=== PATIENT | female | born 1965 ===

== ENCOUNTER 2023-03-16 13:51 | Outpatient (AMB) | payer OTHER, SELFPAY ==
--- NOTE | 2023-03-16 14:15 | HO.NEPHOV_ITS ---
HPI HPI Comments History of Present Illness Details Bridget was seen in the office for follow-up of her renal transplant. She has longstanding diabetes. She had end-stage renal disease and was on renal replacement therapy. She does not have any UTIs, pain over her renal transplant, hematuria, dysuria, fever, suprapubic pain, nausea, vomiting, chills, rigors. Her blood sugars are fair and is better. Her blood pressure has been at goal. She has been compliant with her medications. She denies any active lower extremity vascular disease. She has been having shortness of breath on exertion. She has been investigated and followed up by her senior electrical project manager with home she has an appointment this Wednesday. She has no skin rashes. She maintains good hydration and avoids nonsteroidal anti-inflammatory medications. She has no side effects from her immunosuppressive medication. She was accompanied by her during this office visit. [facility] Medical History (Updated 03/16/23 @ 15:07 by Capo Dawson MD) Retinal hemorrhage Peripheral neuropathic pain Neuropathy Hypertension Hypercholesteremia ESRD (end stage renal disease) Diabetes mellitus Dermatitis Chronic kidney disease Cellulitis Surgical History (Updated 03/16/23 @ 14:12 by Eliza Draper MA) H/O tubal ligation History of carpal tunnel release -donor kidney transplant Family History (Updated 03/16/23 @ 14:13 by Eliza Draper MA) Sister Cancer Social History (Updated 03/16/23 @ 14:13 by Eliza Draper MA) Patient Tobacco Use Status: Former Tobacco user Vital Signs 03/16/23 14:16 Height 5 ft 3 in Weight 215 lb 2 oz BMI 38.1 BP 138/64 Blood Pressure Location Rt brachial Position Sitting Pulse 73 Pulse Source Pulse Oximeter Pulse Oximetry (%) 98 Oxygen Delivery Method Room Air Physical Exam Vital Signs: Last Vital Signs Pulse 73 03/16/23 14:16 BP 138/64 03/16/23 14:16 Pulse Ox 98 03/16/23 14:16 Oxygen Delivery Method Room Air 03/16/23 14:16 BMI result Body Mass Index 38.1 Const General: comfortable and no acute distress Orientation/consciousness: patient oriented x3 HEENT Head: Yes normocephalic Mouth: Normal oral and palatal mucosa present Eyes EOM: EOMs intact bilaterally Neck Neck: Yes supple Resp Auscultation: clear to auscultation bilaterally Cardio Jugular venous distension: no JVD Rate: regular rate GI Palpation (GI): Soft to palpation Auscultation: normal bowel sounds General: Yes no CVA tenderness Back/Spine/Pelvis Back: no CVA tenderness Skin General skin exam: no rashes or lesions noted Neuro General: patient oriented x3 and moves all extremities Extrem General: Yes no pedal edema Assessment & Plan Assessment & Plan (1) Renal transplant disorder: Code(s): T86.10 - Unspecified complication of kidney transplant Plan Bridget had ESRD from diabetic nephropathy. She underwent a donor re nal transplant. Her transplant function have been stable. Her blood pressure has been at goal. Her blood sugar is better controlled. she needs to lose weight. She is not on any Joshua inhibitor. She is not known to have any significant proteinuria. She has no side effects from her immunosuppression medications. She maintains good hydration. She avoids nonsteroidal anti- inflammatories. She needs to see a grocery clerk checking once a year. She has a follow-up with her senior electrical project manager this Wednesday. She has no other active vascular symptoms. She is on statins. I did not make any medication changes today. I ordered follow-up blood work including tacrolimus levels. All her and her 's questions were answered. Follow-up given. Orders: Orders Tacrolimus Prograf 03/16/23 T86.10 - Unspecified complication of kidney transplant Complete Blood Count Auto Diff 03/16/23 T86.10 - Unspecified complication of kidney transplant Creatinine 03/16/23 T86.10 - Unspecified complication of kidney transplant Electrolytes 03/16/23 T86.10 - Unspecified complication of kidney transplant Blood Urea Nitrogen 03/16/23 T86.10 - Unspecified complication of kidney transplant Calcium 03/16/23 T86.10 - Unspecified complication of kidney transplant Aspartate Amino Transferase 03/16/23 T86.10 - Unspecified complication of kidney transplant Alanine Aminotransferase 03/16/23 T86.10 - Unspecified complication of kidney transplant Hemoglobin A1c 03/16/23 T86.10 - Unspecified complication of kidney transplant Protein Creatinine Ratio, Ur 03/16/23 T86.10 - Unspecified complication of kidney transplant Coding Level of Care Code Est Pt Level 4 (69490) Diagnoses Renal transplant disorder T86.10 Results Reviewed Nephrology Results: No Data to Display
[2023-03-16 14:16] VITALS: BP 138/64; PULSE 73; O2SAT 98; BMI 38.1
== END 2023-03-16 15:10 | disposition home or self-care (01) ==
PROVIDERS: PCP Internal Medicine; Visit Provider Internal Medicine Nephrology
DX: T86.10 Unspecified complication of kidney transplant (principal)
CPT/HCPCS: 99214

== ENCOUNTER → 2023-03-16 13:51 | Outpatient (BNVA) | payer OTHER, SELFPAY | PROVIDERS: PCP Internal Medicine; Visit Provider Internal Medicine Nephrology | DX: T86.10 Unspecified complication of kidney transplant (principal) | CPT/HCPCS: 99212 ==

== ENCOUNTER 2023-06-08 10:04 | Outpatient (AMB) | payer OTHER, SELFPAY ==
--- NOTE | 2023-06-08 10:31 | HO.NEPHOV ---
HPI HPI Comments History of Present Illness Details Bridget was seen in the office for follow-up of her renal transplant. She has longstanding diabetes. Her BS is not well controlled. Her A1C was going up. She had end-stage renal disease and was on renal replacement therapy. She does not have any UTIs, pain over her renal transplant, hematuria, dysuria, fever, suprapubic pain, nausea, vomiting, chills, rigors. Her blood pressure has been at goal. She has been compliant with her medications. She denies any active lower extremity vascular disease. She has been investigated and followed up by her complaint investigations officer. She has no skin rashes. She maintains good hydration and avoids nonsteroidal anti-inflammatory medications. She has no side effects from her immunosuppressive medication. She was accompanied by her during this office visit. [facility] Medical History (Updated 06/08/23 @ 11:02 by Capo Dawson MD) Retinal hemorrhage Peripheral neuropathic pain Neuropathy Hypertension Hypercholesteremia ESRD (end stage renal disease) Diabetes mellitus Dermatitis Chronic kidney disease Cellulitis Surgical History H/O tubal ligation History of carpal tunnel release -donor kidney transplant Family History Sister Cancer Social History Patient Tobacco Use Status: Former Tobacco user Vital Signs 06/08/23 10:32 Height 5 ft 3 in Weight 214 lb BMI 37.9 BP 150/80 H Blood Pressure Location Lt brachial Position Sitting Pulse 71 Pulse Source Pulse Oximeter Pulse Oximetry (%) 99 Oxygen Delivery Method Room Air Physical Exam Vital Signs: Last Vital Signs Pulse 71 06/08/23 10:32 BP 150/80 H 06/08/23 10:32 Pulse Ox 99 06/08/23 10:32 Oxygen Delivery Method Room Air 06/08/23 10:32 BMI result Body Mass Index 37.9 Const General: comfortable and no acute distress Orientation/consciousness: patient oriented x3 HEENT Head: Yes normocephalic Mouth: Normal oral and palatal mucosa present Eyes EOM: EOMs intact bilaterally Neck Neck: Yes supple Resp Auscultation: clear to auscultation bilaterally Cardio Jugular venous distension: no JVD Rate: regular rate GI Palpation (GI): Soft to palpation Auscultation: normal bowel sounds General: Yes no CVA tenderness Back/Spine/Pelvis Back: no CVA tenderness Skin General skin exam: no rashes or lesions noted Neuro General: patient oriented x3 and moves all extremities Extrem General: Yes no pedal edema Assessment & Plan Assessment & Plan (1) Renal transplant disorder: Code(s): T86.10 - Unspecified complication of kidney transplant (2) Hypertension: Code(s): I10 - Essential (primary) hypertension Qualifiers: Hypertension type: primary hypertension Qualified Code(s): I10 - Essential (primary) hypertension Plan Bridget had ESRD from diabetic nephropathy. She underwent a donor renal transplant. Her transplant function have been stable. Her blood pressure has been at goal. Her blood sugar is better controlled. she needs to lose weight. She is not on any Joshua inhibitor. She is not known to have any significant proteinuria. She has no side effects from her immunosuppression medications. She maintains good hydration. She avoids nonsteroidal anti-inflammatories. She needs to see a solar sales advisor once a year. She has a follow-up with her complaint investigations officer & director trial. She has no other active vascular symptoms. She is on statins. I did not make any medication changes today. I ordered follow-up blood work including tacrolimus levels. All her and her 's questions were answered. Follow-up given. Orders: Orders Tacrolimus Prograf Today I10 - Essential (primary) hypertension, T86.10 - Unspecified complication of kidney transplant Blood Urea Nitrogen Today I10 - Essential (primary) hypertension, T86.10 - Unspecified complication of kidney transplant Calcium Today I10 - Essential (primary) hypertension, T86.10 - Unspecified complication of kidney transplant Electrolytes Today I10 - Essential (primary) hypertension, T86.10 - Unspecified complication of kidney transplant Coding Level of Care Code Est Pt Level 4 (16102) Diagnoses Renal transplant disorder T86.10 Primary hypertension I10 Hypertension type: primary hypertension Results Reviewed Nephrology Results: No Data to Display
[2023-06-08 10:32] VITALS: BP 150/80; PULSE 71; O2SAT 99; BMI 37.9
== END 2023-06-08 11:09 | disposition home or self-care (01) ==
PROVIDERS: PCP Internal Medicine; Visit Provider Internal Medicine Nephrology
DX: T86.10 Unspecified complication of kidney transplant (principal); I10 Essential (primary) hypertension
CPT/HCPCS: 99214

== ENCOUNTER → 2023-06-08 10:04 | Outpatient (BNVA) | payer OTHER, SELFPAY | PROVIDERS: PCP Internal Medicine; Visit Provider Internal Medicine Nephrology | DX: T86.10 Unspecified complication of kidney transplant (principal); I10 Essential (primary) hypertension | CPT/HCPCS: 99212 ==

== ENCOUNTER 2023-08-09 07:35 | Outpatient (REF) | payer OTHER, SELFPAY ==
[2023-08-09 07:58] LABS: Basophils Percent Auto 0.8 % (0-2); Eosinophils Absolute Auto 0.1 X10*3/uL (0.0-0.4); Eosinophils Percent Auto 2.3 % (0-4); Hematocrit 35.8 % (37.0-47.0); Hemoglobin 11.2 g/dl (12.0-16.0); Imm Gran Abs Auto 0.02 X10*3/uL (0.00-0.03); Imm Gran Pct Auto 0.4 % (0.0-0.4); Lymphocytes Percent Auto 18.5 % (20-40); MANUAL DIFF FLAG NO; Mean Corpuscular HGB Conc 31.3 g/dl (31.0-35.0); Mean Corpuscular Hemoglobin 26.6 pg (27.0-33.0); Mean Platelet Volume 11.2 fL (9.4-12.3); Monocytes Absolute Auto 0.5 X10*3/uL (0.1-1.2); Monocytes Percent Auto 9.1 % (2-11); Neutrophils Absolute Auto 3.7 x10*3/uL (2.0-8.3); Neutrophils Percent Auto 68.9 % (45-73); Platelet Count 180 X10*3/uL (160-400); Red Blood Count 4.21 X10*6/uL (4.20-5.50); Red Cell Distribution Width 13.1 % (11.0-16.0); White Blood Count 5.3 X10*3/uL (4.8-10.8)
[2023-08-09 08:19] LABS: Estimated Average Glucose 192 mg/dL; Hemoglobin A1c % 8.3 % (<6.0)
[2023-08-09 08:20] LABS: Alanine Aminotransferase 18 U/L (0-31); Anion Gap 15 (12-20); Aspartate Amino Transferase 12 U/L (5-31); Blood Urea Nitrogen 30 mg/dL (9-16); Calcium 10.1 mg/dL (8.4-10.2); Carbon Dioxide 21 mmol/L (22-29); Chloride 108 mmol/L (96-108); Estimated Glomerular Filt Rate 30; Potassium 4.6 mmol/L (3.3-5.1); Sodium 139 mmol/L (135-145)
[2023-08-09 09:53] LABS: Creatinine Urine 170.86 mg/dL; Protein/Creatinine Ratio, Ur 0.12 (<0.2); Total Protein Urine Random 21 mg/dL (<12)
[2023-08-10 12:23] LABS: Tacrolimus Prograf 7.3 mcg/L
== END 2023-08-09 07:36 | disposition home or self-care (01) ==
LOC: HO.LAB 07:35
PROVIDERS: PCP Internal Medicine; Visit Provider Internal Medicine Nephrology
DX: T86.10 Unspecified complication of kidney transplant (principal); I10 Essential (primary) hypertension; Z79.899 Other long term (current) drug therapy
CPT/HCPCS: 36415; 80051; 80197; 82310; 82565; 82570; 83036; 84156; 84450; 84460; 84520; 85025

== ENCOUNTER 2023-08-10 09:37 | Outpatient (AMB) | payer OTHER, SELFPAY ==
--- NOTE | 2023-08-10 09:40 | HO.NEPHOV_ITS ---
Vital Signs 08/10/23 09:47 Height 5 ft 3 in Weight 205 lb 6 oz BMI 36.4 BP 130/60 Blood Pressure Location Rt brachial Position Sitting Pulse 68 Pulse Source Pulse Oximeter Pulse Oximetry (%) 99 Oxygen Delivery Method Room Air Intake Visit Reasons: 2 Month F/U/ Confirmed Habitat Conservation Planner Required: No Accompanied by: Self / Same As Patient Allergies No Known Allergies Allergy (Verified 08/10/23 09:49) HPI Comments Details: Bridget was seen in the office for follow-up of her renal transplant. She has longstanding diabetes. She had end-stage renal disease and was on renal replacement therapy. She does not have any UTIs, pain over her renal transplant, hematuria, dysuria, fever, suprapubic pain, nausea, vomiting, chills, rigors. Her blood sugars are fair and is better. Her blood pressure has been at goal. She has been compliant with her medications. She denies any active lower extremity vascular disease. She has no skin rashes. She maintains good hydration and avoids nonsteroidal anti-inflammatory medications. She has no side effects from her immunosuppressive medication. [facility] Medical History (Updated 06/08/23 @ 11:02 by Capo Dawson MD) Retinal hemorrhage Peripheral neuropathic pain Neuropathy Hypertension Hypercholesteremia ESRD (end stage renal disease) Diabetes mellitus Dermatitis Chronic kidney disease Cellulitis Surgical History H/O tubal ligation History of carpal tunnel release -donor kidney transplant Family History Sister Cancer Social History Patient Tobacco Use Status: Former Tobacco user Physical Exam Const General: comfortable and no acute distress Orientation/consciousness: patient oriented x3 HEENT Head: Yes normocephalic Mouth: Normal oral and palatal mucosa present Eyes EOM: EOMs intact bilaterally Neck Neck: Yes supple Resp Auscultation: clear to auscultation bilaterally Cardio Jugular venous distension: no JVD Rate: regular rate GI Palpation (GI): Soft to palpation Auscultation: normal bowel sounds General: Yes no CVA tenderness Back/Spine/Pelvis Back: no CVA tenderness Skin General skin exam: no rashes or lesions noted Neuro General: patient oriented x3 and moves all extremities Extrem General: Yes no pedal edema Results Reviewed Nephrology Results: Hgb 11.2 g/dl (12.0-16.0) L 08/09/23 WBC 5.3 X10*3/uL (4.8-10.8) 08/09/23 Plt Count 180 X10*3/uL (160-400) 08/09/23 Sodium 139 mmol/L (135-145) 08/09/23 Potassium 4.6 mmol/L (3.3-5.1) 08/09/23 Chloride 108 mmol/L (96-108) 08/09/23 Carbon Dioxide 21 mmol/L (22-29) L 08/09/23 BUN 30 mg/dL (9-16) H 08/09/23 Creatinine 1.75 mg/dL (0.5-1.4) H 08/09/23 Calcium 10.1 mg/dL (8.4-10.2) 08/09/23 Urine Creatinine 170.86 mg/dL 08/09/23 Protein/Creatinin Ratio 0.12 (<0.2) 08/09/23 Assessment & Plan Assessment & Plan (1) Renal transplant disorder: Code(s): T86.10 - Unspecified complication of kidney transplant Category: Medical (2) Hypertension: Code(s): I10 - Essential (primary) hypertension Category: Medical Qualifiers: Hypertension type: primary hypertension Qualified Code(s): I10 - E ssential (primary) hypertension Plan Bridget had ESRD from diabetic nephropathy. She underwent a donor renal transplant. Her transplant function have been stable. Her blood pressure has been at goal. Her blood sugar is better controlled. she needs to lose weight. She is not on any Joshua inhibitor. She is not known to have any significant proteinuria. She has no side effects from her immunosuppression medications. She maintains good hydration. She avoids nonsteroidal anti- inflammatories. She needs to see a principal statistical scientist once a year. She has a follow-up with her manager science & consulting analyst. She has no other active vascular symptoms. She is on statins. I did not make any medication changes today. I ordered follow-up blood work including tacrolimus levels. All her questions were answered. Follow-up given. Orders: Orders Creatinine Today I10 - Essential (primary) hypertension, T86.10 - Unspecified complication of kidney transplant Blood Urea Nitrogen Today I10 - Essential (primary) hypertension, T86.10 - Unspecified complication of kidney transplant Tacrolimus Prograf Today I10 - Essential (primary) hypertension, T86.10 - Unspecified complication of kidney transplant Electrolytes Today I10 - Essential (primary) hypertension, T86.10 - Unspecified complication of kidney transplant Calcium Today I10 - Essential (primary) hypertension, T86.10 - Unspecified complication of kidney transplant Alanine Aminotransferase Today I10 - Essential (primary) hypertension, T86.10 - Unspecified complication of kidney transplant Aspartate Amino Transferase Today I10 - Essential (primary) hypertension, T86.10 - Unspecified complication of kidney transplant Complete Blood Count Auto Diff 3 Months I10 - Essential (primary) hypertension, T86.10 - Unspecified complication of kidney transplant Phosphorus Today I10 - Essential (primary) hypertension, T86.10 - Unspecified complication of kidney transplant Magnesium Today I10 - Essential (primary) hypertension, T86.10 - Unspecified complication of kidney transplant Hemoglobin A1c Today I10 - Essential (primary) hypertension, T86.10 - Unspecified complication of kidney transplant Coding Level of Care Code Est Pt Level 4 (14345) Diagnoses Renal transplant disorder T86.10 Primary hypertension I10 Hypertension type: primary hypertension
[2023-08-10 09:47] VITALS: BP 130/60; PULSE 68; O2SAT 99; BMI 36.4
== END 2023-08-10 10:30 | disposition home or self-care (01) ==
PROVIDERS: PCP Internal Medicine; Visit Provider Internal Medicine Nephrology
DX: T86.10 Unspecified complication of kidney transplant (principal); I10 Essential (primary) hypertension
CPT/HCPCS: 99214

== ENCOUNTER → 2023-08-10 09:37 | Outpatient (BNVA) | payer OTHER, SELFPAY | PROVIDERS: PCP Internal Medicine; Visit Provider Internal Medicine Nephrology | DX: E11.22 Type 2 diabetes mellitus with diabetic chronic kidney disease (principal); I12.0 Hypertensive chronic kidney disease with stage 5 chronic kidney disease or end stage renal disease; N18.6 End stage renal disease; E11.21 Type 2 diabetes mellitus with diabetic nephropathy; Z94.0 Kidney transplant status | CPT/HCPCS: 99212 ==

== ENCOUNTER 2023-12-07 08:43 | Outpatient (REF) | payer OTHER, SELFPAY ==
[2023-12-07 17:45] LABS: MANUAL DIFF FLAG NO
[2023-12-07 18:14] LABS: Basophils Absolute Auto 0.1 X10*3/uL (0.0-0.2); Basophils Percent Auto 1.6 % (0-2); Eosinophils Absolute Auto 0.1 X10*3/uL (0.0-0.4); Eosinophils Percent Auto 2.1 % (0-4); Hematocrit 35.7 % (37.0-47.0); Hemoglobin 10.8 g/dl (12.0-16.0); Imm Gran Abs Auto 0.01 X10*3/uL (0.00-0.03); Imm Gran Pct Auto 0.2 % (0.0-0.4); Lymphocytes Percent Auto 22.6 % (20-40); Mean Corpuscular HGB Conc 30.3 g/dl (31.0-35.0); Mean Corpuscular Hemoglobin 25.9 pg (27.0-33.0); Mean Corpuscular Volume 85.6 fL (80.0-98.0); Mean Platelet Volume 11.4 fL (9.4-12.3); Monocytes Absolute Auto 0.4 X10*3/uL (0.1-1.2); Monocytes Percent Auto 8.5 % (2-11); Neutrophils Absolute Auto 2.8 x10*3/uL (2.0-8.3); Platelet Count 216 X10*3/uL (160-400); Red Blood Count 4.17 X10*6/uL (4.20-5.50); Red Cell Distribution Width 13.8 % (11.0-16.0); White Blood Count 4.3 X10*3/uL (4.8-10.8)
[2023-12-07 18:25] LABS: Alanine Aminotransferase 27 U/L (0-31); Anion Gap 11 (12-20); Aspartate Amino Transferase 14 U/L (5-31); Blood Urea Nitrogen 32 mg/dL (9-16); Calcium 9.7 mg/dL (8.4-10.2); Carbon Dioxide 25 mmol/L (22-29); Chloride 109 mmol/L (96-108); Estimated Glomerular Filt Rate 39; Magnesium 1.6 mg/dL (1.6-2.6); Phosphorus 3.4 mg/dL (2.7-4.5); Potassium 5.1 mmol/L (3.3-5.1); Sodium 140 mmol/L (135-145)
[2023-12-08 05:19] LABS: Estimated Average Glucose 197 mg/dL; Hemoglobin A1c % 8.5 % (<6.0)
[2023-12-08 11:18] LABS: Tacrolimus Prograf 3.9 mcg/L
== END 2023-12-07 08:44 | disposition home or self-care (01) ==
LOC: HO.HKASLDS 08:43
PROVIDERS: Visit Provider Internal Medicine Nephrology
DX: T86.10 Unspecified complication of kidney transplant (principal); I10 Essential (primary) hypertension; Z13.1 Encounter for screening for diabetes mellitus
CPT/HCPCS: 36415; 80051; 80197; 82310; 82565; 83036; 83735; 84100; 84450; 84460; 84520; 85025

== ENCOUNTER 2023-12-09 12:42 | Outpatient (AMB) | payer OTHER, SELFPAY ==
--- NOTE | 2023-12-09 13:40 | HO.NEPHOV_ITS ---
Vital Signs 12/09/23 13:41 Height 5 ft 3 in Weight 200 lb 4 oz BMI 35.5 BP 148/70 H Blood Pressure Location Rt brachial Position Sitting Pulse 67 Pulse Source Pulse Oximeter Pulse Oximetry (%) 99 Oxygen Delivery Method Room Air Intake Visit Reasons: 3 mo flu- Conf Powder Line Repairer Required: No Accompanied by: Self / Same As Patient Allergies No Known Allergies Allergy (Verified 12/09/23 13:43) HPI Comments Details: Bridget was seen in the office for follow-up of her renal transplant. She has longstanding diabetes. She had end-stage renal disease and was on renal replacement therapy. She does not have any UTIs, pain over her renal transplant, hematuria, dysuria, fever, suprapubic pain, nausea, vomiting, chills, rigors. Her blood sugars are fair and is better. Her blood pressure has been at goal. She has been compliant with her medications. She denies any active lower extremity vascular disease. She has no skin rashes. She maintains good hydration and avoids nonsteroidal anti-inflammatory medications. She has no side effects from her immunosuppressive medication. She recently had E coli UTI needing hospitalization. [facility] Medical History (Updated 06/08/23 @ 11:02 by Capo Dawson MD) Retinal hemorrhage Peripheral neuropathic pain Neuropathy Hypertension Hypercholesteremia ESRD (end stage renal disease) Diabetes mellitus Dermatitis Chronic kidney disease Cellulitis Surgical History H/O tubal ligation History of carpal tunnel release -donor kidney transplant Family History Sister Cancer Social History Patient Tobacco Use Status: Former Tobacco user Review of Systems Const All systems reviewed & are unremarkable except as noted in HPI and below Physical Exam Vital Signs: Last Vital Signs Pulse 67 12/09/23 13:41 BP 148/70 H 12/09/23 13:41 Pulse Ox 99 12/09/23 13:41 Oxygen Delivery Method Room Air 12/09/23 13:41 BMI result Body Mass Index 35.5 Const General: comfortable and no acute distress Orientation/consciousness: patient oriented x3 HEENT Head: Yes normocephalic Mouth: Normal oral and palatal mucosa present Eyes EOM: EOMs intact bilaterally Neck Neck: Yes supple Resp Auscultation: clear to auscultation bilaterally Cardio Jugular venous distension: no JVD Rate: regular rate GI Palpation (GI): Soft to palpation Auscultation: normal bowel sounds General: Yes no CVA tenderness Back/Spine/Pelvis Back: no CVA tenderness Skin General skin exam: no rashes or lesions noted Neuro General: patient oriented x3 and moves all extremities Extrem General: Yes no pedal edema Results Reviewed Nephrology Results: Hgb 10.8 g/dl (12.0-16.0) L 12/07/23 WBC 4.3 X10*3/uL (4.8-10.8) L 12/07/23 Plt Count 216 X10*3/uL (160-400) 12/07/23 Sodium 140 mmol/L (135-145) 12/07/23 Potassium 5.1 mmol/L (3.3-5.1) 12/07/23 Chloride 109 mmol/L (96-108) H 12/07/23 Carbon Dioxide 25 mmol/L (22-29) 12/07/23 BUN 32 mg/dL (9-16) H 12/07/23 Creatinine 1.39 mg/dL (0.5-1.4) 12/07/23 Calcium 9.7 mg/dL (8.4-10.2) 12/07/23 Phosphorus 3.4 mg/dL (2.7-4.5) 12/07/23 Urine Creatinine 170.86 mg/dL 08/09/23 Protein/Creatinin Ratio 0.12 (<0.2) 08/09/23 Assessment & Plan Assessment & Plan (1) Renal transplant disorder: Code(s): T86.10 - Unspecified complication of kidney transplant Category: Medical (2) Hypertension: Code(s): I10 - Essential (primary) hypertension Category: Medical Qualifiers: Hypertension type: primary hypertension Qualified Code(s): I10 - Essential (primary) hypertension Plan Bridget had ESRD from diabetic nephropathy. She underwent a donor renal transplant. Her transplant function have been stable. Her blood pressure has been at goal. Her blood sugar is better controlled. she needs to lose weight. She is not on any Joshua inhibitor. She is not known to have any significant proteinuria. She has no side effects from her immunosuppression medications. She maintains good hydration. She avoids nonsteroidal anti- inflammatories. She needs to see a informatics specialist once a year. She has a follow-up with her director of claims & windows server specialist. She has no other active vascular symptoms. She is on statins. I did not make any medication changes today. I ordered follow-up blood work including tacrolimus levels. All her questions were answered. Follow-up given Orders: Orders Tacrolimus Prograf 3 Months I10 - Essential (primary) hypertension, T86.10 - Unspecified complication of kidney transplant Creatinine 3 Months I10 - Essential (primary) hypertension, T86.10 - Unspecified complication of kidney transplant Complete Blood Count Auto Diff 3 Months I10 - Essential (primary) hypertension, T86.10 - Unspecified complication of kidney transplant Blood Urea Nitrogen 3 Months I10 - Essential (primary) hypertension, T86.10 - Unspecified complication of kidney transplant Electrolytes 3 Months I10 - Essential (primary) hypertension, T86.10 - Unspecified complication of kidney transplant Coding Level of Care Code Est Pt Level 4 (88773) Diagnoses Renal transplant disorder T86.10 Primary hypertension I10 Hypertension type: primary hypertension
[2023-12-09 13:41] VITALS: BP 148/70; PULSE 67; O2SAT 99; BMI 35.5
== END 2023-12-09 14:04 | disposition home or self-care (01) ==
PROVIDERS: PCP Internal Medicine; Visit Provider Internal Medicine Nephrology
DX: T86.10 Unspecified complication of kidney transplant (principal); I10 Essential (primary) hypertension; E11.8 Type 2 diabetes mellitus with unspecified complications
CPT/HCPCS: 99214

== ENCOUNTER → 2023-12-09 12:42 | Outpatient (BNVA) | payer OTHER, SELFPAY | PROVIDERS: PCP Internal Medicine; Visit Provider Internal Medicine Nephrology | DX: E11.22 Type 2 diabetes mellitus with diabetic chronic kidney disease (principal); E11.65 Type 2 diabetes mellitus with hyperglycemia; I12.0 Hypertensive chronic kidney disease with stage 5 chronic kidney disease or end stage renal disease; N18.6 End stage renal disease; Z94.0 Kidney transplant status; T86.10 Unspecified complication of kidney transplant | CPT/HCPCS: 99212 ==

== ENCOUNTER 2024-03-09 13:30 | Outpatient (AMB) | payer OTHER, SELFPAY ==
--- NOTE | 2024-03-09 13:53 | HO.NEPHOV_ITS ---
Vital Signs 03/09/24 13:55 Height 5 ft 3 in Weight 212 lb 6 oz BMI 37.6 BP 164/70 H Blood Pressure Location Rt brachial Position Sitting Pulse 82 Pulse Source Pulse Oximeter Pulse Oximetry (%) 100 Oxygen Delivery Method Room Air Intake Visit Reasons: 3 mon follow up-Conf Orthopaedic Doctor Required: No Accompanied by: Spouse Allergies No Known Allergies Allergy (Verified 03/09/24 13:55) HPI Comments Details: Bridget was seen in the office for follow-up of her renal transplant. Her serum creatinine has gone up. She has longstanding diabetes. She had end-stage renal disease and was on renal replacement therapy. She does not have any UTIs, pain over her renal transplant, hematuria, dysuria, fever, suprapubic pain, nausea, vomiting, chills, rigors. Her blood sugars are fair and is better. Her blood pressure has been at goal. She has been compliant with her medications. She denies any active lower extremity vascular disease. She has no skin rashes. She maintains good hydration and avoids nonsteroidal anti-inflammatory medications. She has no side effects from her immunosuppressive medication. She feels well but concerned about rise in serum creatinine. [facility] Medical History (Updated 06/08/23 @ 11:02 by Capo Dawson MD) Retinal hemorrhage Peripheral neuropathic pain Neuropathy Hypertension Hypercholesteremia ESRD (end stage renal disease) Diabetes mellitus Dermatitis Chronic kidney disease Cellulitis Surgical History H/O tubal ligation History of carpal tunnel release -donor kidney transplant Family History Sister Cancer Social History Patient Tobacco Use Status: Former Tobacco user Review of Systems Const All systems reviewed & are unremarkable except as noted in HPI and below Physical Exam Vital Signs: Last Vital Signs Pulse 82 03/09/24 13:55 BP 164/70 H 03/09/24 13:55 Pulse Ox 100 03/09/24 13:55 Oxygen Delivery Method Room Air 03/09/24 13:55 BMI result Body Mass Index 37.6 Const General: comfortable and no acute distress Orientation/consciousness: patient oriented x3 HEENT Head: Yes normocephalic Mouth: Normal oral and palatal mucosa present Eyes EOM: EOMs intact bilaterally Neck Neck: Yes supple Resp Auscultation: clear to auscultation bilaterally Cardio Jugular venous distension: no JVD Rate: regular rate GI Palpation (GI): Soft to palpation Auscultation: normal bowel sounds General: Yes no CVA tenderness Back/Spine/Pelvis Back: no CVA tenderness Skin General skin exam: no rashes or lesions noted Neuro General: patient oriented x3 and moves all extremities Extrem General: Yes no pedal edema Assessment & Plan Assessment & Plan (1) Renal transplant disorder: Code(s): T86.10 - Unspecified complication of kidney transplant Category: Medical (2) Hypertension: Code(s): I10 - Essential (primary) hypertension Category: Medical Qualifiers: Hypertension type: primary hypertension Qualified Code(s): I10 - Essential (primary) hypertension Plan Bridget had ESRD from diabetic nephropathy. She underwent a donor renal transplant. Her transplant function had been stable but recently it had gone up. Her blood pressure has been at goal. Her blood sugar is better controlled. she needs to lose weight. She is not on any Joshua inhibitor. She is not known to have any significant proteinuria. She has no side effects from her immunosuppression medications. She maintains good hydration. She avoids nonsteroidal anti-inflammatories. She needs to see a executive vice president and chief financial officer once a year. She has a follow-up with her business systems administrator & electronic imager. She has no other active vascular symptoms. She is on statins. I did not make any medication changes today. I ordered follow-up blood work including tacrolimus levels. All her questions were answered. Follow-up given Orders: Orders Blood Urea Nitrogen 2 Weeks I10 - Essential (primary) hypertension, T86.10 - Unspecified complication of kidney transplant Calcium 2 Weeks I10 - Essential (primary) hypertension, T86.10 - Unspecified complication of kidney transplant Phosphorus 2 Weeks I10 - Essential (primary) hypertension, T86.10 - Unspecified complication of kidney transplant Prothrombin Time INR 2 Weeks I10 - Essential (primary) hypertension, T86.10 - Unspecified complication of kidney transplant Creatinine 2 Weeks I10 - Essential (primary) hypertension, T86.10 - Unspecified complication of kidney transplant Electrolytes 2 Weeks I10 - Essential (primary) hypertension, T86.10 - Unspecified complication of kidney transplant Tacrolimus Prograf 2 Weeks I10 - Essential (primary) hypertension, T86.10 - Unspecified complication of kidney transplant Other Ref Test - Misc 2 Weeks I10 - Essential (primary) hypertension, T86.10 - Unspecified complication of kidney transplant Coding Level of Care Code Est Pt Level 4 (73928) Diagnoses Renal transplant disorder T86.10 Primary hypertension I10 Hypertension type: primary hypertension
[2024-03-09 13:55] VITALS: BP 164/70; PULSE 82; O2SAT 100; BMI 37.6
--- OUTSIDE RECORDS SUMMARY | 2024-03-15 02:35 | XMS_ITS ---
Author Name [facility] Organization Unknown Problems Problem Status Onset Date Problem Type Date of Resoluti on Source Complication of transplanted kidney, unspecified complication active [facility]counter[facility]osisAct [facility]
== END 2024-03-09 14:38 | disposition home or self-care (01) ==
PROVIDERS: PCP Internal Medicine; Visit Provider Internal Medicine Nephrology
DX: T86.10 Unspecified complication of kidney transplant (principal); I10 Essential (primary) hypertension
CPT/HCPCS: 99214

== ENCOUNTER → 2024-03-09 13:30 | Outpatient (BNVA) | payer OTHER, SELFPAY | PROVIDERS: PCP Internal Medicine; Visit Provider Internal Medicine Nephrology | DX: E11.21 Type 2 diabetes mellitus with diabetic nephropathy (principal); T86.10 Unspecified complication of kidney transplant; I10 Essential (primary) hypertension | CPT/HCPCS: 99212 ==

== ENCOUNTER 2024-03-27 10:29 | Outpatient (REF) | payer OTHER, SELFPAY ==
[2024-03-27 10:45] LABS: MANUAL DIFF FLAG NO
[2024-03-27 10:48] LABS: Basophils Absolute Auto 0.1 X10*3/uL (0.0-0.2); Basophils Percent Auto 1.5 % (0-2); Eosinophils Absolute Auto 0.1 X10*3/uL (0.0-0.4); Eosinophils Percent Auto 2.9 % (0-4); Hematocrit 36.5 % (37.0-47.0); Hemoglobin 11.2 g/dl (12.0-16.0); Imm Gran Abs Auto 0.03 X10*3/uL (0.00-0.03); Imm Gran Pct Auto 0.6 % (0.0-0.4); Lymphocytes Absolute Auto 1.1 X10*3/uL (1.2-4.9); Mean Corpuscular HGB Conc 30.7 g/dl (31.0-35.0); Mean Corpuscular Hemoglobin 26.2 pg (27.0-33.0); Mean Corpuscular Volume 85.5 fL (80.0-98.0); Mean Platelet Volume 10.3 fL (9.4-12.3); Monocytes Absolute Auto 0.5 X10*3/uL (0.1-1.2); Monocytes Percent Auto 9.8 % (2-11); Neutrophils Percent Auto 62.2 % (45-73); Platelet Count 214 X10*3/uL (160-400); Red Blood Count 4.27 X10*6/uL (4.20-5.50); Red Cell Distribution Width 13.7 % (11.0-16.0); White Blood Count 4.8 X10*3/uL (4.8-10.8)
[2024-03-27 10:53] LABS: Prothrombin Time 11.4 SEC (10.9-12.4)
[2024-03-27 11:05] LABS: Anion Gap 13 (12-20); Blood Urea Nitrogen 38 mg/dL (9-16); Calcium 9.3 mg/dL (8.4-10.2); Carbon Dioxide 23 mmol/L (22-29); Chloride 110 mmol/L (96-108); Estimated Glomerular Filt Rate 34; Phosphorus 3.1 mg/dL (2.7-4.5); Potassium 4.8 mmol/L (3.3-5.1); Sodium 141 mmol/L (135-145)
[2024-03-30 23:09] LABS: BK Virus DNA QN PCR Whole Bld Not Detected Log cps/mL; BK Virus DNA QN PCR Whole Bld Not Detected copies/mL
== END 2024-03-27 10:30 | disposition home or self-care (01) ==
LOC: HO.LAB 10:29
PROVIDERS: PCP Internal Medicine; Visit Provider Internal Medicine Nephrology
DX: I10 Essential (primary) hypertension (principal); T86.10 Unspecified complication of kidney transplant; Z79.01 Long term (current) use of anticoagulants
CPT/HCPCS: 36415; 80051; 80197; 82310; 82565; 84100; 84520; 85025; 85610; 87799

== ENCOUNTER 2024-04-11 11:07 | Outpatient (AMB) | payer OTHER, SELFPAY ==
--- NOTE | 2024-04-11 11:09 | HO.NEPHOV_ITS ---
Vital Signs 04/11/24 11:11 Height 5 ft 3 in Weight 211 lb 2 oz BMI 37.4 BP 140/60 H Blood Pressure Location Rt brachial Position Sitting Pulse 66 Pulse Source Pulse Oximeter Pulse Oximetry (%) 100 Oxygen Delivery Method Room Air Intake Visit Reasons: 1 mo follow up/ Conf Airplane Cover Maker Required: No Accompanied by: Spouse Allergies No Known Allergies Allergy (Verified 04/11/24 11:10) HPI Comments Details: Bridget was seen in the office for follow-up of her renal transplant. She has longstanding diabetes. She had end-stage renal disease and was on renal replacement therapy. She does not have any UTIs, pain over her renal transplant, hematuria, dysuria, fever, suprapubic pain, nausea, vomiting, chills, rigors. Her blood sugars are fair and is better. Her blood pressure has been at goal. She has been compliant with her medications. She denies any active lower extremity vascular disease. She has no skin rashes. She maintains good hydration and avoids nonsteroidal anti-inflammatory medications. She has no side effects from her immunosuppressive medication. She feels well [facility] Medical History (Updated 06/08/23 @ 11:02 by Capo Dawson MD) Retinal hemorrhage Peripheral neuropathic pain Neuropathy Hypertension Hypercholesteremia ESRD (end stage renal disease) Diabetes mellitus Dermatitis Chronic kidney disease Cellulitis Surgical History H/O tubal ligation History of carpal tunnel release -donor kidney transplant Family History Sister Cancer Social History Patient Tobacco Use Status: Former Tobacco user Review of Systems Const All systems reviewed & are unremarkable except as noted in HPI and below Physical Exam Vital Signs: Last Vital Signs Pulse 66 04/11/24 11:11 BP 140/60 H 04/11/24 11:11 Pulse Ox 100 04/11/24 11:11 Oxygen Delivery Method Room Air 04/11/24 11:11 BMI result Body Mass Index 37.4 Const General: comfortable and no acute distress Orientation/consciousness: patient oriented x3 HEENT Head: Yes normocephalic Mouth: Normal oral and palatal mucosa present Eyes EOM: EOMs intact bilaterally Neck Neck: Yes supple Resp Auscultation: clear to auscultation bilaterally Cardio Jugular venous distension: no JVD Rate: regular rate GI Palpation (GI): Soft to palpation Auscultation: normal bowel sounds General: Yes no CVA tenderness Back/Spine/Pelvis Back: no CVA tenderness Skin General skin exam: no rashes or lesions noted Neuro General: patient oriented x3 and moves all extremities Extrem General: Yes no pedal edema Results Reviewed Nephrology Results: Hgb 11.2 g/dl (12.0-16.0) L 03/27/24 WBC 4.8 X10*3/uL (4.8-10.8) 03/27/24 Plt Count 214 X10*3/uL (160-400) 03/27/24 Sodium 141 mmol/L (135-145) 03/27/24 Potassium 4.8 mmol/L (3.3-5.1) 03/27/24 Chloride 110 mmol/L (96-108) H 03/27/24 Carbon Dioxide 23 mmol/L (22-29) 03/27/24 BUN 38 mg/dL (9-16) H 03/27/24 Creatinine 1.58 mg/dL (0.5-1.4) H 03/27/24 Calcium 9.3 mg/dL (8.4-10.2) 03/27/24 Phosphorus 3.1 mg/dL (2.7-4.5) 03/27/24 Urine Creatinine 170.86 mg/dL 08/09/23 Protein/Creatinin Ratio 0.12 (<0.2) 08/09/23 Assessment & Plan Assessment & Plan (1) Hypertension: Code(s): I10 - Essential (primary) hypertension Category: Medical Qualifiers: Hypertension type: primary hypertension Qualified Code(s): I10 - Essential (primary) hypertension (2) Renal transplant disorder: Code(s): T86.10 - Unspecified complication of kidney transplant Category: Medical Plan Bridget had ESRD from diabetic nephropathy. She underwent a donor renal transplant. Her transplant function had been stable . Her blood pressure has been at goal. Her blood sugar is better controlled. she needs to lose weight. She is not on any Joshua inhibitor. She is not known to have any significant proteinuria. She has no side effects from her immunosuppression medications. She maintains good hydration. She avoids nonsteroidal anti- inflammatories. She needs to see a vascular specialists once a year. She has a foll ow-up with her boomswing operator & land management supervisor. She has no other active vascular symptoms. She is on statins. I did not make any medication changes today. I ordered follow-up blood work including tacrolimus levels. ( recently increased to 9 mg ) All her questions were answered. Follow-up given Orders: Orders Complete Blood Count Auto Diff 2 Months I10 - Essential (primary) hypertension, T86.10 - Unspecified complication of kidney transplant Creatinine 2 Months I10 - Essential (primary) hypertension, T86.10 - Unspecified complication of kidney transplant Blood Urea Nitrogen 2 Months I10 - Essential (primary) hypertension, T86.10 - Unspecified complication of kidney transplant Phosphorus 2 Months I10 - Essential (primary) hypertension, T86.10 - Unspecified complication of kidney transplant Blood Urea Nitrogen 3 Weeks I10 - Essential (primary) hypertension, T86.10 - Unspecified complication of kidney transplant Electrolytes 3 Weeks I10 - Essential (primary) hypertension, T86.10 - Unspecified complication of kidney transplant Tacrolimus Prograf 2 Months I10 - Essential (primary) hypertension, T86.10 - Unspecified complication of kidney transplant Electrolytes 2 Months I10 - Essential (primary) hypertension, T86.10 - Unspecified complication of kidney transplant Calcium 2 Months I10 - Essential (primary) hypertension, T86.10 - Unspecified complication of kidney transplant Magnesium 2 Months I10 - Essential (primary) hypertension, T86.10 - Unspecified complication of kidney transplant Tacrolimus Prograf 3 Weeks I10 - Essential (primary) hypertension, T86.10 - Unspecified complication of kidney transplant Creatinine 3 Weeks I10 - Essential (primary) hypertension, T86.10 - Unspecified complication of kidney transplant Medications: New tacrolimus XL must administer in the morning on an empty stomach, 1 hour before or 2 hours after a meal 1 mg PO QAM 30 caps 10RF Coding Level of Care Code Est Pt Level 4 (37765) Diagnoses Primary hypertension I10 Hypertension type: primary hypertension Renal transplant disorder T86.10
[2024-04-11 11:11] VITALS: BP 140/60; PULSE 66; O2SAT 100; BMI 37.4
== END 2024-04-11 11:40 | disposition home or self-care (01) ==
PROVIDERS: PCP Internal Medicine; Visit Provider Internal Medicine Nephrology
DX: I10 Essential (primary) hypertension (principal); T86.10 Unspecified complication of kidney transplant
CPT/HCPCS: 99214

== ENCOUNTER → 2024-04-11 11:07 | Outpatient (BNVA) | payer OTHER, SELFPAY | PROVIDERS: PCP Internal Medicine; Visit Provider Internal Medicine Nephrology | DX: E11.9 Type 2 diabetes mellitus without complications (principal); T86.10 Unspecified complication of kidney transplant | CPT/HCPCS: 99212 ==

== ENCOUNTER 2024-06-15 09:48 | Outpatient (REF) | payer OTHER, SELFPAY ==
--- OUTSIDE RECORDS SUMMARY | 2024-06-15 11:55 | XMS_ITS | Encounter Summary ---
Author Organization [facility] Address [address] [facility] [address] [facility] [address] [place] [address] Phone Care Team Providers Care Nuclear Plant Construction Worker Name Role Phone Gaurav Bennett Primary Care Provider [phone] Reason for Visit * Reason Comments Med Refill Encounter Details Date Type Department Care Team (Late st Contact Info) Description 05/20/2023 Refill [facility] [address] [facility] [address] [place] [id number] Jez Balbuena MD [address] [place] [address], [address] [id number] Long-term drug therapy Social History Tobacco Use Types Packs/Day Years Used Date Smoking Tobacco: Former Cigarettes Q uit: 04/05/2007 Smokeless Tobacco: Never Comments:Smoking History Inf o:Some days Comments Unknown Sex and Gender Information Value Date Recorded Sex Assigned at Not on file Legal Sex Female 5:08 PM EST Gender Identity Not on file Sexual Orientation Not on file documented as of this encounter Plan of Treatment Not on file documented as of this encounter Visit Diagnoses Diagnosis Long-term drug therapy documented in this encounter Care Teams Nuclear Plant Construction Worker Relationship Specialty Start Date End Date Gaurav Bennett [address] [place] [address] PCP - General Internal Medicine 03/07/21 documented as of this encounter
--- OUTSIDE RECORDS SUMMARY | 2024-06-15 11:56 | XMS_ITS | Continuity of Care Document ---
Author Organization [facility] Address [address] [place] [address]- Care Team Providers Care Bordereau Clerk Name Role Phone Didi DILL, Gaurav Primary Care [id number] Date(s): 04/17/24 - 06/03/24 [facility] [address] [place] [id number] Attending Physician: Luli Smyth PharmD Admitting Physician: Luli Smyth PharmD Encounter Type: Pre-OutPatient One Time Allergies, Adverse Reactions, Alerts Substance Criticality Severity Reaction Reaction Severity Status LaMICtal rash Active Immunizations Given and Recorded Vaccine Date Status Refusal Reason influenza virus vaccine, inactivated 02/04/23 Obi rded influenza virus vaccine, inactivated 01/28/22 Obi rded influenza virus vaccine, inactivated 03/18/05 Obi rded SARS-CoV-2 (COVID-19) mRNA-1273 vaccine 06/27/20 R ecorded SARS-CoV-2 (COVID-19) mRNA-1273 vaccine 05/16/20 R ecorded tetanus/diphtheria/pertussis, acel(Tdap) 06/12/19 Recorded Medications amLODIPine 5 mg oral tablet 1 tablet = 5 mg, By Mouth, Daily, # 30 tablet, 0 Refills, Maintenance, 11/20/23 5:37:00 AM EDT, Tablet, Partial fill upon patient request if the prescription is for a schedule II opioid drug. Start Date: 11/20/23 Status: Ordered Quantity: 30.0 Unit: tablet Repeat number: 1 amLODIPine 5 mg oral tablet 1 tablet = 5 mg, By Mouth, Daily, # 30 tablet, 0 Refills, Maintenance, 11/20/23 5:37:00 AM EDT, Tablet, Partial fill upon patient request if the prescription is for a schedule II opioid drug. Start Date: 11/20/23 Stop Date: 11/19/23 Status: Ordered Quantity: 30.0 Unit: tablet Repeat number: 1 atorvastatin 40 mg oral tablet 1 tablet = 40 mg, By Mouth, Daily, # 30 tablet, 11 Refills, Maintenance, 11/23/22 12:57:00 PM EDT, Tablet, [facility], Partial fill upon patient request if the prescription is for a schedule II opioid drug., 160, cm, 11/23/22 7:36:00 EDT, Height, 92.7, kg, 05/04/22 10:28:00 EST, DryWeight Start Date: 11/23/22 Status: Ordered Quantity: 30.0 Unit: tablet Repeat number: 12 Indication: Type 2 diabetes mellitus without complications carvedilol 6.25 mg oral tablet 6.25 mg, 1, tablet, By Mouth, 2 times a day, # 180 tablet, Refills 0, Maintenance, 10/12/22 8:57:00 AM EDT, Partial fill upon patient request if the prescription is for a schedule II opioid drug. Start Date: 10/12/22 Status: Ordered Quantity: 180.0 Unit: tablet Repeat number: 1 cholecalciferol 2000 intl units oral capsule 1 Refill(s), TAKE 1 CAPSULE BY MOUTH EVERY DAY, 0 Refills, 08/04/23 8:00:00 PM EDT, Partial fill uponpatient request if the prescription is for a schedule II opioid drug. Start Date: 08/04/23 Status: Ordered Repeat number: 1 Dexcom G7 Altitude Chamber Technician Dexcom G7 Altitude Chamber Technician, See Instructions, # 1 each, Refills 0, Tot. Refills 0, Maintenance, Use as directed for Diabetes Control, 12/03/23 10:39:00 AM EDT, Supply, 160, cm, 12/03/23 9:07:00 EDT, Height, 92.5, kg, 11/20/23 5:25:00 EDT, Dry Weight Start Date: 12/03/23 Status: Ordered Quantity: 1.0 Unit: each Repeat number: 1 Indication: Type 2 diabetes mellitus without complications Dexcom G7 Sensor Dexcom G7 Sensor, See Instructions, # 9 each, Refills 3, Tot. Refills 3, Maintenance, Use as directed for Diabetes Control, 12/03/23 10:39:00 AM EDT, Supply, 160, cm, 12/03/23 9:07:00 EDT, Height, 92.5, kg, 11/20/23 5:25:00 EDT, Dry Weight Start Date: 12/03/23 Status: Ordered Quantity: 9.0 Unit: each Repeat number: 4 Indication: Type 2 diabetes mellitus without complications docusate sodium 100 mg oral capsule TAKE 1 CAPSULE BY MOUTH 1 (ONE) TIME EACH DAY IF NEEDED (CONSTIPATION) Start Date: 10/12/22 Status: Ordered Repeat number: 1 doxycycline monohydrate 100 mg oral tablet 14 each, 0 Refill(s), TAKE 1 TABLET BY MOUTH TWICE A DAY FOR 7 DAYS, 0 Refills, 12/03/23 9:07:00 AM EDT, Partial fill upon patient request if the prescription is for a schedule II opioid drug. Start Date: 12/03/23 Status: Ordered Repeat number: 1 duloxetine 20 mg oral enteric coated capsule 30 each, 0 Refill(s), TAKE 1 CAPSULE BY MOUTH EVERY DAY FOR 30 DAYS, 0 Refills, 12/03/23 9:07:00 AM EDT, Partial fill upon patient request if the prescription is for a schedule II opioid drug. Start Date: 12/03/23 Status: Ordered Repeat number: 1 Envarsus XR 4 mg oral tablet, extended release 2 tablet = 8 mg, By Mouth, Daily in AM, 0 Refills, Maintenance, 10/12/22 8:58:00 AM EDT, Partial fill upon patient request if the prescription is for a schedule II opioid drug. Start Date: 10/12/22 Status: Ordered Repeat number: 1 Freestyle Lite Lancets See Instructions, # 200 each, Refills 5, Tot. Refills 5, Maintenance, use as directed for BG monitoring 4 times daily, 07/01/23 3:32:00 PM EDT, Dx: E11.65, Supply, 160, cm, 07/01/23 13:02:00 EDT, Height, 92.7, kg, 05/04/22 10:28:00 EST, Dry Weight Start Date: 07/01/23 Stop Date: 12/28/23 Status: Ordered Quantity: 200.0 Unit: each Repeat number: 6 Indication: Type 2 diabetes mellitus without complications Freestyle Lite Test Strips See Instructions, # 200 each, Maintenance, use as directed for BG monitoring 4 times daily, :29:00 AM EDT, Dx: E11.65, Supply, 160, cm, 07/01/23 13:02:00 EDT, Height, 92.7, kg, 05/04/22 10:28:00 EST, Dry Weight Start Date: 10/27/23 Stop Date: 11/26/23 Status: Ordered Quantity: 200.0 Unit: each Repeat number: 1 Indication: Type 2 diabetes mellitus without complications gabapentin 100 mg oral capsule 300 mg, 3, capsule, TAKE 3 capsule at bedtime Start Date: 10/12/22 Status: Ordered Repeat number: 1 ketorolac 0.5% ophthalmic solution 10 mL, 0 Refill(s), 0 Refills, 12/03/23 9:07:00 AM EDT, Partial fill upon patient request if the prescription is for a schedule II opioid drug. Start Date: 12/03/23 Status: Ordered Repeat number: 1 levoFLOXacin 750 mg oral tablet 4 each, 0 Refill(s), TAKE 1 TABLET BY MOUTH EVERY 48 HOURS FOR 7 DAYS, 0 Refills, 12/03/23 9:07:00 AM EDT, Partial fill upon patient request if the prescription is for a schedule II opioid drug. Start Date: 12/03/23 Status: Ordered Repeat number: 1 LORazepam 0.5 mg oral tablet 10 each, 0 Refill(s), TAKE 1 TABLET BY MOUTH EVERY DAY NEEDED FOR ANXIETY, 0 Refills, 12/03/23 9:07:00 AM EDT, Partial fill upon patient request if the prescription is for a schedule II opioid drug. Start Date: 12/03/23 Status: Ordered Repeat number: 1 Lyumjev KwikPen 100 units/mL injectable solution See Instructions, inject 6-16 units at the start of a meal or within 20 minutes after starting a meal 3 times a day per sliding scale MDD 48 units, # 15 mL, 11 Refills, Maintenance, 03/06/24 5:52:00 PM EST, Solution, [facility], replacing Novolog, 160, cm, 03/06/24 9:20:00 EST, Height, 92.5, kg, 11/20/23 5:25:00 EDT, Dry Weight Start Date: 03/06/24 Status: Ordered Quantity: 15.0 Unit: mL Repeat number: 12 Myfortic 180 mg oral delayed release tablet 2 tablet = 360 mg, By Mouth, 2 times a day, # 180 tablet, 11 Refills, Maintenance, 03/13/21 4:38:00 PM EST, EC Tablet, [facility], Partial fill upon patient request if the prescription is for a schedule II opioid drug., 161, cm, 03/13/21 7:40:00 EST, Height, 96.4, kg, 02/13/21 16:07:00 EST, Dry Weight Start Date: 03/13/21 Status: Ordered Quantity: 180.0 Unit: tablet Repeat number: 12 One Touch Delica Lancets See Instructions, # 200 each, Refills 11, Tot. Refills 11, Maintenance, 1 box = 100 lancets; pleaseuse to check blood sugar 3-4x/day for your type 2 diabetes. E11.9, 11/16/22 3:31:00 PM EDT, Supply, 160, cm, 11/02/22 11:46:00 EDT, Height, 92.7, kg, 05/04/22 10:28:00 EST, Dry Weight Start Date: 11/16/22 Status: Ordered Quantity: 200.0 Unit: each Repeat number: 12 One Touch Ultra 2 Glucose Meter See Instructions, # 1 each, Refills 0, Tot. Refills 0, Maintenance, Please use to check blood sugar3-4 x/day for your type 2 diabetes. E11.9, 10/13/22 10:11:00 AM EDT, Supply, 160, cm, 10/12/22 8:35:00 EDT, Height, 92.7, kg, 05/04/22 10:28:00 EST, Dry Weight Start Date: 10/13/22 Status: Ordered Quantity: 1.0 Unit: each Repeat number: 1 One touch Ultra 2 test strips One touch Ultra 2 test strips, See Instructions, # 200 each, Refills 11, Tot. Refills 11, Maintenance, Please use to check blood sugar 3-4 x/day for your type 2 diabetes. E11.9, 10/13/22 10:13:00 AM EDT, Supply, 160, cm, 10/12/22 8:35:00 EDT, Height, 92.7, kg, 05/04/22 10:28:00 EST, Dry Weight Start Date: 10/13/22 Status: Ordered Quantity: 200.0 Unit: each Repeat number: 12 oxyCODONE 5 mg oral tablet 5 mg, 1, tablet, By Mouth, Every 6 hours, PRN, # 12 tablet, Refills 0, Tot. Refills 0, Soft Stop, Pain , Severe, 05/04/22 1:19:00 PM EST, Route to Pharmacy Electronically, [facility], Partial fill upon patient request if the prescription is for a schedule II opioid drug., 160, cm, 05/04/22 10:28:00 EST, Height, 92.7, kg, 05/04/22 10:28:00 EST, Dry Weight Start Date: 05/04/22 Status: Ordered Quantity: 12.0 Unit: tablet Repeat number: 1 Pen [place], 32 G x 4 mm BD Ultra Fine III See Instructions, # 150 each, Refills 11, Tot. Refills 11, Maintenance, UP TO 4 X A DAY INJECTIONS,07/01/23 3:32:00 PM EDT, E11.65, Compound, 160, cm, 07/01/23 13:02:00 EDT, Height, 92.7, kg, 05/04/22 10:28:00 EST, Dry Weight Start Date: 07/01/23 Status: Ordered Quantity: 150.0 Unit: each Repeat number: 12 Senna-Time 8.6 mg oral tablet 1 tablet = 8.6 mg, By Mouth, Daily at bedtime, 0 Refills, Maintenance, 10/12/22 8:57:00 AM EDT, Partial fill upon patient request if the prescription is for a schedule II opioid drug. Start Date: 10/12/22 Status: Ordered Repeat number: 1 trazodone 100 mg oral tablet 1 tablet = 100 mg, By Mouth, Daily at bedtime, 0 Refills, Maintenance, 06/04/14 11:14:39 AM EST Start Date: 06/04/14 Status: Ordered Repeat number: 1 Tresiba FlexTouch 100 units/mL subcutaneous solution See Instructions, INJECT 30 UNITS SUBCUTANEOUSLY DAILY AT BEDTIME, # 15 mL, 11 Refills, Maintenance, 09/09/23 6:19:00 AM EDT, [facility]/pharmacy #[id number], 160, cm, 07/01/23 13:02:00 EDT, Height, 92.7, kg, 05/04/22 10:28:00 EST, Dry Weight Start Date: 09/09/23 Status: Ordered Quantity: 15.0 Unit: mL Repeat number: 12 Trulicity Pen 4.5 mg/0.5 mL subcutaneous solution See Instructions, INJECT 4.5 MG SUBCUTANEOUSLY EVERY WEEK; ROTATE INJECTION SITES, # 2 mL, 10 Refills, Maintenance, 05/02/24 7:39:00 AM EST, [facility], 160, cm, 03/06/24 9:20:00 EST,Height, 92.5, kg, 11/20/23 5:25:00 EDT, Dry Weight Start Date: 05/02/24 Status: Ordered Quantity: 2.0 Unit: mL Repeat number: 1 Vitamin D3 2000 intl units oral capsule 90 each, 0 Refill(s), TAKE 1 CAPSULE BY MOUTH EVERY DAY, 0 Refills, 12/03/23 9:07:00 AM EDT, Partialfill upon patient request if the prescription is for a schedule II opioid drug. Start Date: 12/03/23 Status: Ordered Repeat number: 1 Vitamin D3 50 mcg (2000 intl units) oral tablet, disintegrating 1 tablet = 50 mcg, By Mouth, Daily, # 90 tablet, 0 Refills, Maintenance, 11/20/23 5:46:00 AM EDT, DIS Tablet, Partial fill upon patient request if the prescription is for a schedule II opioid drug. 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 Confirmed Active Use of opiates for therapeutic purposes Confirmed Active History of medical problems 1 Confirmed Active -donor kidney transplant 2 Confirmed 02/13/21 Active Hypercholesterolemia Confirmed Active Hypertension Confirmed Active Neuropathy Confirmed Active Peripheral neuropathic pain Confirmed Active Retinal hemorrhage Confirmed Active Severe obesity (BMI 35.0-39.9) with comorbidity Confirmed Active 1Pain relevant problem list includes: See below 2campath induction Social History Social History Type Response Smoking Status Former smoker; Tobac co user in household: No; Stopped at age: 44; entered on: 06/11/17 Sex Sex Representation Female (finding) Patient Care team information Care Team Personnel Name: Pallavi DILL, Tawanda Chapin Position: [facility] Renal MD Member Role: Lifetime Consulting Physician Address: [address] [place] [address] [address] [facility] [place] [address]- [place] Telecom: Name: Luli Pacheco RN Position: [facility] RN Member Role: Primary Care Nurse Name: Gaurav Tolbert MD Position: [facility] Outreach Member Role: PCP Address: [address] [place] [address]- Telecom: Name: Gasper James MD Position: [facility] Renal MD Member Role: Lifetime Consulting Physician Address: [address] [facility] [address] [facility] [place] [address]- [place] Telecom: Name: Waylon Cardenas MD Position: [facility] Outreach Member Role: Lifetime Consulting Physician Address: [address] [facility] [address] [facility] [place] [address]- [place] Telecom: Name: Verona Alatorre RN Position: S RN Member Role: Primary Care Nurse Name: Hesham Arroyo RN Position: [facility] RN Member Role: Primary Care Nurse Care Team Related Persons Name: BUSTER MARTINS Insurance Providers Guarantor name: ARIEL MARTINS Health Plan Information #: 1 P[facility] CARE Member Number: [id number] Policy Number: NA Group Number: NA Health Plan Information #: 2 Payer: [facility] [employer] [employer] CARE Member Number: [id number] Policy Number: NA Group Number: NA
--- OUTSIDE RECORDS SUMMARY | 2024-06-15 11:56 | XMS_ITS | Encounter Summary ---
Author Organization [facility] Address [address] [facility] [address] [place] [address] Phone Care Team Providers Care High School Social Studies Teacher Name Role Phone Gaurav Bennett Primary Care Provider [phone] Reason for Visit * Reason Comments Med Refill Encounter Details Date Type Department Care Team (Late st Contact Info) Description 10/09/2020 Refill [facility] [address] [facility] [address] [place] [phone] Capo Dawson MD Social History Tobacco Use Types Packs/Day Years Used Date Smoking Tobacco: Former Cigarettes Q uit: 04/05/2007 Comments:Smoking History Inf o:Some days Comments Unknown Sex and Gender Information Value Date Recorded Sex Assigned at Not on file Legal Sex Female 5:08 PM EST Gender Identity Not on file Sexual Orientation Not on file documented as of this encounter Plan of Treatment Not on file documented as of this encounter Visit Diagnoses Not on filedocumented in this encounter Care Teams High [employer] Social Studies Teacher Relationship Specialty Start Date End Date Gaurav Bennett [address] [place] [address] PCP - General Internal Medicine 03/07/21 documented as of this encounter
--- OUTSIDE RECORDS SUMMARY | 2024-06-15 11:56 | XMS_ITS | Encounter Summary ---
Author Organization [facility] Address [address] [place] [address] Care Team Providers Care Delivery Recruiter Name Role Phone Gaurav Tolbert MD Primary Care Provider [phone] Encounter Details Date Type Department Care Team ([facility] st Contact Info) Description 06/14/2024 Telephone Gastroenterology - [address] [facility] [address] [place] [address] Everton Husain MD [address] [address] Social History Tobacco Use Types Packs/Day Years Used Date Smoking Tobacco: Former Cigarettes Smokeless Tobacco: Never Alcohol Use Standard Drinks/Week Comments No 0 (1 standard drink = 0.6 oz pur e alcohol) Comments No Sex and Gender Information Value Date Recorded Sex Assigned at Not on file Legal Sex Female 8:19 AM EST Gender Identity Not on file Sexual Orientation Not on file documented as of this encounter Progress Notes * Karlene Squires - 06/14/2024 3:01 PM EDT PT SCHEDULED FOR 08/11/24 Shawn HUSAIN 30 MIN. * Karlene Squires - 06/14/2024 3:00 PM EDT Blood thinners: N Diabetic meds? INSULIN DEPENDENT - SEND TO 175 Weight loss meds? N First Colonoscopy: 2022 Personal hx of polyps? Y Family hx of polyps/crc? Y/N BMI: 37 documented in this encounter Plan of Treatment Upcoming Encounters Date Type Department Care Team (Late st Contact Info) Description 06/29/2024 11:00 AM EDT Office Visit Internal Medicine - [address] [address] Gaurav Tolbert MD [address] [place] [address] 06/28/2025 9:15 AM EDT Ancillary Procedure [facility] [address] [place] [address] documented as of this encounter Visit Diagnoses Not on filedocumented in this encounter Care Teams Delivery Recruiter Relationship Specialty Start Date End Date Gaurav Tolbert MD [address] [place] [address] PCP - General Internal Medicine 07/27/17 documented as of this encounter
--- OUTSIDE RECORDS SUMMARY | 2024-06-15 11:56 | XMS_ITS | Encounter Summary ---
Author Organization [facility] Address [address] [facility] [address] [place] [address] Phone Care Team Providers Care Railway Patrol Officer Name Role Phone Gaurav Benentt Primary Care Provider [phone] Reason for Visit * Reason Comments Med Refill Encounter Details Date Type Department Care Team (Late st Contact Info) Description 11/28/2021 Refill [facility] [address] [facility] [address] [place] [phone] Capo Dawson MD Social History Tobacco Use [...] on filedocumented in this encounter Care Teams Railway Patrol Officer Relationship Specialty Start Date End Date Gaurav Bennett [address] [place] [address] PCP - General Internal Medicine 03/07/21 documented as of this encounter
--- OUTSIDE RECORDS SUMMARY | 2024-06-15 11:56 | XMS_ITS | Continuity of Care Document ---
Author Organization [facility] Address [address] [place] [address]- Care Team Providers Care Cosmetic Counselor Name Role Phone Didi DILL, Gaurav [id number]s): [facility]/12[facility]24 - 06/14/24 [facility] [address] [place] [address] Attending Physician: Not on Staff, Attending MD Encounter Type: Pre-OutPatient One Time Allergies, Adverse [...] Refills, Maintenance, 11/23/22 12:57:00 PM EDT, Tablet, [facility], Partial fill upon patient [...] Status: Ordered Repeat number: 1 Dexcom G7 Strong Nitric Operator Dexcom G7 Strong Nitric Operator, See Instructions, # 1 each, Refills 0, [...] Date: 12/03/23 Status: Ordered Repeat number: 1 Lyummarkie KwikPen 100 units/mL injectable solution See Instructions, inject 4-16 units at the start of a meal or within 20 minutes after starting a meal 3 times a day per sliding scale MDD 48 units, # 15 mL, 11 Refills, Maintenance, 03/06/24 5:52:00 PM EST, Solution, [facility], replacing Novolog, 160, cm, 03/06/24 9:20:00 EST, Height, 92.5, kg, 11/20/23 5:25:00 EDT, Dry Weight Start Date: 03/06/24 Status: Ordered Quantity: 15.0 Unit: mL Repeat number: 12 Myfortic 180 mg oral delayed release tablet 2 tablet = 360 mg, By Mouth, 2 times a day, # 180 tablet, 11 Refills, Maintenance, 03/13/21 4:38:00 PM EST, EC Tablet, [facility], Partial fill upon patient request if [...] 1:19:00 PM EST, Route to Pharmacy Electronically, [facility], Partial fill upon patient request if the prescription is for a schedule II opioid drug., 160, cm, 05/04/22 10:28:00 EST, Height, 92.7, kg, 05/04/22 10:28:00 EST, Dry Weight Start Date: 05/04/22 Status: Ordered Quantity: 12.0 Unit: tablet Repeat number: 1 Pen [place], 32 G x 4 mm BD Ultra [...] 11 Refills, Maintenance, 09/09/23 6:19:00 AM EDT, [facility]/pharmacy #[id number], 160, cm, 07/01/23 13:02:00 EDT, Height, 92.7, kg, 05/04/22 10:28:00 EST, Dry Weight Start Date: 09/09/23 Status: Ordered Quantity: 15.0 Unit: mL Repeat number: 12 Trulicity Pen 4.5 mg/0.5 mL subcutaneous solution See Instructions, INJECT 4.5 MG SUBCUTANEOUSLY EVERY WEEK; ROTATE INJECTION SITES, # 2 mL, 10 Refills, Maintenance, 05/02/24 7:39:00 AM EST, [facility], 160, cm, 03/06/24 9:20:00 EST,Height, [...] Personnel Name: Pallavi DILL, Tawanda Chapin Position: [facility] Renal MD Member Role: Lifetime Consulting Physician Address: [address] [place] [address] [address] [place] [address]- [place] Telecom: Name: Luli Pacheco RN Position: S RN Member Role: Primary Care Nurse Name: Gaurav Tolbert MD Position: [facility] Outreach Member Role: PCP Address: [address] [place] [address] [place] Telecom: Name: Gasper James MD Position: [facility] Renal MD Member Role: Lifetime Consulting Physician Address: [address] [facility] [address] [facility] [place] [address]- Telecom: Name: Waylon Cardenas MD Position: [facility] Outreach Member Role: Lifetime Consulting Physician Address: [address] [facility] [address] [facility] [place] [address]- [place] Telecom: Name: Verona Alatorre RN Position: S RN Member Role: Primary Care Nurse Name: Hesham Arroyo RN Position: S RN Member Role: Primary Care Nurse Care Team Related Persons Name: BUSTER MARTINS Insurance Providers Guarantor name: ARIEL MARTINS Health Plan Information #: 1 [facility] CARE Member Number: [id number] Policy Number: NA Group Number: [facility] Health Plan Information #: 2 Payer: [facility] [employer]/ONE CARE Member Number: [id number] Policy Number: NA Group Number: NA
--- OUTSIDE RECORDS SUMMARY | 2024-06-15 11:56 | XMS_ITS | Encounter Summary ---
Author Organization [facility] Address [address] [facility] [address] [place] [address] Phone Care Team Providers Care Teleservices Representative Name Role Phone Gaurav Bennett Primary Care Provider [phone] Reason for Visit * Reason Comments Med Refill Encounter Details Date Type Department Care Team (Late st Contact Info) Description 06/27/2021 Refill [facility] [address] [facility] [address] [place] [phone] Capo Dawson MD Social History Tobacco Use [...] on filedocumented in this encounter Care Teams Teleservices Representative Relationship Specialty Start Date End Date Gaurav Bennett [address] [place] [id number] PCP - General Internal Medicine 03/07/21 documented as of this encounter
--- OUTSIDE RECORDS SUMMARY | 2024-06-15 11:56 | XMS_ITS | Clinical Summary ---
Author Organization [facility] Address [address] [facility] [address] [place] [address] Phone Care Team Providers Care Electromechanical Engineer Name Role Phone YordanlucyOxanak Primary Care Provider [phone] Allergies Active Allergy Reactions Criticality Noted Date Comments Lamotrigine Rash Low 05/08/2021 Medications traZODone (DESYREL) 100 MG tablet Take 1 tablet by mouth 1 (one) time each day in the evening 06/05/19 15 Active insulin aspart (NovoLOG FLEXPEN) 100 UNIT/ML injection See Instructions, subcutaneous injection 3x daily before meals max daily dose 42 units, # 15 mL, 11 Refills, Maintenance, 12/11/20 10:08:00 EDT, [id number], E11.65, 160, cm, 12/11/20 9:41:00 EDT, Height, 95, kg, 06/21/20 11:10:00 EDT, Dry Weight 09/23/19 13 Active atorvastatin (LIPITOR) 40 MG tablet Take 40 mg by mouth 1 (one) time each day 01/20/20 21 Active Acetaminophen 160 MG tablet dispersible Take 160 mg by mouth if needed 02/18/20 21 Active Tresiba FlexTouch 100 UNIT/ML injection INJECT 22 UNITS SUBCUTANEOUSLY DAILY AT BEDTIME. 07/28/19 22 Active ergocalciferol 1.25 MG (45270 UT) capsule TAKE ONE CAPSULE BY MOUTH ONCE EACH WEEK 12 capsule 3 12/03/19 22 Active Dulaglutide (Trulicity) 0.75 MG/0.5ML solution pen-injector Inject under the skin Active mycophenolate (MYFORTIC) 180 MG EC tablet TAKE 2 TABLETS BY MOUTH IN THE MORNING AND 2 TABLETS BY MOUTH IN THE EVENING 120 tablet 11 06/16/19 23 Active carvedilol (COREG) 6.25 MG tabletIndicatio ns:Kidney transplant status Take 1 tablet (6.25 mg total) by mouth in the morning and 1 tablet (6.25 mg total) in the evening. Take with meals. 60 tablet 11 10/09/19 23 Active Tacrolimus ER (Envarsus XR) 4 MG tablet sustained-relea se 24 hour Take 8 mg by mouth 1 (one) time each day 10/13/19 23 Active cyclobenzaprine (FLEXERIL) 5 MG tablet Take 1 tablet (5 mg total) by mouth 3 (three) times a day if needed for muscle spasms for up to 10 days 30 tablet 02/10/20 23 Active gabapentin (NEURONTIN) 100 MG capsuleIndicati ons:Long-term drug therapy Take 2 capsules (200 mg total) by mouth in the morning and 2 capsules (200 mg total) in the evening and 2 capsules (200 mg total) before bedtime. 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 Kidney transplant status 05/19/2021 Chronic kidney disease 05/08/2021 Type 2 diabetes mellitus wit h diabetic chronic kidney disease 05/08/2021 Anemia in chronic kidney disease 03/11/2018 Hyperparathyroidism due to renal insufficiency 1 05/12/2017 Hypertension 09/27/2017 Resolved Problems Problem Noted Date Diagnosed Date Resolved Date Dermatitis 05/08/2021 05/16/2021 Abnormal findings on diagnos tic imaging of breast 05/08/2021 05/16/2021 Cellulitis 05/08/2021 05/16/2021 High risk drug monitoring status 05/08/2021 05/16/2021 Retinal hemorrhage 05/08/2021 Peripheral neuropathic pain 05/08/2021 05/16/2021 Neuropathy 05/08/2021 05/16/2021 Stage 5 chronic kidney disease 05/08/2021 05/26/2021 Stenosis of bilateral carotid arteries 01/29/2020 05/16/2021 Disorder of nervous system d ue to type 2 diabetes mellitus 03/31/2018 05/16/2021 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 05/16/2021 Blindness in one eye 03/11/2018 022 Cataract 03/11/2018 05/16/2021 H/O: peptic ulcer 03/11/2018 05/16/2021 H/O: depression 03/11/2018 05/16/2021 End stage renal disease 03/11/2018 04/0 08/2021 Diabetes mellitus 03/11/2018 05/16/2021 Dependence on renal dialysis 03/11/2018 06/23/2022 H/O: tubal ligation 03/11/2018 05/16/19 Irritable bowel syndrome 03/11/201802/2022 Hypothyroidism 03/11/2018 05/16/2021 Localized edema 03/11/2018 05/16/2021 Obesity 03/11/2018 05/16/2021 Retinopathy due to diabetes mellitus 03/11/2018 05/16/2021 Neuropathy due to diabetes mellitus 03/11/2018 05/16/2021 Renal disorder due to type 1 diabetes mellitus 03/11/2018 07/08/2021 Asthma 12/28/2017 05/16/2021 Carpal tunnel syndrome 10/28/201705/16 Chronic obstructive pulmonary disease 08/23/2017 05/16/2021 Restrictive lung disease 08/23/201702/2022 Hypercholesterolemia 08/17/2017 022 Depressive disorder 08/05/2017 05/16/19 22 Arteriovenous fistula 06/01/20172021 End stage renal failure on dialysis 06/01/2017 05/26/2021 Overview (05/08/2021): Dialysis on T/T/S- Dr Merida (renal) Insomnia 04/23/2017 05/16/2021 Alveolar hypoventilation 02/04/201602/2022 Anxiety 06/24/2015 05/16/2021 Vitamin D deficiency 05/19/2012 022 Gastroparesis 05/11/2012 05/16/2021 Family history of transient ischemic attack 03/17/2005 05/16/2021 Migraine 03/17/2005 05/16/2021 Immunizations Name Administration Dates Next Due Influenza TIV (IM) 03/24/2015 Influenza, MDCK, PF, Quadrivalent 01/28/2022 Influenza, Unspecified 03/18/2005 MMR 05/30/2014 Moderna SARS-COV-2 06/27/2020,05/16/2020 Pneumococcal Conjugate 13-Valent 04/16/2016 Tdap 06/12/2019 Family History Medical History Relation Comments Diabetes Father Heart disease Father Hypertension Father Stroke Father Diabetes Mother Heart disease Mother Hypertension Mother Stroke Mother Cancer Sibling sister Diabetes Sibling Hypertension Sibling Relation Status Comments Father Mother Sibling Social History Tobacco Use Types Packs/Day Years Used Date Smoking Tobacco: Former Cigarettes Q uit: 04/05/2007 Smokeless Tobacco: Never Tobacco Cessation:Counseling Given: Not Answered Comments:Smoking History Info:Some days Comments Unknown Sex and Gender Information Value Date Recorded Sex Assigned at Not on file Legal Sex Female 5:08 PM EST Gender Identity Not on file Sexual Orientation Not on file Last Filed Vital Signs Vital Sign Reading Time Taken Comments Blood Pressure 110/80 02/09/2023 8:41 AM EST Pulse 62 02/09/2023 8:41 AM EST Temperature 36.2 ??C (97.2 ??F) 05/18/2022 10:[address] Respiratory Rate - - Oxygen Saturation 100% 02/09/2023 8:41 AM EST Inhaled Oxygen Concentration - - Weight 98.5 kg (217 lb 3.2 oz) 02/09/2023 8:41 A M EST Height 160 cm (5' 3 ) 02/09/2023 8:41 AM EST Body Mass Index 38.48 02/09/2023 8:41 AM EST Plan of Treatment Health Maintenance Due Date Last Done Comments Breast Cancer Screening 1965 Hepatitis B Vaccine (1 of 3 - 19+ 3-dose series) 1986 Pneumococcal Vaccine: Pediat rics (0 to 5 Years) and At-Risk Patients (6 to 64 Years) (2 of 2 - PPSV23 or PCV20) 06/11/2016 04/16/2016 Diabetes: Ophthalmology Exam 05/05/2020 Diabetes: Pedal Pulse Checked 05/05/2020 Diabetes: Sensory Foot Exam 05/05/2020 Diabetes: Visual Foot Exam 05/05/2020 Colonoscopy (Post-Transplant Patient) 02/19/2021 Mammogram (Post-Transplant Patient) 02/19/2021 Pelvic Exam (Post-Transplant Patient) 02/19/2021 Diabetes: Hemoglobin A1C 10/27/2022 023, 05/07/2022, 03/16/2022, Additional history exists Influenza Vaccine (#1) 2023 3, 02/04/2023, 01/28/2022, Additional history exists Procedures Procedure Name Priority Date/Time Associated Diagnosis Comments HEMOGLOBIN A1C Routine 05/07/2022 10:26 AM EST Kidney transplant status from Last 3 Months or Most Recently Relevant to Health Maintenance Results * (ABNORMAL) Hemoglobin A1c (05/07/2022 10:26 AM EST) Hemoglobin A1C 9.3(H) (4.0-5.6) % [facility] Comment: MONITORING: In known diabetic patients, hemoglobin A1c targets should be discussed with health care provider. DIAGNOSTIC USE: ??The [place] Diabetes Association (ADA) and the World Health Organization (WHO) recommend the use of HbA1c to diagnose diabetes using a threshold of 6.5%. Patients who have an HbA1c between 5.7% and 6.4% are considered at increased risk for developing diabetes in the future. CAUTION: Falsely low HbA1c results may be observed in patients with hemolytic anemia, homozygous forms of abnormal hemoglobin (e.g. SS, CC, SC), , recent blood loss or hemoglobin F greater than 7%. Fructosamine may be used as an alternate test in these cases. REFERENCE: ADA: Standards of Medical Care in Diabetes 2020, The Journal of Clinical and Applied Research and Education Volume 43, Supplement 1 Testing performed or reported by [facility], a Service of [facility], [address] [place] [id number] Hector Swain MD, Tractor Operator Battery [facility]# [id number] Blood (Blood, Venous) 05/07/2022 10:26 AM EST 05/07/2022 10:38 AM EST us Harper Stanley MD LAB BLOOD ORDERABLES Final Resu lt [facility] from Last 3 Months or Most Recently Relevant to Health Maintenance Insurance [facility] ([id number]) [facility] ([id number]) Care Teams Electromechanical Engineer Relationship Specialty Start Date End Date Gaurav Bennett [address] [place] [id number] PCP - General Internal Medicine 03/07/21
--- OUTSIDE RECORDS SUMMARY | 2024-06-15 11:56 | XMS_ITS | Continuity of Care Document ---
Author Organization [facility] Address [address] [place] [address]- Care Team Providers Care Elevator Operator Freight Name Role Phone Didi DILL, Gaurav Primary Care Physician Encounter [facility] Date(s): 05/02/24 - 06/01/24 [facility] [address] [place] [address] Encounter Type: Triage Allergies, Adverse Reactions, Alerts Substance Criticality Severity [...] Refills, Maintenance, 11/23/22 12:57:00 PM EDT, Tablet, [facility], Partial fill upon patient [...] Status: Ordered Repeat number: 1 Dexcom G7 Functional Consultant Dexcom G7 Functional Consultant, See Instructions, # 1 each, Refills 0, [...] directed for BG monitoring 4 times daily, 249:29:00 AM EDT, Dx: E11.65, Supply, 160, cm, [...] Refills, Maintenance, 03/06/24 5:52:00 PM EST, Solution, [facility], replacing Novolog, 160, cm, 03/06/24 9:20:00 EST, Height, 92.5, kg, 11/20/23 5:25:00 EDT, Dry Weight Start Date: 03/06/24 Status: Ordered Quantity: 15.0 Unit: mL Repeat number: 12 Myfortic 180 mg oral delayed release tablet 2 tablet = 360 mg, By Mouth, 2 times a day, # 180 tablet, 11 Refills, Maintenance, 03/13/21 4:38:00 PM EST, EC Tablet, [facility], Partial fill upon patient [...] 1:19:00 PM EST, Route to Pharmacy Electronically, [facility], Partial fill upon patient request if the prescription is for a schedule II opioid drug., 160, cm, 05/04/22 10:28:00 EST, Height, 92.7, kg, 05/04/22 10:28:00 EST, Dry Weight Start Date: 05/04/22 Status: Ordered Quantity: 12.0 Unit: tablet Repeat number: 1 Pen [place], 32 G x 4 mm BD Ultra [...] 11 Refills, Maintenance, 09/09/23 6:19:00 AM EDT, [id number], 160, cm, 07/01/23 13:02:00 EDT, Height, 92.7, kg, 05/04/22 10:28:00 EST, Dry Weight Start Date: 09/09/23 Status: Ordered Quantity: 15.0 Unit: mL Repeat number: 12 Trulicity Pen 4.5 mg/0.5 mL subcutaneous solution See Instructions, INJECT 4.5 MG SUBCUTANEOUSLY EVERY WEEK; ROTATE INJECTION SITES, # 2 mL, 10 Refills, Maintenance, 05/02/24 7:39:00 AM EST, [facility], 160, cm, 03/06/24 9:20:00 [...] Care team information Care Team Personnel Name: Tawanda Olivo MD Position: [facility] Renal MD Member Role: Lifetime Consulting Physician Address: [address] [place] [address] [address] [place] [address]- [place] Telecom: Name: Luli Pacheco RN Position: S RN Member Role: Primary Care Nurse Name: Gaurav Tolbert MD Position: S Outreach Member Role: PCP Address: [address] [place] [address]- [place] Telecom: Name: Gasper James MD Position: [facility] Renal MD Member Role: Lifetime Consulting Physician Address: [address] [facility] [address] [facility] [place] [address]- [place] Telecom: Name: Waylon Cardenas MD Position: S Outreach Member Role: Lifetime Consulting Physician Address: [address] [facility] [address] [facility], [place] [address]- [place] Telecom: Name: Verona Alatorre RN Position: S RN Member Role: Primary Care Nurse Name: Hesham Arroyo RN Position: S RN Member Role: Primary Care Nurse Care Team Related Persons Name: BUSTER MARTINS Insurance Providers Guarantor name: ARIEL ELIEZERLifeBrite [facility] Information #: 1 Payer: [facility] CARE ALLIANCE/ONE CARE Member Number: NA Policy Number: NA Group Number: NA
--- OUTSIDE RECORDS SUMMARY | 2024-06-15 11:56 | XMS_ITS | Continuity of Care Document ---
Author Organization [facility] Address [address] [place] [address], [address] [place] [address]- Care Team Providers Care Housing And Residence Life Director Name Role Phone Gaurav Tolbert MD Primary Care Physician Encounter [facility] [id number] Date(s): 05/24/24 - 05/31/[facility] [address] [facility], [address] [place], [place] [address] Attending Physician: Xuan Ventura MD Encounter Type: Office Visit Allergies, Adverse Reactions, Alerts Substance Criticality Severity [...] Refills, Maintenance, 11/23/22 12:57:00 PM EDT, Tablet, [facility], Partial fill upon patient [...] Status: Ordered Repeat number: 1 Dexcom G7 Store Grocery Merchandiser Dexcom G7 Store Grocery Merchandiser, See Instructions, # 1 each, Refills 0, [...] Refills, Maintenance, 03/06/24 5:52:00 PM EST, Solution, [facility], replacing Novolog, 160, cm, 03/06/24 9:20:00 EST, Height, 92.5, kg, 11/20/23 5:25:00 EDT, Dry Weight Start Date: 03/06/24 Status: Ordered Quantity: 15.0 Unit: mL Repeat number: 12 Myfortic 180 mg oral delayed release tablet 2 tablet = 360 mg, By Mouth, 2 times a day, # 180 tablet, 11 Refills, Maintenance, 03/13/21 4:38:00 PM EST, EC Tablet, [facility], Partial fill upon patient request [...] 1:19:00 PM EST, Route to Pharmacy Electronically, [facility], Partial fill upon patient request if the prescription is for a schedule II opioid drug., 160, cm, 05/04/22 10:28:00 EST, Height, 92.7, kg, 05/04/22 10:28:00 EST, Dry Weight Start Date: 05/04/22 Status: Ordered Quantity: 12.0 Unit: tablet Repeat number: 1 Pen [place], 32 G x 4 mm BD Ultra [...] Refills, Maintenance, 09/09/23 6:19:00 AM EDT, [id number], 160, cm, 07/01/23 13:02:00 EDT, Height, 92.7, kg, 05/04/22 10:28:00 EST, Dry Weight Start Date: 09/09/23 Status: Ordered Quantity: 15.0 Unit: mL Repeat number: 12 Trulicity Pen 4.5 mg/0.5 mL subcutaneous solution See Instructions, INJECT 4.5 MG SUBCUTANEOUSLY EVERY WEEK; ROTATE INJECTION SITES, # 2 mL, 10 Refills, Maintenance, 05/02/24 7:39:00 AM EST, [facility], 160, cm, 03/06/24 9:20:00 EST,Height, [...] problem list includes: See below 2campath induction Procedures Procedure Date Related Diagnosis Body Site Status Transplant of kidney 1 02/14/22 Co mpleted 111 Vital Signs Most recent to oldest [Reference Range]: 1 Height 160 cm (05/24/24 9:12 AM) Weight 96 kg (05/24/24 9:12 AM) Pulse Rate [55-90 bpm] 74 bpm (05/24/24 9:12 AM) Body Mass Index [18.5-24.99 kg/m2] 37.5 kg/m2 *>HHI* (05/24/24 9:12 AM) Blood Pressure [90-138/55-84 mm Hg] 141/ 79mm Hg *H* (05/24/24 9:12 AM) Blood pressure sites Arm, left (05/24/24 9:12 AM) Dry Weight 96 kg (05/24/24 9:12 AM) Weight Obtained Via Standing scale (05/24/24 9:12 AM) Dry Weight Obtained Via Standing scale (05/24/24 9:12 AM) Social History Social History Type Response Smoking Status Former smoker; Tobac co user in household: No; Stopped at age: 44; entered on: 06/11/17 Sex Sex Representation Female (finding) Patient Care team information Care Team Personnel Name: Tawanda Olivo MD Position: [facility] Renal MD Member Role: Lifetime Consulting Physician Address: [address] [place] [address] [address] [place] [address]- [place] Telecom: Name: Luli Pacheco RN Position: [facility] RN Member Role: Primary Care Nurse Name: Gaurav Tolbert MD Position: S Outreach Member Role: PCP Address: [address] [place] [address]- [place] Telecom: Name: Gasper James MD Position: [facility] Renal MD Member Role: Lifetime Consulting Physician Address: [address] [place] [address] [address] [facility] [place], [place] [address] Telecom: Name: Waylon Cardenas MD Position: [facility] Outreach Member Role: Lifetime Consulting Physician Address: [address] [facility] [address] [facility], [place] [address]- Telecom: Name: Verona Alatorre RN Position: [facility] RN Member Role: Primary Care Nurse Name: Hesham Arroyo RN Position: [facility] RN Member Role: Primary Care Nurse Care Team Related Persons Name: ELIEZER BUSTER Insurance Providers Guarantor name: ARIEL ELIEZER Health Plan Information #: 1 Payer: [facility] CARE ALLIANCE/ONE CARE Member Number: [id number] Policy Number: NA Group Number: [facility] [id number] Plan Information #: 2 Payer: [facility]ONE CARE Member Number: [id number] Policy Number: NA Group Number: NA
--- OUTSIDE RECORDS SUMMARY | 2024-06-15 11:56 | XMS_ITS | Clinical Summary ---
Author Organization [facility] Address [address] [place] [address] Care Team Providers Care Power Washer Name Role Phone Gaurav Tolbert MD Primary Care Provider [phone] Allergies Active Allergy Reactions Criticality Noted Date Comments Lamotrigine Rash 07/08/2022 Medications dulaglutide (Trulicity) 4.5 mg/0.5 mL pen injector injection Inject under the skin. 4 Active insulin degludec (Tresiba FlexTouch U-100) 100 unit/mL (3 mL) injection pen Inject 23 Units as directed. 4 Active carvediloL (COREG) 6.25 mg tablet Take 1 tablet (6.25 mg total) by mouth. 4 Active amLODIPine (NORVASC) 5 mg tablet Take 1 tablet (5 mg total) by mouth 1 (one) time each day. 4 Active isosorbide mononitrate (IMDUR) 30 mg 24 hr tablet Take 1 tablet (30 mg total) by mouth 1 (one) time each day. 3 Active gabapentin (NEURONTIN) 100 mg capsule Gabapentin 300 mg nightly 3 Active albuterol HFA (PROAIR HFA ; PROVENTIL HFA ; VENTOLIN HFA) 90 mcg/actuation inhaler Inhale 2 puffs by mouth. 3 Active traZODone (DESYREL) 100 mg tablet Take 1 tablet (100 mg total) by mouth at bedtime as needed. 3 Active mycophenolate (MYFORTIC) 180 mg EC tablet Take 1 tablet (180 mg total) by mouth. Active tacrolimus (Envarsus XR) 1 mg extended release tablet 1 Active docusate sodium (COLACE) 100 mg capsule 1 Active senna 8.6 mg tablet 1 Active aspirin 81 mg EC tablet Take 1 tablet (81 mg total) by mouth. 0 Active glucose blood test strip sig tid prn 7 Active ACCU-CHEK SOFTCLIX LANCETS MISC by Not Applicable route. 7 Active syringe and needle,insulin,1 mL (INSULIN SYRINGES, DISPOSABLE, MISC) 1 Syringe by Not Applicable route 1 (one) time each day. 6 Active famotidine (PEPCID) 20 mg tablet Take by mouth. Activ e atorvastatin (LIPITOR) 40 mg tablet Take 1 tablet (40 mg total) by mouth 1 (one) time each day. 90 tablet 5 Active polyethylene glycol (Golytely) 236-22.74-6.74 -5.86 gram solutionIndicati ons:Colon cancer screening,Person al history of colon polyps, unspecified,Fami ly history of malignant neoplasm of digestive organs Take 4,000 mL by mouth 1 (one) time for 1 dose. 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 Orders: Ambulatory referral to Orthopedic; Future De Quervain's tenosynovitis 03/13/2024 CAD (coronary artery disease) 06/04/2023 Assessment & Plan (05/23/2024 3:09 PM EST): Currently denies any anginal symptoms. Continue aspirin, atorvastatin, carvedilol, amlodipine, isosorbide mononitrate. History of cardiac catheterization 05/28/2023 Chest pain 07/19/2022 Overview (05/31/2023): + nuclear stress test 03/03/23 Proliferative diabetic retinopathy 12/25/2021 Overview (05/31/2023): Ou, dr palma Type 2 diabetes mellitus with eye manifestations 12/25/2021 S/P kidney transplant 03/05/2021 Bilateral carotid artery stenosis 01/29/2020 Assessment & Plan (05/23/2024 3:09 PM EST): Continue aspirin and statin therapy. Followed up with vascular surgery. Repeat imaging in 2 years. Type 2 diabetes mellitus with neurological manif estations 03/31/2018 Asthma 12/28/2017 Carpal tunnel syndrome 10/28/2017 Hypertension 09/27/2017 Assessment & Plan (05/23/2024 3:09 PM EST): Follow low-sodium diet. Continue current treatment of amlodipine, carvedilol, isosorbide mononitrate Severe obesity with body mas s index (BMI) of 35.0 to 39.9 with comorbidity 08/23/2017 Restrictive lung disease 08/23/2017 Chronic obstructive pulmonary disease 08/23/2017 Hyperlipidemia 08/17/2017 Assessment & Plan (05/23/2024 3:09 PM EST): Follow low-cholesterol diet and continue atorvastatin. Depression 08/05/2017 CKD (chronic kidney disease) 06/01/2017 Overview (05/31/2023): Previously on dialysis with L AV fistula; d/c and fistula reversed 2022 2 years after kidney transplant Insomnia 04/23/2017 Obesity hypoventilation syndrome 02/04/2016 Anxiety 06/24/2015 Vitamin D deficiency 05/19/2012 Gastroparesis 05/11/2012 Type 2 diabetes mellitus with renal manifestatio ns 03/17/2005 Assessment & Plan (05/23/2024 3:09 PM EST): Diabetic diet discussed. She is being monitored by endocrinology. She will continue her regimen of dulaglutide, insulin Tresiba. Migraine 03/17/2005 History of TIA (transient ischemic attack) 03/17 Encounters Date Type Department Care Team Description 06/14/2024 Telephone Gastroenterology - [address] [place] [phone] Everton Husain MD 05/23/2024 2:30 PM EST Office Visit Internal Medicine - [facility] [address] [place] [phone] Gaurav Tolbert MD Grief (Primary Dx); Type 2 diabetes mellitus with diabetic nephropathy, with long-term current use of insulin ([facility]); Hypertension, unspecified type; Hyperlipidemia, unspecified hyperlipidemia type; Bilateral carotid artery stenosis; Coronary artery disease involving chipewwa coronary artery of chipewwa heart without angina pectoris; Screen for colon cancer; 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/2024 10:00 AM EST Office Visit Vascular Surgery - [place] [address] [place] [address] Vilma Ruiz PA Bilateral carotid artery stenosis (Primary Dx) 03/27/2024 Telephone Gastroenterology - [address] [place] [address] Everton Husain MD from Last 3 Months Immunizations Name Administration Dates Next Due Influenza Quadravalent, MDCK , 0.5ml, preservative free (Flucelvax) 6mo and older 02/04/2023,01/28/2022 Influenza trivalent, with pr eservative (Fluzone; Afluria) 6mo and older 03/18/2005 Influenza, Unspecified 12/24/2023 MMR, measles mumps and rubel la Live (Priorix; M-M-R II) 12mo and older 05/30/2014 Moderna SARS-CoV-2 COVID-19, mRNA, LNP-S, preservative free 06/27/2020,05/16/2020 Pneumococcal conjugate 13 va lent (Prevnar 13, PCV13) 2mo and older 04/16/2016 Tdap Tetanus diptheria acell ular pertussis (Boostrix; Adacel) 7yo and older 06/12/2019 Surgical History Surgery Date Site/Laterality Comments TUBAL LIGATION PROCEDURE: HISTORICAL TUBAL LIGATION OTHER SURGICAL HISTORY PROCEDURE: AV FISTULA OR GRAFT VENOUS OTHER SURGICAL HISTORY 01/20/2022 PROCEDURE: [place] SLCTV CATHJ 3RD+ ORD SLCTV THRC/BRCH/CPHLC BRNCH OTHER SURGICAL HISTORY 01/20/2022 PROCEDURE: [place] SLCTV CATHJ EA 2ND+ ORD ABDL PEL/LXTR ART BRNCH OTHER SURGICAL HISTORY 01/20/2022 PROCEDURE: XRAY, THORACIC AORTA W/SERIALOGRAPH OTHER SURGICAL HISTORY 01/20/2022 PROCEDURE: X-RAY EXAM OF ARM/LEG ARTERY OTHER SURGICAL HISTORY 01/20/2022 PROCEDURE: ULTRASOUND GUIDANCE FOR VASCULAR AC Medical History Medical History Date Comments Migraine 03/17/2005 DX:Migraine; COM MENT: IMO update History of TIA (transient is chemic attack) 03/17/2005 DX:History of TIA (transient ischemic attack) Hyperlipidemia 08/17/2017 DX:Hyperlipidemi a Tobacco use 08/17/2017 DX:Tobacco use Obesity 08/23/2017 DX:Obesity Anxiety 06/24/2015 DX:Anxiety Asthma 12/28/2017 DX:Asthma AV fistula ([facility]) 06/01/2017 DX:AV fistu la ([facility]) Carpal tunnel syndrome 10/28/2017 DX:Carpal tunnel syndrome Chronic obstructive pulmonar y disease ([facility]) 08/23/2017 DX:Chronic obstructive pulmo nary disease (HCC) CKD (chronic kidney disease) stage V requiring chronic dialysis ([facility]) 06/01/2017 DX:CKD (chronic k idney disease) stage V requiring chronic dialysis ([facility]) Depression 08/05/2017 DX:Depression Gastroparesis 05/11/2012 DX:Gastroparesis Hypertension 09/27/2017 DX:Hypertension Insomnia 04/23/2017 DX:Insomnia Obesity hypoventilation synd alexa ([facility]) 02/04/2016 DX:Obesity hypoventilation s yndrome ([facility]) Restrictive lung disease 08/23/2017 DX:Rest rictive lung disease Type 2 diabetes mellitus wit h neurological manifestations ([facility]) 03/31/2018 DX:Type 2 diabet es mellitus with neurological manifestations ([facility]) Type 2 diabetes mellitus wit h renal manifestations ([facility]) 03/17/2005 DX:Type 2 diabetes mellitus with renal manifestations ([facility]) Vitamin D deficiency 05/19/2012 DX:Vitamin D deficiency Severe obesity with body mas s index (BMI) of 35.0 to 39.9 with comorbidity ([facility]) 08/23/2017 DX:Severe obesity with body mass index (BMI) of 35.0 to 39.9 with comorbidity ([facility]) Proliferative diabetic retin opathy ([facility]) 12/25/2021 DX:Proliferative diabetic re tinopathy ([facility]); COMMENT: Ou, dr palma Type 2 diabetes mellitus wit h eye manifestations ([facility]) 12/25/2021 DX:Type 2 diabetes mellitus with eye manifestations ([facility]) Family History Medical History Relation Name Comments Heart failure Father Other: Diabetes, [place] Father Heart failure Mother Stroke Mother Relation Name Status Comments Father Mother Social History Tobacco Use Types Packs/Day Years Used Date Smoking Tobacco: Former Cigarettes Smokeless Tobacco: Never Tobacco Cessation:Counseling Given: Not Answered Alcohol Use Standard Drinks/Week Comments No 0 (1 standard drink = 0.6 oz pur e alcohol) Comments No Sex and Gender Information Value Date Recorded Sex Assigned at Not on file Legal Sex Female 8:19 AM EST Gender Identity Not on file Sexual Orientation Not on file Obstetrics History Last Filed Vital Signs Vital Sign Reading Time Taken Comments Blood Pressure 134/70 05/23/2024 1:43 PM EST Pulse 78 05/23/2024 1:43 PM EST Temperature - - Respiratory Rate - - Oxygen Saturation - - Inhaled Oxygen Concentration - - Weight 97 kg (213 lb 12.8 oz) 05/23/2024 1:43 PM EST Height 160 cm (5' 3 ) 05/23/2024 1:43 PM EST Body Mass Index 37.87 05/23/2024 1:43 PM EST Plan of Treatment Upcoming Encounters Date Type Department Care Team (Late st Contact Info) Description 06/29/2024 11:00 AM EDT Office Visit Internal Medicine - [address] [place] [address] Gaurav Tolbert MD [address] [place] [phone] 06/28/2025 9:15 AM EDT Ancillary Procedure [facility] - [address] [place] [address] Health Maintenance Due Date Last Done Comments Breast Cancer Screening 1965 Hepatitis B Vaccines (1 of 3 - 19+ 3-dose series) 1986 Zoster Vaccines (1 of 2) 1986 Cervical Cancer Screening: Pap Smear 04/22/2007 04/22/2004 Pneumococcal Vaccine: 50+ Years (2 of 2 - PPSV23) 06/11/2016 04/16/2016 Pneumococcal Vaccine: Pediatrics (0 to 5 Years) and At-Risk Patients (6 to 64 Years) (2 of 2 - PPSV23) 06/11/2016 04/16/2016 Depression Screening 03/15/2020 HIV Screening 03/15/2020 Medicare Annual Wellness Visit 03/15/2020 Social Influencers of Health Screening 03/15/2020 Diabetes: Annual Urine Albumin-Creatinine Ratio (uACR) 03/18/2022 12/19/2005 Diabetes: Blood Sugar Control Test (HGBA1C) 01/27/2023 07/28/2022, 05/07/2022 Diabetes: Annual Foot Exam 02/05/2024 02/04/2023 Diabetes: Annual GFR (Glomerular Filtration Rate) 06/09/2024 06/10/2023 Hypertension/CHF/CAD Annual BMP Blood Test 06/09/2024 06/10/2023 Colorectal Cancer Screening: Colonoscopy 07/09/2024 07/09/2022 Diabetes: Annual Retina Eye Exam 04/13/2025 04/13/2024, 04/09/2023 Cholesterol Screening (Lipid Panel) 01/02/2029 01/03/2024, 01/03/2024 DTaP,Tdap,and Td Vaccines (2 - Td or Tdap) 06/11/2029 06/12/2019 MMR Vaccines Aged Out 05/30/2014 No longer eligi ble based on patient's age to complete this topic Hepatitis C Screening Completed 07/28/2022 COVID-19 Vaccine Completed 12/24/2023, , 05/16/2020 Influenza Vaccine Completed 12/24/2023, , 01/28/2022, Additional history exists HIB Vaccines Aged Out No longer eligi ble based on patient's age to complete this topic HPV Vaccines Aged Out No longer eligi ble based on patient's age to complete this topic Hepatitis A Vaccines Aged Out No long er eligible based on patient's age to complete this topic IPV Vaccines Aged Out No longer eligi ble based on patient's age to complete this topic Meningococcal ACWY Vaccine Aged Out N o longer eligible based on patient's age to complete this topic Meningococcal B Vacine Aged Out No lo nger eligible based on patient's age to complete this topic RSV Immunization Patients Under 20 months Aged Out No longer eligible based on patient's age to complete this topic Varicella Vaccines Aged Out No longer eligible based on patient's age to complete this topic Procedures Procedure Name Priority Date/Time Associated Diagnosis Comments EXTERNAL DIABETIC RETINA EYE EXAM 04/13/2024 EXTERNAL CLINICAL LAB 03/28/2024 LIPID PANEL Routine 01/03/2024 ANNUAL BMP BLOOD TEST Routine 06/10/2023 DIABETES FOOT EXAM Routine 02/04/2023 HEPATITIS C SCREENING Routine 07/28/2022 HEMOGLOBIN A1C Routine 07/28/2022 COLONOSCOPY Routine 07/09/2022 URINE ALBUMIN CREATININE RATIO Routine 12/19/2005 PAP SMEAR Routine 04/22/2004 from Last 3 Months or Most Recently Relevant to Health Maintenance Results * External Diabetic Retina Eye Exam Report (04/13/2024) Anatomical Region Laterality Modality Ultrasound us Provider [facility] IM[facility] US PROCEDURES Final Result * External clinical lab (03/28/2024) us Provider [facility] LAB BLOOD ORDERABLES Fin al Result * (ABNORMAL) Lipid panel (01/03/2024) LDL/HDL Ratio 4 0 - 4 Triglycerides 166(A) 0 - 150 mg/dL Cholesterol 136 0 - 200 mg/dL HDL 35(A) >=40 mg/dL LDL Cholesterol 68 0 - 100 mg/dL Blood Venous blood specimen / Unknown Result [facility] Provider LAB BLOOD ORDERABLES Lurdes l Result * Annual BMP Blood Test (06/10/2023) [facility] Annual BMP Blood Test abstracted Result [facility] Provider HEALTH MAINTENANCE Final Result * Diabetes Foot Exam (02/04/2023) [facility] Diabetes: Annual Foot Exam abstracted Result [facility] Provider HEALTH MAINTENANCE Final Result * Hepatitis C Screening (07/28/2022) [facility] Hepatitis C Screening abstracted Result [facility] HEALTH MAINTENANCE Final Result * (ABNORMAL) Hemoglobin A1c (07/28/2022) [facility] Hemoglobin A1C 9.7(A) <=6.5 % Blood Venous blood specimen / Unknown Result [facility] Provider LAB BLOOD ORDERABLES [place]urdes l Result * Colonoscopy (07/09/2022) [facility] Colonoscopy abstracted, no interpretation Anatomical Region Laterality Modality Other Result [facility] Provider HEALTH MAINTENANCE Final Result * Urine Albumin Creatinine Ratio (12/19/2005) [facility] Urine Albumin Creatinine Ratio abstracted Result [facility] Provider HEALTH MAINTENANCE Final Result * Pap Smear (04/22/2004) [facility] Pap smear abstracted, no interpretation Result [facility] Provider HEALTH MAINTENANCE Final Result from Last 3 Months or Most Recently Relevant to Health Maintenance Insurance [facility] MEDICARE Member Subscriber Plan / Payer (Ef fective 2019-Present) Name:Bridget Patel I Relation to Subscriber:Self Name:Bridget Patel I Payer ID:[id number] Group ID:[id number] Type:Not on file Address: [place] [address] [address] [id number] Care Teams Power Washer Relationship Specialty Start Date End Date Gaurav Tolbert MD [address] [place] [phone] PCP - General Internal Medicine 07/27/17
--- OUTSIDE RECORDS SUMMARY | 2024-06-15 11:56 | XMS_ITS | Encounter Summary ---
Author Organization [facility] Address [address] [facility] [address] [address] [place] [address] Phone Care Team Providers Care Kitchenhand Name Role Phone Gaurav Bennett Primary Care Provider [phone] Reason for Visit * Reason Comments Med Refill Encounter Details Date Type Department Care Team (Late st Contact Info) Description 02/25/2021 Refill [facility] [address] [facility] [address] [place] [phone] Capo Dawson MD Social History Tobacco Use [...] on filedocumented in this encounter Care Teams Kitchenhand Relationship Specialty Start Date End Date Gaurav Bennett [address] [place] [id number] PCP - General Internal Medicine 03/07/21 documented as of this encounter
--- OUTSIDE RECORDS SUMMARY | 2024-06-15 11:56 | XMS_ITS | Encounter Summary ---
Author Organization [facility] Address [address] [place] [address] Care Team Providers Care Window Installer Name Role Phone Gaurav Tolbert MD Primary Care Provider [phone] Reason for Referral * Consultation (Routine) - Closed Specialty Diagnoses / Procedures Referred By Contact Referred To Contact Orthopaedics / Orthopaedic Surgery Diagnoses Wartenberg syndrome Gaurav Tolbert MD [address] [place] [address] Phone: tel: fax: Chandni Angulo MD 175 [facility] [address] [place] [address] Phone: tel:[phone] fax:[phone] Referral ID Status Reason Start Date Expiration Date V isits Requested Visits Authorized [id number] Closed Specialty Services Required 05/23/2024 05/23/2025 1 1 * Consultation (Routine) - Authorized Specialty Diagnoses / Procedures Referred By Contac t Referred To Contact Gastroenterology Diagnoses Screen for colon cancer Gaurav Tolbert MD [address] [place] [address] Phone: tel: fax: Everton Husain MD 229 [facility] [address] [place] [address] Phone: tel: fax: Referral ID Status Reason Start Date Expiration Date Visits Requested Visits Authorized [id number] Authorized Specialty Services Required 05/23/2024 05/23/2025 1 1 Reason for Visit * Reason Comments Follow-up Medication Review Encounter Details Date Type Department Care Team (Late st Contact Info) Description 05/23/2024 2:30 PM EST Office Visit Internal Medicine - [address] [phone] Gaurav Tolbert MD [address] [place] [phone] Grief (Primary Dx); Type 2 diabetes mellitus with diabetic nephropathy, with long-term current use of insulin ([facility]); Hypertension, unspecified type; Hyperlipidemia, unspecified hyperlipidemia type; Bilateral carotid artery stenosis; Coronary artery disease involving [place] coronary artery of [place] heart without angina pectoris; Screen for colon cancer; Wartenberg syndrome Social History Tobacco Use Types Packs/Day Years [...] on file documented as of this encounter Last Filed Vital Signs Vital Sign Reading [...] Mass Index 37.87 05/23/2024 1:43 PM EST documented in this encounter Progress Notes * Gaurav Tolbert MD - 05/23/2024 2:30 PM ESTAssociated Problem(s): Type 2 diabetes mellitus with renal manifestations (CMS/HCC) Diabetic diet discussed. She is being monitored by endocrinology. She will continue her regimen of dulaglutide, insulin Tresiba. * Gaurav Tolbert MD - 05/23/2024 2:30 PM ESTAssociated Problem(s): Hypertension Follow low-sodium diet. Continue current treatment of amlodipine, carvedilol, isosorbide mononitrate * Gaurav Tolbert MD - 05/23/2024 2:30 PM ESTAssociated Problem(s): Hyperlipidemia Follow low-cholesterol diet and continue atorvastatin. * Gaurav Tolbert MD - 05/23/2024 2:30 PM ESTAssociated Problem(s): Bilateral carotid artery stenosis Continue aspirin and statin therapy. Followed up with vascular surgery. Repeat imaging in 2 years. * Gaurav Tolbert MD - 05/23/2024 2:30 PM ESTAssociated Problem(s): CAD (coronary artery disease) Currently denies any anginal symptoms. Continue aspirin, atorvastatin, carvedilol, amlodipine, isosorbide mononitrate. 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 Orders: Ambulatory referral to Orthopedic; Future * Gaurav Tolbert MD - 05/23/2024 2:30 PM EST CHIEF COMPLAINT: Chief Complaint Patient presents with Follow-up Medication Review IDENTIFIER: Bridget Patel is a 59 y.o. old female. HPI Patient is a 59 year old woman who presents to the office today for medication review. Sadly, and unfortunately patient's brother in [place] on 04/29/2024. She is grievinghis loss. Her 2 other brothers are also ill. Her other brother in [place] also has schizophrenia and she is worried about him. She is grieving her brothers passing away. Patient followed up with her public services librarian at [facility] on 04/17/2024. Patient's hemoglobin A1c was6.9 on 03/06/2024. She was recommended to increase her Tresiba to 30 units daily to help with overnight hyperglycemia. Patient will remain on NovoLog. Patient is already on maximum dose of Trulicity. 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 Transplant function has remained stable. She is not on a JARAD inhibitor. She does not have any significant proteinuria. Pulmonary She followed up with vascular surgery on 03/10/2024 for bilateral stenosis. She has been recommendedrepeat carotid ultrasound in 2 years. Advised to continue aspirin and statin therapy. 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 She does have a history of asthma and restrictive lung disease and has been seen by pulmonology previously on 06/17/2023. At that time she was advised to continue Symbicort and to use albuterol inhaler as needed. She previously was seen by cardiology on 06/04/2023 for her nonobstructive coronary artery disease. Her last colonoscopy was on 07/09/2022 which was normal. Repeat colonoscopy in 2 years which would bedue around 07/09/2024. She is scheduled to see formula weigher tomorrow. She had her mammogram around February 2024 and as per it was negative. ROS: GENERAL: No malaise, significant weight loss or fever HEENT: No changes in hearing or vision, nose bleeds or other nasal problems RESPIRATORY: No cough, wheezing or shortness of breath CARDIOVASCULAR: No chest pain, leg swelling or palpitations GI: No abdominal discomfort, blood in stools or black stools NECK: No lumps, goiter, pain or significant neck swelling : No dysuria, frequency or incontinence MUSCULOSKELETAL: see HPI SKIN: No lesions, rash or itching NEURO: See HPI PAST MEDICAL HISTORY: Patient Active Problem List Diagnosis Date Noted Wartenberg syndrome 03/13/2024 De Quervain's tenosynovitis 03/13/2024 CAD (coronary artery disease) 06/04/2023 History of cardiac catheterization 05/28/2023 Chest pain 07/19/2022 Proliferative diabetic retinopathy ([facility]) 12/25/2021 Type 2 diabetes mellitus with eye manifestations ([facility]) 12/25/2021 S/P kidney transplant 03/05/2021 Bilateral carotid artery stenosis 01/29/2020 Type 2 diabetes mellitus with neurological manifestations ([facility]) 03/31/2018 Asthma 12/28/2017 Carpal tunnel syndrome 10/28/2017 Hypertension 09/27/2017 Severe obesity with body mass index (BMI) of 35.0 to 39.9 with comorbidity ([facility]) 08/23/2017 Restrictive lung disease 08/23/2017 Chronic obstructive pulmonary disease ([facility]) 08/23/2017 Hyperlipidemia 08/17/2017 Depression 08/05/2017 CKD (chronic kidney disease) 06/01/2017 Insomnia 04/23/2017 Obesity hypoventilation syndrome ([facility]) 02/04/2016 Anxiety 06/24/2015 Vitamin D deficiency 05/19/2012 Gastroparesis 05/11/2012 Type 2 diabetes mellitus with renal manifestations ([facility]) 03/17/2005 Migraine 03/17/2005 History of TIA (transient ischemic attack) 03/17/2005 Past Surgical History: Procedure Laterality Date OTHER SURGICAL HISTORY PROCEDURE: AV FISTULA OR GRAFT VENOUS OTHER SURGICAL HISTORY 01/20/2022 PROCEDURE: WI SLCTV CATHJ 3RD+ ORD SLCTV THRC/BRCH/CPHLC BRNCH OTHER SURGICAL HISTORY 01/20/2022 PROCEDURE: WI SLCTV CATHJ EA 2ND+ ORD ABDL PEL/LXTR ART BRNCH OTHER SURGICAL HISTORY 01/20/2022 PROCEDURE: XRAY, THORACIC AORTA W/SERIALOGRAPH OTHER SURGICAL HISTORY 01/20/2022 PROCEDURE: X-RAY EXAM OF ARM/LEG ARTERY OTHER SURGICAL HISTORY 01/20/2022 PROCEDURE: ULTRASOUND GUIDANCE FOR VASCULAR AC TUBAL LIGATION PROCEDURE: HISTORICAL TUBAL LIGATION SOCIAL HISTORY: Social History Tobacco Use Smoking status: Former Current packs/day: 1.30 Types: Cigarettes Smokeless tobacco: Never Substance Use Topics Alcohol use: No FAMILY HISTORY: Family History Problem Relation Name Age of Onset Heart failure Mother Stroke Mother Heart failure Father Other (Other: Diabetes, [place]) Father Family Status Relation Name Status Mother Father No partnership data on file MEDICATIONS DISCONTINUED/REORDERED: There are no discontinued medications. ACTIVE MEDICATIONS: Outpatient Medications Marked as Taking for the 05/23/24 encounter (Office Visit) with Gaurav Tolbert MD Medication Sig Dispense Refill ACCU-CHEK SOFTCLIX LANCETS MISC by Not Applicable route. albuterol HFA (PROAIR HFA ; PROVENTIL HFA ; VENTOLIN HFA) 90 mcg/actuation inhaler Inhale 2 puffs by mouth. amLODIPine (NORVASC) 5 mg tablet Take 1 tablet (5 mg total) by mouth 1 (one) time each day. atorvastatin (LIPITOR) 40 mg tablet Take 1 tablet (40 mg total) by mouth 1 (one) time each day. 90 tablet 0 carvediloL (COREG) 6.25 mg tablet Take 1 tablet (6.25 mg total) by mouth. (Patient taking differently: Take 1 tablet (6.25 mg total) by mouth 2 (two) times a day with meals.) docusate sodium (COLACE) 100 mg capsule dulaglutide (Trulicity) 4.5 mg/0.5 mL pen injector injection Inject under the skin. famotidine (PEPCID) 20 mg tablet Take by mouth. gabapentin (NEURONTIN) 100 mg capsule Gabapentin 300 mg nightly glucose blood test strip sig tid prn mycophenolate (MYFORTIC) 180 mg EC tablet Take 1 tablet (180 mg total) by mouth. senna 8.6 mg tablet syringe and needle,insulin,1mL (INSULIN SYRINGES, DISPOSABLE, MISC) 1 Syringe by Not Applicable route 1 (one) time each day. tacrolimus (Envarsus XR) 1 mg extended release tablet traZODone (DESYREL) 100 mg tablet Take 1 tablet (100 mg total) by mouth at bedtime as needed. ALLERGIES: Allergies Allergen Reactions Lamotrigine Rash PHYSICAL EXAM: Visit Vitals BP 134/70 Pulse 78 Ht 1.6 m (63 ) Wt 97 kg (213 lb 12.8 oz) BMI 37.87 kg/m?? OB Status Postmenopausal Smoking Status Former BSA 1.99 m?? EYES: PERRL, conjunctiva and sclera normal NOSE/SINUS: negative MOUTH/THROAT: no erythema or exudates NECK: negative HEART: regular rate, regular rhythm and no murmur LUNG: clear to auscultation LYMPH NODES: grossly normal ABDOMEN: Bowel sounds normoactive, no bruits, soft, non-tender, without organomegaly or palpable masses EXTREMITIES: No edema bilaterally. NEURO: Awake, alert and oriented x 3, Normal gait SKIN: negative Assessment & Plan Grief Emotional counseling done today. I have provided her a list of behavioral health providers for her to reach out. I have encouraged therapy for her. I did offer her a short prescription lorazepam which she can use as needed but she declined at this moment but will require when she flies to [place]. I will follow-up with her again in 4 weeks. Type 2 diabetes mellitus with diabetic nephropathy, with long-term current use of insulin ([facility]) Diabetic diet discussed. She is being monitored by endocrinology. She will continue her regimen of dulaglutide, insulin Tresiba. Hypertension, unspecified type Follow low-sodium diet. Continue current treatment of amlodipine, carvedilol, isosorbide mononitrate Hyperlipidemia, unspecified hyperlipidemia type Follow low-cholesterol diet and continue atorvastatin. Bilateral carotid artery stenosis Continue aspirin and statin therapy. Followed up with vascular surgery. Repeat imaging in 2 years. Coronary artery disease involving [place] coronary artery of [place] heart without angina pectoris Currently denies any anginal symptoms. Continue aspirin, atorvastatin, carvedilol, amlodipine, isosorbide mononitrate. Screen for colon cancer Referral to GI has been placed to schedule colonoscopy. 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 Orders: Ambulatory referral to Orthopedic; Future Today's documentation was made using voice recognition software.This note may contain grammatical errors secondary to this software. documented in this encounter Plan of Treatment Upcoming Encounters Date Type Department Care Team (Late st Contact Info) Description 06/29/2024 11:00 AM EDT Office [facility] [address] [place] [phone] Gaurav Tolbert MD [address] [place] [phone] 06/28/2025 9:15 AM EDT Ancillary Procedure [facility] - [facility] [address] [place] [address] Scheduled Referrals Name Type Priority Associated Diagnoses Order Schedule Ambulatory referral to Gastroenterology Outpatient Referral Routine Screen for colon cancer 1 Occurrences starting 05/23/2024 until 05/23/2025 Ambulatory referral to Orthopedic Outpatient Referral Routine Wartenberg syndrome 1 Occurrences starting 05/23/2024 until 05/23/2025 documented as of this encounter Visit Diagnoses Diagnosis Grief- Primary Adjustment disorder with depressed mood Type 2 diabetes mellitus with diabetic nephropathy, with long-term current use of insulin ([facility]) Hypertension, unspecified type Hyperlipidemia, unspecified hyperlipidemia type Bilateral carotid artery stenosis Occlusion and stenosis of carotid artery without mention of cerebral infarction Coronary artery disease involving [place] coronary artery of [place] heart without angina pectoris Screen for colon cancer Special screening for malignant neoplasms, colon Wartenberg syndrome Disturbance of skin sensation documented in this encounter Care Teams Window Installer Relationship Specialty Start Date End Date Gaurav Tolbert MD [address] [place] [id number] PCP - General Internal Medicine 07/27/17 documented as of this encounter
--- OUTSIDE RECORDS SUMMARY | 2024-06-15 11:56 | XMS_ITS | Clinical Summary ---
Author Organization [facility] Address [address] [place] [address] Care Team Providers Care Rn Clinical Coordinator Name Role Phone Pcp, No Primary Care Provider Unavailabl e Social History Tobacco Use Types Packs/Day Years Used Date Smoking Tobacco: Never Assessed Sex and Gender Information Value Date Recorded Sex Assigned at Not on file Gender Identity Not on file Sexual Orientation Not on file Plan of Treatment Health Maintenance Due Date Last Done Comments Hepatitis C Virus Screening 1967 Pneumococcal Vaccine: Pediat irlanda (0-5 Years) and At-Risk Patients (6 to 49 Years) (1 of 2 - PCV) 1973 HIV Screening 1980 DTaP/Tdap/Td Vaccines (1 - Tdap) 1986 Pneumococcal Vaccines 50+ (1 of 2 - PCV) 1986 Hepatitis B Vaccines (1 of 3 - Risk Dialysis 4-dose series) 1987 Pap Smear (Ages 21-65) 1988 Mammogram 2007 Colonoscopy 2012 Zoster (Shingles) Vaccine (1 of 2) 2017 Influenza Vaccine 11/04/2023 01/28/2022, , 03/18/2005, Additional history exists COVID-19 Vaccine (2023-2 5 season) 2023 06/27/2020, 05/16/2020 Care Teams Rn Clinical Coordinator Relationship Specialty Start Date End Date Pcp, No [address] [place] [address] PCP - General 07/08/21
--- OUTSIDE RECORDS SUMMARY | 2024-06-15 11:56 | XMS_ITS | Encounter Summary ---
Author Organization [facility] Address [address] [facility] [address] [place] [address] Phone Care Team Providers Care Service Attendant Cafeteria Name Role Phone Gaurav Bennett Primary Care Provider [phone] Reason for Visit * Reason Comments Med Refill Encounter Details Date Type Department Care Team ([facility] st Contact Info) Description 06/15/2022 Refill [facility] [address] [facility] [address] [place] [phone] Blu Montero MD [address] [facility] [address] [place] [phone] Social History Tobacco Use Types Packs/Day Years Used Date Smoking Tobacco: Former Cigarettes Q uit: 04/05/2007 Smokeless Tobacco: Never Comments:Smoking History Inf o:Some days Comments Unknown Sex and Gender Information Value Date Recorded Sex Assigned at Not on file Legal Sex Female 5:08 PM EST Gender Identity Not on file Sexual Orientation Not on file COVID-19 Exposure Response Date Recorded In the last 10 days, have yo u been in contact with someone who was confirmed or suspected to have Coronavirus/COVID-19? No / Unsure 05/18/2022 9:57 AM EST documented as of this encounter Plan of Treatment Not on file documented as of this encounter Visit Diagnoses Not on filedocumented in this encounter Care Teams Service Attendant Cafeteria Relationship Specialty Start Date End Date Gaurav Bennett [address] [place] [address] [phone] PCP - General Internal Medicine 03/07/21 documented as of this encounter
[2024-06-15 17:33] LABS: MANUAL DIFF FLAG NO
[2024-06-15 17:35] LABS: Appearance Urine Clear; Color Urine Yellow; Glucose Urine UA Negative (Negative); Leukocyte Esterase Urine Negative (Negative); Nitrite Urine Negative (Negative); PH 5.5 (5.0-9.0); Specific Gravity - Urine 1.015 (1.005-1.025); UMIC TRIGGER UA YES; Urine Blood Negative (Negative); Urine Ketones Negative (Negative); Urine Protein 30 (1+) mg/dL (Neg-Trace)
[2024-06-15 17:43] LABS: Bacteria Urine 1+ (None Seen); Hyaline Casts Urine 0-2 /LPF (0-2); RBC Urine 0-2 /HPF (0-2); WBC Urine 0-5 /HPF (0-5)
[2024-06-15 17:59] LABS: Basophils Absolute Auto 0.1 X10*3/uL (0.0-0.2); Basophils Percent Auto 1.2 % (0-2); Eosinophils Absolute Auto 0.1 X10*3/uL (0.0-0.4); Eosinophils Percent Auto 2.4 % (0-4); Hemoglobin 11.9 g/dl (12.0-16.0); Imm Gran Abs Auto 0.03 X10*3/uL (0.00-0.03); Imm Gran Pct Auto 0.6 % (0.0-0.4); Lymphocytes Absolute Auto 1.1 X10*3/uL (1.2-4.9); Lymphocytes Percent Auto 22.2 % (20-40); Mean Corpuscular HGB Conc 31.3 g/dl (31.0-35.0); Mean Corpuscular Hemoglobin 26.6 pg (27.0-33.0); Mean Platelet Volume 11.3 fL (9.4-12.3); Monocytes Absolute Auto 0.5 X10*3/uL (0.1-1.2); Monocytes Percent Auto 10.4 % (2-11); Neutrophils Absolute Auto 3.2 x10*3/uL (2.0-8.3); Neutrophils Percent Auto 63.2 % (45-73); Platelet Count 220 X10*3/uL (160-400); Red Blood Count 4.47 X10*6/uL (4.20-5.50); Red Cell Distribution Width 13.3 % (11.0-16.0); White Blood Count 5.1 X10*3/uL (4.8-10.8)
[2024-06-15 18:04] LABS: Anion Gap 15 (12-20); Blood Urea Nitrogen 38 mg/dL (9-16); Carbon Dioxide 24 mmol/L (22-29); Chloride 110 mmol/L (96-108); Estimated Glomerular Filt Rate 37; Magnesium 1.7 mg/dL (1.6-2.6); Phosphorus 3.3 mg/dL (2.7-4.5); Potassium 4.7 mmol/L (3.3-5.1); Sodium 144 mmol/L (135-145)
[2024-06-16 15:23] LABS: Tacrolimus Prograf 3.9 mcg/L
== END 2024-06-15 09:49 | disposition home or self-care (01) ==
LOC: HO.HKASLDS 09:48
PROVIDERS: Visit Provider Internal Medicine Nephrology
DX: T86.10 Unspecified complication of kidney transplant (principal); I10 Essential (primary) hypertension; R30.0 Dysuria
CPT/HCPCS: 36415; 80051; 80197; 81001; 82310; 82565; 83735; 84100; 84520; 85025; 87086

== ENCOUNTER 2024-06-20 10:44 | Outpatient (AMB) | payer OTHER, SELFPAY ==
[2024-06-20 10:50] VITALS: BP 136/62; PULSE 76; O2SAT 100; BMI 37.7
--- NOTE | 2024-06-20 10:50 | HO.NEPHOV_ITS ---
Vital Signs 06/20/24 10:50 Height 5 ft 3 in Weight 213 lb BMI 37.7 BP 136/62 Blood Pressure Location Rt brachial Position Sitting Pulse 76 Pulse Source Pulse Oximeter Pulse Oximetry (%) 100 Oxygen Delivery Method Room Air Intake Visit Reasons: Follow Up 2mo-[employer] General Sales Manager Required: No Allergies No Known Allergies Allergy (Verified 06/20/24 10:52) Do you need a note to return to daycare/school/sports/work: No HPI Comments Details: Bridget was seen in the office for follow-up of her renal transplant. She is mourning the loss of her brother. She has longstanding diabetes. She had end- stage renal disease and was on renal replacement therapy. She does not have any UTIs, pain over her renal transplant, hematuria, dysuria, fever, suprapubic pain, nausea, vomiting, chills, rigors. Her blood sugars are fair and is better. Her blood pressure has been at goal. She has been compliant with her medications. She denies any active lower extremity vascular disease. She has no skin rashes. She maintains good hydration and avoids nonsteroidal anti- inflammatory medications. She has no side effects from her immunosuppressive medication. [facility] Medical History Retinal hemorrhage Peripheral neuropathic pain Neuropathy Hypertension Hypercholesteremia ESRD (end stage renal disease) Diabetes mellitus Dermatitis Chronic kidney disease Cellulitis Surgical History H/O tubal ligation History of carpal tunnel release -donor kidney transplant Family History Sister Cancer Social History Patient Tobacco Use Status: Former Tobacco user Review of Systems Const All systems reviewed & are unremarkable except as noted in HPI and below Physical Exam Vital Signs: Last Vital Signs Pulse 76 06/20/24 10:50 BP 136/62 06/20/24 10:50 Pulse Ox 100 06/20/24 10:50 Oxygen Delivery Method Room Air 06/20/24 10:50 BMI result Body Mass Index 37.7 Const General: comfortable and no acute distress Orientation/consciousness: patient oriented x3 HEENT Head: Yes normocephalic Mouth: Normal oral and palatal mucosa present Eyes EOM: EOMs intact bilaterally Neck Neck: Yes supple Resp Auscultation: clear to auscultation bilaterally Cardio Jugular venous distension: no JVD Rate: regular rate GI Palpation (GI): Soft to palpation Auscultation: normal bowel sounds General: Yes no CVA tenderness Back/Spine/Pelvis Back: no CVA tenderness Skin General skin exam: no rashes or lesions noted Neuro General: patient oriented x3 and moves all extremities Extrem General: Yes no pedal edema Results Reviewed Nephrology Results: Hgb 11.9 g/dl (12.0-16.0) L 06/15/24 WBC 5.1 X10*3/uL (4.8-10.8) 06/15/24 Plt Count 220 X10*3/uL (160-400) 06/15/24 Sodium 144 mmol/L (135-145) 06/15/24 Potassium 4.7 mmol/L (3.3-5.1) 06/15/24 Chloride 110 mmol/L (96-108) H 06/15/24 Carbon Dioxide 24 mmol/L (22-29) 06/15/24 BUN 38 mg/dL (9-16) H 06/15/24 Creatinine 1.46 mg/dL (0.5-1.4) H 06/15/24 Calcium 10.0 mg/dL (8.4-10.2) 06/15/24 Phosphorus 3.3 mg/dL (2.7-4.5) 06/15/24 Urine Protein 30 (1+) mg/dL (Neg-Trace) H 06/15/24 Urine Creatinine 170.86 mg/dL 08/09/23 Protein/Creatinin Ratio 0.12 (<0.2) 08/09/23 Assessment & Plan Assessment & Plan (1) Renal transplant disorder: Code(s): T86.10 - Unspecified complication of kidney transplant Category: Medical (2) Hypertension: Code(s): I10 - Essential (primary) hypertension Category: Medical Qualifiers: Hypertension type: primary hypertension Qualified Code(s): I10 - Essential (primary) hypertension Plan Bridget had ESRD from diabetic nephropathy. She underwent a donor renal transplant. Her transplant function had been stable . Her blood pressure has been at goal. Her blood sugar is better controlled. she needs to lose weight. She is not on any Joshua inhibitor. She is not known to have any significant proteinuria. She has no side effects from her immunosuppression medications. She maintains good hydration. She avoids nonsteroidal anti- inflammatories. She needs to see a screen printer helper once a year. She has a follow-up with her director pharmacology & recycling collections driver. She has no other active vascular symptoms. She is on statins. I did not make any medication changes today. I ordered follow-up blood work including tacrolimus levels. ( recently increased to 10 mg ) All her questions were answered. Follow-up given Orders: Orders Tacrolimus Prograf 4 Weeks I10 - Essential (primary) hypertension, T86.10 - Unspecified complication of kidney transplant Creatinine 2 Months I10 - Essential (primary) hypertension, T86.10 - Unspecified complication of kidney transplant Electrolytes 2 Months I10 - Essential (primary) hypertension, T86.10 - Unspecified complication of kidney transplant Aspartate Amino Transferase 2 Months I10 - Essential (primary) hypertension, T86.10 - Unspecified complication of kidney transplant Magnesium 2 Months I10 - Essential (primary) hypertension, T86.10 - Unspecified complication of kidney transplant Complete Blood Count Auto Diff 2 Months I10 - Essential (primary) hypertension, T86.10 - Unspecified complication of kidney transplant Blood Urea Nitrogen 2 Months I10 - Essential (primary) hypertension, T86.10 - Unspecified complication of kidney transplant Calcium 2 Months I10 - Essential (primary) hypertension, T86.10 - Unspecified complication of kidney transplant Tacrolimus Prograf 2 Months I10 - Essential (primary) hypertension, T86.10 - Unspecified complication of kidney transplant Alanine Aminotransferase 2 Months I10 - Essential (primary) hypertension, T86.10 - Unspecified complication of kidney transplant Phosphorus 2 Months I10 - Essential (primary) hypertension, T86.10 - Unspecified complication of kidney transplant Coding Level of Care Code Est Pt Level 4 (03891) Diagnoses Renal transplant disorder T86.10 Primary hypertension I10 Hypertension type: primary hypertension
--- OUTSIDE RECORDS SUMMARY | 2024-06-20 12:45 | XMS_ITS | Clinical Summary ---
Author Organization [facility] Address [address] 20 0 [place] [address] Phone Care Team Providers Care Transfer Iron Operator Name Role Phone YordanlucyOxanak Primary Care Provider [phone] Allergies Active Allergy Reactions Criticality Noted Date [...] BEDTIME. 07/28/19 22 Active ergocalciferol 1.25 MG (05163 UT) capsule TAKE ONE CAPSULE BY MOUTH [...] AM EST) Hemoglobin A1C 9.3(H) (4.0-5.6) % [facility] Comment: MONITORING: In known diabetic patients, hemoglobin A1c targets should be discussed with health care provider. DIAGNOSTIC USE: ??The [place] Diabetes Association (ADA) and the World Health [...] Supplement 1 Testing performed or reported by [facility], a Service of [facility], [address] [place] [address] Hector Swain MD, Mental Health Clinician [facility]# [id number] Blood (Blood, Venous) 05/07/2022 10:26 AM EST 05/07/2022 10:38 AM EST us Harper Stanley MD LAB BLOOD ORDERABLES Final Resu lt [facility] from Last 3 Months or Most Recently Relevant to Health Maintenance Insurance [facility] ([id number]) [facility] ([id number]) Care Teams Transfer Iron Operator Relationship Specialty Start Date End Date Gaurav Bennett [address] [place] [address] PCP - General Internal Medicine 03/07/21
--- OUTSIDE RECORDS SUMMARY | 2024-06-20 12:45 | XMS_ITS | Encounter Summary ---
Author Organization [facility] Address 100 [facility] 200 [place] [address] Phone Care Team Providers Care Examination Supervisor Name Role Phone Gaurav Bennett Primary Care Provider [phone] Reason for Visit * Reason Comments Med Refill Encounter Details Date Type Department Care Team ([facility] st Contact Info) Description 06/15/2022 Refill [facility] 100 [facility] 200 [place] [phone] Blu Montero MD [address] [facility] 204 [place] [phone] Social History Tobacco Use Types Packs/Day Years [...] on filedocumented in this encounter Care Teams Examination Supervisor Relationship Specialty Start Date End Date Gaurav Bennett [address] [place] [phone] PCP - General Internal Medicine 03/07/21 documented as of this encounter
--- OUTSIDE RECORDS SUMMARY | 2024-06-20 12:45 | XMS_ITS | Encounter Summary ---
Author Organization [facility] Address 100 [facility] 200 [place] [address] Phone Care Team Providers Care Core Manager Name Role Phone Gaurav Bennett Primary Care Provider [phone] Reason for Visit * Reason Comments Med Refill Encounter Details Date Type Department Care Team (Late st Contact Info) Description 02/25/2021 Refill [facility] 100 [facility] 200 [place] [phone] Capo Dawson MD Social History Tobacco Use [...] on filedocumented in this encounter Care Teams Core Manager Relationship Specialty Start Date End Date Gaurav Bennett [address] [place] [address] PCP - General Internal Medicine 03/07/21 documented as of this encounter
--- OUTSIDE RECORDS SUMMARY | 2024-06-20 12:45 | XMS_ITS | Encounter Summary ---
Author Organization [facility] Address 100 [facility] 200 [place] [address] Phone Care Team Providers Care Clinical Support Nurse Name Role Phone Gaurav Bennett Primary Care Provider [phone] Reason for Visit * Reason Comments Med Refill Encounter Details Date Type Department Care Team (Late st Contact Info) Description 11/28/2021 Refill [facility] [address] [facility] 200 [place] [phone] Capo Dawson MD Social History Tobacco Use [...] on filedocumented in this encounter Care Teams Clinical Support Nurse Relationship Specialty Start Date End Date Gaurav Bennett [address] [place] [address] PCP - General Internal Medicine 03/07/21 documented as of this encounter
--- OUTSIDE RECORDS SUMMARY | 2024-06-20 12:45 | XMS_ITS | Clinical Summary ---
Author Organization [facility] Address [address] [place] [address] Care Team Providers Care Events Manager Name Role Phone Pcp, No Primary Care [...] 5 season) 2023 06/27/2020, 05/16/2020 Care Teams Events Manager Relationship Specialty Start Date End Date Pcp, No [address] [place] [address] PCP - General 07/08/21
--- OUTSIDE RECORDS SUMMARY | 2024-06-20 12:45 | XMS_ITS | Clinical Summary ---
Author Organization [facility] [place] Address [address] [place] [address] Care Team Providers Care Boilermaking Supervisor Name Role Phone Gaurav Tolbert MD Primary Care Provider [phone] Allergies Active Allergy Reactions Criticality Noted Date [...] Team Description 06/14/2024 Telephone Gastroenterology - [address] [place] [phone] Everton Husain MD 05/23/2024 2:30 PM EST Office Visit Internal Medicine - [facility] 305 [place] [phone] Gaurav Tolbert MD Grief (Primary Dx); Type 2 diabetes mellitus with diabetic nephropathy, with long-term current use of insulin ([facility]); Hypertension, unspecified type; Hyperlipidemia, unspecified hyperlipidemia type; Bilateral carotid artery stenosis; Coronary artery disease involving council coronary artery of council heart without angina pectoris; Screen for colon cancer; 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/2024 10:00 AM EST Office Visit Vascular Surgery - [place] [address] [place] [address] Vilma Ruiz PA Bilateral carotid artery stenosis (Primary Dx) 03/27/2024 Telephone Gastroenterology - [address] [place] [address] Everton Husain MD from Last [...] GRAFT VENOUS OTHER SURGICAL HISTORY 01/20/2022 PROCEDURE: [place] SLCTV CATHJ 3RD+ ORD SLCTV THRC/BRCH/CPHLC BRNCH OTHER SURGICAL HISTORY 01/20/2022 PROCEDURE: [place] SLCTV CATHJ EA 2ND+ ORD ABDL PEL/LXTR [...] 06/24/2015 DX:Anxiety Asthma 12/28/2017 DX:Asthma AV fistula ([facility]) 06/01/2017 DX:AV fistu la ([facility]) Carpal tunnel syndrome 10/28/2017 DX:Carpal tunnel syndrome Chronic obstructive pulmonar y disease ([facility]) 08/23/2017 DX:Chronic obstructive pulmo nary disease (HCC) CKD (chronic kidney disease) stage V requiring chronic dialysis ([facility]) 06/01/2017 DX:CKD (chronic k idney disease) stage V requiring chronic dialysis ([facility]) Depression 08/05/2017 DX:Depression Gastroparesis 05/11/2012 DX:Gastroparesis Hypertension 09/27/2017 DX:Hypertension Insomnia 04/23/2017 DX:Insomnia Obesity hypoventilation synd alexa ([facility]) 02/04/2016 DX:Obesity hypoventilation s yndrome ([facility]) Restrictive lung disease 08/23/2017 DX:Rest rictive lung disease Type 2 diabetes mellitus wit h neurological manifestations ([facility]) 03/31/2018 DX:Type 2 diabet es mellitus with neurological manifestations ([facility]) Type 2 diabetes mellitus wit h renal manifestations ([facility]) 03/17/2005 DX:Type 2 diabetes mellitus with renal manifestations ([facility]) Vitamin D deficiency 05/19/2012 DX:Vitamin D deficiency Severe obesity with body mas s index (BMI) of 35.0 to 39.9 with comorbidity ([facility]) 08/23/2017 DX:Severe obesity with body mass index (BMI) of 35.0 to 39.9 with comorbidity ([facility]) Proliferative diabetic retin opathy ([facility]) 12/25/2021 DX:Proliferative diabetic re tinopathy ([facility]); COMMENT: Ou, dr palma Type 2 diabetes mellitus wit h eye manifestations ([facility]) 12/25/2021 DX:Type 2 diabetes mellitus with eye manifestations ([facility]) Family History Medical History Relation Name Comments Heart failure Father Other: Diabetes, [place] Father Heart failure Mother Stroke Mother Relation [...] AM EDT Office Visit Internal Medicine - [address] [place] [address] Gaurav Tolbert MD [address] [place] [address] 06/28/2025 9:15 AM EDT Ancillary Procedure [facility] - [address] [place] [address] Health Maintenance Due Date Last [...] Blood Venous blood specimen / Unknown Result [facility] Provider LAB BLOOD ORDERABLES Lurdes l Result * Annual BMP Blood Test (06/10/2023) [facility] Annual BMP Blood Test abstracted Result [facility] Provider HEALTH MAINTENANCE Final Result * Diabetes Foot Exam (02/04/2023) [facility] Diabetes: Annual Foot Exam abstracted Result [facility] Provider HEALTH MAINTENANCE Final Result * Hepatitis C Screening (07/28/2022) [facility] Hepatitis C Screening abstracted Result [facility] HEALTH MAINTENANCE Final Result * (ABNORMAL) Hemoglobin A1c (07/28/2022) [facility] Hemoglobin A1C 9.7(A) <=6.5 % Blood Venous blood specimen / Unknown Result [facility] Provider LAB BLOOD ORDERABLES Lurdes l Result * Colonoscopy (07/09/2022) [facility] Colonoscopy abstracted, no interpretation Anatomical Region Laterality Modality Other Result [facility] Provider HEALTH MAINTENANCE Final Result * Urine Albumin Creatinine Ratio (12/19/2005) [facility] Urine Albumin Creatinine Ratio abstracted Result [facility] Provider HEALTH MAINTENANCE Final Result * Pap Smear (04/22/2004) [facility] Pap smear abstracted, no interpretation Result [facility] Provider HEALTH MAINTENANCE Final Result from Last 3 Months or Most Recently Relevant to Health Maintenance Insurance [facility] MEDICARE Member Subscriber Plan / Payer (Ef fective 2019-Present) Name:Bridget Patel I Relation to Subscriber:Self Name:Bridget Patel I Payer ID:[id number] Group ID:[id number] Type:Not on file Address: [place] [address] [address] [address] Care Teams Boilermaking Supervisor Relationship Specialty Start Date End Date Gaurav Tolbert MD [address] [place] [address] PCP - General Internal Medicine 07/27/17
--- OUTSIDE RECORDS SUMMARY | 2024-06-20 12:45 | XMS_ITS | Encounter Summary ---
Author Organization [facility] Address 100 [facility] 200 [place] [address] Phone Care Team Providers Care Basic Sciences Dean Name Role Phone Gaurav Bennett Primary Care Provider [phone] Reason for Visit * Reason Comments Med Refill Encounter Details Date Type Department Care Team (Late st Contact Info) Description 10/09/2020 Refill [facility] 200 [place] [phone] Capo Dawson MD Social History Tobacco Use [...] on filedocumented in this encounter Care Teams Basic Sciences Dean Relationship Specialty Start Date End Date Gaurav Bennett [address] [place] [address] PCP - General Internal Medicine 03/07/21 documented as of this encounter
--- OUTSIDE RECORDS SUMMARY | 2024-06-20 12:45 | XMS_ITS | Encounter Summary ---
Author Organization [facility] Address [address] [place] [address] Care Team Providers Care Hand Spray Operator Name Role Phone Gaurav Tolbert MD Primary Care Provider [phone] Reason for Referral * Consultation (Routine) - Closed Specialty Diagnoses / Procedures Referred By Contact Referred To Contact Orthopaedics / Orthopaedic Surgery Diagnoses Wartenberg syndrome Gaurav Tolbert MD [address] [place] [address] Phone: tel: fax: Chandni Angulo MD 175 [facility] 140 [place] [address] Phone: tel:[phone] Referral ID Status Reason Start Date Expiration Date V isits Requested Visits Authorized [id number] Closed Specialty Services Required 05/23/2024 05/23/2025 1 1 * Consultation (Routine) - Authorized Specialty Diagnoses / Procedures Referred By Contac t Referred To Contact Gastroenterology Diagnoses Screen for colon cancer Gaurav Tolbert MD [address] [place] [address] Phone: tel: fax: Everton Husain MD 229 [facility] 419 [place] [address] Phone: tel: fax: Referral ID Status Reason Start Date Expiration Date Visits Requested Visits Authorized [id number] Authorized Specialty Services Required 05/23/2024 05/23/2025 1 1 Reason for Visit * Reason Comments Follow-up Medication Review Encounter Details Date Type Department Care Team (Late st Contact Info) Description 05/23/2024 2:30 PM EST Office Visit Internal Medicine - [address] [address] Gaurav Tolbert MD [address] [place] [address] Grief (Primary Dx); Type 2 diabetes mellitus with diabetic nephropathy, with long-term current use of insulin ([facility]); Hypertension, unspecified type; Hyperlipidemia, unspecified hyperlipidemia type; Bilateral carotid artery stenosis; Coronary artery disease involving tangirnaq coronary artery of tangirnaq heart without angina pectoris; Screen for colon [...] review. Sadly, and unfortunately patient's brother in [place] on 04/29/2024. She is grievinghis loss. Her 2 other brothers are also ill. Her other brother in [place] also has schizophrenia and she is worried about him. She is grieving her brothers passing away. Patient followed up with her extrusion operator at [facility] on 04/17/2024. Patient's hemoglobin A1c was6.9 [...] around 07/09/2024. She is scheduled to see toe puller tomorrow. She had her mammogram around February [...] 05/28/2023 Chest pain 07/19/2022 Proliferative diabetic retinopathy ([facility]) 12/25/2021 Type 2 diabetes mellitus with eye manifestations ([facility]) 12/25/2021 S/P kidney transplant 03/05/2021 Bilateral carotid artery stenosis 01/29/2020 Type 2 diabetes mellitus with neurological manifestations ([facility]) 03/31/2018 Asthma 12/28/2017 Carpal tunnel syndrome 10/28/2017 Hypertension 09/27/2017 Severe obesity with body mass index (BMI) of 35.0 to 39.9 with comorbidity ([facility]) 08/23/2017 Restrictive lung disease 08/23/2017 Chronic obstructive pulmonary disease ([facility]) 08/23/2017 Hyperlipidemia 08/17/2017 Depression 08/05/2017 CKD (chronic kidney disease) 06/01/2017 Insomnia 04/23/2017 Obesity hypoventilation syndrome ([facility]) 02/04/2016 Anxiety 06/24/2015 Vitamin D deficiency 05/19/2012 Gastroparesis 05/11/2012 Type 2 diabetes mellitus with renal manifestations ([facility]) 03/17/2005 Migraine 03/17/2005 History of TIA (transient ischemic attack) 03/17/2005 Past Surgical History: Procedure Laterality Date OTHER SURGICAL HISTORY PROCEDURE: AV FISTULA OR GRAFT VENOUS OTHER SURGICAL HISTORY 01/20/2022 PROCEDURE: CT SLCTV CATHJ 3RD+ ORD SLCTV THRC/BRCH/CPHLC BRNCH OTHER SURGICAL HISTORY 01/20/2022 PROCEDURE: CT SLCTV CATHJ EA 2ND+ ORD ABDL PEL/LXTR [...] Mother Heart failure Father Other (Other: Diabetes, [place]) Father Family Status Relation Name Status Mother [...] but will require when she flies to [place]. I will follow-up with her again in 4 weeks. Type 2 diabetes mellitus with diabetic nephropathy, with long-term current use of insulin ([facility]) Diabetic diet discussed. She is being monitored [...] in 2 years. Coronary artery disease involving tangirnaq coronary artery of tangirnaq heart without angina pectoris Currently denies any [...] AM EDT [facility] [address] [place] [address] Gaurav Tolbert MD [address] [place] [address] 06/28/2025 9:15 AM EDT Ancillary Procedure [facility] - [facility] [address] [place] [address] Scheduled Referrals Name Type Priority Associated Diagnoses [...] nephropathy, with long-term current use of insulin ([facility]) Hypertension, unspecified type Hyperlipidemia, unspecified hyperlipidemia type Bilateral carotid artery stenosis Occlusion and stenosis of carotid artery without mention of cerebral infarction Coronary artery disease involving tangirnaq coronary artery of tangirnaq heart without angina pectoris Screen for colon cancer Special screening for malignant neoplasms, colon Wartenberg syndrome Disturbance of skin sensation documented in this encounter Care Teams Hand Spray Operator Relationship Specialty Start Date End Date Gaurav Tolbert MD [address] [place] [address] PCP - General Internal Medicine 07/27/17 documented as of this encounter
--- OUTSIDE RECORDS SUMMARY | 2024-06-20 12:45 | XMS_ITS | Encounter Summary ---
Author Organization [facility] Address [address] [facility] 200 [place] [address] Phone Care Team Providers Care Oil Burner Mechanic Name Role Phone Gaurav Bennett Primary Care Provider [phone] Reason for Visit * Reason Comments Med Refill Encounter Details Date Type Department Care Team (Late st Contact Info) Description 06/27/2021 Refill [facility] 200 [place] [phone] Capo Dawson MD Social History Tobacco Use [...] on filedocumented in this encounter Care Teams Oil Burner Mechanic Relationship Specialty Start Date End Date Gaurav Bennett [address] [place] [address] PCP - General Internal Medicine 03/07/21 documented as of this encounter
--- OUTSIDE RECORDS SUMMARY | 2024-06-20 12:45 | XMS_ITS | Encounter Summary ---
Author Organization [facility] Address [address] [place] [address] Care Team Providers Care Manager Integrated Name Role Phone Gaurav Tolbert MD Primary Care Provider [phone] Encounter Details Date Type Department Care Team ([facility] st Contact Info) Description 06/14/2024 Telephone Gastroenterology - [address] [facility] 419 [place] [address] Everton Husain MD [address] [address] Social History Tobacco Use Types Packs/Day Years [...] AM EDT Office Visit Internal Medicine - [address] [address] Gaurav Tolbert MD [address] [place] [address] 06/28/2025 9:15 AM EDT Ancillary Procedure [facility] - [address] [place] [address] documented as of this encounter Visit Diagnoses Not on filedocumented in this encounter Care Teams Manager Integrated Relationship Specialty Start Date End Date Gaurav Tolbert MD [address] [place] [address] PCP - General Internal Medicine 07/27/17 documented as of this encounter
--- OUTSIDE RECORDS SUMMARY | 2024-06-20 12:45 | XMS_ITS | Encounter Summary ---
Author Organization [facility] Address [address] [facility] [address] [facility] 200 [place] [address] Phone Care Team Providers Care Furnace Packer Name Role Phone Gaurav Bennett Primary Care Provider [phone] Reason for Visit * Reason Comments Med Refill Encounter Details Date Type Department Care Team (Late st Contact Info) Description 05/20/2023 Refill [facility] 100 [facility] 200 [place] [phone] Jez Balbuena MD [address] [place] [address], [address] [address] Long-term drug therapy Social History Tobacco Use [...] therapy documented in this encounter Care Teams Furnace Packer Relationship Specialty Start Date End Date Gaurav Bennett [address] [place] [address] PCP - General Internal Medicine 03/07/21 documented as of this encounter
== END 2024-06-20 11:13 | disposition home or self-care (01) ==
LOC: HO.HKAS 10:45
PROVIDERS: PCP Internal Medicine; Visit Provider Internal Medicine Nephrology
DX: T86.10 Unspecified complication of kidney transplant (principal); I10 Essential (primary) hypertension
CPT/HCPCS: 99214

== ENCOUNTER → 2024-06-20 10:44 | Outpatient (BNVA) | payer OTHER, SELFPAY | PROVIDERS: PCP Internal Medicine; Visit Provider Internal Medicine Nephrology | DX: T86.10 Unspecified complication of kidney transplant (principal); I10 Essential (primary) hypertension | CPT/HCPCS: 99212 ==

== ENCOUNTER 2024-09-04 09:26 | Outpatient (REF) | payer OTHER, SELFPAY ==
--- OUTSIDE RECORDS SUMMARY | 2024-09-04 10:07 | XMS_ITS | Encounter Summary ---
Author Organization [facility] Address 100 [facility] 200 [place] [address] Phone Care Team Providers Care Director Regulatory Compliance Name Role Phone Gaurav Bennett Primary Care Provider [phone] Reason for Visit * Reason Comments Med Refill Encounter Details Date Type Department Care Team (Late st Contact Info) Description 05/20/2023 Refill [facility] 100 [facility] 200 [place] [phone] Jez Balbuena MD [address] [place] [address], [address] [address] Long-term drug therapy Social History Tobacco Use [...] therapy documented in this encounter Care Teams Director Regulatory Compliance Relationship Specialty Start Date End Date Gaurav Bennett [address] [place] [address] PCP - General Internal Medicine 03/07/21 documented as of this encounter
== END 2024-09-04 09:27 | disposition home or self-care (01) ==
LOC: HO.HKASLDS 09:26
PROVIDERS: Visit Provider Internal Medicine Nephrology
DX: Z13.89 Encounter for screening for other disorder (principal)
CPT/HCPCS: 36415

== ENCOUNTER 2024-09-05 10:49 | Outpatient (AMB) | payer OTHER, SELFPAY ==
--- NOTE | 2024-09-05 11:18 | HO.NEPHOV_ITS ---
Vital Signs 09/05/24 11:21 Height 5 ft 3 in Weight 211 lb 8 oz BMI 37.5 BP 142/70 H Blood Pressure Location Rt brachial Position Sitting Pulse 67 Pulse Source Pulse Oximeter Pulse Oximetry (%) 100 Oxygen Delivery Method Room Air Intake Visit Reasons: 2 mo Transplant follow up w/labs-LVM Shellfish Shucker Required: No Accompanied by: Spouse Allergies No Known Allergies Allergy (Verified 09/05/24 11:21) HPI Comments Details: Bridget was seen in the office for follow-up of her renal transplant. She is mourning the loss of her brother. She has longstanding diabetes. She had end- stage renal disease and was on renal replacement therapy. She does not have any UTIs, pain over her renal transplant, hematuria, dysuria, fever, suprapubic pain, nausea, vomiting, chills, rigors. Her blood sugars are fair and is better. Her blood pressure has been at goal. She has been compliant with her medications. She denies any active lower extremity vascular disease. She has no skin rashes. She maintains good hydration and avoids nonsteroidal anti- inflammatory medications. She has no side effects from her immunosuppressive medication. [facility] Medical History Retinal hemorrhage Peripheral neuropathic pain Neuropathy Hypertension Hypercholesteremia ESRD (end stage renal disease) Diabetes mellitus Dermatitis Chronic kidney disease Cellulitis Surgical History H/O tubal ligation History of carpal tunnel release -donor kidney transplant Family History Sister Cancer Social History Patient Tobacco Use Status: Former Tobacco user Review of Systems Const All systems reviewed & are unremarkable except as noted in HPI and below Physical Exam Vital Signs: Last Vital Signs Pulse 67 09/05/24 11:21 BP 142/70 H 09/05/24 11:21 Pulse Ox 100 09/05/24 11:21 Oxygen Delivery Method Room Air 09/05/24 11:21 BMI result Body Mass Index 37.5 Const General: comfortable and no acute distress Orientation/consciousness: patient oriented x3 HEENT Head: Yes normocephalic Mouth: Normal oral and palatal mucosa present Eyes EOM: EOMs intact bilaterally Neck Neck: Yes supple Resp Auscultation: clear to auscultation bilaterally Cardio Jugular venous distension: no JVD Rate: regular rate GI Palpation (GI): Soft to palpation Auscultation: normal bowel sounds General: Yes no CVA tenderness Back/Spine/Pelvis Back: no CVA tenderness Skin General skin exam: no rashes or lesions noted Neuro General: patient oriented x3 and moves all extremities Extrem General: Yes no pedal edema Results Reviewed Nephrology Results: Hgb 11.9 g/dl (12.0-16.0) L 06/15/24 WBC 5.1 X10*3/uL (4.8-10.8) 06/15/24 Plt Count 220 X10*3/uL (160-400) 06/15/24 Sodium 144 mmol/L (135-145) 06/15/24 Potassium 4.7 mmol/L (3.3-5.1) 06/15/24 Chloride 110 mmol/L (96-108) H 06/15/24 Carbon Dioxide 24 mmol/L (22-29) 06/15/24 BUN 38 mg/dL (9-16) H 06/15/24 Creatinine 1.46 mg/dL (0.5-1.4) H 06/15/24 Calcium 10.0 mg/dL (8.4-10.2) 06/15/24 Phosphorus 3.3 mg/dL (2.7-4.5) 06/15/24 Urine Protein 30 (1+) mg/dL (Neg-Trace) H 06/15/24 Assessment & Plan Assessment & Plan (1) Renal transplant disorder: Code(s): T86.10 - Unspecified complication of kidney transplant Category: Medical (2) Hypertension: Code(s): I10 - Essential (primary) hypertension Category: Medical Qualifiers: Hypertension type: primary hypertension Qualified Code(s): I10 - Essential (primary) hypertension Plan Bridget had ESRD from diabetic nephropathy. She underwent a donor renal transplant. Her transplant function had been stable . Her blood pressure has been at goal. Her blood sugar is better controlled. she needs to lose weight. She is not on any Joshua inhibitor. She is not known to have any significant proteinuria. She has no side effects from her immunosuppression medications. She maintains good hydration. She avoids nonsteroidal anti- inflammatories. She needs to see a reinforced steel placing supervisor once a year. She has a follow -up with her on call pharmacy technician & medical laboratory scientist. She has no other active vascular symptoms. She is on statins. I did not make any medication changes today. I ordered follow-up blood work including tacrolimus levels. All her questions were answered. Follow-up given Orders: Orders Creatinine 2 Months I10 - Essential (primary) hypertension, T86.10 - Unspecified complication of kidney transplant Blood Urea Nitrogen 2 Months I10 - Essential (primary) hypertension, T86.10 - Unspecified complication of kidney transplant Electrolytes 2 Months I10 - Essential (primary) hypertension, T86.10 - Unspecified complication of kidney transplant Calcium 2 Months I10 - Essential (primary) hypertension, T86.10 - Unspecified complication of kidney transplant Complete Blood Count Auto Diff 2 Months I10 - Essential (primary) hypertension, T86.10 - Unspecified complication of kidney transplant Complete Blood Count Auto Diff Today I10 - Essential (primary) hypertension, T86.10 - Unspecified complication of kidney transplant Calcium Today I10 - Essential (primary) hypertension, T86.10 - Unspecified complication of kidney transplant Blood Urea Nitrogen Today I10 - Essential (primary) hypertension, T86.10 - Unspecified complication of kidney transplant Phosphorus Today I10 - Essential (primary) hypertension, T86.10 - Unspecified complication of kidney transplant Magnesium Today I10 - Essential (primary) hypertension, T86.10 - Unspecified complication of kidney transplant Tacrolimus Prograf Today I10 - Essential (primary) hypertension, T86.10 - Unspecified complication of kidney transplant Tacrolimus Prograf 2 Months I10 - Essential (primary) hypertension, T86.10 - Unspecified complication of kidney transplant Phosphorus 2 Months I10 - Essential (primary) hypertension, T86.10 - Unspecified complication of kidney transplant Magnesium 2 Months I10 - Essential (primary) hypertension, T86.10 - Unspecified complication of kidney transplant Electrolytes Today I10 - Essential (primary) hypertension, T86.10 - Unspecified complication of kidney transplant Creatinine Today I10 - Essential (primary) hypertension, T86.10 - Unspecified complication of kidney transplant Alanine Aminotransferase Today I10 - Essential (primary) hypertension, T86.10 - Unspecified complication of kidney transplant Aspartate Amino Transferase Today I10 - Essential (primary) hypertension, T86.10 - Unspecified complication of kidney transplant Protein Creatinine Ratio, Ur Today I10 - Essential (primary) hypertension, T86.10 - Unspecified complication of kidney transplant Coding Level of Care Code Est Pt Level 4 (44018) Diagnoses Renal transplant disorder T86.10 Primary hypertension I10 Hypertension type: primary hypertension
[2024-09-05 11:21] VITALS: BP 142/70; PULSE 67; O2SAT 100; BMI 37.5
--- OUTSIDE RECORDS SUMMARY | 2024-09-05 12:26 | XMS_ITS | Encounter Summary ---
Author Organization [facility] Address [address] [facility] [address] [facility] [address] [place] [address] Phone Care Team Providers Care Environmental Health And Safety Intern Name Role Phone Gaurav Bennett Primary Care Provider [phone] Reason for Visit * Reason Comments Med Refill Encounter Details Date Type Department Care Team (Late st Contact Info) Description 05/20/2023 Refill [facility] [address] [facility] [address] [place] [phone] Jez Balbuena MD [address] [place] [address], [address] [phone] Long-term drug therapy Social History Tobacco Use [...] therapy documented in this encounter Care Teams Environmental Health And Safety Intern Relationship Specialty Start Date End Date Gaurav Bennett [address] [place] [address] PCP - General Internal Medicine 03/07/21 documented as of this encounter
== END 2024-09-05 11:53 | disposition home or self-care (01) ==
LOC: HO.HKAS 10:50
PROVIDERS: PCP Internal Medicine; Visit Provider Internal Medicine Nephrology
DX: T86.10 Unspecified complication of kidney transplant (principal); I10 Essential (primary) hypertension
CPT/HCPCS: 99214

== ENCOUNTER → 2024-09-05 10:49 | Outpatient (BNVA) | payer OTHER, SELFPAY | PROVIDERS: PCP Internal Medicine; Visit Provider Internal Medicine Nephrology | DX: T86.10 Unspecified complication of kidney transplant (principal); I10 Essential (primary) hypertension | CPT/HCPCS: 99212 ==

== ENCOUNTER 2024-09-06 08:52 | Outpatient (REF) | payer OTHER, SELFPAY ==
--- OUTSIDE RECORDS SUMMARY | 2024-09-06 09:16 | XMS_ITS | Encounter Summary ---
Author Organization [facility] Address [address] [facility] [address] [facility] [address] [place] [address] Phone Care Team Providers Care Sandwich Hand Name Role Phone Gaurav Bennett Primary Care Provider [phone] Reason for Visit * Reason Comments Med Refill Encounter Details Date Type Department Care Team (Late st Contact Info) Description 05/20/2023 Refill [facility] [address] [facility] [address] [place] [phone] eJz Balbuena MD [address] [place] [phone] Long-term drug therapy Social History Tobacco Use [...] therapy documented in this encounter Care Teams Sandwich Hand Relationship Specialty Start Date End Date Gaurav Bennett [address] [place] [address] PCP - General Internal Medicine 03/07/21 documented as of this encounter
[2024-09-06 17:57] LABS: MANUAL DIFF FLAG NO
[2024-09-06 18:10] LABS: Basophils Absolute Auto 0.1 X10*3/uL (0.0-0.2); Basophils Percent Auto 1.4 % (0-2); Eosinophils Absolute Auto 0.2 X10*3/uL (0.0-0.4); Eosinophils Percent Auto 3.4 % (0-4); Hematocrit 36.1 % (37.0-47.0); Imm Gran Abs Auto 0.02 X10*3/uL (0.00-0.03); Imm Gran Pct Auto 0.4 % (0.0-0.4); Lymphocytes Absolute Auto 1.2 X10*3/uL (1.2-4.9); Lymphocytes Percent Auto 24.1 % (20-40); Mean Corpuscular HGB Conc 30.5 g/dl (31.0-35.0); Mean Corpuscular Volume 85.3 fL (80.0-98.0); Mean Platelet Volume 11.2 fL (9.4-12.3); Monocytes Absolute Auto 0.6 X10*3/uL (0.1-1.2); Monocytes Percent Auto 11.2 % (2-11); Neutrophils Absolute Auto 2.9 x10*3/uL (2.0-8.3); Neutrophils Percent Auto 59.5 % (45-73); Platelet Count 228 X10*3/uL (160-400); Red Blood Count 4.23 X10*6/uL (4.20-5.50); Red Cell Distribution Width 13.6 % (11.0-16.0); White Blood Count 4.9 X10*3/uL (4.8-10.8)
[2024-09-06 18:22] LABS: Alanine Aminotransferase 23 U/L (0-31); Anion Gap 15 (12-20); Aspartate Amino Transferase 26 U/L (5-31); Blood Urea Nitrogen 38 mg/dL (9-16); Calcium 9.6 mg/dL (8.4-10.2); Carbon Dioxide 25 mmol/L (22-29); Chloride 107 mmol/L (96-108); Estimated Glomerular Filt Rate 34; Magnesium 1.8 mg/dL (1.6-2.6); Phosphorus 3.1 mg/dL (2.7-4.5); Potassium 4.7 mmol/L (3.3-5.1); Sodium 142 mmol/L (135-145)
[2024-09-06 18:26] LABS: Appearance Urine Clear; Color Urine Yellow; Glucose Urine UA Negative (Negative); Leukocyte Esterase Urine Negative (Negative); Nitrite Urine Negative (Negative); PH 5.5 (5.0-9.0); Specific Gravity - Urine 1.015 (1.005-1.025); Urine Blood Negative (Negative); Urine Ketones Negative (Negative); Urine Protein Trace mg/dL (Neg-Trace)
[2024-09-06 18:38] LABS: Creatinine Urine 90.95 mg/dL; Protein/Creatinine Ratio, Ur 0.16 (<0.2); Total Protein Urine Random 15 mg/dL (<12)
[2024-09-07 09:39] LABS: Tacrolimus Prograf 5.2 mcg/L
== END 2024-09-06 08:53 | disposition home or self-care (01) ==
LOC: HO.HKASLDS 08:52
PROVIDERS: Visit Provider Internal Medicine Nephrology
DX: I10 Essential (primary) hypertension (principal); T86.10 Unspecified complication of kidney transplant; R30.0 Dysuria
CPT/HCPCS: 36415; 80051; 80197; 81003; 82310; 82565; 82570; 83735; 84100; 84156; 84450; 84460; 84520; 85025

== ENCOUNTER 2024-10-30 08:56 | Outpatient (REF) | payer OTHER, SELFPAY ==
[2024-10-30 09:06] LABS: MANUAL DIFF FLAG NO
[2024-10-30 09:24] LABS: Hematocrit 37.0 % (37.0-47.0); Hemoglobin 11.1 g/dl (12.0-16.0); Imm Gran Abs Auto 0.02 X10*3/uL (0.00-0.03); Imm Gran Pct Auto 0.5 % (0.0-0.4); Lymphocytes Absolute Auto 1.1 X10*3/uL (1.2-4.9); Mean Corpuscular HGB Conc 30.0 g/dl (31.0-35.0); Mean Corpuscular Hemoglobin 25.7 pg (27.0-33.0); Mean Corpuscular Volume 85.6 fL (80.0-98.0); NRBC Abs Auto 0.000 X10*3/uL (0.0-0.012); NRBC Pct Auto 0.0 /100WBC (0.0-0.2); Platelet Count 216 X10*3/uL (160-400); Red Blood Count 4.32 X10*6/uL (4.20-5.50); White Blood Count 4.4 X10*3/uL (4.8-10.8)
--- OUTSIDE RECORDS SUMMARY | 2024-10-30 09:32 | XMS_ITS | Clinical Summary ---
Author Organization [facility] Address [address] [place] [address] Care Team Providers Care Drafter Assistant Name Role Phone Pcp, No Primary Care Provider Unavailabl e Social History Tobacco Use Types Packs/Day Years Used Date Smoking Tobacco: Never Assessed Comments Unknown Sex and Gender Information Value Date Recorded Sex Assigned at Not on file Legal Sex Female 12:44 PM EDT Gender Identity Not on file Sexual Orientation Not on file Plan of Treatment Health Maintenance Due Date Last Done Comments Hepatitis C Virus Screening 1967 HIV Screening 1980 DTaP/Tdap/Td Vaccines (1 - Tdap) 1986 Pneumococcal Vaccines 50+ (1 of 2 - PCV) 1986 Hepatitis B Vaccines (1 of 3 - Risk Dialysis 4-dose series) 1987 Pap Smear (Ages 21-65) 1988 Mammogram 2007 Colonoscopy 2012 Zoster (Shingles) Vaccine (1 of 2) 2017 COVID-19 Vaccine (3 - 2023-2 5 season) 2023 06/27/2020, 05/16/2020 Influenza Vaccine 11/03/2024 01/28/2022, , 03/18/2005, Additional history exists Insurance [facility] MEDICARE OUT OF NETWORK Care Teams Drafter Assistant Relationship Specialty Start Date End Date Pcp, No [address] [place] [address] PCP - General 07/08/21
--- OUTSIDE RECORDS SUMMARY | 2024-10-30 09:32 | XMS_ITS ---
Author Name [facility] Organization Unknown Problems Problem Status Onset Date Problem Type Date of Resoluti on Source Complication of transplanted kidney, unspecified complication [facility] En[facility] Encounter Type Encounter Reason Primary Diagnosis Location Date Ambulatory Unspecified complication of kidney transplant [facility] 06/11/2022 Ambulatory Unspecified complication of kidney transplant [facility] 03/31/2022 Ambulatory Unspecified complication of kidney transplant [facility] 10/15/2021 Ambulatory End stage renal disease [facility] 09/05/2021 Ambulatory Unspecified complication of kidney transplant [facility] 07/22/2021 Care Team Organization Name Specialty Phone Email Start Date End Da te [facility] PCP,No Primary Care 10/15/2021 [facility] NO PCP Primary Care 07/08/2021 03/16/2022
--- OUTSIDE RECORDS SUMMARY | 2024-10-30 09:32 | XMS_ITS | Encounter Summary ---
Author Organization [facility] Address [address] [facility] [address] [address] [place] [address] Phone Care Team Providers Care Varnish Mixer Name Role Phone Gaurav Bennett Primary Care Provider [phone] Reason for Visit * Reason Comments Med Refill Encounter Details Date Type Department Care Team (Late st Contact Info) Description 05/20/2023 Refill [facility] [address] [facility] [address] [place] [phone] Jez Balbuena MD [address] [place] [address], [address] [phone] Long-term drug therapy Social History Tobacco Use [...] therapy documented in this encounter Care Teams Varnish Mixer Relationship Specialty Start Date End Date Gaurav Bennett [address] [place] [address] PCP - General Internal Medicine 03/07/21 documented as of this encounter
--- OUTSIDE RECORDS SUMMARY | 2024-10-30 09:32 | XMS_ITS | Clinical Summary ---
Author Organization Patient Business Ser [facility] Address [address] [place] [address] Care Team Providers Care President & Ceo Name Role Phone Gaurav Tolbert MD Primary Care Provider [phone] Allergies Active Allergy Reactions Criticality Noted Date Comments Lamotrigine Rash 07/08/2022 Medications dulaglutide (Trulicity) 4.5 mg/0.5 mL pen injector injection Inject 0.5 mL (4.5 mg total) under the skin 1 (one) time per week. 04/27/19 24 Active insulin degludec (Tresiba FlexTouch U-100) 100 unit/mL (3 mL) injection pen Inject 23 Units as directed. 04/27/19 24 Active carvediloL (COREG) 6.25 mg tablet Take 1 tablet (6.25 mg total) by mouth 2 (two) times a day with meals. 04/27/19 24 Active isosorbide mononitrate (IMDUR) 30 mg 24 hr tablet Take 1 tablet (30 mg total) by mouth 1 (one) time each day. 03/04/20 23 Active albuterol HFA (PROAIR HFA ; PROVENTIL HFA ; VENTOLIN HFA) 90 mcg/actuation inhaler Inhale 2 puffs by mouth. 02/05/20 23 Active mycophenolate (MYFORTIC) 180 mg EC tablet Take 2 tablets (360 mg total) by mouth 2 (two) times a day. Active tacrolimus (Envarsus XR) 1 mg extended release tablet 02/18/20 Active docusate sodium (COLACE) 100 mg capsule 02/18/20 Active senna 8.6 mg tablet 02/18/20 Active aspirin 81 mg EC tablet Take 1 tablet (81 mg total) by mouth. 01/29/20 Active glucose blood test strip sig tid prn 06/18/19 Active ACCU-CHEK SOFTCLIX LANCETS MISC by Not Applicable route. 06/18/19 Active syringe and needle,insulin ,1mL (INSULIN SYRINGES, DISPOSABLE, MISC) 1 Syringe by Not Applicable route 1 (one) time each day. 12/05/19 06 Active famotidine (PEPCID) 20 mg tablet Take by mouth 1 (one) time each day if needed for heartburn. Active LORazepam (ATIVAN) 0.5 mg tablet Take 1 tablet (0.5 mg total) by mouth 1 (one) time each day if needed for anxiety. Max Daily Amount: 0.5 mg 5 tablet 06/30/19 25 Active traZODone (DESYREL) 100 mg tablet TAKE 1 TABLET BY MOUTH AT BEDTIME NEEDED FOR SLEEP 90 tablet 1 07/11/19 25 Active amLODIPine (NORVASC) 5 mg tablet TAKE 1 TABLET BY MOUTH EVERY DAY 90 tablet 1 07/11/19 25 Active atorvastatin (LIPITOR) 40 mg tablet TAKE 1 TABLET BY MOUTH 1 TIME EACH DAY. 90 tablet 1 07/11/19 25 Active levocetirizine (Xyzal) 5 mg tablet Take 1 tablet (5 mg total) by mouth 1 (one) time each day in the evening. 30 each 2 08/18/19 25 025 Active fluticasone propionate (FLONASE) 50 mcg/actuation nasal spray Administer 2 sprays into each nostril 1 (one) time each day. Reduce to 1 spray when symptoms are controlled. 16 g 2 08/18/19 25 Active polyethylene glycol (Golytely) 236-22.74-6.74 -5.86 gram solution Take 4L by mouth once for one dose. May substitue any PEG. Starting at 6PM the night before your procedure drink 1 8oz glasses at your own pace until you complete half of the gallon. Finish half of the gallon 5 hours before your procedure. 4000 mL 08/22/19 25 Active bisacodyL (DULCOLAX) 5 mg EC tablet Take 2 tablets by mouth right before beginning bowel prep. See instructions provided by the office 2 tablet 08/22/19 25 Active insulin aspart (NovoLOG FlexPen) 100 unit/mL (3 mL) injection pen 09/02/19 25 Active NIFEdipine (ADALAT CC) 30 mg 24 hr tablet TAKE 1 TABLET BY MOUTH EVERY DAY ON EMPTY STOMACH FOR 30 DAYS 08/13/19 25 Active gabapentin (NEURONTIN) 100 mg capsule TAKE 2 CAPSULES BY MOUTH 3 TIMES A DAY. 180 capsule 1 10/12/19 25 Active gabapentin (NEURONTIN) 100 mg capsule Take 2 capsules (200 mg total) by mouth 3 (three) times a day. 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 Orders: Ambulatory referral to Orthopedic; Future De Quervain's tenosynovitis 03/13/2024 CAD (coronary artery disease) 06/04/2023 Assessment & Plan (08/07/2024 11:03 AM EDT): Recent cardiac catheterization as outlined above. She denies any true anginal symptoms and does attribute her fleeting chest discomfort to stress. However, for completeness we will update echocardiogram. Continue on cardioprotective medical therapy of aspirin, statin and beta-alyssa. Instructed to call 911 or go to the emergency room should the patient begin to experience chest pain or pressure lasting greater than 10 minutes does not resolve with rest. Orders: Transthoracic echocardiogram (TTE) complete with PRN contrast, bubble, strain, and 3D order panel; Future perflutren lipid microsphere (DEFINITY) 1.3 mL in sodium chloride 0.9% 8.7 mL injection Lipid panel with reflex to direct LDL; Future Assessment & Plan (05/23/2024 3:09 PM EST): Currently denies any anginal symptoms. Continue aspirin, atorvastatin, carvedilol, amlodipine, isosorbide mononitrate. History of cardiac catheterization 05/28/2023 Chest pain 07/19/2022 Overview (05/31/2023): + nuclear stress test 03/03/23 Proliferative diabetic retin opathy ([facility] V24, [facility] V28) 12/25/2021 Overview (05/31/2023): Ou, dr palma Type 2 diabetes mellitus wit h eye manifestations ([facility] V24, [facility] V28) 12/25/2021 S/P kidney transplant 03/05/2021 Bilateral carotid artery stenosis 01/29/2020 Assessment & Plan (08/07/2024 11:03 AM EDT): We will update surveillance carotid study. Continue aspirin and statin. Orders: Vascular US duplex carotid bilateral; Future Lipid panel with reflex to direct LDL; Future Assessment & Plan (05/23/2024 3:09 PM EST): Continue aspirin and statin therapy. Followed up with vascular surgery. Repeat imaging in 2 years. Type 2 diabetes mellitus wit h neurological manifestations ([facility] V24, [facility] V28) 03/31/2018 Asthma 12/28/2017 Carpal tunnel syndrome 10/28/2017 Hypertension 09/27/2017 Assessment & Plan (08/07/2024 11:03 AM EDT): Acceptable during today's exam with a reading of 124/84. I have made no changes to her medications. She will continue on her current dose of amlodipine 5 mg, carvedilol 6.25 mg. Educated on the importance of diet lifestyle to help further assist in reducing blood pressure. The patient was encouraged to follow low-salt low-fat diet, make purposeful strides towards weight loss, and engage in routine aerobic exercise as tolerated. Orders: Transthoracic echocardiogram (TTE) complete with PRN contrast, bubble, strain, and 3D order panel; Future perflutren lipid microsphere (DEFINITY) 1.3 mL in sodium chloride 0.9% 8.7 mL injection Assessment & Plan (05/23/2024 3:09 PM EST): Follow low-sodium diet. Continue current treatment of amlodipine, carvedilol, isosorbide mononitrate Severe obesity with body mas s index (BMI) of 35.0 to 39.9 with comorbidity ([facility] V24, [facility] V28) 08/23/2017 Restrictive lung disease 08/23/2017 Chronic obstructive pulmonar y disease ([facility] V24, [facility] V28) 08/23/2017 Hyperlipidemia 08/17/2017 Assessment & Plan (08/07/2024 11:03 AM EDT): I have given her a lab slip to update her current lipid panel. Goal LDL less than 70. Continue her current dose of statin therapy and be mindful of her dietary fat intake. Orders: Lipid panel with reflex to direct LDL; Future Assessment & Plan (05/23/2024 3:09 PM EST): Follow low-cholesterol diet and continue atorvastatin. Depression 08/05/2017 CKD (chronic kidney disease) 06/01/2017 Overview (05/31/2023): Previously on dialysis with L AV fistula; d/c and fistula reversed 2022 2 years after kidney transplant Insomnia 04/23/2017 Obesity hypoventilation syndrome ([facility] V24, [facility] V28) 02/04/2016 Anxiety 06/24/2015 Vitamin D deficiency 05/19/2012 Gastroparesis 05/11/2012 Type 2 diabetes mellitus wit h renal manifestations ([facility] V24, [facility] V28) 03/17/2005 Assessment & Plan (05/23/2024 3:09 PM EST): Diabetic diet discussed. She is being monitored by endocrinology. She will continue her regimen of dulaglutide, insulin Tresiba. Migraine 03/17/2005 History of TIA (transient ischemic attack) 03/17 Encounters Date Type Department Care Team Description 09/21/2024 Telephone Internal Medicine - [facility] [address] [place], [place] [phone] Gaurav Tolbert MD Forms/questionnaires (PCP Communication Form) 09/13/2024 Telephone Gastroenterology - [facility] [address] [facility] [address] [place] [phone] Adamaris Bruce MA Results 09/11/2024 10:12 AM EDT Anesthesia Event [facility] [address] [place] [phone] Jez Castro DO 09/11/2024 8:51 AM EDT - 09/11/2024 11:59 PM EDT Hospital Encounter [facility] [address] [place] [phone] Everton Husain MD Vermes, Rachie, CRNA Freeman, Katarina Abraham MD Personal history of other colon polyps; Family history of colonic polyps Discharge Disposition: Home or Self Care 08/21/2024 10:45 AM EDT Ancillary Procedure [facility] - [address] [place] [phone] Bilateral carotid artery stenosis 08/17/2024 10:00 AM EDT Office Visit Walk-In Clinic - [address] [phone] Jefry Clarke PA Seasonal allergic rhinitis, unspecified trigger (Primary Dx) 08/07/2024 7:40 AM EDT Office Visit [facility] - [address] [facility] [address] [place] [address] Rolanda Armtsrong NP Coronary artery disease involving upper sioux coronary artery of upper sioux heart without angina pectoris (Primary Dx); Hypertension, unspecified type; Bilateral carotid artery stenosis; Hyperlipidemia, unspecified hyperlipidemia type from Last 3 Months Immunizations Name Administration Dates Next Due Influenza Quadravalent, MDCK , 0.5ml, preservative free (Flucelvax) 6mo and older 02/04/2023,01/28/2022 Influenza trivalent, 0.5mL, preservative free (Fluarix; FluLaval; Fluzone) ages 6mo and older (Afluria) 3 years and older 12/24/2023 Influenza trivalent, with preservative (Fluzone; Afluria) 6mo and older 02/04/2023,01/28/2022,03/24/2015,2004 Influenza, Unspecified 12/24/2023,03/18/2005 MMR, measles mumps and rubel la Live [...] GRAFT VENOUS OTHER SURGICAL HISTORY 01/20/2022 PROCEDURE: PA SLCTV CATHJ 3RD+ ORD SLCTV THRC/BRCH/CPHLC BRNCH OTHER SURGICAL HISTORY 01/20/2022 PROCEDURE: PA SLCTV CATHJ EA 2ND+ ORD ABDL PEL/LXTR ART BRNCH OTHER SURGICAL HISTORY 01/20/2022 PROCEDURE: XRAY, THORACIC AORTA W/SERIALOGRAPH OTHER SURGICAL HISTORY 01/20/2022 PROCEDURE: X-RAY EXAM OF ARM/LEG ARTERY OTHER SURGICAL HISTORY 01/20/2022 PROCEDURE: ULTRASOUND GUIDANCE FOR VASCULAR AC TRANSPLANT, KIDNEY, OPEN CATARACT EXTRACTION Medical History Medical History Date Comments Migraine 03/17/2005 DX:Migraine; COM MENT: IMO update History of TIA (transient is chemic attack) 03/17/2005 DX:History of TIA (transient ischemic attack) Hyperlipidemia 08/17/2017 DX:Hyperlipidemi a Tobacco use 08/17/2017 DX:Tobacco use Obesity 08/23/2017 DX:Obesity Anxiety 06/24/2015 DX:Anxiety Asthma 12/28/2017 DX:Asthma AV fistula (CMS/HCC V24) 06/01/2017 removed 2022 Carpal tunnel syndrome 10/28/2017 DX:Carpal tunnel syndrome Chronic obstructive pulmonar y disease ([facility] V24, [facility] V28) 08/23/2017 DX:Chronic obstructive pulm onary disease (HCC) CKD (chronic kidney disease) stage V requiring chronic dialysis ([facility] V24, [facility] V28) 06/01/2017 DX:CKD (chronic kidney disea se) stage V requiring chronic dialysis (HCC) Depression 08/05/2017 DX:Depression Gastroparesis 05/11/2012 DX:Gastroparesis Hypertension 09/27/2017 DX:Hypertension Insomnia 04/23/2017 DX:Insomnia Obesity hypoventilation synd alexa ([facility] V24, [facility] V28) 02/04/2016 DX:Obesity hypoventilation syndrome (HCC) Restrictive lung disease 08/23/2017 DX:Rest rictive lung disease Type 2 diabetes mellitus wit h neurological manifestations ([facility] V24, [facility] V28) 03/31/2018 DX:Type 2 diabetes mellitus with neurological manifestations (HCC) Type 2 diabetes mellitus wit h renal manifestations ([facility] V24, [facility] V28) 03/17/2005 DX:Type 2 diabetes mellitus with renal manifestations ([facility]) Vitamin D deficiency 05/19/2012 DX:Vitamin D deficiency Severe obesity with body mas s index (BMI) of 35.0 to 39.9 with comorbidity (CMS/[facility] V24, [facility] V28) 08/23/2017 DX:Severe obesity with body mass index (BMI) of 35.0 to 39.9 with comorbidity ([facility]) Proliferative diabetic retin opathy ([facility] V24, [facility] V28) 12/25/2021 DX:Proliferative diabetic r etinopathy ([facility]); COMMENT: dr minerva Romero Type 2 diabetes mellitus wit h eye manifestations ([facility] V24, [facility] V28) 12/25/2021 DX:Type 2 diabetes mellitus with eye manifestations ([facility]) Retinal hemorrhage Hepatitis C Family History Medical History Relation Name Comments Heart failure Father Other: Diabetes, [place] Father Heart failure Mother Stroke Mother Relation Name Status Comments Father Mother Social History Tobacco Use Types Packs/Day Years Used Date Smoking Tobacco: Former Cigarettes Smokeless Tobacco: Never Tobacco Cessation:Counseling Given: Not Answered Alcohol Use Standard Drinks/Week Comments No 0 (1 standard drink = 0.6 oz pur e alcohol) Interpersonal Safety Answer Date Record ed Physical Abuse 09/11/2024 Verbal Abuse 09/11/2024 Comments No Sex and Gender Information Value Date Recorded Sex Assigned at Not on file Legal Sex Female 8:19 AM EST Gender Identity Female 09/01/2024 3:35 PM EDT Sexual Orientation Not on file Obstetrics History Last Filed Vital Signs Vital Sign Reading Time Taken Comments Blood Pressure 135/56 09/11/2024 10:54 AM EDT Pulse 66 09/11/2024 10:54 AM EDT Temperature 36.2 C (97.2 F) 09/11/2024 10:34 AM EDT Respiratory Rate 18 09/11/2024 10:54 AM EDT Oxygen Saturation 98% 09/11/2024 10:54 AM EDT Inhaled Oxygen Concentration - - Weight 98.9 kg (218 lb) 09/11/2024 9:35 AM EDT Height 160 cm (5' 3 ) 09/11/2024 9:35 AM EDT Body Mass Index 38.62 09/11/2024 9:35 AM EDT Plan of Treatment Upcoming Encounters Date Type Department Care Team (Late st Contact Info) Description 11/14/2024 3:30 PM EDT Office Visit Orthopedic Surgery - [place] [address] [facility] [address] [place] [phone] Chandni Angulo MD [address] [facility] [address] [place] [phone] 11/15/2024 9:45 AM EDT Office Visit Internal Medicine - [facility] [address] [place] [address] Gaurav Tolbert MD [address] [place] [address] 02/06/2025 9:00 AM EST Ancillary Procedure [facility] [address] [place] [address] 02/22/2025 10:40 AM EST Office Visit [facility] - [address] [facility] [address] [place] [address] Rolanda Armstrong, SATURNINO [address] [place] [address] 06/28/2025 9:15 AM EDT Ancillary Procedure [facility] - [address] [place] [address] Health Maintenance Due Date Last Done Comments Breast Cancer Screening 1965 Hepatitis B Vaccines (1 of 3 - 19+ 3-dose series) 1986 Zoster Vaccines (1 of 2) 1986 Cervical Cancer Screening: Pap Smear 04/22/2007 04/22/2004 Pneumococcal Vaccine: 50+ Years (2 of 2 - PPSV23) 06/11/2016 04/16/2016 HIV Screening 03/15/2020 Medicare Annual Wellness Visit 03/15/2020 Social Influencers of Health Screening 03/15/2020 Diabetes: Annual Urine Albumin-Creatinine Ratio (uACR) 03/18/2022 12/19/2005 Diabetes: Blood Sugar Control Test (HGBA1C) 01/27/2023 07/28/2022, 05/07/2022 Diabetes: Annual Foot Exam 02/05/2024 02/04/2023 Depression Screening 04/05/2024 Diabetes: Annual GFR (Glomerular Filtration Rate) 06/09/2024 06/10/2023 Hypertension/CHF/CAD Annual BMP Blood Test 06/09/2024 06/10/2023 COVID-19 Vaccine (4 - Moderna risk season) 2024 12/24/2023, 06/27/2020, 05/16/2020 Influenza Vaccine (#1) 2024 , 12/24/2023, 02/04/2023, Additional history exists Diabetes: Annual Retina Eye Exam 04/13/2025 04/13/2024, 04/09/2023 Colorectal Cancer Screening: Colonoscopy 09/11/2026 09/11/2024, 09/08/2024, 07/09/2022 DTaP,Tdap,and Td Vaccines (2 - Td or Tdap) 06/11/2029 06/12/2019 Cholesterol Screening (Lipid Panel) 08/09/2029 08/09/2024, 01/03/2024, 01/03/2024 MMR Vaccines Aged Out 05/30/2014 No longer eligi ble based on patient's age to complete this topic Hepatitis C Screening Completed 07/28/2022 HIB Vaccines Aged Out No longer eligi [...] age to complete this topic Meningococcal B Vaccine Aged Out No l onger eligible based on patient's age to complete this topic RSV Immunization Patients Under 20 months Aged Out No longer eligible based on patient's age to complete this topic Varicella Vaccines Aged Out No longer eligible based on patient's age to complete this topic Procedures Procedure Name Priority Date/Time Associated Diagnosis Comments COLONOSCOPY Routine 09/11/2024 10:33 AM EDT Personal history of other colon polyps Family history of colonic polyps TISSUE EXAM Routine 09/11/2024 10:27 AM EDT Personal history of other colon polyps Family history of colonic polyps EXTERNAL COLONOSCOPY REPORT Routine 09/08/2024 9:17 AM EDT VAS US DUPLEX CAROTID BILATERAL Routine 08/21/2024 10:55 AM EDT Bilateral carotid artery stenosis LIPID PANEL WITH REFLEX TO DIRECT LDL Routine 08/09/2024 8:02 AM EDT Coronary artery disease involving upper sioux coronary artery of upper sioux heart without angina pectoris Bilateral carotid artery stenosis Hyperlipidemia, unspecified hyperlipidemia type EXTERNAL DIABETIC RETINA EYE EXAM 04/13/2024 ANNUAL BMP BLOOD TEST Routine 06/10/2023 DIABETES FOOT EXAM Routine 02/04/2023 HEPATITIS C SCREENING Routine 07/28/2022 HEMOGLOBIN A1C Routine 07/28/2022 HM URINE ALBUMIN CREATININE RATIO Routine 12/19/2005 HM PAP SMEAR Routine 04/22/2004 from Last 3 Months or Most Recently Relevant to Health Maintenance Results * COLONOSCOPY Anesthesia - [facility]; [facility] (09/11/2024 10:33 AM EDT) Anatomical Region Laterality Modality Endoscopy 09/11/2024 10:0 3 AM EDT Impressions 09/11/2024 10:34 AM EDT - Two 7 to 11 mm polyps at the splenic flexure, removed with a cold snare. Resected and retrieved. - The examination was otherwise normal on direct and retroflexion views. Recommendation: - Await pathology results. - Repeat colonoscopy in 3 years for surveillance. Narrative 09/11/2024 10:34 AM EDT [facility] Patient Name: Bridget Patel Procedure Date: 09/11/2024 10:03 AM Date of : 1965 Age: 59 Room: ROOM 15 Gender: Female Note Status: Finalized Attending MD: Everton Husain MD, Procedure Date No Time: 09/11/2024 Procedure: Colonoscopy Indications: High risk colon cancer surveillance: Personal history of colonic polyps Providers: Everton Husain MD Referring MD: Everton Husain MD Medicines: Propofol per Anesthesia Complications: No immediate complications. Estimated Blood Loss: Estimated blood loss was minimal. Procedure: Pre-Anesthesia Assessment: - ASA Grade Assessment: II - A patient with mild systemic disease. After I obtained informed consent, the scope was passed under direct vision. Throughout the procedure, the patient's blood pressure, pulse, and oxygen saturations were monitored continuously.The Colonoscope was introduced through the anus and advanced to the cecum, identified by appendiceal orifice and ileocecal valve. The colonoscopy was performed without difficulty. The patient tolerated the procedure well. The quality of the bowel preparation was adequate. Findings: The perianal and digital rectal examinations were normal. Two sessile polyps were found in the splenic flexure. The polyps were 7 to 11 mm in size. These polyps were removed with a cold snare. Resection and retrieval were complete. The exam was otherwise without abnormality on direct and retroflexion views. Procedure Code(s): --- Professional --- 32421, Colonoscopy, flexible; with removal of tumor(s), polyp(s), or other lesion(s) by snare technique Diagnosis Code(s): --- Professional --- Z86.010, Personal history of colonic polyps D12.3, Benign neoplasm of transverse colon (hepatic flexure or splenic flexure) CPT copyright 2020 [employer]. All rights reserved. The codes documented in this report are preliminary and upon softball coach review may be revised to meet current compliance requirements. Everton Husain MD 09/11/2024 10:34:57 AM This report has been signed electronically.Everton Husain MD Number of Addenda: 0 Note Initiated On: 09/11/2024 10:03 AM Scope In: Scope Out: Endoscopy Department at [facility] - [address] [place] [phone] Procedure Note Everton Husain MD - 09/11/2024 [facility] Patient Name: Bridget Patel Procedure Date: 09/11/2024 10:03 AM Date of : 1965 Age: 59 Room: ROOM 15 Gender: Female Note Status: Finalized Attending MD: Everton Husain MD, Procedure Date No Time: 09/11/2024 Procedure: Colonoscopy Indications: High risk colon cancer surveillance: Personalhistory of colonic polyps Providers: Everton Husain MD Referring MD: Everton Husain MD Medicines: Propofol per Anesthesia Complications: No immediate complications. Estimated Blood Loss: Estimated blood loss was minimal. Procedure: Pre-Anesthesia Assessment: - ASA Grade Assessment: II - A patient with mild systemic disease. After I obtained informed consent, the scope was passed under direct vision. Throughout theprocedure, the patient's blood pressure, pulse, and oxygen saturations were monitored continuously.The Colonoscope was introduced through the anus and advanced to the cecum, identified by appendiceal orifice and ileocecal valve. The colonoscopy was performed without difficulty. The patient tolerated the procedure well. The quality of the bowel preparation was adequate. Findings: The perianal and digital rectal examinations were normal. Two sessile polyps were found in the splenicflexure. The polyps were 7 to 11 mm in size. These polypswere removed with a cold snare. Resection and retrieval were complete. The exam was otherwise without abnormality ondirect and retroflexion views. Procedure Code(s): --- Professional --- 54531, Colonoscopy, flexible; with removal of tumor(s), polyp(s), or other lesion(s) by snare technique Diagnosis Code(s): --- Professional --- Z86.010, Personal history of colonic polyps D12.3, Benign neoplasm of transverse colon (hepatic flexure or splenic flexure) CPT copyright 2020 [employer]. All rights reserved. The codes documented in this report are preliminary and upon softball coach reviewmay be revised to meet current compliance requirements. Everton Husain MD 09/11/2024 10:34:57 AM This report has been signed electronically.Everton Husain MD Number of Addenda: 0 Note Initiated On: 09/11/2024 10:03 AM Scope In: Scope Out: Endoscopy Department at [facility] - [address] [place] [phone] IMPRESSION: - Two 7 to 11 mm polyps at the splenic flexure, removed with a cold snare. Resected andretrieved. - The examination was otherwise normal on directand retroflexion views. Recommendation: - Await pathology results. - Repeat colonoscopy in 3 years for surveillance. us Everton Husain MD GI~PROCEDURE ORDERABLES Fin al Result * Tissue exam (09/11/2024 10:27 AM EDT) Final Diagnosis Polyps (x2 per specimen label), splenic flexure, polypectomy: - Tubular adenoma(s) (two fragments). 09/12/2024 12:44 PM EDT [facility] Gross Description A. Large intestine, Splenic flexure, polyp x 2: Labeled splenic flex polyp x 2 . Received in formalin are two soft to rubbery, valdez-pink polypoid tissue fragments, approximately measuring 0.5 cm and 1.3 cm in greatest diameters, inked green at the margin, admixed with fecal/food debris, and bisected. The specimen is wrapped in paper and entirely submitted in toto in two cassettes, three pieces, multiple levels. 1-smaller polypoid tissue fragment (one piece) 2-bisected polypoid tissue fragment (two pieces) hs/DG 09/12/2024 12:44 PM EDT [facility] Disclaimer Unless otherwise specified, all tissue is 10% NB formalin fixed and paraffin embedded. 09/12/2024 12:44 PM EDT [facility] Tissue Structure of left colic flexure / Unknown 09/11/2024 10:27 AM EDT 09/11/2024 12:37 PM EDT Everton Husain MD LAB PATHOLOGY ORDERABLES Fi nal Result [facility] [address] [place] [address], * External Colonoscopy Report (09/08/2024 9:17 AM EDT) Anatomical Region Laterality Modality Endoscopy Historical Provider GI~PROCEDURE ORDERABLES F inal Result * Vascular US duplex carotid bilateral (08/21/2024 10:55 AM EDT) Left CCA dist anderson 20 cm/s [facility] Left CCA dist sys 69 cm/s [facility] LEFT COMMON CAROTID ARTERY MID D 16 cm/s [facility] LEFT COMMON CAROTID ARTERY MID S 75 cm/s [facility] Left CCA prox anderson 15 cm/s [facility] Left CCA prox sys 82 cm/s [facility] LEFT EXTERNAL CAROTID ARTERY D 13 cm/s [facility] Left ECA sys 117 cm/s [facility] Left ICA/CCA sys 0.80 no units [facility] Left ICA dist anderson 19 cm/s [facility] Left ICA dist sys 51 cm/s [facility] LAB Left ICA mid anderson 17 cm/s [facility] Left ICA mid sys 51 cm/s [facility] Left ICA prox anderson 15 cm/s [facility] Left ICA prox sys 53 cm/s [facility] Left vertebral sys 34 cm/s [facility] Right CCA dist anderson 15 cm/s [facility] Right cca dist sys 54 cm/s [facility] RIGHT COMMON CAROTID ARTERY MID D 13 cm/s [facility] RIGHT COMMON CAROTID ARTERY MID S 74 cm/s [facility] Right CCA prox anderson 8 cm/s [facility] Right CCA prox sys 70 cm/s [facility] RIGHT EXTERNAL CAROTID ARTERY D 9 cm/s [facility] Right eca sys 108 cm/s [facility] Right ICA/CCA sys 1.90 no units [facility] Right ICA dist anderson 36 cm/s [facility] Right ICA dist sys 105 cm/s [facility] Right ICA mid anderson 18 cm/s [facility] Right ICA mid sys 68 cm/s [facility] Right ICA prox anderson 18 cm/s [facility] Right ICA prox sys 52 cm/s [facility] Right vertebral sys 64 cm/s [facility] Left Prox Subclavian PSV 136 cm/s [facility] Right Prox Subclavian PSV 109 cm/s [facility] Right arm BP 146 mmHg [facility] Left arm BP 140 mmHg [facility] Anatomical Region Laterality Modality Vascular, Abdomen Ultrasound Narrative 08/22/2024 4:00 PM EDT Right ICA: There is minimal heterogeneous plaque. Left ICA: There is minimal heterogeneous plaque. RIGHT. 1. There is atherosclerotic plaque in the carotid system as noted above. 2. There is less than 50% stenosis in the internal carotid artery based on Doppler velocity. 3. The subclavian artery has normal Doppler flow pattern. 4. Vertebral artery has normal antegrade flow. LEFT. 1. There is atherosclerotic plaque in the carotid system as noted above. 2. There is less than 50% stenosis in the internal carotid artery based on Doppler velocity. 3. The subclavian artery has normal Doppler flow pattern. 4. Vertebral artery has normal antegrade flow. Right Carotid There is evidence of intimal thickening in the CCA. The ICA is tortuous. The ICA has minimal heterogeneous plaque. The ECA has minimal heterogeneous plaque. Vertebral flow is antegrade. Left Carotid The CCA has minimal heterogeneous plaque. The ICA has minimal heterogeneous plaque. The ECA has minimal heterogeneous plaque. Vertebral flow is antegrade. 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 During the study longitudinal and transverse views were obtained. Continuous wave doppler and pulsed wave doppler was performed. Overall the study quality was technically difficult. Study was technically difficult due to: body habitus. Rolanda Armstrong NP CV VASCULAR PROCEDURES Final Result * Lipid panel with reflex to direct LDL (08/09/2024 8:02 AM EDT) Cholesterol 125 0 - 200 mg/dL LAB CHEMISTRY METHOD 08/09/2024 8:55 AM EDT [facility] Triglycerides 150 0 - 150 mg/dL LAB CHEMISTRY METHOD 08/09/2024 8:55 AM [facility] HDL 43 >=40 mg/dL LAB CHEMISTRY METHOD 08/09/2024 8:55 AM EDT [facility] LDL Calculated 52 0 - 100 mg/dL LAB CHEMISTRY METHOD 08/09/2024 8:55 AM EDT [facility] VLDL Cholesterol Jacek 30 mg/dL LAB CHEMISTRY METHOD 08/09/2024 8:55 AM T [facility] Non HDL Chol. (LDL+VLDL) 82 <145 mg/dL LAB CHEMISTRY METHOD 08/09/2024 8:55 AM [facility] Chol/HDL Ratio 2.9 0.0 - 4.4 LAB CHEMISTRY METHOD 08/09/2024 8:55 AM T [facility] Blood Venous blood specimen / Unknown Venipuncture / Unknown 08/09/2024 8:02 AM EDT 08/09/2024 8:15 AM EDT us Rolanda Armstrong NP LAB BLOOD ORDERABLES F inal Result [facility] [address] [place] [address], [place] [phone] * External Diabetic Retina Eye Exam Report (04/13/2024) Anatomical Region Laterality Modality Ultrasound Provider [facility] IM[facility] US PROCEDURES Final Result * Annual BMP Blood Test (06/10/2023) Pathologist [facility] Annual BMP Blood Test abstracted Result [facility] Provider HEALTH MAINTENANCE Final Result * Diabetes Foot Exam (02/04/2023) [facility] Diabetes: Annual Foot Exam abstracted Result [facility] Provider HEALTH MAINTENANCE Final Result * Hepatitis C Screening (07/28/2022) [facility] Hepatitis C Screening abstracted Result [facility] Provider HEALTH MAINTENANCE Final Result * (ABNORMAL) Hemoglobin A1c (07/28/2022) [facility] Hemoglobin A1C 9.7(A) <=6.5 % Blood Venous blood specimen / Unknown Result [facility] Provider LAB BLOOD ORDERABLES Lurdes l Result * Urine Albumin Creatinine Ratio (12/19/2005) [facility] Urine Albumin Creatinine Ratio abstracted Result [facility] Provider HEALTH MAINTENANCE Final Result * Pap Smear (04/22/2004) [facility] Pap smear abstracted, no interpretation Result [facility] Provider HEALTH MAINTENANCE Final Result from Last 3 Months or Most Recently Relevant to Health Maintenance Insurance [facility] MEDICARE Member Subscriber Plan / Payer (Ef fective 2019-Present) Name:BRIDGET PATEL Relation to Subscriber:Self Name:Bridget Patel I Payer ID:[id number] Group ID:[id number] Type:Not on file Address: [address] [place] [phone] Care Teams President & Ceo Relationship Specialty Start Date End Date Gaurav Tolbert MD [address] [place] [id number] PCP - General Internal Medicine 07/27/17
[2024-10-30 09:54] LABS: Anion Gap 12 (12-20); Blood Urea Nitrogen 41 mg/dL (9-16); Calcium 9.4 mg/dL (8.4-10.2); Carbon Dioxide 23 mmol/L (22-29); Chloride 109 mmol/L (96-108); Estimated Glomerular Filt Rate 31; Magnesium 1.7 mg/dL (1.6-2.6); Potassium 4.7 mmol/L (3.3-5.1); Sodium 139 mmol/L (135-145)
[2024-10-31 14:29] LABS: Tacrolimus Prograf 5.5 mcg/L
== END 2024-10-30 08:57 | disposition home or self-care (01) ==
LOC: HO.LAB 08:56
PROVIDERS: PCP Internal Medicine; Visit Provider Internal Medicine Nephrology
DX: I10 Essential (primary) hypertension (principal); T86.10 Unspecified complication of kidney transplant; Z51.81 Encounter for therapeutic drug level monitoring; Z79.621 Long term (current) use of calcineurin inhibitor
CPT/HCPCS: 36415; 80051; 80197; 82310; 82565; 83735; 84100; 84520; 85025

== ENCOUNTER 2024-11-02 09:26 | Outpatient (AMB) | payer OTHER, SELFPAY ==
--- OUTSIDE RECORDS SUMMARY | 2024-11-02 09:45 | XMS_ITS | Clinical Summary ---
Author Organization Patient Business Ser [facility] Address [address] [place] [address] Care Team Providers Care Painting Manager Name Role Phone Gaurav Tolbert MD Primary Care Provider [phone] Allergies Active Allergy Reactions Criticality Noted Date [...] stress test 03/03/23 Proliferative diabetic retin opathy ([facility] V24, [facility] V28) 12/25/2021 Overview (05/31/2023): Ou, dr palma Type 2 diabetes mellitus wit h eye manifestations ([facility] V24, [facility] V28) 12/25/2021 S/P kidney transplant 03/05/2021 Bilateral [...] 2 diabetes mellitus wit h neurological manifestations ([facility] V24, [facility] V28) 03/31/2018 Asthma 12/28/2017 Carpal tunnel syndrome [...] (BMI) of 35.0 to 39.9 with comorbidity ([facility] V24, [facility] V28) 08/23/2017 Restrictive lung disease 08/23/2017 Chronic obstructive pulmonar y disease ([facility] V24, [facility] V28) 08/23/2017 Hyperlipidemia 08/17/2017 Assessment & Plan [...] kidney transplant Insomnia 04/23/2017 Obesity hypoventilation syndrome ([facility] V24, [facility] V28) 02/04/2016 Anxiety 06/24/2015 Vitamin D deficiency 05/19/2012 Gastroparesis 05/11/2012 Type 2 diabetes mellitus wit h renal manifestations ([facility] V24, [facility] V28) 03/17/2005 Assessment & Plan (05/23/2024 3:09 PM EST): Diabetic diet discussed. She is being monitored by endocrinology. She will continue her regimen of dulaglutide, insulin Tresiba. Migraine 03/17/2005 History of TIA (transient ischemic attack) 03/17 Encounters Date Type Department Care Team Description 09/21/2024 Telephone Internal Medicine - [facility] [address] [place], [place] [phone] Gaurav Tolbert MD Forms/questionnaires (PCP Communication Form) 09/13/2024 Telephone Gastroenterology - [address] [facility] [address] [facility] [address] [place] [phone] Adamrais Bruce [place] Results 09/11/2024 10:12 AM EDT Anesthesia Event [facility] Endoscopy [address] [place] [phone] Jez Castro DO 09/11/2024 8:51 AM EDT - 09/11/2024 11:59 PM EDT Hospital Encounter [facility] Endoscopy [address] [place] [phone] Everton Husain MD Vermes, Rachie, CRNA Freeman, Katarina Abraham MD Personal history of other colon polyps; Family history of colonic polyps Discharge Disposition: Home or Self Care 08/21/2024 10:45 AM EDT Ancillary Procedure [facility] - [address] [place] [phone] Bilateral carotid artery stenosis 08/17/2024 10:00 AM EDT Office Visit Walk-In Clinic - [address] [phone] Jefry Clarke PA Seasonal allergic rhinitis, unspecified trigger (Primary Dx) 08/07/2024 7:40 AM EDT Office Visit [facility] - [address] [facility] [address] [place] [address] Rolanda Armstrong NP Coronary artery disease involving eyak coronary artery of eyak heart without angina pectoris (Primary Dx); Hypertension, [...] GRAFT VENOUS OTHER SURGICAL HISTORY 01/20/2022 PROCEDURE: AR SLCTV CATHJ 3RD+ ORD SLCTV THRC/BRCH/CPHLC BRNCH OTHER SURGICAL HISTORY 01/20/2022 PROCEDURE: AR SLCTV CATHJ EA 2ND+ ORD ABDL PEL/LXTR [...] tunnel syndrome Chronic obstructive pulmonar y disease ([facility] V24, [facility] V28) 08/23/2017 DX:Chronic obstructive pulm onary disease (HCC) CKD (chronic kidney disease) stage V requiring chronic dialysis ([facility] V24, [facility] V28) 06/01/2017 DX:CKD (chronic kidney disea se) stage V requiring chronic dialysis (HCC) Depression 08/05/2017 DX:Depression Gastroparesis 05/11/2012 DX:Gastroparesis Hypertension 09/27/2017 DX:Hypertension Insomnia 04/23/2017 DX:Insomnia Obesity hypoventilation synd alexa ([facility] V24, [facility] V28) 02/04/2016 DX:Obesity hypoventilation syndrome (HCC) Restrictive lung disease 08/23/2017 DX:Rest rictive lung disease Type 2 diabetes mellitus wit h neurological manifestations ([facility] V24, [facility] V28) 03/31/2018 DX:Type 2 diabetes mellitus with neurological manifestations (HCC) Type 2 diabetes mellitus wit h renal manifestations ([facility] V24, [facility] V28) 03/17/2005 DX:Type 2 diabetes mellitus with renal manifestations ([facility]) Vitamin D deficiency 05/19/2012 DX:Vitamin D deficiency Severe obesity with body mas s index (BMI) of 35.0 to 39.9 with comorbidity ([facility] V24, [facility] V28) 08/23/2017 DX:Severe obesity with body mass index (BMI) of 35.0 to 39.9 with comorbidity ([facility]) Proliferative diabetic retin opathy ([facility] V24, [facility] V28) 12/25/2021 DX:Proliferative diabetic r etinopathy ([facility]); COMMENT: dr minerva Romero Type 2 diabetes mellitus wit h eye manifestations ([facility] V24, [facility] V28) 12/25/2021 DX:Type 2 diabetes mellitus with eye manifestations ([facility]) Retinal hemorrhage Hepatitis C Family History Medical History Relation Name Comments Heart failure Father Other: Diabetes, [place] Father Heart failure Mother Stroke Mother Relation [...] PM EDT Office Visit Orthopedic Surgery - [place] [address] [facility] [address] [place] [phone] Chandni Angulo MD [address] [facility] [address] [place] [phone] 11/15/2024 9:45 AM EDT Office Visit Internal Medicine - [facility] [address] [place] [address] Gaurav Tolbert MD [address] [place] [address] 02/06/2025 9:00 AM EST Ancillary Procedure [facility] [address] [place] [address] 02/22/2025 10:40 AM EST Office Visit [facility] Cardiology [facility] - [address] [facility] [address] [place] [address] Rolanda Armstrong, SATURNINO [address] [place] [address] 06/28/2025 9:15 AM EDT Ancillary Procedure [facility] - [address] [place] [address] Health Maintenance Due Date Last [...] 8:02 AM EDT Coronary artery disease involving eyak coronary artery of eyak heart without angina pectoris Bilateral carotid artery [...] Maintenance Results * COLONOSCOPY Anesthesia - MAC; [facility] ENDOSCOPY (09/11/2024 10:33 AM EDT) Anatomical [...] for surveillance. Narrative 09/11/2024 10:34 AM EDT [facility] GI Patient Name: Bridget Patel Procedure Date: [...] retroflexion views. Procedure Code(s): --- Professional --- 40496, Colonoscopy, flexible; with removal of tumor(s), polyp(s), or other lesion(s) by snare technique Diagnosis Code(s): --- Professional --- Z86.010, Personal history of colonic polyps D12.3, Benign neoplasm of transverse colon (hepatic flexure or splenic flexure) CPT copyright 2020 [employer]. All rights reserved. The codes documented in this report are preliminary and upon head boys golf coach review may be revised to meet current compliance requirements. Everton Husain MD 09/11/2024 10:34:57 AM This report has been signed electronically.Everton Husain MD Number of Addenda: 0 Note Initiated On: 09/11/2024 10:03 AM Scope In: Scope Out: Endoscopy Department at [facility] - [address] [place] [phone] Procedure Note Everton Husain MD - 09/11/2024 [facility] GI Patient Name: Bridget Patel Procedure Date: [...] retroflexion views. Procedure Code(s): --- Professional --- 37442, Colonoscopy, flexible; with removal of tumor(s), polyp(s), or other lesion(s) by snare technique Diagnosis Code(s): --- Professional --- Z86.010, Personal history of colonic polyps D12.3, Benign neoplasm of transverse colon (hepatic flexure or splenic flexure) CPT copyright 2020 [employer]. All rights reserved. The codes documented in this report are preliminary and upon head boys golf coach reviewmay be revised to meet current compliance requirements. Everton Husain MD 09/11/2024 10:34:57 AM This report has been signed electronically.Everton Husain MD Number of Addenda: 0 Note Initiated On: 09/11/2024 10:03 AM Scope In: Scope Out: Endoscopy Department at [facility] - [address] [place] [phone] IMPRESSION: - Two 7 to 11 mm [...] adenoma(s) (two fragments). 09/12/2024 12:44 PM EDT [facility] Gross Description A. Large [...] (two pieces) hs/DG 09/12/2024 12:44 PM EDT [facility] Disclaimer Unless otherwise specified, all tissue is 10% NB formalin fixed and paraffin embedded. 09/12/2024 12:44 PM EDT [facility] Tissue Structure of left colic flexure / Unknown 09/11/2024 10:27 AM EDT 09/11/2024 12:37 PM EDT Everton Husain MD LAB PATHOLOGY ORDERABLES Fi nal Result [facility] [address] [place] [address], * External Colonoscopy Report (09/08/2024 9:17 AM [...] minimal heterogeneous plaque. Vertebral flow is antegrade. Director Of Email Marketing Details A zurita scale, color and doppler [...] LAB CHEMISTRY METHOD 08/09/2024 8:55 AM EDT [facility] Triglycerides 150 0 - 150 mg/dL LAB CHEMISTRY METHOD 08/09/2024 8:55 AM [facility] HDL 43 >=40 mg/dL LAB CHEMISTRY METHOD 08/09/2024 8:55 AM EDT [facility] LDL Calculated 52 0 - 100 mg/dL LAB CHEMISTRY METHOD 08/09/2024 8:55 AM EDT [facility] VLDL Cholesterol Jacek 30 mg/dL LAB CHEMISTRY METHOD 08/09/2024 8:55 AM T [facility] Non HDL Chol. (LDL+VLDL) 82 <145 mg/dL LAB CHEMISTRY METHOD 08/09/2024 8:55 AM [facility] Chol/HDL Ratio 2.9 0.0 - 4.4 LAB CHEMISTRY METHOD 08/09/2024 8:55 AM T [facility] Blood Venous blood specimen / Unknown Venipuncture / Unknown 08/09/2024 8:02 AM EDT 08/09/2024 8:15 AM EDT us Rolanda Armstrong NP LAB BLOOD ORDERABLES F inal Result [facility] [address] [place] [address], [place] [phone] * External Diabetic Retina Eye Exam Report (04/13/2024) Anatomical Region Laterality Modality Ultrasound Provider [facility] US PROCEDURES Final Result * Annual BMP Blood Test (06/10/2023) Pathologist [facility] Annual BMP Blood Test abstracted Result [facility] Provider HEALTH MAINTENANCE Final Result * Diabetes Foot Exam (02/04/2023) [facility] Diabetes: Annual Foot Exam abstracted Result [facility] Provider HEALTH MAINTENANCE Final Result * Hepatitis C Screening (07/28/2022) [facility] Hepatitis C Screening abstracted Result [facility] Provider HEALTH MAINTENANCE Final Result * (ABNORMAL) Hemoglobin A1c (07/28/2022) [facility] Hemoglobin A1C 9.7(A) <=6.5 % Blood Venous blood specimen / Unknown Result [facility] Provider LAB BLOOD ORDERABLES Lurdes l Result * Urine Albumin Creatinine Ratio (12/19/2005) [facility] Urine Albumin Creatinine Ratio abstracted Result [facility] Provider HEALTH MAINTENANCE Final Result * Pap Smear (04/22/2004) [facility] Pap smear abstracted, no interpretation Result [facility] Provider HEALTH MAINTENANCE Final Result from Last 3 Months or Most Recently Relevant to Health Maintenance Insurance [facility] MEDICARE Member Subscriber Plan / Payer (Ef fective 2019-Present) Name:BRIDGET PATEL Relation to Subscriber:Self Name:Bridget Patel I Payer ID:[id number] Group ID:[id number] Type:Not on file Address: [address] [place] [address] Care Teams Painting Manager Relationship Specialty Start Date End Date Gaurav Tolbert MD [address] [place] [phone] PCP - General Internal Medicine 07/27/17
--- OUTSIDE RECORDS SUMMARY | 2024-11-02 09:45 | XMS_ITS | Clinical Summary ---
Author Organization [facility] [place] Address [address] [place] [address] Care Team Providers Care Dental Hygienist Name Role Phone Pcp, No Primary Care [...] 01/28/2022, , 03/18/2005, Additional history exists Insurance [facility] MEDICARE OUT OF NETWORK Care Teams Dental Hygienist Relationship Specialty Start Date End Date Pcp, [address] [place] [address] PCP - General 07/08/21
--- OUTSIDE RECORDS SUMMARY | 2024-11-02 09:45 | XMS_ITS | Encounter Summary ---
Author Organization [facility] Address [address] [facility] [address] [place] [address] Phone Care Team Providers Care Environmental Epidemiologist Name Role Phone Gaurav Bennett Primary Care Provider [phone] Reason for Visit * Reason Comments Med Refill Encounter Details Date Type Department Care Team (Late st Contact Info) Description 06/27/2021 Refill [facility] [address] [facility] [address] [place] [phone] Capo Dawson MD Social History Tobacco Use [...] on filedocumented in this encounter Care Teams Environmental Epidemiologist Relationship Specialty Start Date End Date Gaurav Bennett [address] [place] [phone] PCP - General Internal Medicine 03/07/21 documented as of this encounter
--- NOTE | 2024-11-02 10:12 | HO.NEPHOV_ITS ---
Vital Signs 11/02/24 10:18 Height 5 ft 3 in Weight 212 lb 2 oz BMI 37.6 BP 138/72 Blood Pressure Location Rt brachial Position Sitting Pulse 67 Pulse Source Pulse Oximeter Pulse Oximetry (%) 98 Oxygen Delivery Method Room Air Intake Visit Reasons: 2mon Transplant follow-up W/labs-LVM Apartment Leasing Consultant Required: No Accompanied by: Spouse Allergies No Known Allergies Allergy (Verified 11/02/24 10:17) HPI Comments Details: Bridget was seen in the office for follow-up of her renal transplant. She has longstanding diabetes. She had end-stage renal disease and was on renal replacement therapy. She does not have any UTIs, pain over her renal transplant, hematuria, dysuria, fever, suprapubic pain, nausea, vomiting, chills, rigors. Her blood sugars are fair and is better. Her blood pressure has been at goal. She has been compliant with her medications. She denies any active lower extremity vascular disease. She has no skin rashes. She maintains good hydration and avoids nonsteroidal anti-inflammatory medications. She has no side effects from her immunosuppressive medication. [facility]LY [facility] Medical History Retinal hemorrhage Peripheral neuropathic pain Neuropathy Hypertension Hypercholesteremia ESRD (end stage renal disease) Diabetes mellitus Dermatitis Chronic kidney disease Cellulitis Surgical History H/O tubal ligation History of carpal tunnel release -donor kidney transplant Family History Sister Cancer Social History Patient Tobacco Use Status: Former Tobacco user Review of Systems Const All systems reviewed & are unremarkable except as noted in HPI and below Physical Exam Const General: comfortable and no acute distress Orientation/consciousness: patient oriented x3 HEENT Head: Yes normocephalic Mouth: Normal oral and palatal mucosa present Eyes EOM: EOMs intact bilaterally Neck Neck: Yes supple Resp Auscultation: clear to auscultation bilaterally Cardio Jugular venous distension: no JVD Rate: regular rate GI Palpation (GI): Soft to palpation Auscultation: normal bowel sounds General: Yes no CVA tenderness Back/Spine/Pelvis Back: no CVA tenderness Skin General skin exam: no rashes or lesions noted Neuro General: patient oriented x3 and moves all extremities Extrem General: Yes no pedal edema Results Reviewed Nephrology Results: Hgb, (12.0-16.0) 11.1 g/dl L 10/30/24 WBC, (4.8-10.8) 4.4 X10*3/uL L 10/30/24 Plt Count, (160-400) 216 X10*3/uL 10/30/24 Sodium, (135-145) 139 mmol/L 10/30/24 Potassium, (3.3-5.1) 4.7 mmol/L 10/30/24 Chloride, (96-108) 109 mmol/L H 10/30/24 Carbon Dioxide, (22-29) 23 mmol/L 10/30/24 BUN, (9-16) 41 mg/dL H 10/30/24 Creatinine, (0.5-1.4) 1.69 mg/dL H 10/30/24 Calcium, (8.4-10.2) 9.4 mg/dL 10/30/24 Phosphorus, (2.7-4.5) 2.9 mg/dL 10/30/24 Urine Protein, (Neg-Trace) Trace mg/dL 09/06/24 Urine Creatinine 90.95 mg/dL 09/06/24 Protein/Creatinin Ratio, (<0.2) 0.16 09/06/24 Assessment & Plan Assessment & Plan (1) Renal transplant disorder: Code(s): T86.10 - Unspecified complication of kidney transplant Category: Medical (2) Hypertension: Code(s): I10 - Essential (primary) hypertension Category: Medical Qualifiers: Hypertension type: primary hypertension Qualified Code(s): I10 - Essential (primary) hypertension Plan Bridget had ESRD from diabetic nephropathy. She underwent a donor renal transplant. Her transplant function had been stable . Her blood pressure has been at goal. Her blood sugar is better controlled. she needs to lose weight. She is not on any Joshua inhibitor. She is not known to have any significant proteinuria. She has no side effects from her immunosuppression medications. She maintains good hydration. She avoids nonsteroidal anti-inflammatories. She needs to see a spiritual minister once a year. She has no other active vascular symptoms. She is on statins. I did not make any medication changes today. I ordered follow-up blood work including tacrolimus levels. All her questions were answered. Follow-up given Orders: Orders Tacrolimus Prograf 2 Months I10 - Essential (primary) hypertension, T86.10 - Unspecified complication of kidney transplant Complete Blood Count Auto Diff 2 Months I10 - Essential (primary) hypertension, T86.10 - Unspecified complication of kidney transplant Electrolytes 2 Months I10 - Essential (primary) hypertension, T86.10 - Unspecified complication of kidney transplant Calcium 2 Months I10 - Essential (primary) hypertension, T86.10 - Unspecified complication of kidney transplant Phosphorus 2 Months I10 - Essential (primary) hypertension, T86.10 - Unspecified complication of kidney transplant Magnesium 2 Months I10 - Essential (primary) hypertension, T86.10 - Unspecified complication of kidney transplant Alanine Aminotransferase 2 Months I10 - Essential (primary) hypertension, T86.10 - Unspecified complication of kidney transplant Aspartate Amino Transferase 2 Months I10 - Essential (primary) hypertension, T86.10 - Unspecified complication of kidney transplant Protein Creatinine Ratio, Ur 2 Months I10 - Essential (primary) hypertension, T86.10 - Unspecified complication of kidney transplant Other Ref Test - Misc 2 Months I10 - Essential (primary) hypertension, T86.10 - Unspecified complication of kidney transplant Blood Urea Nitrogen 2 Months I10 - Essential (primary) hypertension, T86.10 - Unspecified complication of kidney transplant Creatinine 2 Months I10 - Essential (primary) hypertension, T86.10 - Unspecified complication of kidney transplant Coding Level of Care Code Est Pt Level 4 (92413) Diagnoses Renal transplant disorder T86.10 Primary hypertension I10 Hypertension type: primary hypertension
[2024-11-02 10:18] VITALS: BP 138/72; PULSE 67; O2SAT 98; BMI 37.6
== END 2024-11-02 10:38 | disposition home or self-care (01) ==
LOC: HO.HKAS 09:27
PROVIDERS: PCP Internal Medicine; Visit Provider Internal Medicine Nephrology
DX: T86.10 Unspecified complication of kidney transplant (principal); I10 Essential (primary) hypertension
CPT/HCPCS: 99214

== ENCOUNTER → 2024-11-02 09:26 | Outpatient (BNVA) | payer OTHER, SELFPAY | PROVIDERS: PCP Internal Medicine; Visit Provider Internal Medicine Nephrology | DX: Z48.22 Encounter for aftercare following kidney transplant (principal); T86.10 Unspecified complication of kidney transplant; I10 Essential (primary) hypertension | CPT/HCPCS: 99212 ==

== ENCOUNTER 2025-01-02 10:02 | Outpatient (REF) | payer OTHER, SELFPAY ==
--- OUTSIDE RECORDS SUMMARY | 2025-01-02 11:11 | XMS_ITS | Clinical Summary ---
Author Organization [facility] Address [address] [place] [address] Care Team Providers Care Power Nut Runner Operator Name Role Phone Pcp, No Primary Care [...] Vaccine (1 of 2) 2017 Influenza Vaccine 11/03/2024 01/28/2022, , 03/18/2005, Additional history exists COVID-19 Vaccine (3 - 2024-2 6 season) 2024 06/27/2020, 05/16/2020 [place] [facility] [place] Care Teams Power Nut Runner Operator Relationship Specialty Start Date End Date Pcp, No [address] [place] [address] PCP - General 07/08/21
--- OUTSIDE RECORDS SUMMARY | 2025-01-02 11:11 | XMS_ITS | Clinical Summary ---
Author Organization Patient Business Ser [facility] Address [address] [place] [address] Care Team Providers Care Marketing Project Specialist Name Role Phone Debra Hills MD Primary Care Provider [phone] Allergies Active Allergy Reactions Criticality Noted Date Comments Lamotrigine Rash 07/08/2022 Medications insulin degludec (Tresiba FlexTouch U-100) 100 unit/mL (3 mL) injection pen Inject 23 Units as directed. 04/27/19 24 Active carvediloL (COREG) 6.25 mg tablet Take 1 tablet (6.25 mg total) by mouth 2 (two) times a day with meals. 04/27/19 24 Active albuterol HFA (PROAIR HFA ; PROVENTIL HFA ; VENTOLIN HFA) 90 mcg/actuation inhaler Inhale 2 puffs by mouth. 02/05/20 23 Active mycophenolate (MYFORTIC) 180 mg EC tablet Take 2 tablets (360 mg total) by mouth 2 (two) times a day. Active tacrolimus (Envarsus XR) 1 mg extended release tablet 02/18/20 21 Active docusate sodium (COLACE) 100 mg capsule 02/18/20 21 Active senna 8.6 mg tablet 02/18/20 21 Active glucose blood test strip sig tid prn 06/18/19 07 Active ACCU-CHEK SOFTCLIX LANCETS MISC by Not Applicable route. 06/18/19 07 Active syringe and needle,insulin, 1mL (INSULIN SYRINGES, DISPOSABLE, MISC) 1 Syringe by [...] 0.5 mg 5 tablet 06/30/19 25 Active atorvastatin (LIPITOR) 40 mg tablet TAKE 1 TABLET BY MOUTH 1 TIME EACH DAY. 90 tablet 1 07/11/19 25 Active levocetirizine (Xyzal) 5 mg tablet Take 1 tablet (5 mg total) by mouth 1 (one) time each day in the evening. 30 each 2 08/18/19 25 Active fluticasone propionate (FLONASE) 50 mcg/actuation nasal spray Administer 2 sprays into each nostril 1 (one) time each day. Reduce to 1 spray when symptoms are controlled. 16 g 2 08/18/19 25 Active insulin aspart (NovoLOG FlexPen) 100 unit/mL (3 mL) injection pen 09/02/19 25 Active Dexcom G7 Sensor device 1 EA. 09/14/19 25 Active Adamaris 2nd Gen Pen Needle 32 gauge x 5/32 needle 10/26/19 25 Active Ozempic 1 mg/dose (4 mg/3 mL) injection pen Inject 1 mg under the skin. 09/09/19 25 Active aspirin 81 mg EC tablet Take 1 tablet (81 mg total) by mouth 1 (one) time each day. 11/16/19 25 Active gabapentin (NEURONTIN) 100 mg capsule TAKE 2 CAPSULES BY MOUTH 3 TIMES A DAY 540 capsule 1 12/06/19 25 Active amLODIPine (NORVASC) 5 mg tabletIndicatio ns:Hypertension , unspecified type Take 1.5 tablets (7.5 mg total) by mouth 1 (one) time each day. 90 tablet 1 12/09/19 25 Active traZODone (DESYREL) 100 mg tablet TAKE 1 TABLET BY MOUTH EVERY DAY AT BEDTIME NEEDED FOR SLEEP 90 tablet 1 01/02/20 25 Active traZODone (DESYREL) 100 mg tablet TAKE 1 TABLET BY MOUTH AT BEDTIME NEEDED FOR SLEEP 90 tablet 1 07/11/19 25 025 Discontinued amLODIPine (NORVASC) 5 mg tablet TAKE 1 TABLET BY MOUTH EVERY DAY 90 tablet 1 07/11/19 25 025 Discontinued gabapentin (NEURONTIN) 100 mg capsule TAKE 2 CAPSULES BY MOUTH 3 TIMES A DAY. 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 Bilateral carotid artery stenosis 01/29/2020 Assessment & Plan (11/15/2024 1:00 PM EDT): She will continue aspirin and atorvastatin. Up-to-date with carotid duplex. Assessment & Plan (08/07/2024 11:03 AM EDT): We will update surveillance carotid study. Continue aspirin and statin. Orders: Vascular US duplex carotid bilateral; Future Lipid panel with reflex to direct LDL; Future Assessment & Plan (05/23/2024 3:09 PM EST): Continue aspirin and statin therapy. Followed up with vascular surgery. Repeat imaging in 2 years. Type 2 diabetes mellitus wit h neurological manifestations ([facility] V24, [facility] V28) 03/31/2018 Asthma 12/28/2017 Carpal tunnel syndrome 10/28/2017 Hypertension 09/27/2017 Assessment & Plan (11/15/2024 1:00 PM EDT): Her blood pressure at home a lot better. She will keep a blood pressure log and provide to me. For now she will follow low-sodium diet. Continue carvedilol, amlodipine. Patient will call me in 1 week's time with a blood pressure log. Assessment & Plan (08/07/2024 11:03 AM EDT): [...] (BMI) of 35.0 to 39.9 with comorbidity ([facility] V24, [facility] V28) 08/23/2017 Restrictive lung disease 08/23/2017 Chronic obstructive pulmonar y disease ([facility] V24, [facility] V28) 08/23/2017 Hyperlipidemia 08/17/2017 Assessment & Plan (11/15/2024 1:00 PM EDT): Follow low-cholesterol diet. Continue atorvastatin. Assessment & Plan (08/07/2024 11:03 AM EDT): [...] kidney transplant Insomnia 04/23/2017 Obesity hypoventilation syndrome (CMS/[facility] V24, [facility] [place] V28) 02/04/2016 Anxiety 06/24/2015 Vitamin D deficiency 05/19/2012 Gastroparesis 05/11/2012 Type 2 diabetes mellitus wit h renal manifestations ([facility] V24, [facility] V28) 03/17/2005 Assessment & Plan (11/15/2024 1:00 PM EDT): She is being monitored by endocrinology. She has already had her lab work done Externally to check her A1c, urine microalbumin. For now, she will continue her regimen of insulin Tresiba, NovoLog, semaglutide. She is up-to-date with her diabetic eye exam. She is being monitored by nephrology as well. Assessment & Plan (05/23/2024 3:09 PM EST): Diabetic diet discussed. She is being monitored by endocrinology. She will continue her regimen of dulaglutide, insulin Tresiba. Migraine 03/17/2005 History of TIA (transient ischemic attack) 03/17 Encounters Date Type Department Care Team Description 12/26/2024 Telephone Internal [facility] - [facility] [address] [facility] [place] [address] Debra Hills MD 12/21/2024 Telephone Internal Medicine - [facility] [address] [place] [address] Debra Hills MD 12/18/2024 12:30 PM EDT Treatment [facility] Occupational Therapy [address] [place] [phone] Rina Simon COTA Dupuytren's contracture (Primary Dx) 12/14/2024 1:45 PM EDT Treatment [facility] Occupational Therapy [address] [phone] Rina Simon COTA Dupuytren's contracture (Primary Dx) 12/11/2024 1:30 PM EDT Evaluation [facility] Occupational Therapy [address] [place] [phone] Favian Sepulveda, OT Dupuytren's contracture 12/11/2024 Plan of Care Documentation [facility] Occupational Therapy [address] [place] [phone] 12/08/2024 9:15 AM EDT Office Visit Internal Medicine - [facility] [address] [place] [address] Jeronimo Mckinley NP Hypertension, unspecified type (Primary Dx) 11/15/2024 9:45 AM EDT Office Visit Internal Medicine - [facility] [address] [place] [address] Gaurav Tolbert MD Type 2 diabetes mellitus with diabetic nephropathy, with long-term current use of insulin ([facility] V24, [facility] V28) (Primary Dx); Hypertension, unspecified type; Hyperlipidemia, unspecified hyperlipidemia type; Bilateral carotid artery stenosis; S/P kidney transplant 11/14/2024 3:30 PM EDT Office Visit Orthopedic Surgery [facility] [address] [facility] [address] [place] [address] Chandni Angulo MD Dupuytren's contracture (Primary Dx) from Last 3 Months Immunizations Immunization Administration Dates Next Due Influenza Quadravalent, MDCK [...] VASCULAR AC TRANSPLANT, KIDNEY, OPEN CATARACT EXTRACTION CARPAL TUNNEL RELEASE Bilateral Medical History Medical History Date Comments Migraine 03/17/2005 DX:Migraine; COM MENT: IMO update History of TIA (transient is chemic attack) 03/17/2005 DX:History of TIA (transient ischemic attack) Hyperlipidemia 08/17/2017 DX:Hyperlipidemi a Tobacco use 08/17/2017 DX:Tobacco use Obesity 08/23/2017 DX:Obesity Anxiety 06/24/2015 DX:Anxiety Asthma 12/28/2017 DX:Asthma AV fistula ([facility] V24) 06/01/2017 removed 2022 Carpal tunnel syndrome 10/28/2017 DX:Carpal tunnel syndrome Chronic obstructive pulmonar y disease ([facility] V24, [facility] V28) 08/23/2017 DX:Chronic obstructive pulm onary disease (HCC) CKD (chronic kidney disease) stage V requiring chronic dialysis ([facility] V24, [facility] V28) 06/01/2017 DX:CKD (chronic kidney disea se) stage V requiring chronic dialysis ([facility]) Depression 08/05/2017 DX:Depression Gastroparesis 05/11/2012 DX:Gastroparesis Hypertension 09/27/2017 DX:Hypertension Insomnia 04/23/2017 DX:Insomnia Obesity hypoventilation synd alexa ([facility] V24, [facility] V28) 02/04/2016 DX:Obesity hypoventilation syndrome (HCC) Restrictive lung disease 08/23/2017 DX:Rest rictive lung disease Type 2 diabetes mellitus wit h neurological manifestations ([facility] V24, [facility] V28) 03/31/2018 DX:Type 2 diabetes mellitus with neurological manifestations (HCC) Type 2 diabetes mellitus wit h renal manifestations ([facility] V24, [facility] V28) 03/17/2005 DX:Type 2 diabetes mellitus with renal manifestations (HCC) Vitamin D deficiency 05/19/2012 DX:Vitamin D deficiency Severe obesity with body mas s index (BMI) of 35.0 to 39.9 with comorbidity ([facility] V24, [facility] V28) 08/23/2017 DX:Severe obesity with body mass index (BMI) of 35.0 to 39.9 with comorbidity (HCC) Proliferative diabetic retin opathy ([facility] V24, [facility] V28) 12/25/2021 DX:Proliferative diabetic r etinopathy ([facility]); COMMENT: dr minerva Romero Type 2 diabetes mellitus wit h eye manifestations ([facility] V24, [facility] V28) 12/25/2021 DX:Type 2 diabetes mellitus with eye manifestations (HCC) Retinal hemorrhage Hepatitis C Family History Medical History Relation Name Comments Heart failure Father Other: Diabetes, [place] Father Heart failure Mother Stroke Mother Relation Name Status Comments Father Mother Social History Tobacco Use Types Packs/Day Years Used Date Smoking Tobacco: Former Cigarettes Smokeless Tobacco: Never Tobacco Cessation:Counseling Given: Not Answered Alcohol Use Standard Drinks/Week Comments No 0 (1 standard drink = 0.6 oz pur e alcohol) Interpersonal Safety Answer Date Record ed Physical Abuse Unrecognized value 09/11/2024 Verbal Abuse Unrecognized value 09/11/2024 Comments No Sex and Gender Information Value Date Recorded Sex Assigned at Female 11/28/2024 11:46 AM EDT Legal Sex Female 8:19 AM EST Gender Identity Female 09/01/2024 3:35 PM EDT Sexual Orientation Choose not to disclose 2024 11:46 AM EDT Obstetrics History Last Filed Vital Signs Vital Sign Reading Time Taken Comments Blood Pressure 154/72 12/08/2024 9:43 AM EDT aut o cuff Pulse 62 12/08/2024 9:43 AM EDT auto cuff Temperature 36.2 C (97.2 F) 09/11/2024 10:34 AM EDT Respiratory Rate 18 09/11/2024 10:5 4 AM EDT Oxygen Saturation 98% 09/11/2024 10: 54 AM EDT Inhaled Oxygen Concentration - - Weight 96.8 kg (213 lb 4.8 oz) 12/08/2024 9:43 A M EDT Height 160 cm (5' 3 ) 11/15/2024 10:00 AM EDT Body Mass Index 37.78 11/15/2024 10:00 AM EDT Plan of Treatment Upcoming Encounters Date Type Department Care Team (Late st Contact Info) Description 01/02/2025 12:00 PM EDT Treatment [facility] Occupational Therapy [address] [phone] Rina Simon COTA 01/05/2025 9:00 AM EDT Office Visit Internal Medicine - [address] [phone] Jeronimo Mciknley, SATURNINO [address] [place] [address] 01/09/2025 12:30 PM EDT Evaluation [facility] Occupational Therapy [address] [phone] Favian Sepulveda, OT 02/06/2025 9:00 AM EST Ancillary Procedure [facility] Cardiology [facility] [address] [phone] 02/22/2025 10:40 AM EST Office Visit [facility] - [facility] [address] [phone] Rolanda Armstrong NP [address] [place] [address] Dr [address] [place] [address] 06/28/2025 9:15 AM EDT Ancillary Procedure [facility] Cardiology [facility] [address] [phone] Health Maintenance Due Date Last Done Comments Breast Cancer Screening 1965 Hepatitis B Vaccines (1 of 3 - 19+ 3-dose series) 1986 Zoster Vaccines (1 of 2) 1986 Cervical Cancer Screening: Pap Smear 04/22/2007 04/22/2004 Pneumococcal Vaccine: 50+ Years (2 of 2 - PPSV23, PCV20, or PCV21) 06/11/2016 04/16/2016 HIV Screening 03/15/2020 Medicare Annual [...] 04/13/2025 04/13/2024, 04/09/2023 Colorectal Cancer Screening: Colonoscopy 09/12/2027 09/11/2024, 09/08/2024, 07/09/2022 DTaP,Tdap,and Td Vaccines (2 - Td or Tdap) 06/11/2029 06/12/2019 Cholesterol Screening (Lipid Panel) 08/09/2029 08/09/2024, 01/03/2024, 01/03/2024 RSV Immunization Adult Patients (1 - 1-dose 75+ series) 2042 MMR Vaccines Aged Out 05/30/2014 No longer [...] on patient's age to complete this topic Goals Goal Patient Goal Type Associated Problems Recent Progress Patient-Stated? Author STG 4-6 visits General Favian Buckley, OT Note: Patient will report <=8/10 pain in L hand, Patient will demo L digit AROM able to touch palm Patient will demo L network support strength >= 5# to be able to hold a light plastic cup, Patient will demo improved functional use of L upper extremity as evidenced by Quick Dash score <= 50 to be able to wipe the counters, and Patient will perform initial HEP MOD I LTG 12 visits General Favian Buckley, OT Note: Patient will report <=6/10 pain in L hand, Patient will demo L digit AROM able to touch DPC Patient will demo L network support strength >= 10# to be able to hold kitchen items, Patient will demo improved functional use of L upper extremity as evidenced by Quick Dash score <= 40 to be able to retrieve a light snack, and Patient will perform HEP MOD I Procedures Procedure Name Priority Date/Time Associated Diagnosis Comments COLONOSCOPY Routine 09/11/2024 10:33 AM EDT Personal history of other colon polyps Family history of colonic polyps LIPID PANEL WITH REFLEX TO DIRECT LDL Routine 08/09/2024 8:02 AM EDT Coronary artery disease involving [place] coronary artery of [place] heart without angina pectoris Bilateral carotid artery [...] surveillance. Narrative 09/11/2024 10:[address] [facility] GI Patient Name: Bridget Patel [...] retroflexion views. Procedure Code(s): --- Professional --- 50290, Colonoscopy, flexible; with removal of tumor(s), polyp(s), or other lesion(s) by snare technique Diagnosis Code(s): --- Professional --- Z86.010, Personal history of colonic polyps D12.3, Benign neoplasm of transverse colon (hepatic flexure or splenic flexure) CPT copyright 2020 [employer]. All rights reserved. The codes documented in this report are preliminary and upon dock associate review may be revised to meet current compliance requirements. Everton Husain MD 09/11/2024 10:34:57 AM This report has been signed electronically.Everton Husain MD Number of Addenda: 0 Note Initiated On: 09/11/2024 10:03 AM Scope In: Scope Out: Endoscopy Department at [facility] - [address] [place] [phone] Procedure Note Everton Husain MD - 09/11/[address] [facility] GI Patient Name: Bridget Patel [...] retroflexion views. Procedure Code(s): --- Professional --- 59892, Colonoscopy, flexible; with removal of tumor(s), polyp(s), or other lesion(s) by snare technique Diagnosis Code(s): --- Professional --- Z86.010, Personal history of colonic polyps D12.3, Benign neoplasm of transverse colon (hepatic flexure or splenic flexure) CPT copyright 2020 [employer]. All rights reserved. The codes documented in this report are preliminary and upon dock associate reviewmay be revised to meet current compliance requirements. Everton Husain MD 09/11/2024 10:34:57 AM This report has been signed electronically.Everton Husain MD Number of Addenda: 0 Note Initiated On: 09/11/2024 10:03 AM Scope In: Scope Out: Endoscopy Department at [facility] - [address] [place] [phone] IMPRESSION: - Two 7 to 11 mm polyps at the splenic flexure, removed with a cold snare. Resected andretrieved. - The examination was otherwise normal on directand retroflexion views. Recommendation: - Await pathology results. - Repeat colonoscopy in 3 years for surveillance. us Everton Husain MD GI~PROCEDURE ORDERABLES Fin al Result * Lipid panel with reflex to direct LDL (08/09/2024 8:02 AM EDT) Cholesterol 125 0 - 200 mg/dL LAB CHEMISTRY METHOD 08/09/2024 8:55 AM EDT [facility] Triglycerides 150 0 - 150 mg/dL LAB CHEMISTRY METHOD 08/09/2024 8:55 AM EDT [facility] HDL 43 >=40 mg/dL LAB CHEMISTRY METHOD 08/09/2024 8:55 AM EDT [facility] LDL Calculated 52 0 - 100 mg/dL LAB CHEMISTRY METHOD 08/09/2024 8:55 AM EDT [facility] VLDL Cholesterol Jacek 30 mg/dL LAB CHEMISTRY METHOD 08/09/2024 8:55 AM EDT [facility] Non HDL Chol. (LDL+VLDL) 82 <145 mg/dL LAB CHEMISTRY METHOD 08/09/2024 8:55 AM EDT [facility] Chol/HDL Ratio 2.9 0.0 - 4.4 LAB CHEMISTRY METHOD 08/09/2024 8:55 AM EDT [facility] Blood Venous blood specimen / Unknown Venipuncture / Unknown 08/09/2024 8:02 AM EDT 08/09/2024 8:15 AM EDT Rolanda Armstrong NP LAB BLOOD ORDERABLES F inal Result [facility] [address] [place] [address], [place] [phone] * External Diabetic Retina Eye Exam Report (04/13/2024) Anatomical Region Laterality Modality Ultrasound Provider [facility] US PROCEDURES Final Result * Annual BMP Blood Test (06/10/2023) Pathologist [facility] Annual BMP Blood Test abstracted Historical Provider HEALTH MAINTENANCE Final Result * Diabetes Foot Exam (02/04/2023) [facility] Diabetes: Annual Foot Exam abstracted Historical Provider HEALTH MAINTENANCE Final Result * Hepatitis C Screening (07/28/2022) [facility] Hepatitis C Screening abstracted Historical Provider HEALTH MAINTENANCE Final Result * (ABNORMAL) Hemoglobin A1c (07/28/2022) Hemoglobin A1C 9.7(A) <=6.5 % Blood Venous blood specimen / Unknown Historical Provider LAB BLOOD ORDERABLES Lurdes l Result * Urine Albumin Creatinine Ratio (12/19/2005) Urine Albumin Creatinine Ratio abstracted Historical Provider HEALTH MAINTENANCE Final Result * Pap Smear (04/22/2004) Pap smear abstracted, no interpretation Historical Provider HEALTH MAINTENANCE Final Result from Last 3 Months or Most Recently Relevant to Health Maintenance Insurance [employer] MED[employer] Member Subscriber Plan / Payer (Ef fective 2019-Present) Name:BRIDGET PATEL Relation to Subscriber:Self Name:Bridget Patel I Payer ID:[id number] Group ID:[id number] Type:Not on file Address: [place] [address] [address] [phone] Care Teams Marketing Project Specialist Relationship Specialty Start Date End Date Debra Hills MD [address] [place] [phone] PCP - General Internal Medicine 12/08/24
--- OUTSIDE RECORDS SUMMARY | 2025-01-02 11:11 | XMS_ITS | Encounter Summary ---
Author Organization [facility] Address [address] [facility] [[email or web address] [address] [place] [address] Phone Care Team Providers Care Gas Engine Performance Engineer Name Role Phone Gaurav Bennett Primary Care Provider [phone] Reason for Visit * Reason Comments Med Refill Encounter Details Date Type Department Care Team (Late st Contact Info) Description 02/25/2021 Refill [facility] [address] [facility] [[email or web address] [address] [place] [phone] Capo Dawson MD Social History Tobacco Use [...] on filedocumented in this encounter Care Teams Gas Engine Performance Engineer Relationship Specialty Start Date End Date Gaurav Bennett [address] [place] [phone] PCP - General Internal Medicine 03/07/21 documented as of this encounter
--- OUTSIDE RECORDS SUMMARY | 2025-01-02 11:11 | XMS_ITS | Encounter Summary ---
Author Organization [facility] Address [address] [facility] [address] [place] [address] Phone Care Team Providers Care Pooling Operator Name Role Phone Gaurav Bennett Primary Care Provider [phone] Reason for Visit * Reason Comments Med Refill Encounter Details Date Type Department Care Team (Late st Contact Info) Description 10/09/2020 Refill [facility] [address] [facility] [address] [place] [phone] Capo Dawson MD Social History Tobacco Use [...] on filedocumented in this encounter Care Teams Pooling Operator Relationship Specialty Start Date End Date Gaurav Bennett [address] [place] [phone] PCP - General Internal Medicine 03/07/21 documented as of this encounter
--- OUTSIDE RECORDS SUMMARY | 2025-01-02 11:11 | XMS_ITS | Encounter Summary ---
Author Organization [facility] Address [address] [facility] 200 [place] [address] Phone Care Team Providers Care Computer Repair Instructor Name Role Phone Gaurav Bennett Primary Care Provider [phone] Reason for Visit * Reason Comments Med Refill Encounter Details Date Type Department Care Team (Late st Contact Info) Description 06/27/2021 Refill [facility] [address] [facility] [address] [place] [phone] Capo Dawson MD Social History Tobacco Use [...] on filedocumented in this encounter Care Teams Computer Repair Instructor Relationship Specialty Start Date End Date Gaurav Bennett [address] [place] [id number] PCP - General Internal Medicine 03/07/21 documented as of this encounter
--- OUTSIDE RECORDS SUMMARY | 2025-01-02 11:11 | XMS_ITS | Clinical Summary ---
Author Organization [facility] Address [address] [facility] [address] [place] [address] Phone Care Team Providers Care Tracer Bullet Section Supervisor Name Role Phone YordanlucyOxanak Primary Care Provider [phone] Allergies Active Allergy Reactions Criticality Noted Date [...] BEDTIME. 07/28/19 22 Active ergocalciferol 1.25 MG (59849 UT) capsule TAKE ONE CAPSULE BY MOUTH [...] attack 03/17/2005 05/16/2021 Migraine 03/17/2005 05/16/2021 Immunizations Immunization Administration Dates Next Due Influenza TIV (IM) [...] 62 02/09/2023 8:41 AM EST Temperature 36.2 C (97.2 F) 05/18/2022 10:10 AM EST Respiratory Rate - - Oxygen Saturation 100% [...] - 19+ 3-dose series) 1986 Pneumococcal Vaccine: 50+ Ye ars (2 of 2 - PPSV23, PCV20, or PCV21) 06/11/2016 04/16/2016 Diabetes: Ophthalmology Exam 05/05/2020 Diabetes: Pedal Pulse Checked 05/05/2020 Diabetes: Sensory Foot Exam 05/05/2020 Diabetes: Visual Foot Exam 05/05/2020 Colonoscopy (Post-Transplant Patient) 02/19/2021 Mammogram (Post-Transplant Patient) 02/19/2021 Pelvic Exam (Post-Transplant Patient) 02/19/2021 Diabetes: Hemoglobin A1C 10/27/20222 023, 05/07/2022, 03/16/2022, Additional history exists Influenza Vaccine (#1) 2024 4, 02/04/2023, 02/04/2023, Additional history exists Pneumococcal Vaccine: Peds ( 0 to 5 Years) and At-Risk Patients (6 to 49 Years) Discontinued 04/16/2016 Procedures Procedure Name Priority Date/Time Associated Diagnosis Comments HEMOGLOBIN A1C Routine 05/07/2022 10:26 AM EST Kidney transplant status from Last 3 Months or Most Recently Relevant to Health Maintenance Results * (ABNORMAL) Hemoglobin A1c (05/07/2022 10:26 AM EST) Hemoglobin A1C 9.3(H) (4.0-5.6) % [facility] Comment: MONITORING: In known diabetic patients, hemoglobin A1c targets should be discussed with health care provider. DIAGNOSTIC USE: The [place] Diabetes [employer] (ADA) and the World Health [...] Supplement 1 Testing performed or reported by [facility], a Service of [facility], [address] [place] [address] Hector Swain MD, Support Worker [facility]# [id number] Blood specimen (specimen) Venous blood / Unknown 05/07/2022 10:26 AM EST 05/07/2022 10:38 AM EST Harper Stanley MD LAB BLOOD ORDERABLES Final Resu lt [facility] from Last 3 Months or Most Recently Relevant to Health Maintenance Insurance [facility] MCR ([id number]) [facility] Dual SNP ([id number]) Care Teams Tracer Bullet Section Supervisor Relationship Specialty Start Date End Date Gaurav Bennett [address] [place] [id number] PCP - General Internal Medicine 03/07/21
--- OUTSIDE RECORDS SUMMARY | 2025-01-02 11:11 | XMS_ITS | Patient Health Record ---
Author Organization [facility] Address [address] [facility] [place] [address] Care Team Providers Care Patient Support Specialist Name Role Phone Gaurav Tolbert M.D. Primary Care Provider Unavailable Hi Anaya Unavailable [phone] Allergies No Known Allergies Results Component Value Reference Range Notes HEMOGLOBIN A1C (GLYCOHEMOGLO BIN) Reviewed date:12/14/2024 09:04:39 AM Interpretation: Performing Lab: Notes/Report: HEMOGLOBIN A1C % (HH) 7.0 Reason For Referral No Information Medications Medication SIG (Take, Route, Frequency, Duration) Notes Start Date End Date Status Gabapentin 100 MG Oral; Duration: 90 Days Active Insulin Degludec FlexTouch 100 UNIT/ML Subcutaneous; Duration: 57 Days Active Insulin Aspart FlexPen 100 UNIT/ML Subcutaneous; Duration: 27 Days Active Mycophenolate Sodium 180 MG Oral; Duration: 30 Days Acti ve amLODIPine Besylate 5 MG Oral; Duration: 60 Days Active Ozempic (1 MG/DOSE) 4 MG/3ML Subcutaneous; Duration: 28 Days Active Extra Depth Orthopedic Shoes (1 Pair) with Customized Heat Molded Multidensity Innersoles (3 Pair) Dx: NIDDM/Polyneuropathy (E11.42), Hammertoe Foot Deformity (M20.41,M20.42), Preulcerative Skin Lesion(s) (L85.1); Duration: 365 days 12/14/2024 Active Envarsus XR 1 MG Oral; Duration: 30 Days Active Carvedilol 6.25 MG Oral; Duration: 90 Days Active Immunizations Vaccine Route Administration Date Status Comme nts Influenza Unknown 12/06/2023 Administered Social History Tobacco Use: Social History Observation Description Date Details (start date - stop date) Never Smoker NA - NA Tobacco use other than smoking: Question Answer Notes Are you an other tobacco user? No Tobacco Control (Standard) Question Answer Notes Tobacco use: Nonsmoker Additional Findings: Tobacco non-user Current no nsmoker AUDIT-C (Standard) Question Answer Notes Did you have a drink containing alcohol in the p ast year? No Points 0 Interpretation Negative Problems Problem Type SNOMED Code ICD Code Onset Dates Problem Status W/U Status Risk Notes Problem Acquired hammer toe of right foot (7338399838241930 ) Other hammer toe(s) (acquired), right foot (M20.41) Active confirmed Problem Acquired hammer toe of left foot (0376360424622194 ) Other hammer toe(s) (acquired), left foot (M20.42) Active confirmed Problem Polyneuropathy due to type 2 diabetes mellitus (666659903) Type 2 diabetes mellitus with diabetic polyneuropathy (E11.42) Active confirmed Vital Signs Blood pressure diastolic 72 mm Hg 12/14/2024 Height 5ft 3in in 12/14/2024 Blood pressure systolic 154 mm Hg 12/14/2024 Weight 214 lbs 12/14/2024 BMI 37.9 kg/m2 12/14/2024 Procedures Procedure Date Ordered Date Performed Result Body Sit e 46701-KYRYDFN NAIL, 1-5 12/14/2024 N/A 50600-SPYP SKIN LESIONS, 2 TO 4 12/14/2024 N/A U2544-VCUBMVQM DYSTROPHIC NAILS ANY # 12/14/2024 N/A Encounters Encounter Location Date Provider Diagnosis [facility] [place] [address] [place] [phone] 12/14/2024 Hi Anaya Type 2 diabetes mellitus with diabetic polyneuropathy E11.42 ; Tinea unguium B35.1 ; Other hammer toe(s) (acquired), right foot M20.41 and Other hammer toe(s) (acquired), left foot M20.42 [facility] [place] [address] [place] [address] 12/14/2024 Hi Anaya Assessments Encounter Date Diagnosis (ICD Code) Assessment Notes Treatment Notes Treatment Clinical Notes Section Notes 12/14/2024 Tinea unguium (ICD-10 - B35.1) 12/14/2024 Type 2 diabetes mellitus with diabetic polyneuropathy (ICD-10 - E11.42) 12/14/2024 Other hammer toe(s) (acquired), right foot (ICD-10 - M20.41) Patient Educated with: DIABETIC FOOT CARE INSTRUCTIONS. pdf (DIABETIC FOOT CARE INSTRUCTIONS. pdf) 12/14/2024 Other hammer toe(s) (acquired), left foot (ICD-10 - M20.42) Plan Of Treatment Pending Test Test Name Order Date 75236-YMGABVB NAIL, 1-5 12/14/2024 77722-RPVQ SKIN LESIONS, 2 TO 4 12/15/19 25 Q7043-UHCDHDSX DYSTROPHIC NAILS ANY # Next Appt Details Provider Name:Hi Anaya , 03/15/2025 09:00:00 AM, [address] [facility] [address], [place], [address], Insurance Providers Payer Name Payer Address Payer Phone Subscriber Number Group Number Insured Name Patient Relationship to Insured Coverage Start Date Coverage End Date [facility] Adv [address] [place] Luther [id number] Bridget Patel Self - patient is the insured Medical (General) History Medical History History ICD Code Anemia Anxiety asthma Depression type II diabetes Glaucoma High Blood Pressure Kidney disease nerve disorder Numbness ulcer Measles Mumps Chicken pox Surgical History Surgery Date(Month/Year) cataract surgery, both eyes 01/2024
--- OUTSIDE RECORDS SUMMARY | 2025-01-02 11:11 | XMS_ITS | Encounter Summary ---
Author Organization [facility] Address [address] [facility] 200 [place] [address] Phone Care Team Providers Care Stonehand Name Role Phone Gaurav Bennett Primary Care Provider [phone] Reason for Visit * Reason Comments Med Refill Encounter Details Date Type Department Care Team (Late st Contact Info) Description 11/28/2021 Refill [facility] [address] [facility] [address] [place] [phone] Capo Dawson MD Social History Tobacco Use [...] on filedocumented in this encounter Care Teams Stonehand Relationship Specialty Start Date End Date Gaurav Bennett [address] [place] [address] PCP - General Internal Medicine 03/07/21 documented as of this encounter
--- OUTSIDE RECORDS SUMMARY | 2025-01-02 11:11 | XMS_ITS | Encounter Summary ---
Author Organization [facility] Address 100 [facility] 200 [place] [address] Phone Care Team Providers Care Gold Buyer Name Role Phone Gaurav Bennett Primary Care Provider [phone] Reason for Visit * Reason Comments Med Refill Encounter Details Date Type Department Care Team ([facility] st Contact Info) Description 06/15/2022 Refill [facility] 100 [facility] 200 [place] [phone] Blu Montero MD [address] [facility] 204 [place] [phone] Social History Tobacco Use Types Packs/Day Years [...] on filedocumented in this encounter Care Teams Gold Buyer Relationship Specialty Start Date End Date Gaurav Bennett [address] [place] [phone] PCP - General Internal Medicine 03/07/21 documented as of this encounter
--- OUTSIDE RECORDS SUMMARY | 2025-01-02 11:11 | XMS_ITS | Encounter Summary ---
Author Organization [facility] Address 100 [facility] 200 [place] [address] Phone Care Team Providers Care Duplicate Maker Name Role Phone Gaurav Bennett Primary Care Provider [phone] Reason for Visit * Reason Comments Med Refill Encounter Details Date Type Department Care Team (Late st Contact Info) Description 05/20/2023 Refill [facility] 100 [facility] 200 [place] [phone] Jez Balbuena MD [address] [place] [address], [address] [address] Long-term drug therapy Social History Tobacco Use [...] therapy documented in this encounter Care Teams Duplicate Maker Relationship Specialty Start Date End Date Gaurav Bennett [address] [place] [address] PCP - General Internal Medicine 03/07/21 documented as of this encounter
[2025-01-02 13:45] LABS: MANUAL DIFF FLAG NO
[2025-01-02 13:53] LABS: Hematocrit 37.0 % (37.0-47.0); Hemoglobin 11.8 g/dl (12.0-16.0); Imm Gran Abs Auto 0.03 X10*3/uL (0.00-0.03); Imm Gran Pct Auto 0.6 % (0.0-0.4); Lymphocytes Absolute Auto 1.3 X10*3/uL (1.2-4.9); Mean Corpuscular HGB Conc 31.9 g/dl (31.0-35.0); Mean Corpuscular Hemoglobin 26.8 pg (27.0-33.0); Mean Corpuscular Volume 83.9 fL (80.0-98.0); NRBC Abs Auto 0.000 X10*3/uL (0.0-0.012); NRBC Pct Auto 0.0 /100WBC (0.0-0.2); Platelet Count 205 X10*3/uL (160-400); Red Blood Count 4.41 X10*6/uL (4.20-5.50); White Blood Count 5.3 X10*3/uL (4.8-10.8)
[2025-01-02 14:08] LABS: Protein/Creatinine Ratio, Ur 0.31 (<0.2); Total Protein Urine Random 22 mg/dL (<12)
[2025-01-02 15:37] LABS: Alanine Aminotransferase 25 U/L (0-31); Anion Gap 13 (12-20); Aspartate Amino Transferase 23 U/L (5-31); Blood Urea Nitrogen 37 mg/dL (9-16); Calcium 10.2 mg/dL (8.4-10.2); Carbon Dioxide 26 mmol/L (22-29); Chloride 107 mmol/L (96-108); Estimated Glomerular Filt Rate 36; Magnesium 1.6 mg/dL (1.6-2.6); Potassium 5.2 mmol/L (3.3-5.1); Sodium 141 mmol/L (135-145)
[2025-01-03 06:33] LABS: Tacrolimus Prograf 8.8 mcg/L
[2025-01-03 13:04] LABS: BK DNA QN RT PCR, UR 5.94 Log IU/mL (NOT DETECTED); BK DNA QN RT PCR, UR 875000 IU/mL (NOT DETECTED)
== END 2025-01-02 10:03 | disposition home or self-care (01) ==
LOC: HO.HKASLDS 10:02
PROVIDERS: PCP Internal Medicine; Visit Provider Internal Medicine Nephrology
DX: I10 Essential (primary) hypertension (principal); T86.10 Unspecified complication of kidney transplant
CPT/HCPCS: 36415; 80051; 80197; 82310; 82565; 82570; 83735; 84100; 84156; 84450; 84460; 84520; 85025; 87799

== ENCOUNTER 2025-01-04 10:00 | Outpatient (AMB) | payer OTHER, SELFPAY ==
--- OUTSIDE RECORDS SUMMARY | 2025-01-02 12:00 | XMS_ITS | Encounter Summary ---
Author Organization [facility] Address [address] [place] [address] Care Team Providers Care Offset Plate Preparation Supervisor Name Role Phone Debra Hills MD Primary Care Provider [phone] Reason for Visit * Therapy (Routine) - Authorized Specialty Diagnoses / Procedures Referred By Bonny meyer Referred To Contact Occupational Therapy Diagnoses Dupuytren's contracture Chandni Angulo MD [address] [facility] [address] [place] [address] Phone: tel: fax: Referral ID Status Reason Start Date Expiration Date Visits Requested Visits Authorized [id number] Authorized Consult and Treat 11/14/2024 11/14/2025 20 20 Encounter Details Date Type Department Care Team ([facility] st Contact Info) Description 01/02/2025 12:00 PM EDT Treatment [facility] [address] [facility] [address] [place] [address] Rina Simon COTA Dupuytren's contracture (Primary Dx) Social History Tobacco Use Types Packs/Day Years [...] not to disclose 2024 11:46 AM EDT documented as of this encounter Progress Notes * ASIA Skaggs - 01/02/2025 12:00 PM EDT [facility] - Outpatient OCCUPATIONAL THERAPY DAILY TREATMENT NOTE Date: 01/02/2025 Visit Number: 4 Patient Name: Bridget Patel : 1965 Age: 59 y.o. Gender: female Diagnosis: ICD-10-CM ICD-9-CM 1. Dupuytren's contracture M72.0 728.6 Date of Onset: 11/14/2024 Referring Provider: Chandni Angulo MD Insurance: [facility] / Plan: [facility] / Product Type: *No Product type* / Patient identified by: ASIA Skaggs Language: Speaks and understands Lebanese as preferred language with no plant maintenance engineer required Allergies: is allergic to lamotrigine. Precautions: None specified Is the patient at Risk for Falls: No SUBJECTIVE Subjective Report: The L is worst than the R Pain: 6/10 on R 10/10 on L TREATMENT INTERVENTION Procedures: U/S To L palm, base of digits 4,5; 3.3 MHz, 50% pulsed X 8 min to decrease inflammation To R palm base of digits 4,5, 3.3 MHz 50% pulsed x 8 minutes to decrease inflammation Gentle tissue massage and R palm Rice bucket pt joyce to locate ,with L pt unable to locate any items fluido therapy for 15 min on the L Wrist flex/ext.digit flex/ext abd/add. Pain Reassessment: remains the same Assessment/Response To Treatment: Good tolerated session despite the pain Patient Education: Education provided: Yes Education Provided To: Patient utilizing Explanation mode(s) of education Response to Education: Good PLAN POC Development/Review: No Change in the Plan of Care; Participants: Patient Equipment Recommended: none; Equipment Provided: none Total Treatment Time: 45 OT Therapeutic Procedures Time Entry Therapeutic Exercise Time Entry: 29 OT Modalities Time Entry Ultrasound Time Entry: 16 Documentation completed by Aide Skaggs [facility] - Outpatient Allergies: Documentation completed by ASIA Skaggs documented in this encounter Plan of Treatment Upcoming Encounters Date Type Department Care Team (Late st Contact Info) Description 01/05/2025 9:00 AM EDT Office Visit Internal Medicine - [facility] [address] [place] [address] Jeronimo Mckinley, SATURNINO [address] [place] [address] 01/09/2025 12:30 PM EDT Evaluation [facility] Occupational Therapy [address] [facility] [address] [place] [address] Favian Sepulveda, OT 02/06/2025 9:00 AM EST Ancillary Procedure [facility] [address] [facility] 101 [place] [address] 02/22/2025 10:40 AM EST Office Visit [facility] 102 [address] [facility] [address] [place] [address] Rolanda Armstrong NP 300 [facility] [address] [place] [address] 06/28/2025 9:15 AM EDT Ancillary Procedure [facility] [address] [facility] 101 [place] [address] documented as of this encounter Goals Goal Patient Goal Type Associated Problems Recent Progress Patient-Stated? Author STG 4-6 visits General Favian Buckely, OT Note: Patient will report <=8/10 pain in L hand, Patient will demo L digit AROM able to touch palm Patient will demo L lifestyle consultant strength >= 5# to be able to [...] to touch DPC Patient will demo L lifestyle consultant strength >= 10# to be able to hold kitchen items, Patient will demo improved functional use of L upper extremity as evidenced by Quick Dash score <= 40 to be able to retrieve a light snack, and Patient will perform HEP MOD I documented as of this encounter Visit Diagnoses Diagnosis Dupuytren's contracture- Primary Contracture of palmar fascia documented in this encounter Care Teams Offset Plate Preparation Supervisor Relationship Specialty Start Date End Date Debra Hills MD [address] [place] [address] PCP - General Internal Medicine 12/08/24 documented as of this encounter
--- NOTE | 2025-01-04 10:05 | HO.NEPHOV_ITS ---
Vital Signs 01/04/25 10:09 Height 5 ft 3 in Weight 213 lb 4 oz BMI 37.8 BP 130/60 Blood Pressure Location Rt brachial Position Sitting Pulse 65 Pulse Source Pulse Oximeter Pulse Oximetry (%) 99 Oxygen Delivery Method Room Air Intake Visit Reasons: 2mnth-Conf Screen Printing Cloth Spreader Required: No Accompanied by: Spouse Allergies No Known Allergies Allergy (Verified 01/04/25 10:08) HPI Comments Details: Bridget was seen in the office for follow-up of her renal transplant. She has longstanding diabetes. She had end-stage renal disease and was on renal replacement therapy. She does not have any UTIs, pain over her renal transplant, hematuria, dysuria, fever, suprapubic pain, nausea, vomiting, chills, rigors. Her blood sugars are fair and is better. Her blood pressure has been at goal. She has been compliant with her medications. She denies any active lower extremity vascular disease. She has no skin rashes. She maintains good hydration and avoids nonsteroidal anti-inflammatory medications. She has no side effects from her immunosuppressive medication. 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 Her renal function has been stable [facility] Medical History Retinal hemorrhage Peripheral neuropathic pain Neuropathy Hypertension Hypercholesteremia ESRD (end stage renal disease) Diabetes mellitus Dermatitis Chronic kidney disease Cellulitis Surgical History H/O tubal ligation History of carpal tunnel release -donor kidney transplant Family History Sister Cancer Social History Patient Tobacco Use Status: Former Tobacco user Review of Systems Const All systems reviewed & are unremarkable except as noted in HPI and below Physical Exam Const General: comfortable and no acute distress Orientation/consciousness: patient oriented x3 HEENT Head: Yes normocephalic Mouth: Normal oral and palatal mucosa present Eyes EOM: EOMs intact bilaterally Neck Neck: Yes supple Resp Auscultation: clear to auscultation bilaterally Cardio Jugular venous distension: no JVD Rate: regular rate GI Palpation (GI): Soft to palpation Auscultation: normal bowel sounds General: Yes no CVA tenderness Back/Spine/Pelvis Back: no CVA tenderness Skin General skin exam: no rashes or lesions noted Neuro General: patient oriented x3 and moves all extremities Extrem General: Yes no pedal edema Results Reviewed Nephrology Results: Hgb, (12.0-16.0) 11.8 g/dl L 01/02/25 WBC, (4.8-10.8) 5.3 X10*3/uL 01/02/25 Plt Count, (160-400) 205 X10*3/uL 01/02/25 Sodium, (135-145) 141 mmol/L 01/02/25 Potassium, (3.3-5.1) 5.2 mmol/L H 01/02/25 Chloride, (96-108) 107 mmol/L 01/02/25 Carbon Dioxide, (22-29) 26 mmol/L 01/02/25 BUN, (9-16) 37 mg/dL H 01/02/25 Creatinine, (0.5-1.4) 1.49 mg/dL H 01/02/25 Calcium, (8.4-10.2) 10.2 mg/dL Δ 01/02/25 Phosphorus, (2.7-4.5) 3.2 mg/dL 01/02/25 Urine Protein, (Neg-Trace) Trace mg/dL 09/06/24 Urine Creatinine 71.16 mg/dL 01/02/25 Protein/Creatinin Ratio, (<0.2) 0.31 H 01/02/25 Assessment & Plan Assessment & Plan (1) Renal transplant disorder: Code(s): T86.10 - Unspecified complication of kidney transplant Category: Medical (2) Hypertension: Code(s): I10 - Essential (primary) hypertension Category: Medical Qualifiers: Hypertension type: primary hypertension Qualified Code(s): I10 - Essential (primary) hypertension (3) BK viruria: Code(s): R82.79 - Other abnormal findings on microbiological examination of urine Category: Medical (4) Proteinuria: Code(s): R80.9 - Proteinuria, unspecified Category: Medical Qualifiers: Proteinuria type: other Qualified Code(s): R80.8 - Other proteinuria Plan Bridget had ESRD from diabetic nephropathy. She underwent a donor renal transplant( Feb 142020). Her transplant function had been stable . Her blood pressure has been at goal. Her blood sugar is better controlled. she needs to lose more weight. She is not on any Joshua inhibitor. She is not known to have any significant proteinuria. She maintains good hydration. She avoids nonsteroidal anti-inflammatories. She needs to see a third steel pourer once a year. She has no other active vascular symptoms. She is on statins. I increased her Amlodipine to 10 mg daily. reduced her cellcept to 180 mg bid and tacrolimus to 8 mg given she has BK viriuria. I ordered follow-up blood work including tacrolimus levels. Follow-up given Orders: Orders Creatinine 2 Months I10 - Essential (primary) hypertension, R80.8 - Other proteinuria, R82.79 - Other abnormal findings on microbiological examination of urine, T86.10 - Unspecified complication of kidney transplant Other Ref Test - Misc 2 Months I10 - Essential (primary) hypertension, R80.8 - Other proteinuria, R82.79 - Other abnormal findings on microbiological examination of urine, T86.10 - Unspecified complication of kidney transplant Tacrolimus Prograf 2 Months I10 - Essential (primary) hypertension, R80.8 - Other proteinuria, R82.79 - Other abnormal findings on microbiological examination of urine, T86.10 - Unspecified complication of kidney transplant Hemoglobin A1c 2 Months I10 - Essential (primary) hypertension, R80.8 - Other proteinuria, R82.79 - Other abnormal findings on microbiological examination of urine, T86.10 - Unspecified complication of kidney transplant Complete Blood Count Auto Diff 2 Months I10 - Essential (primary) hypertension, R80.8 - Other proteinuria, R82.79 - Other abnormal findings on microbiological examination of urine, T86.10 - Unspecified complication of kidney transplant Protein Creatinine Ratio, Ur 2 Months I10 - Essential (primary) hypertension, R80.8 - Other proteinuria, R82.79 - Other abnormal findings on microbiological examination of urine, T86.10 - Unspecified complication of kidney transplant Blood Urea Nitrogen 2 Months I10 - Essential (primary) hypertension, R80.8 - Other proteinuria, R82.79 - Other abnormal findings on microbiological examination of urine, T86.10 - Unspecified complication of kidney transplant Electrolytes 2 Months I10 - Essential (primary) hypertension, R80.8 - Other proteinuria, R82.79 - Other abnormal findings on microbiological examination of urine, T86.10 - Unspecified complication of kidney transplant Coding Level of Care Code Est Pt Level 4 (24783) Diagnoses Renal transplant disorder T86.10 Primary hypertension I10 Hypertension type: primary hypertension BK viruria R82.79 Other proteinuria R80.8 Proteinuria type: other
[2025-01-04 10:09] VITALS: BP 130/60; PULSE 65; O2SAT 99; BMI 37.8
--- OUTSIDE RECORDS SUMMARY | 2025-01-04 11:19 | XMS_ITS | Encounter Summary ---
Author Organization [facility] Address [address] [facility] 200 [place] [address] Phone Care Team Providers Care Loading Machine Operator Helper Name Role Phone Gaurav Bennett Primary Care Provider [phone] Reason for Visit * Reason Comments Med Refill Encounter Details Date Type Department Care Team (Late st Contact Info) Description 11/28/2021 Refill [facility] [address] [facility] [address] [place] [phone] Capo Dawson MD Social History Tobacco Use [...] on filedocumented in this encounter Care Teams Loading Machine Operator Helper Relationship Specialty Start Date End Date Gaurav Bennett [address] [place] [address] PCP - General Internal Medicine 03/07/21 documented as of this encounter
--- OUTSIDE RECORDS SUMMARY | 2025-01-04 11:19 | XMS_ITS | Clinical Summary ---
Author Organization [facility] Address [address] [facility] [address] [place] [address] Phone Care Team Providers Care Doggy Daycare Activities Director Name Role Phone YordanlucyOxanak Primary Care Provider [phone] Allergies Active Allergy Reactions Criticality Noted Date [...] BEDTIME. 07/28/19 22 Active ergocalciferol 1.25 MG (06777 UT) capsule TAKE ONE CAPSULE BY MOUTH [...] AM EST) Hemoglobin A1C 9.3(H) (4.0-5.6) % [facility] Comment: MONITORING: In known diabetic patients, hemoglobin A1c targets should be discussed with health care provider. DIAGNOSTIC USE: The [place] Diabetes Association (ADA) and the World Health [...] Supplement 1 Testing performed or reported by [facility], a Service of [facility], [address] [place] [address] Hector Swain MD, Location Director [facility]# [id number] Blood specimen (specimen) Venous blood / Unknown 05/07/2022 10:26 AM EST 05/07/2022 10:38 AM EST Harper Stanley MD LAB BLOOD ORDERABLES Final Resu lt [facility] from Last 3 Months or Most Recently Relevant to Health Maintenance Insurance [facility] MCR ([id number]) [facility] Dual SNP ([id number]) Care Teams Doggy Daycare Activities Director Relationship Specialty Start Date End Date Gaurav Bennett [address] [place] [address] PCP - General Internal Medicine 03/07/21
--- OUTSIDE RECORDS SUMMARY | 2025-01-04 11:19 | XMS_ITS | Encounter Summary ---
Author Organization [facility] Address 100 [facility] 200 [place] [address] Phone Care Team Providers Care Crisis Therapist Name Role Phone Gaurav Bennett Primary Care Provider [phone] Reason for Visit * Reason Comments Med Refill Encounter Details Date Type Department Care Team ([facility] st Contact Info) Description 06/15/2022 Refill [facility] 100 [facility] 200 [place] [phone] Blu Montero MD [address] [facility] 204 [place] [phone] Social History Tobacco Use Types Packs/Day Years [...] on filedocumented in this encounter Care Teams Crisis Therapist Relationship Specialty Start Date End Date Gaurav Bennett [address] [place] [phone] PCP - General Internal Medicine 03/07/21 documented as of this encounter
--- OUTSIDE RECORDS SUMMARY | 2025-01-04 11:19 | XMS_ITS | Patient Health Record ---
Author Organization [facility] Address [address] [place] [address] Care Team Providers Care Retail Branch Manager Name Role Phone Gaurav Tolbert M.D. Primary Care Provider Unavailable Hi Anaya Unavailable [phone] Allergies No Known Allergies Results Component Value [...] Problem Acquired hammer toe of right foot (9525372505181583 ) Other hammer toe(s) (acquired), right foot (M20.41) Active confirmed Problem Acquired hammer toe of left foot (2381690254133544 ) Other hammer toe(s) (acquired), left foot (M20.42) Active confirmed Problem Polyneuropathy due to type 2 diabetes mellitus (820727799) Type 2 diabetes mellitus with diabetic polyneuropathy (E11.42) Active confirmed Vital Signs Blood pressure diastolic 72 mm Hg 12/14/2024 Height 5ft 3in in 12/14/2024 Blood pressure systolic 154 mm Hg 12/14/2024 Weight 214 lbs 12/14/2024 BMI 37.9 kg/m2 12/14/2024 Procedures Procedure Date Ordered Date Performed Result Body Sit e 53007-FRRHHZN NAIL, 1-5 12/14/2024 N/A 33715-ZBVA SKIN LESIONS, 2 TO 4 12/14/2024 N/A R8445-[id number] DYSTROPHIC NAILS ANY # 12/14/2024 N/A Encounters Encounter Location Date Provider Diagnosis [facility] [place] [address] [place] [phone] 12/14/2024 Hi Anaya Type 2 diabetes mellitus with diabetic polyneuropathy E11.42 ; Tinea unguium B35.1 ; Other hammer toe(s) (acquired), right foot M20.41 and Other hammer toe(s) (acquired), left foot M20.42 [facility] [place] [address] [place] [address] 12/14/2024 Hi Anaya Assessments Encounter Date Diagnosis [...] Treatment Pending Test Test Name Order Date 10191-JKMBLXD NAIL, 1-5 12/14/2024 02456-HGHF SKIN LESIONS, 2 TO 4 12/15/19 25 L4223-[id number] DYSTROPHIC NAILS ANY # Next Appt Details Provider Name:Hi Anaya , 03/15/2025 09:00:00 AM, [address] [facility], [facility] [address], [place], [address], Insurance Providers Payer Name Payer Address Payer Phone Subscriber Number Group Number Insured Name Patient Relationship to Insured Coverage Start Date Coverage End Date [facility] Adv [address] [place] [id number] Bridget Patel Self - patient is the insured Medical (General) History Medical History History ICD Code Anemia Anxiety asthma Depression type II diabetes Glaucoma High Blood Pressure Kidney disease nerve disorder Numbness ulcer Measles Mumps Chicken pox Surgical History Surgery Date(Month/Year) cataract surgery, both eyes 01/2024
--- OUTSIDE RECORDS SUMMARY | 2025-01-04 11:19 | XMS_ITS | Encounter Summary ---
Author Organization [facility] Address [address] [facility] [address] [facility] 200 [place] [address] Phone Care Team Providers Care Carbon Cleaner Name Role Phone Gaurav Bennett Primary Care Provider [phone] Reason for Visit * Reason Comments Med Refill Encounter Details Date Type Department Care Team (Late st Contact Info) Description 10/09/2020 Refill [facility] [address] [facility] Brittany [facility] 200 [place] [phone] Capo Dawson MD Social History Tobacco Use [...] on filedocumented in this encounter Care Teams Carbon Cleaner Relationship Specialty Start Date End Date Gaurav Bennett [address] [place] [address] PCP - General Internal Medicine 03/07/21 documented as of this encounter
--- OUTSIDE RECORDS SUMMARY | 2025-01-04 11:19 | XMS_ITS | Encounter Summary ---
Author Organization [facility] Address 100 [facility] 200 [place] [address] Phone Care Team Providers Care Emergency Services Professional Name Role Phone Gaurav Bennett Primary Care Provider [phone] Reason for Visit * Reason Comments Med Refill Encounter Details Date Type Department Care Team (Late st Contact Info) Description 05/20/2023 Refill [facility] 100 [facility] 200 [place] [phone] Jez Balbuena MD [address] [place] [address], [address] [address] Long-term drug therapy Social History Tobacco Use [...] therapy documented in this encounter Care Teams Emergency Services Professional Relationship Specialty Start Date End Date Gaurav Bennett [address] [place] [address] PCP - General Internal Medicine 03/07/21 documented as of this encounter
--- OUTSIDE RECORDS SUMMARY | 2025-01-04 11:19 | XMS_ITS | Encounter Summary ---
Author Organization [facility] Address [address] [facility] 200 [place] [address] Phone Care Team Providers Care Belt Press Operator Name Role Phone Gaurav Bennett Primary Care Provider [phone] Reason for Visit * Reason Comments Med Refill Encounter Details Date Type Department Care Team (Late st Contact Info) Description 06/27/2021 Refill [facility] [address] [facility] 200 [place] [phone] Capo Dawson MD Social History Tobacco Use [...] on filedocumented in this encounter Care Teams Belt Press Operator Relationship Specialty Start Date End Date Gaurav Bennett [address] [place] [address] PCP - General Internal Medicine 03/07/21 documented as of this encounter
--- OUTSIDE RECORDS SUMMARY | 2025-01-04 11:19 | XMS_ITS | Encounter Summary ---
Author Organization [facility] Address [address] [facility] 200 [place] [address] Phone Care Team Providers Care Betting Clerk Name Role Phone Gaurav Bennett Primary Care Provider [phone] Reason for Visit * Reason Comments Med Refill Encounter Details Date Type Department Care Team (Late st Contact Info) Description 02/25/2021 Refill [facility] 200 [place] [phone] Capo Dawson MD Social History Tobacco Use [...] on filedocumented in this encounter Care Teams Betting Clerk Relationship Specialty Start Date End Date Gaurav Bennett [address] [place] [address] PCP - General Internal Medicine 03/07/21 documented as of this encounter
--- OUTSIDE RECORDS SUMMARY | 2025-01-04 11:19 | XMS_ITS | Clinical Summary ---
Author Organization [facility] Address [address] [place] [address] Care Team Providers Care President & Ceo [employer] Name Role Phone Debra Hills MD Primary Care Provider [phone] Allergies Active Allergy Reactions Criticality Noted Date [...] 90 tablet 1 07/11/19 25 025 Discontinued Active Problems Problem Noted [...] 03/03/23 Proliferative diabetic retin opathy (CMS/HCC V24, CMS/HCC V28) 12/25/2021 Overview (05/31/2023): Ou, dr palma Type 2 diabetes mellitus wit h eye manifestations ([facility] V24, [facility] V28) 12/25/2021 S/P kidney transplant 03/05/2021 Assessment [...] 2 diabetes mellitus wit h neurological manifestations ([facility] V24, [facility] V28) 03/31/2018 Asthma 12/28/2017 Carpal tunnel syndrome [...] (BMI) of 35.0 to 39.9 with comorbidity ([facility] V24, [facility] V28) 08/23/2017 Restrictive lung disease 08/23/2017 Chronic obstructive pulmonar y disease ([facility] V24, [facility] V28) 08/23/2017 Hyperlipidemia 08/17/2017 Assessment & Plan [...] kidney transplant Insomnia 04/23/2017 Obesity hypoventilation syndrome ([facility] V24, C [place]/[facility] V28) 02/04/2016 Anxiety 06/24/2015 Vitamin D deficiency 05/19/2012 Gastroparesis 05/11/2012 Type 2 diabetes mellitus wit h renal manifestations ([facility] V24, [facility] V28) 03/17/2005 Assessment & Plan (11/15/2024 1:00 [...] Encounters Date Type Department Care Team Description 01/02/2025 12:00 PM EDT [facility] [address] [place] [phone] Rina Simon COTA Dupuytren's contracture (Primary Dx) 12/26/2024 Telephone Internal Medicine - [facility] [address] [place] [address] Debra Hills MD 12/21/2024 Telephone Internal Medicine - [facility] [address] [place] [address] Debra Hills MD 12/18/2024 12:30 PM EDT Treatment [facility] [address] [phone] Rina Simon COTA Dupuytren's contracture (Primary Dx) 12/14/2024 1:45 PM EDT Treatment [facility] [address] [address] Rina Simon COTA Dupuytren's contracture (Primary Dx) 12/11/2024 1:30 PM EDT [facility] [address] [place] [phone] Favian Sepulveda, OT Dupuytren's contracture 12/11/2024 Plan of Care Documentation [facility] 175 [facility] [address] [place] [phone] 12/08/2024 9:15 AM EDT Office Visit Internal Medicine - [facility] [address] [place], [place] [phone] Jeronimo Mckinley NP Hypertension, unspecified type (Primary Dx) 11/15/2024 9:45 AM EDT Office Visit Internal Medicine - [facility] [address] [place], [place] [phone] Gaurav Tolbert MD Type 2 diabetes mellitus with diabetic nephropathy, with long-term current use of insulin ([facility] V24, [facility] V28) (Primary Dx); Hypertension, unspecified type; Hyperlipidemia, unspecified hyperlipidemia type; Bilateral carotid artery stenosis; S/P kidney transplant 11/14/2024 3:30 PM EDT Office Visit Orthopedic Surgery - [place] 175 [facility] [address] [place] [phone] Chandni Angulo MD Dupuytren's contracture (Primary Dx) [...] GRAFT VENOUS OTHER SURGICAL HISTORY 01/20/2022 PROCEDURE: [place] SLCTV CATHJ 3RD+ ORD SLCTV THRC/BRCH/CPHLC BRNCH OTHER SURGICAL HISTORY 01/20/2022 PROCEDURE: [place] SLCTV CATHJ EA 2ND+ ORD ABDL PEL/LXTR [...] 06/24/2015 DX:Anxiety Asthma 12/28/2017 DX:Asthma AV fistula ([facility] V24) 06/01/2017 removed 2022 Carpal tunnel syndrome 10/28/2017 DX:Carpal tunnel syndrome Chronic obstructive pulmonar y disease ([facility] V24, [facility] V28) 08/23/2017 DX:Chronic obstructive pulm onary disease (HCC) CKD (chronic kidney disease) stage V requiring chronic dialysis ([facility] V24, [facility] V28) 06/01/2017 DX:CKD (chronic kidney disea se) stage V requiring chronic dialysis ([facility]) Depression 08/05/2017 DX:Depression Gastroparesis 05/11/2012 DX:Gastroparesis Hypertension 09/27/2017 DX:Hypertension Insomnia 04/23/2017 DX:Insomnia Obesity hypoventilation synd alexa ([facility] V24, [facility] V28) 02/04/2016 DX:Obesity hypoventilation syndrome (HCC) Restrictive lung disease 08/23/2017 DX:Rest rictive lung disease Type 2 diabetes mellitus wit h neurological manifestations ([facility] V24, [facility] V28) 03/31/2018 DX:Type 2 diabetes mellitus with neurological manifestations (HCC) Type 2 diabetes mellitus wit h renal manifestations ([facility] V24, [facility] V28) 03/17/2005 DX:Type 2 diabetes mellitus with renal manifestations (HCC) Vitamin D deficiency 05/19/2012 DX:Vitamin D deficiency Severe obesity with body mas s index (BMI) of 35.0 to 39.9 with comorbidity ([facility] V24, [facility] V28) 08/23/2017 DX:Severe obesity with body mass index (BMI) of 35.0 to 39.9 with comorbidity (HCC) Proliferative diabetic retin opathy ([facility] V24, [facility] V28) 12/25/2021 DX:Proliferative diabetic r etinopathy ([facility]); COMMENT: dr minerva Romero Type 2 diabetes mellitus wit h eye manifestations ([facility]24, [facility] V28) 12/25/2021 DX:Type 2 diabetes mellitus with eye manifestations (HCC) Retinal hemorrhage Hepatitis C Family History Medical History Relation Name Comments Heart failure Father Other: Diabetes, [place] Father Heart failure Mother Stroke Mother Relation [...] AM EDT Office Visit Internal Medicine - [address] [phone] Jeronimo Mckinley NP [address] [place] [address] 01/09/2025 12:30 PM EDT Evaluation [facility] Occupational Therapy 175 [facility] [address] [place] [phone] Favian Sepulveda, OT 02/06/2025 9:00 AM EST Ancillary Procedure [facility] Cardiology [facility] [address] [facility] [address] [place] [address] 02/22/2025 10:40 AM EST Office Visit [facility] Cardiology [facility] [address] [facility] [address] [place] [phone] Rolanda Armstrong NP 300 [facility] [address] [place] [address] 06/28/2025 9:15 AM EDT Ancillary Procedure [facility] Cardiology [facility] [address] [facility] [address] [place] [phone] Health Maintenance Due Date Last Done Comments [...] to touch palm Patient will demo L performing artist strength >= 5# to be able to [...] to touch DPC Patient will demo L performing artist strength >= 10# to be able to hold kitchen items, Patient will demo improved functional use of L upper extremity as evidenced by Quick Dash score <= 40 to be able to retrieve a light snack, and Patient will perform HEP MOD I Procedures Procedure Name Priority Date/Time Associated Diagnosis Comments EXTERNAL CLINICAL LAB 01/03/2025 COLONOSCOPY Routine 09/11/2024 10:33 AM EDT Personal history of other colon polyps Family history of colonic polyps LIPID PANEL WITH REFLEX TO DIRECT LDL Routine 08/09/2024 8:02 AM EDT Coronary artery disease involving blackfeet coronary artery of blackfeet heart without angina pectoris Bilateral carotid artery [...] Relevant to Health Maintenance Results * External clinical lab (01/03/2025) us Provider [facility] LAB BLOOD ORDERABLES Fin al Result * COLONOSCOPY Anesthesia - MAC; [facility] ENDOSCOPY (09/11/2024 10:33 AM EDT) Anatomical Region [...] for surveillance. Narrative 09/11/2024 10:34 AM EDT [facility] GI Patient Name: Bridget Patel Procedure Date: [...] retroflexion views. Procedure Code(s): --- Professional --- 64979, Colonoscopy, flexible; with removal of tumor(s), polyp(s), or other lesion(s) by snare technique Diagnosis Code(s): --- Professional --- Z86.010, Personal history of colonic polyps D12.3, Benign neoplasm of transverse colon (hepatic flexure or splenic flexure) CPT copyright 2020 [employer]. All rights reserved. The codes documented in this report are preliminary and upon educational aid review may be revised to meet current compliance requirements. Everton Husain MD 09/11/2024 10:34:57 AM This report has been signed electronically.Everton Husain MD Number of Addenda: 0 Note Initiated On: 09/11/2024 10:03 AM Scope In: Scope Out: Endoscopy Department at [facility] - [address] [place] [phone] Procedure Note Everton Husain MD - 09/11/2024 [facility] GI Patient Name: Bridget Patel Procedure Date: [...] retroflexion views. Procedure Code(s): --- Professional --- 79664, Colonoscopy, flexible; with removal of tumor(s), polyp(s), or other lesion(s) by snare technique Diagnosis Code(s): --- Professional --- Z86.010, Personal history of colonic polyps D12.3, Benign neoplasm of transverse colon (hepatic flexure or splenic flexure) CPT copyright 2020 [employer]. All rights reserved. The codes documented in this report are preliminary and upon educational aid reviewmay be revised to meet current compliance requirements. Everton Husain MD 09/11/2024 10:34:57 AM This report has been signed electronically.Everton Husain MD Number of Addenda: 0 Note Initiated On: 09/11/2024 10:03 AM Scope In: Scope Out: Endoscopy Department at [facility] - [address] [place] [phone] IMPRESSION: - Two 7 to 11 mm [...] LAB CHEMISTRY METHOD 08/09/2024 8:55 AM EDT [facility] ([facility]) [facility] Triglycerides 150 0 - 150 mg/dL LAB CHEMISTRY METHOD 08/09/2024 8:55 AM EDT [facility] HDL 43 >=40 mg/dL LAB CHEMISTRY METHOD 08/09/2024 8:55 AM EDT [facility] LDL Calculated 52 0 - 100 mg/dL LAB CHEMISTRY METHOD 08/09/2024 8:55 AM EDT [facility] VLDL Cholesterol Jacek 30 mg/dL LAB CHEMISTRY METHOD 08/09/2024 8:55 AM EDT [facility] Non HDL Chol. (LDL+VLDL) 82 <145 mg/dL LAB CHEMISTRY METHOD 08/09/2024 8:55 AM EDT [facility] Chol/HDL Ratio 2.9 0.0 - 4.4 LAB CHEMISTRY METHOD 08/09/2024 8:55 AM T [facility] Blood Venous blood specimen / Unknown Venipuncture / Unknown 08/09/2024 8:02 AM EDT 08/09/2024 8:15 AM EDT Rolanda Armstrogn [facility] LAB BLOOD ORDERABLES F inal Result [facility] [address] [place] [address], [place] [phone] * External Diabetic Retina Eye Exam Report (04/13/2024) Anatomical Region Laterality Modality Ultrasound Provider [facility] IM US PROCEDURES Final Result * Annual BMP Blood Test (06/10/2023) [facility] Annual BMP Blood Test abstracted Historical Provider HEALTH MAINTENANCE Final Result * Diabetes Foot Exam (02/04/2023) [facility] Diabetes: Annual Foot Exam abstracted Historical Provider HEALTH MAINTENANCE Final Result * Hepatitis C Screening (07/28/2022) [facility] Hepatitis C Screening abstracted Historical Provider HEALTH MAINTENANCE Final Result * (ABNORMAL) Hemoglobin A1c (07/28/2022) Hemoglobin A1C 9.7(A) <=6.5 % Blood Venous blood specimen / Unknown Historical Provider LAB BLOOD ORDERABLES Lurdes l Result * Urine Albumin Creatinine Ratio (12/19/2005) Urine Albumin Creatinine Ratio abstracted Historical Provider HEALTH MAINTENANCE Final Result * Pap Smear (04/22/2004) Pap smear abstracted, no interpretation Result [facility] Historical Provider HEALTH MAINTENANCE Final Result from Last 3 Months or Most Recently Relevant to Health Maintenance Insurance [facility] MEDICARE Member Subscriber Plan / Payer (Ef fective 2019-Present) Name:BRIDGET PATEL Relation to Subscriber:Self Name:Bridget Patel I Payer ID:[id number] Group ID:[id number] Type:Not on file Address: [place] [address] [address] [phone] Care Teams President & Ceo [employer] Relationship Specialty Start Date End Date Debra Hills MD [address] [place] [phone] PCP - General Internal Medicine 12/08/24
--- OUTSIDE RECORDS SUMMARY | 2025-01-04 11:19 | XMS_ITS | Clinical Summary ---
Author Organization [facility] Address [address] [place] [address] Care Team Providers Care Mushroom Cutter Name Role Phone Pcp, No Primary Care [...] 2024-2 6 season) 2024 06/27/2020, 05/16/2020 Insurance [facility] MEDICARE OUT OF NETWORK Care Teams Mushroom Cutter Relationship Specialty Start Date End Date Pcp, No [address] [place] [address] PCP - General 07/08/21
== END 2025-01-04 10:34 | disposition home or self-care (01) ==
LOC: HO.HKAS 10:01
PROVIDERS: PCP Internal Medicine; Visit Provider Internal Medicine Nephrology
DX: T86.10 Unspecified complication of kidney transplant (principal); I10 Essential (primary) hypertension; R82.79 Other abnormal findings on microbiological examination of urine; R80.8 Other proteinuria
CPT/HCPCS: 99214

== ENCOUNTER → 2025-01-04 10:00 | Outpatient (BNVA) | payer OTHER, SELFPAY | PROVIDERS: PCP Internal Medicine; Visit Provider Internal Medicine Nephrology | DX: I10 Essential (primary) hypertension (principal); R80.8 Other proteinuria; R82.79 Other abnormal findings on microbiological examination of urine; T86.10 Unspecified complication of kidney transplant | CPT/HCPCS: 99212 ==

== ENCOUNTER 2025-02-22 11:11 | Outpatient (REF) | payer OTHER, SELFPAY ==
--- OUTSIDE RECORDS SUMMARY | 2025-02-22 10:40 | XMS_ITS | Encounter Summary ---
Author Organization [facility] Address [address] [place] [address] Care Team Providers Care Sample Wrapper Name Role Phone Debra Hills MD Primary Care Provider [phone] Reason for Referral * Therapy (Routine) - Pending Review Specialty Diagnoses / Procedures Referred By Bonny t Referred To Contact Pulmonology Diagnoses Chronic obstructive pulmonary disease, unspecified COPD type (CMS/HCC V24, CMS/HCC V28) Asthma, unspecified asthma severity, unspecified whether complicated, unspecified whether persistent Procedures Pulmonary function testing: Carbon Monoxide Diffusing Capacity, Nitrogen Wash Out, Spirometry with Bronchodilator Rolanda Armstrong NP [address] [place] [address] Dr [address] [place] [address] Phone: tel: fax: [address] [address] Phone: tel: Referral ID Status Reason Start Date Expiration Date V isits Requested Visits Authorized [id number] Pending Review 02/22/2025 02/22/2026 1 1 Reason for Visit * Reason Comments Follow-up Encounter Details Date Type Department Care Team (Latest Contact Info) Description 02/22/2025 10:40 AM EST Office Visit [facility] - [address] [place] [address] Rolanda Armstrnog NP [address] [place] [address] [place] [address] Hypertension, unspecified type (Primary Dx); Restrictive lung disease; Chronic obstructive pulmonary disease, unspecified COPD type (CMS/HCC V24, CMS/HCC V28); Asthma, unspecified asthma severity, unspecified whether complicated, unspecified whether persistent; Coronary artery disease involving [place] coronary artery of [place] heart without angina pectoris; Hyperlipidemia, unspecified hyperlipidemia type Social History Tobacco Use Types Packs/Day Years [...] AM EDT documented as of this encounter Last Filed Vital Signs Vital Sign Reading Time Taken Comments Blood Pressure 150/68 02/22/2025 10:36 AM EST Pulse 70 02/22/2025 10:36 AM EST Temperature - - Respiratory Rate - - Oxygen Saturation 99% 02/22/2025 10:36 AM EST Inhaled Oxygen Concentration - - Weight 99.8 kg (220 lb) 02/22/2025 10:36 AM EST Height 160 cm (5' 3 ) 02/22/2025 10:36 AM EST Body Mass Index 38.97 02/22/2025 10:36 AM EST documented in this encounter Ordered Prescriptions Prescription Sig Dispense Quantity Refills Last Filled Start Date End Date carvediloL (COREG) 6.25 mg tabletIndications: Hypertension, unspecified type Take 1 tablet (6.25 mg total) by mouth 2 (two) times a day with meals. 60 each 02/22/2025 02/22/2026 carvediloL (COREG) 12.5 mg tabletIndications: Hypertension, unspecified type Take 1 tablet (12.5 mg total) by mouth 2 (two) times a day with meals. 60 each 02/22/2025 02/22/2025 documented in this encounter Progress Notes * Rolanda Armstrong NP - 02/22/2025 10:40 AM ESTAssociated Problem(s): Chronic obstructive pulmonary disease (CMS/HCC V24, CMS/HCC V28) We will update pulmonary function testing. Patient does complain of shortness of breath. Recent echocardiogram stable. Cardiac catheterization as outlined above without obstructive disease. She was encouraged to follow-up with her welder tack for further evaluation. Orders: Pulmonary function testing: Carbon Monoxide Diffusing Capacity, Nitrogen Wash Out, Spirometry with Bronchodilator; Future * Rolanda Armstrong NP - 02/22/2025 10:40 AM ESTAssociated Problem(s): Hypertension Elevated during today's exam with a reading of 150/68. We did discuss the potential of increasing her carvedilol however, in light of her pulmonary disease we will pause until PFTs are performed. Thepatient does inform us she is seeing her renal doctor in a couple weeks and should her blood pressure remain elevated, she will inquire about Dr. Dawson's recommendations. * Rolanda Armstrong NP - 02/22/2025 10:40 AM ESTAssociated Problem(s): CAD (coronary artery disease) Cardiac catheterization in April 2023 as outlined above without any obstructive coronary disease.Continues on cardioprotective medical therapy of aspirin, statin and beta-alyssa. Instructed to call 911 or go to the emergency room should the patient begin to experience chest pain or pressure lasting greater than 10 minutes does not resolve with rest. * Rolanda Armstrong NP - 02/22/2025 10:40 AM ESTAssociated Problem(s): Hyperlipidemia She will continue on her current dose of Lipitor 40 mg be mindful of dietary fat intake. Fasting lipid profile from August revealed an LDL of 52. This is at goal less than 70 and the setting of coronarydisease. * Rolanda Armstrong NP - 02/22/2025 10:40 AM ESTAssociated Problem(s): Restrictive lung disease * Rolanda Armstrong NP - 02/22/2025 10:40 AM ESTAssociated Problem(s): Asthma Orders: Pulmonary function testing: Carbon Monoxide Diffusing Capacity, Nitrogen Wash Out, Spirometry with Bronchodilator; Future documented in this encounter Plan of Treatment Upcoming Encounters Date Type Department Care Team (Late st Contact Info) Description 02/27/2025 10:45 AM EST Office Visit [facility] [place] [address] [phone] Chandni Angulo MD [address] [phone] 03/14/2025 12:45 PM EST Appointment [facility] Pulmonary [address] [place] [phone] 06/28/2025 9:15 AM EDT Ancillary Procedure [facility] - [address] [place] [address] 07/11/2025 12:30 PM EDT Office Visit Internal Medicine - [facility] [address] [facility] [place] [place] [phone] Debra Hills MD [address] [facility] [place], [place] Scheduled Orders Name Type Priority Associated Diagnoses Orde r Schedule Pulmonary function testing: Carbon Monoxide Diffusing Capacity, Nitrogen Wash Out, Spirometry with Bronchodilator PFT Routine Chronic obstructive pulmonary disease, unspecified COPD type (CMS/HCC V24, CMS/[facility] V28) Asthma, unspecified asthma severity, unspecified whether complicated, unspecified whether persistent 1 Occurrences starting 02/22/2025 until 02/22/2026 documented as of this encounter Procedures Procedure Name Priority Date/Time Associated Diagnosis Comments ECG 12-LEAD Routine 02/22/2025 11:56 AM EST Hypertension, unspecified type documented in this encounter Results * ECG 12 lead (02/22/2025 11:56 AM EST) 02/22/2025 10:4 0 AM EST Rolanda Armstrong NP ECG ORDERABLES Final Result GEMUSE documented in this encounter Visit Diagnoses Diagnosis Hypertension, unspecified type- Primary Restrictive lung disease Other diseases of lung, not elsewhere classified Chronic obstructive pulmonary disease, unspecified COPD type (CMS/HCC V24, CMS/HCC V28) Asthma, unspecified asthma severity, unspecified whether complicated, unspecified whether persistent Coronary artery disease involving [place] coronary artery of [place] heart without angina pectoris Hyperlipidemia, unspecified hyperlipidemia type documented in this encounter Discontinued Medications Medication Sig Discontinue Reason Start Date End Da te carvediloL (COREG) 6.25 mg tablet Take 1 tablet (6.25 mg total) by mouth 2 (two) times a day with meals. Dose adjustment 04/27/2023 02/22/2025 carvediloL (COREG) 12.5 mg tabletIndications:Hyperte nsion, unspecified type Take 1 tablet (12.5 mg total) by mouth 2 (two) times a day with meals. Dose adjustment 02/22/2025 02/22/2025 documented as of this encounter Care Teams Sample Wrapper Relationship Specialty Start Date End Date Debra Hills MD [address] [place] [address] PCP - General Internal Medicine 12/08/24 documented as of this encounter
--- OUTSIDE RECORDS SUMMARY | 2025-02-22 17:27 | XMS_ITS | Encounter Summary ---
Author Organization [facility] Address [address] [facility] 200 [place] [address] Phone Care Team Providers Care Partition Setter Name Role Phone Gaurav Bennett Primary Care Provider [phone] Reason for Visit * Reason Comments Med Refill Encounter Details Date Type Department Care Team (Late st Contact Info) Description 02/25/2021 Refill [facility] 200 [place] [phone] Capo Dawson MD [address] [place] [address] Social History Tobacco Use Types Packs/Day Years Used Date Smoking Tobacco: Former Cigarettes 0 Q uit: 04/05/2007 Comments:Smoking History Inf o:Some [...] on filedocumented in this encounter Care Teams Partition Setter Relationship Specialty Start Date End Date Gaurav Bennett [address] [place] [address] PCP - General Internal Medicine 03/07/21 documented as of this encounter
--- OUTSIDE RECORDS SUMMARY | 2025-02-22 17:27 | XMS_ITS | Encounter Summary ---
Author Organization [facility] Address [address] [place] [address] Care Team Providers Care Biochemistry Technologist Name Role Phone Debra Hills MD Primary Care Provider [phone] Encounter Details Date Type Department Care Team (Late st Contact Info) Description 02/14/2025 Results Follow-Up [facility] - [address] [facility] [address] [place] [address] Rolanda Armstrong NP [address] [place] [address] [place] [phone] Social History Tobacco Use Types Packs/Day Years [...] AM EDT documented as of this encounter Plan of Treatment Upcoming Encounters Date Type Department Care Team (Late st Contact Info) Description 02/27/2025 10:45 AM EST Office Visit Orthopedic Surgery - [place] 175 [facility] [address] [place] [phone] Chandni Angulo MD 175 [facility] 140 [place] [phone] 03/14/2025 12:45 PM EST Appointment [facility] Pulmonary [address] [place] [phone] 06/28/2025 9:15 AM EDT Ancillary Procedure [facility] - [address] [place] [phone] 07/11/2025 12:30 PM EDT Office Visit Internal Medicine - [facility] 305 [place], [place] [phone] Debra Hills MD [address] [place], [place] documented as of this encounter Visit Diagnoses Not on filedocumented in this encounter Care Teams Biochemistry Technologist Relationship Specialty Start Date End Date Debra Hills MD [address] [place], [place] PCP - General Internal Medicine 12/08/24 documented as of this encounter
--- OUTSIDE RECORDS SUMMARY | 2025-02-22 17:27 | XMS_ITS | Encounter Summary ---
Author Organization [facility] Address [address] [place] [address] Care Team Providers Care Warehouse Assembly Worker Name Role Phone Debra Hills MD Primary Care Provider [phone] Reason for Visit * Reason Onset Date Comments DME Request 02/20/2025 [facility] Encounter Details Date Type Department Care Team (Late st Contact Info) Description 02/20/2025 Telephone Internal Medicine - [facility] [address] [place], [place] [phone] Debra Hills MD [address] [place] [address] Social History Tobacco Use Types Packs/Day Years [...] as of this encounter Progress Notes * Percy Manjarrez [place] - 02/21/2025 3:24 PM EST Durable medical equipment prescription request has been faxed to the DME Company : [employer] / diabetic shoes With cover sheet, demographics and laura notes Confirmation was received * Corrie Akhtar - 02/20/2025 12:24 PM EST Orders from [employer] placed in DME bin. Please complete and fax back to [phone]. Thank you. documented in this encounter Plan of Treatment Upcoming Encounters Date Type Department Care Team (Late st Contact Info) Description 02/27/2025 10:45 AM EST Office Visit Orthopedic Surgery - [place] 175 [facility] 140 [place] [phone] Chandni Angulo MD 175 [facility] 140 [place] [phone] 03/14/2025 12:45 PM EST Appointment [facility] Pulmonary [address] [place] [phone] 06/28/2025 9:15 AM EDT Ancillary Procedure [facility] - [facility] 101 [address] [facility] [address] [place] [phone] 07/11/2025 12:30 PM EDT Office Visit Internal Medicine - [facility] 305 [place], [place] [phone] eDbra Hills MD 305 [place], [place] documented as of this encounter Visit Diagnoses Not on filedocumented in this encounter Care Teams Warehouse Assembly Worker Relationship Specialty Start Date End Date Debra Hills MD 305 [facility] [place] PCP - General Internal Medicine 12/08/24 documented as of this encounter
--- OUTSIDE RECORDS SUMMARY | 2025-02-22 17:27 | XMS_ITS | Encounter Summary ---
Author Organization [facility] Address [address] [facility] 200 [place] [address] Phone Care Team Providers Care Route Rider Supervisor Name Role Phone Gaurav Bennett Primary Care Provider [phone] Reason for Visit * Reason Comments Med Refill Encounter Details Date Type Department Care Team (Late st Contact Info) Description 10/09/2020 Refill [facility] 100 [facility] 200 [place] [phone] Capo Dawson MD [address] [place] [address] Social History Tobacco Use Types Packs/Day Years [...] on filedocumented in this encounter Care Teams Route Rider Supervisor Relationship Specialty Start Date End Date Gaurav Bennett [address] [place] [address] PCP - General Internal Medicine 03/07/21 documented as of this encounter
--- OUTSIDE RECORDS SUMMARY | 2025-02-22 17:27 | XMS_ITS | Encounter Summary ---
Author Organization [facility] Address 100 [facility] 200 [place] [address] Phone Care Team Providers Care Welder Manufacture Name Role Phone Gaurav Bennett Primary Care Provider [phone] Reason for Visit * Reason Comments Med Refill Encounter Details Date Type Department Care Team (Late st Contact Info) Description 05/20/2023 Refill [facility] 100 [facility] 200 [place] [phone] Jez Balbuena MD [address] [place] [address], [address] [address] Long-term drug therapy Social History Tobacco Use Types Packs/Day Years Used Date Smoking Tobacco: Former Cigarettes 0 Q uit: 04/05/2007 Smokeless Tobacco: Never Comments:Smoking [...] therapy documented in this encounter Care Teams Welder Manufacture Relationship Specialty Start Date End Date Gaurav Bennett [address] [place] [address] PCP - General Internal Medicine 03/07/21 documented as of this encounter
--- OUTSIDE RECORDS SUMMARY | 2025-02-22 17:27 | XMS_ITS | Patient Health Record ---
Author Organization [facility] Address 81 [facility] [place] [address] Care Team Providers Care Supervisor Metal Furniture Assembly Name Role Phone Gaurav Tolbert M.D. Primary Care Provider Unavailable Hi Anaya Unavailable [phone] Allergies No Known Allergies Results Component Value [...] Problem Acquired hammer toe of right foot (1859891855046437 ) Other hammer toe(s) (acquired), right foot (M20.41) Active confirmed Problem Acquired hammer toe of left foot (5075111068027422 ) Other hammer toe(s) (acquired), left foot (M20.42) Active confirmed Problem Polyneuropathy due to type 2 diabetes mellitus (258778127) Type 2 diabetes mellitus with diabetic polyneuropathy (E11.42) Active confirmed Vital Signs Blood pressure diastolic 72 mm Hg 12/14/2024 Height 5ft 3in in 12/14/2024 Blood pressure systolic 154 mm Hg 12/14/2024 Weight 214 lbs 12/14/2024 BMI 37.9 kg/m2 12/14/2024 Procedures Procedure Date Ordered Date Performed Result Body Sit e 68191-[id number] NAIL, 1-5 12/14/2024 N/A 27882-TZTW SKIN LESIONS, 2 TO 4 12/14/2024 N/A [id number] DYSTROPHIC NAILS ANY # 12/14/2024 N/A Encounters Encounter Location Date Provider Diagnosis [facility] [place] [address] [place] [address] 12/14/2024 Hi Anaya Type 2 diabetes mellitus with diabetic polyneuropathy E11.42 ; Tinea unguium B35.1 ; Other hammer toe(s) (acquired), right foot M20.41 and Other hammer toe(s) (acquired), left foot M20.42 [facility] [place] [address] [place] [address] 12/14/2024 Hi Anaya Assessments Encounter Date Diagnosis [...] Treatment Pending Test Test Name Order Date 16498-[id number] NAIL, 1-5 12/14/2024 48964-NCYC SKIN LESIONS, 2 TO 4 12/15/19 25 [id number] DYSTROPHIC NAILS ANY # Next Appt Details Provider Name:Hi Anaya , 03/15/2025 09:00:00 AM, [address] [facility], [facility] [address], [place], [address], Insurance Providers Payer Name Payer Address Payer Phone Subscriber Number Group Number Insured Name Patient Relationship to Insured Coverage Start Date Coverage End Date [facility] Adv [address] [place] [id number] Bridget Patel Self - patient is the insured Medical (General) History Medical History History ICD Code Anemia Anxiety asthma Depression type II diabetes Glaucoma High Blood Pressure Kidney disease nerve disorder Numbness ulcer Measles Mumps Chicken pox Surgical History Surgery Date(Month/Year) cataract surgery, both eyes 01/2024
--- OUTSIDE RECORDS SUMMARY | 2025-02-22 17:27 | XMS_ITS | Clinical Summary ---
Author Organization [facility] Address [address] [facility] 20 0 [place] [address] Phone Care Team Providers Care Science Education Professor Name Role Phone YordanlucyOxanak Primary Care Provider [phone] Allergies Active Allergy Reactions Criticality Noted Date [...] BEDTIME. 07/28/19 22 Active ergocalciferol 1.25 MG (71954 UT) capsule TAKE ONE CAPSULE BY MOUTH [...] 0 Q uit: 04/05/2007 Smokeless Tobacco: Never Tobacco [...] AM EST) Hemoglobin A1C 9.3(H) (4.0-5.6) % [facility] Comment: MONITORING: In known diabetic patients, hemoglobin A1c targets should be discussed with health care provider. DIAGNOSTIC USE: The [place] Diabetes Association (ADA) and the World Health [...] Supplement 1 Testing performed or reported by [facility], a Service of [facility], [address] [place] [address] Hector Swain MD, Breakfast Manager [facility]# [id number] Blood specimen (specimen) Venous blood / Unknown 05/07/2022 10:26 AM EST 05/07/2022 10:38 AM EST Harper Stanley MD LAB BLOOD ORDERABLES Final Resu lt [facility] from Last 3 Months or Most Recently Relevant to Health Maintenance Insurance [facility] MCR ([id number]) [facility] Dual SNP ([id number]) Care Teams Science Education Professor Relationship Specialty Start Date End Date Gaurav Bennett [address] [place] [address] PCP - General Internal Medicine 03/07/21
--- OUTSIDE RECORDS SUMMARY | 2025-02-22 17:27 | XMS_ITS | Encounter Summary ---
Author Organization [facility] Address 100 [facility] 200 [place] [address] Phone Care Team Providers Care Senior Biostatistician/Group Leader Name Role Phone Gaurav Bennett Primary Care Provider [phone] Reason for Visit * Reason Comments Med Refill Encounter Details Date Type Department Care Team ([facility] st Contact Info) Description 06/15/2022 Refill [facility] 100 [facility] 200 [place] [phone] Blu Montero MD [address] [facility] 204 [place] [phone] Social History Tobacco Use Types Packs/Day Years [...] on filedocumented in this encounter Care Teams Senior Biostatistician/Group Leader Relationship Specialty Start Date End Date Gaurav Bennett [address] [place] [id number] PCP - General Internal Medicine 03/07/21 documented as of this encounter
--- OUTSIDE RECORDS SUMMARY | 2025-02-22 17:28 | XMS_ITS | Encounter Summary ---
Author Organization [facility] Address 100 [facility] 200 [place] [address] Phone Care Team Providers Care Automatic Line Set Up Mechanic Name Role Phone Gaurav Bennett Primary Care Provider [phone] Reason for Visit * Reason Comments Med Refill Encounter Details Date Type Department Care Team (Late st Contact Info) Description 11/28/2021 Refill [facility] 200 [place] [phone] Capo Dawson MD [address] [place] [address] Social History Tobacco Use Types Packs/Day Years [...] on filedocumented in this encounter Care Teams Automatic Line Set Up Mechanic Relationship Specialty Start Date End Date Gaurav Bennett 305 [place] [address] PCP - General Internal Medicine 03/07/21 documented as of this encounter
--- OUTSIDE RECORDS SUMMARY | 2025-02-22 17:28 | XMS_ITS | Clinical Summary ---
Author Organization Patient Business Ser [facility] Address [address] [place] [address] Care Team Providers Care Heritage Consultant Name Role Phone Debra Hills MD Primary Care Provider [phone] Allergies Active Allergy Reactions Criticality Noted Date Comments Lamotrigine Rash 07/08/2022 Medications insulin degludec (Tresiba FlexTouch U-100) 100 unit/mL (3 mL) injection pen Inject 23 Units as directed. 4 Active albuterol HFA (PROAIR HFA ; PROVENTIL HFA ; VENTOLIN HFA) 90 mcg/actuation inhaler Inhale 2 puffs by mouth. 3 Active mycophenolate (MYFORTIC) 180 mg EC tablet Take 2 tablets (360 mg total) by mouth 2 (two) times a day. Active tacrolimus (Envarsus XR) 1 mg extended release tablet 1 Active docusate sodium (COLACE) 100 mg capsule 1 Active senna 8.6 mg tablet 1 Active glucose blood test strip sig tid prn 7 Active ACCU-CHEK SOFTCLIX LANCETS MISC by Not Applicable route. 7 Active syringe and needle,insulin, 1mL (INSULIN SYRINGES, [...] Max Daily Amount: 0.5 mg 5 tablet 5 Active fluticasone propionate (FLONASE) 50 mcg/actuation nasal spray Administer 2 sprays into each nostril 1 (one) time each day. Reduce to 1 spray when symptoms are controlled. 16 g 2 5 Active insulin aspart (NovoLOG FlexPen) 100 unit/mL (3 mL) injection pen 5 Active Dexcom G7 Sensor device 1 EA. 5 Active Adamaris 2nd Gen Pen Needle 32 gauge x /32 needle 5 Active Ozempic 1 mg/dose (4 mg/3 mL) injection pen Inject 1 mg under the skin. 5 Active aspirin 81 mg EC tablet Take 1 tablet (81 mg total) by mouth 1 (one) time each day. 5 Active gabapentin (NEURONTIN) 100 mg capsule TAKE 2 CAPSULES BY MOUTH 3 TIMES A DAY 540 capsule 1 5 Active traZODone (DESYREL) 50 mg tabletIndicatio ns:Primary insomnia Take 1 tablet (50 mg total) by mouth at bedtime as needed for sleep. 30 tablet 5 Active amLODIPine (NORVASC) 10 mg tabletIndicatio ns:Hypertension , essential Take 1 tablet (10 mg total) by mouth 1 (one) time each day. 30 each 5 5 07/05/19 26 Active atorvastatin (LIPITOR) 40 mg tablet Take 1 tablet (40 mg total) by mouth 1 (one) time each day. 90 tablet 1 5 Active carvediloL (COREG) 6.25 mg tabletIndicatio ns:Hypertension , unspecified type Take 1 tablet (6.25 mg total) by mouth 2 (two) times a day with meals. 60 each 11 5 02/23/20 26 Active carvediloL (COREG) 6.25 mg tablet Take 1 tablet (6.25 mg total) by mouth 2 (two) times a day with meals. 4 02/23/20 25 Discontin ued(Dose adjustmen t) carvediloL (COREG) 12.5 mg tabletIndicatio ns:Hypertension , unspecified type Take 1 tablet (12.5 mg total) by mouth 2 (two) times a day with meals. 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 Orders: Ambulatory referral to Orthopedic; Future De Quervain's tenosynovitis 03/13/2024 CAD (coronary artery disease) 06/04/2023 Assessment & Plan (02/22/2025 11:56 AM EST): Cardiac catheterization in April 2023 as outlined above without any obstructive coronary disease. Continues on cardioprotective medical therapy of aspirin, statin and beta-alyssa. Instructed to call 911 or go to the emergency room should the patient begin to experience chest pain or pressure lasting greater than 10 minutes does not resolve with rest. Assessment & Plan (08/07/2024 11:03 AM EDT): [...] stress test 03/03/23 Proliferative diabetic retin opathy ([facility] V24, [facility] V28) 12/25/2021 Overview (05/31/2023): Ou, dr palma Type 2 diabetes mellitus wit h eye manifestations ([facility] V24, [facility] V28) 12/25/2021 S/P kidney [...] 2 diabetes mellitus wit h neurological manifestations ([facility] V24, [facility] V28) 03/31/2018 Asthma 12/28/2017 Assessment & Plan (02/22/2025 11:56 AM EST): Orders: Pulmonary function testing: Carbon Monoxide Diffusing Capacity, Nitrogen Wash Out, Spirometry with Bronchodilator; Future Carpal tunnel syndrome 10/28/2017 Hypertension 09/27/2017 Assessment & Plan (02/22/2025 11:56 AM EST): Elevated during today's exam with a reading of 150/68. We did discuss the potential of increasing her carvedilol however, in light of her pulmonary disease we will pause until PFTs are performed. The patient does inform us she is seeing her renal doctor in a couple weeks and should her blood pressure remain elevated, she will inquire about Dr. Dawson's recommendations. Assessment & Plan (11/15/2024 1:00 PM EDT): [...] (BMI) of 35.0 to 39.9 with comorbidity (CMS/HCC V24, CMS/HCC V28) 08/23/2017 Restrictive lung disease 08/23/2017 Assessment & Plan (02/22/2025 11:56 AM EST): Chronic obstructive pulmonar y disease (CMS/HCC V24, CMS/HCC V28) 08/23/2017 Assessment & Plan (02/22/2025 11:56 AM EST): We will update pulmonary function testing. Patient does complain of shortness of breath. Recent echocardiogram stable. Cardiac catheterization as outlined above without obstructive disease. She was encouraged to follow-up with her rehab care assistant for further evaluation. Orders: Pulmonary function testing: Carbon Monoxide Diffusing Capacity, Nitrogen Wash Out, Spirometry with Bronchodilator; Future Hyperlipidemia 08/17/2017 Assessment & Plan (02/22/2025 11:56 AM EST): She will continue on her current dose of Lipitor 40 mg be mindful of dietary fat intake. Fasting lipid profile from August revealed an LDL of 52. This is at goal less than 70 and the setting of coronary disease. Assessment & Plan (11/15/2024 1:00 PM EDT): [...] kidney transplant Insomnia 04/23/2017 Obesity hypoventilation syndrome ([facility] V24, [facility] V28) 02/04/2016 Anxiety 06/24/2015 Vitamin D deficiency 05/19/2012 Gastroparesis 05/11/2012 Type 2 diabetes mellitus wit h renal manifestations ([facility] V24, [facility] V28) 03/17/2005 Assessment & Plan [...] Encounters Date Type Department Care Team Description 02/22/2025 10:40 AM EST Office Visit [facility] [address] [facility] [address] [place] [address] Rolanda Armstrong NP Hypertension, unspecified type (Primary Dx); Restrictive lung disease; Chronic obstructive pulmonary disease, unspecified COPD type (CMS/HCC V24, CMS/HCC V28); Asthma, unspecified asthma severity, unspecified whether complicated, unspecified whether persistent; Coronary artery disease involving [place] coronary artery of [place] heart without angina pectoris; Hyperlipidemia, unspecified hyperlipidemia type 02/20/2025 Telephone Internal Medicine - [facility] [address] [place] [phone] Debra Hills MD 02/14/2025 Results Follow-Up [facility] [address] [facility] 154 [place] [phone] Rolanda Armstrong NP 02/06/2025 9:00 AM EST Ancillary Procedure [facility] [address] [facility] [address] [place] [phone] Hypertension, unspecified type; Coronary artery disease involving [place] coronary artery of [place] heart without angina pectoris 01/09/2025 12:30 PM EDT Evaluation [facility] Occup[facility] [address] [facility] [address] [place] [phone] Favian Sepulveda, OT Dupuytren's contracture (Primary Dx) 01/05/2025 9:00 AM EDT Office Visit Internal Medicine - [address] [phone] Jeronimo Mckinley NP Hypertension, essential (Primary Dx); Primary insomnia 01/02/2025 12:00 PM EDT Treatment [facility] Occupational Therapy [address] [place] [phone] Rina Simon, BETANCOURT Dupuytren's contracture (Primary Dx) 12/26/2024 Telephone Internal Medicine - [address] [phone] Debra Hills MD 12/21/2024 Telephone Internal Medicine - [address] [phone] Debra Hills MD 12/18/2024 12:30 PM EDT Treatment [facility] Occupational Therapy [address] [place] [phone] Rina Simon, BETANCOURT Dupuytren's contracture (Primary Dx) 12/14/2024 1:45 PM EDT Treatment [facility] Occupational Therapy [address] [place] [phone] Rina Simon, BETANCOURT Dupuytren's contracture (Primary Dx) 12/11/2024 1:30 PM EDT Evaluation [facility] Occupational Therapy [address] [place] [phone] Favian Sepulveda, OT Dupuytren's contracture 12/11/2024 Plan of Care Documentation [facility] Occupational Therapy [address] [place] [phone] 12/08/2024 9:15 AM EDT Office Visit Internal Medicine [address] [phone] Jarihi, Jeronimo, SAFETY LEADER Hypertension, unspecified type (Primary Dx) from Last 3 Months Immunizations Immunization Administration Dates Next Due Influenza Quadravalent, MDCK , 0.5ml, preservative free (Flucelvax) 6mo and older 02/04/2023,01/28/2022 Influenza trivalent, 0.5mL, preservative free (Fluarix; FluLaval; Fluzone) ages 6mo and older (Afluria) 3 years and older 12/24/2023 Influenza trivalent, MDCK, 0 .5mL, preservative free (Flucelvax) 6mo and older 01/05/2025 Influenza trivalent, with preservative (Fluzone; Afluria) 6mo [...] GRAFT VENOUS OTHER SURGICAL HISTORY 01/20/2022 PROCEDURE: TX SLCTV CATHJ 3RD+ ORD SLCTV THRC/BRCH/CPHLC BRNCH OTHER SURGICAL HISTORY 01/20/2022 PROCEDURE: TX SLCTV CATHJ EA 2ND+ ORD ABDL PEL/LXTR [...] 06/24/2015 DX:Anxiety Asthma 12/28/2017 DX:Asthma AV fistula ([facility] V24) 06/01/2017 removed 2022 Carpal tunnel syndrome 10/28/2017 DX:Carpal tunnel syndrome Chronic obstructive pulmonar y disease ([facility] V24, [facility] V28) 08/23/2017 DX:Chronic obstructive pulm onary disease (HCC) CKD (chronic kidney disease) stage V requiring chronic dialysis ([facility] V24, [facility] V28) 06/01/2017 DX:CKD (chronic kidney disea se) stage V requiring chronic dialysis (HCC) Depression 08/05/2017 DX:Depression Gastroparesis 05/11/2012 DX:Gastroparesis Hypertension 09/27/2017 DX:Hypertension Insomnia 04/23/2017 DX:Insomnia Obesity hypoventilation synd alexa ([facility] V24, [facility] V28) 02/04/2016 DX:Obesity hypoventilation syndrome (HCC) Restrictive lung disease 08/23/2017 DX:Rest rictive lung disease Type 2 diabetes mellitus wit h neurological manifestations ([facility] V24, [facility] V28) 03/31/2018 DX:Type 2 diabetes mellitus with neurological manifestations (HCC) Type 2 diabetes mellitus wit h renal manifestations ([facility] V24, [facility] V28) 03/17/2005 DX:Type 2 diabetes mellitus with renal manifestations (HCC) Vitamin D deficiency 05/19/2012 DX:Vitamin D deficiency Severe obesity with body mas s index (BMI) of 35.0 to 39.9 with comorbidity (CMS/HCC V24, [facility] V28) 08/23/2017 DX:Severe obesity with body mass index (BMI) of 35.0 to 39.9 with comorbidity (HCC) Proliferative diabetic retin opathy ([facility] V24, [facility] V28) 12/25/2021 DX:Proliferative diabetic r etinopathy (HCC); COMMENT: dr minerva Romero Type 2 diabetes mellitus wit h eye manifestations ([facility] V24, [facility] V28) 12/25/2021 DX:Type 2 diabetes mellitus with eye manifestations (HCC) Retinal hemorrhage Hepatitis C Family History Medical History Relation Name Comments Heart failure Father Other: Diabetes, [place] Father Heart failure Mother Stroke Mother Relation [...] Pulse 70 02/22/2025 10:36 AM EST Temperature 36.2 C (97.2 F) 09/11/2024 10:34 AM EDT Respiratory Rate 18 09/11/2024 10:54 AM EDT Oxygen Saturation 99% 02/22/2025 10:36 AM EST Inhaled Oxygen Concentration - - Weight 99.8 kg (220 lb) 02/22/2025 10:36 AM EST Height 160 cm (5' 3 ) 02/22/2025 10:36 AM EST Body Mass Index 38.97 02/22/2025 10:36 AM EST Plan of Treatment Upcoming Encounters Date Type Department Care Team (Late st Contact Info) Description 02/27/2025 10:45 AM EST Office Visit Orthopedic Surgery - [place] [address] [phone] Chandni Angulo MD [address] [phone] 03/14/2025 12:45 PM EST Appointment [facility] Pulmonary [address] [place] [phone] 06/28/2025 9:15 AM EDT Ancillary Procedure [facility] [address] [facility] [address] [place] [phone] 07/11/2025 12:30 PM EDT Office Visit Internal Medicine - [facility] [address] [facility] [place] [phone] Debra Hills MD [address] [place], [place] Health Maintenance Due Date Last Done Comments Breast Cancer Screening 1967 Hepatitis B Vaccines (1 of 3 - 19+ 3-dose series) 1986 Zoster Vaccines (1 of 2) 1986 Cervical Cancer Screening: Pap Smear 04/22/2007 04/22/2004 Pneumococcal Vaccine: 50+ Years (2 of 2 - PPSV23, PCV20, or PCV21) 06/11/2016 04/16/2016 RSV Immunization Adult Patients (1 - Risk 50-74 years 1-dose series) 2017 HIV Screening 03/15/2020 Medicare Annual Wellness Visit 03/15/2020 Social Influencers of Health Screening 03/15/2020 Diabetes: Annual Urine Albumin-Creatinine Ratio (uACR) 03/18/2022 12/19/2005 Diabetes: Blood Sugar Control Test (HGBA1C) 01/27/2023 07/28/2022, 05/07/2022 Diabetes: Annual Foot Exam 02/05/2024 02/04/2023 Depression Screening 04/05/2024 Diabetes: Annual GFR (Glomerular Filtration Rate) 06/09/2024 06/10/2023 Hypertension/CHF/CAD Annual BMP Blood Test 06/09/2024 06/10/2023 COVID-19 Vaccine ( season) 2024 12/24/2023, 06/27/2020, 05/16/2020 Diabetes: Annual Retina Eye Exam 04/13/2025 04/13/2024, 04/09/2023 Colorectal Cancer Screening: Colonoscopy 09/12/2027 09/11/2024, 09/08/2024, 07/09/2022 DTaP,Tdap,and Td Vaccines (2 - Td or Tdap) 06/11/2029 06/12/2019 Cholesterol Screening (Lipid Panel) 08/09/2029 08/09/2024, 01/03/2024, 01/03/2024 MMR Vaccines Aged Out 05/30/2014 No longer eligi ble based on patient's age to complete this topic Hepatitis C Screening Completed 07/28/2022 Influenza Vaccine Completed 01/05/2025, , 12/24/2023, Additional history exists HIB Vaccines Aged Out [...] 02/22/2025 11:56 AM EST Hypertension, unspecified type TRANSTHORACIC ECHOCARDIOGRAM (TTE) COMPLETE Routine 02/06/2025 9:21 AM EST Hypertension, unspecified type Coronary artery disease involving [place] coronary artery of [place] heart without angina pectoris EXTERNAL CLINICAL LAB 01/04/2025 EXTERNAL CLINICAL LAB 01/03/2025 COLONOSCOPY Routine 09/11/2024 10:33 AM EDT Personal history of other colon polyps Family history of colonic polyps LIPID PANEL WITH REFLEX TO DIRECT LDL Routine 08/09/2024 8:02 AM EDT Coronary artery disease involving [place] coronary artery of [place] heart without angina pectoris Bilateral carotid artery stenosis Hyperlipidemia, unspecified hyperlipidemia type EXTERNAL DIABETIC RETINA EYE EXAM 04/13/2024 ANNUAL BMP BLOOD TEST Routine 06/10/2023 DIABETES FOOT EXAM Routine 02/04/2023 HM HEPATITIS C SCREENING Routine 07/28/2022 HEMOGLOBIN A1C Routine 07/28/2022 HM URINE ALBUMIN CREATININE RATIO Routine 12/19/2005 HM PAP SMEAR Routine 04/22/2004 from Last 3 Months or Most Recently Relevant to Health Maintenance Results * ECG 12 lead (02/22/2025 11:56 AM EST) 02/22/2025 10:4 0 AM EST us Rolanda Armstrong NP ECG ORDERABLES Final Result GEMUSE * (ABNORMAL) TRANSTHORACIC ECHOCARDIOGRAM (TTE) COMPLETE (02/06/2025 9:21 AM EST) Left Atrium Minor [place] 5.7 cm CV PACS Left Atrium Major [place] 6.1 cm CV PACS LA Area Sys (A2C) 20 cm2 CV PACS LA Area Sys (A4C) 18 cm2 CV PACS LA Volume (BP) 51 mL CV PACS RA Area 13.9 cm2 CV PACS RA 2D Volume 26 mL CV PACS Aortic Sinus Valsalva 3.4 cm CV PACS Ascending Aorta 3.4 cm CV PACS IVC Proximal 1.0 cm CV PACS IVC Proximal 0.5 cm CV PACS IVSD 0.9 0.6 - 0.9 cm CV PACS LVIDD 5.6(A) 3.8 - 5.2 cm CV PACS LVIDS 3.1 2.2 - 3.5 cm CV PACS LVOT Diameter 1.9 cm CV PACS LVOT Mean Pedro 0.6 m/s CV PACS LVOT Mean Grad 2 mmHg CV PACS LVOT Peak VTI 22.2 cm CV PACS LVOT Peak Pedro 0.9 m/s CV PACS LVOT Peak Gradient 3 mmHg CV PACS LVPWD 0.9 0.6 - 0.9 cm CV PACS MV E' Tissue Velocity Lateral 7 cm/s CV PACS MV E' Tissue Velocity Septal 5 cm/s CV PACS LVOT Area 2.8 cm2 CV PACS LVOT Stroke Volume 63 mL CV PACS E Wave Deceleration Time 268(A) 119 - 242 ms CV PACS MV Peak A Pedro 0.80 m/s CV PACS MV Peak E Pedro 0.80 m/s CV PACS PV Acceleration Time 148 ms CV PACS PV Acceleration Time 148 ms CV PACS RV Diastolic Basal Dimension 3.2 2.5 - 4.1 cm CV PACS RV S' 10 cm/s CV PACS TAPSE 23 mm CV PACS E/E' Ratio Septal 16 CV PACS E/E' Ratio Averaged 14 CV PACS Relative Wall Thickness ratio 0.31 0.22 - 0.42 CV PACS FS 45 % CV PACS LV Mass 2D 186(A) 66 - 150 g CV PACS LVOT flow 170 mL/s CV PACS E/A Ratio 1.0 0.8 - 2.0 CV PACS E/E' Ratio Lateral 11 CV PACS BSA 2.08 m2 CV PACS LA Volume Index (BP) 24 mL/m2 CV PACS LVIDD Index 2.81 cm/m2 CV PACS LVIDS Index 1.56 cm/m2 CV PACS LV Mass Index 2D 96(A) 44 - 88 g/m2 CV PACS LVOT Stroke Index 0 mL/m2 CV PACS RA 2D Volume Index 13(A) 15 - 27 mL/m2 CV PACS Ascending Aorta Index 1.71 cm/m2 CV PACS RV Free Wall Peak S' 10 cm/s CV PACS RA Major [place] 6.1 cm CV PACS RA Major [place] Index 3.1 2.2 - 2.8 cm/m2 CV PACS MV PHT 78 ms CV PACS Inferior Vena Cava Diameter At Inspiration 0.5 cm CV PACS IVC Inspiration Index 0.25 cm/m2 CV PACS Inferior Vena Cava Diameter At Expiration 1.0 cm CV PACS IVC Expiration Index 0.50 cm/m2 CV PACS Anatomical Region Laterality Modality Ultrasound Narrative 02/13/2025 1:41 PM EST Left ventricle cavity is borderline dilated. Wall thickness is normal. Systolic function is normal with an ejection fraction of 65-70%. There are no regional LV wall motion abnormalities. Indeterminate diastolic function. Right ventricle cavity is normal. Right ventricular systolic function is normal. The atria are normal in size. No hemodynamically significant valve disease. See remainder of the report for additional findings. Left Ventricle Left ventricle cavity is borderline dilated. Wall thickness is normal. Systolic function is normal with an ejection fraction of 65-70%. There are no regional LV wall motion abnormalities. Indeterminate diastolic function. Right Ventricle Right ventricle cavity appears normal. Systolic function is normal. Left Atrium Left atrium cavity size is normal. Right Atrium Right atrium cavity is normal. IVC/SVC Inferior vena cava structure is normal. RA pressures is estimated to be 3 mmHg (IVC diameter <21 mm and decreases >50% during inspiration). Mitral Valve The leaflets are mildly thickened. There is mild annular calcification. There is mild regurgitation with an anteriorly directed jet. There is no significant stenosis noted. Tricuspid Valve Tricuspid valve structure is normal. Tricuspid regurgitation is inadequate for estimation of right ventricular systolic pressure. There is no significant tricuspid valve stenosis. Cannot assess RVSP. Aortic Valve The aortic valve is trileaflet. The leaflets are not thickened and exhibit normal excursion. There is trace regurgitation with a centrally directed jet. There is no evidence of aortic valve stenosis. Pulmonic Valve The pulmonic valve was not well visualized. No significant pulmonic valve regurgitation. No significant pulmonary valve stenosis noted. Ascending Aorta The aorta appears normal in size. Pericardium Pericardium appears normal. There is no pericardial effusion. Study Details Overall the study quality was adequate. Rolanda Armstrong NP CV ECHO PROCEDURES Fin al Result * External clinical lab (01/04/2025) Only the most recent of2 resultswithin the time period is included. Provider [facility] BLOOD ORDERABLES Fin al Result * COLONOSCOPY Anesthesia - [facility]; [facility] (09/11/2024 10:33 AM EDT) Anatomical Region [...] for surveillance. Narrative 09/11/2024 10:34 AM EDT [facility] GI Patient Name: Bridget Patel [...] retroflexion views. Procedure Code(s): --- Professional --- 85917, Colonoscopy, flexible; with removal of tumor(s), polyp(s), or other lesion(s) by snare technique Diagnosis Code(s): --- Professional --- Z86.010, Personal history of colonic polyps D12.3, Benign neoplasm of transverse colon (hepatic flexure or splenic flexure) CPT copyright 2020 [employer]. All rights reserved. The codes documented in this report are preliminary and upon medical billing coder review may be revised to meet current compliance requirements. Everton Husain MD 09/11/2024 10:34:57 AM This report has been signed electronically.Everton Husain MD Number of Addenda: 0 Note Initiated On: 09/11/2024 10:03 AM Scope In: Scope Out: Endoscopy Department at [facility] - [address] [place] [phone] Procedure Note Everton Husain MD - 09/11/2024 [facility] GI Patient Name: Bridget Patel [...] retroflexion views. Procedure Code(s): --- Professional --- 54170, Colonoscopy, flexible; with removal of tumor(s), polyp(s), or other lesion(s) by snare technique Diagnosis Code(s): --- Professional --- Z86.010, Personal history of colonic polyps D12.3, Benign neoplasm of transverse colon (hepatic flexure or splenic flexure) CPT copyright 2020 [employer]. All rights reserved. The codes documented in this report are preliminary and upon medical billing coder reviewmay be revised to meet current compliance requirements. Everton Husain MD 09/11/2024 10:34:57 AM This report has been signed electronically.Everton Husain MD Number of Addenda: 0 Note Initiated On: 09/11/2024 10:03 AM Scope In: Scope Out: Endoscopy Department at [facility] - [address] [place] [phone] IMPRESSION: - Two 7 to 11 mm [...] mg/dL LAB CHEMISTRY [facility] Triglycerides 150 0 - 150 mg/dL LAB CHEMISTRY METHOD 08/09/2024 8:[facility] HDL 43 >=40 mg/dL LAB CHEMISTRY METHOD 08/09/2024 8:55 AM [facility] LDL Calculated 52 0 - 100 mg/dL LAB CHEMISTRY METHOD 08/09/2024 8:55 AM [facility] VLDL Cholesterol Jacek 30 mg/dL LAB CHEMISTRY METHOD 08/09/2024 8:[facility] Non HDL Chol. (LDL+VLDL) 82 <145 mg/dL LAB CHEMISTRY METHOD 08/09/2024 8:55 AM [facility] Chol/HDL Ratio 2.9 0.0 - 4.4 LAB CHEMISTRY METHOD 08/09/2024 8:55 AM [facility] Blood Venous blood specimen / Unknown Venipuncture / Unknown 08/09/2024 8:02 AM EDT 08/09/2024 8:15 AM EDT Rolanda Armstrong SAFETY LEADER LAB BLOOD ORDERABLES F inal Result [facility] [address] [place] [address], * External Diabetic Retina Eye Exam Report (04/13/2024) Anatomical Region Laterality Modality Ultrasound Provider [facility] US PROCEDURES Final Result * Annual BMP Blood Test (06/10/2023) Pathologist [facility] Annual BMP Blood Test abstracted Result [facility] [place] [facility] HEALTH MAINTENANCE Final Result * Diabetes Foot Exam (02/04/2023) [facility] Diabetes: Annual Foot Exam abstracted Result [facility] Provider HEALTH MAINTENANCE Final Result * Hepatitis C Screening (07/28/2022) [facility] Hepatitis C Screening abstracted Result [facility] Provider HEALTH MAINTENANCE Final Result * (ABNORMAL) Hemoglobin A1c (07/28/2022) [facility] Hemoglobin A1C 9.7(A) <=6.5 % Blood Venous blood specimen / Unknown Result [facility] Provider LAB BLOOD ORDERABLES Lurdes l Result * Urine Albumin Creatinine Ratio (12/19/2005) [facility] Urine Albumin Creatinine Ratio abstracted Result [facility] Historical Provider HEALTH MAINTENANCE Final Result * Pap Smear (04/22/2004) [facility] Pap smear abstracted, no interpretation Result [facility] Historical Provider HEALTH MAINTENANCE Final Result from Last 3 Months or Most Recently Relevant to Health Maintenance Insurance [employer] Member Subscriber Plan / Payer (Ef fective 2019-Present) Name:BRIDGET PATEL Relation to Subscriber:Self Name:Bridget Patel I Payer ID:[id number] Group ID:[id number] Type:Not on file Address: [place] [address] [address] [id number] Care Teams Heritage Consultant Relationship Specialty Start Date End Date Debra Hills MD [address] [facility] [place] [address] PCP - General Internal Medicine 12/08/24
--- OUTSIDE RECORDS SUMMARY | 2025-02-22 17:28 | XMS_ITS | Clinical Summary ---
Author Organization [facility] Address [address] [place] [address] Care Team Providers Care Media Aid Name Role Phone Pcp, No Primary Care [...] (Ages 21-65) 1988 Mammogram 2007 Colonoscopy 2012 RSV Vaccine 50 years and old er and Patients (1 - Risk 50-74 years 1-dose series) 2017 Zoster (Shingles) Vaccine (1 of 2) 2017 Influenza Vaccine 11/03/2024 01/28/2022, , 03/18/2005, Additional history exists COVID-19 Vaccine (3 - 2024-2 6 season) 2024 06/27/2020, 05/16/2020 Insurance [facility] OUT OF NETWORK Care Teams Media Aid Relationship Specialty Start Date End Date Pcp, [address] [place] [address] PCP - General 07/08/21
--- OUTSIDE RECORDS SUMMARY | 2025-02-22 17:28 | XMS_ITS | Encounter Summary ---
Author Organization [facility] Address [address] [facility] [address] [place] [address] Phone Care Team Providers Care Disease Case Manager Name Role Phone Gaurav Bennett Primary Care Provider [phone] Reason for Visit * Reason Comments Med Refill Encounter Details Date Type Department Care Team (Late st Contact Info) Description 06/27/2021 Refill [facility] [address] [facility] [address] [place] [phone] Capo Dawson MD [address] [place] [id number] Social History Tobacco Use Types Packs/Day Years [...] on filedocumented in this encounter Care Teams Disease Case Manager Relationship Specialty Start Date End Date Gaurav Bennett [address] [place] [address] PCP - General Internal Medicine 03/07/21 documented as of this encounter
[2025-02-22 17:50] LABS: MANUAL DIFF FLAG NO
[2025-02-22 17:56] LABS: Hematocrit 38.7 % (37.0-47.0); Hemoglobin 11.7 g/dl (12.0-16.0); Imm Gran Abs Auto 0.01 X10*3/uL (0.00-0.03); Imm Gran Pct Auto 0.2 % (0.0-0.4); Lymphocytes Absolute Auto 1.4 X10*3/uL (1.2-4.9); Mean Corpuscular HGB Conc 30.2 g/dl (31.0-35.0); Mean Corpuscular Hemoglobin 25.9 pg (27.0-33.0); Mean Corpuscular Volume 85.6 fL (80.0-98.0); NRBC Abs Auto 0.000 X10*3/uL (0.0-0.012); NRBC Pct Auto 0.0 /100WBC (0.0-0.2); Platelet Count 219 X10*3/uL (160-400); Red Blood Count 4.52 X10*6/uL (4.20-5.50); White Blood Count 5.5 X10*3/uL (4.8-10.8)
[2025-02-22 18:30] LABS: Anion Gap 13 (12-20); Blood Urea Nitrogen 24 mg/dL (9-16); Carbon Dioxide 27 mmol/L (22-29); Chloride 105 mmol/L (96-108); Estimated Glomerular Filt Rate 37; Potassium 5.0 mmol/L (3.3-5.1); Sodium 140 mmol/L (135-145)
[2025-02-22 18:48] LABS: Protein/Creatinine Ratio, Ur 0.27 (<0.2); Total Protein Urine Random 20 mg/dL (<12)
[2025-02-23 17:17] LABS: Tacrolimus Prograf 4.2 mcg/L
[2025-02-26 08:58] LABS: BK Virus DNA, QN PCR Plasma NOT DETECTED (NOT DETECTED); BK Virus DNA, QN PCR Plasma NOT DETECTED Log IU/mL (NOT DETECTED)
== END 2025-02-22 11:12 | disposition home or self-care (01) ==
LOC: HO.HKASLDS 11:11
PROVIDERS: PCP Internal Medicine; Visit Provider Internal Medicine Nephrology
DX: I10 Essential (primary) hypertension (principal); R80.8 Other proteinuria; R82.79 Other abnormal findings on microbiological examination of urine; T86.10 Unspecified complication of kidney transplant; Z13.1 Encounter for screening for diabetes mellitus
CPT/HCPCS: 36415; 80051; 80197; 82565; 82570; 83036; 84156; 84520; 85025; 87799

== ENCOUNTER 2025-03-13 10:52 | Outpatient (AMB) | payer OTHER, SELFPAY ==
[2025-03-13 11:18] VITALS: BP 140/65; PULSE 70; TEMP 36.8; O2SAT 100; BMI 37.2
--- NOTE | 2025-03-13 11:18 | A.OFFPC_ITS ---
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 Accompanied by: Self / Same As Patient Allergies lamotrigine (From Lamictal) Allergy (Intermediate, Verified 03/13/25 11:25) Hives Medication List - Last Reconciled 03/13/25 by Navdeep Montoya MD albuterol sulfate 90 mcg/actuation inhalation amlodipine 10 mg PO DAILY aspirin 81 mg PO DAILY atorvastatin 40 mg PO DAILY carvedilol 6.25 mg PO BID cholecalciferol (vitamin D3) 50 mcg PO DAILY docusate sodium 100 mg PO QAM PRN gabapentin 200 mg PO TID insulin aspart U-100 (Novolog FlexPen U-100 Insulin aspart) subcut insulin degludec (Tresiba FlexTouch U-100 insulin) 23 units subcut mycophenolate sodium 360 mg (2 x 180 mg) PO BID pen needle, diabetic (Adamaris 2nd Gen Pen Needle) As directed semaglutide (Ozempic) 2 mg subcut QWEEK sennosides (senna) 8.6 mg PO DAILY tacrolimus XR (Envarsus XR) 8 mg (2 x 4 mg) PO DAILY tacrolimus XR (Envarsus XR) 1 mg PO trazodone 50 mg PO BEDTIME Tobacco use date assessed: 03/13/25 Dental Screening Dental Screen Date: 03/13/25 Did you have a dental visit in the last 12 months?: Yes HPI HPI Comments History of Present Illness Details History of Present Illness The patient is a 59 year old female presenting to [facility]. Chronic Obstructive Pulmonary Disease (COPD) and Asthma: The patient was diagnosed with Chronic Obstructive Pulmonary Disease (COPD) approximately 20 years ago and also has a diagnosis of asthma. She is a former smoker. She reports symptoms of wheezing, getting easily suffocated when walking or climbing stairs, and associated high blood pressure during these episodes. She has had pulmonary function tests (PFTs) in the past, which were supposed to be biannual, but she has not seen her admitted attorneys in two years. A new PFT is s cheduled, as cardiology is considering a change in her medications. She uses an albuterol inhaler infrequently. Status Post Kidney Transplant: The patient underwent a kidney transplant six years ago after being on dialysis for four years due to end-stage renal disease. Prior to the transplant, she had an AV fistula in her left arm for dialysis access. The transplanted kidney was from a hepatitis C positive donor, resulting in her being diagnosed with hepatitis C. Her residential plumber, Dr. Dawson, manages her transplant-related medications, including tacrolimus and mycophenolate. She is followed by cardiology for post-surgical monitoring, including recent echocardiograms. Type 2 Diabetes Mellitus: Her diagnosis of type 2 diabetes was made four years ago, around the time her father . Her diabetes is managed by an oil recovery unit operator. Her regimen includes insulin Aspart on a sliding scale before meals, and insulin Degludec (Tresiba) at bedtime, with the dose varying from 23 to 30 units based on nighttime blood glucose levels. She sees a director digital sales for foot care, including nail trimming for onychomycosis on her two great toes, and was recently prescribed new shoes. She is also on semaglutide (Ozempic), which was recently increased from 1 mg to 2 mg. She has also seen an marketing production specialist for retina checks and underwent cataract surgery last year. A pain coordinator and dental technician have been involved in her care. She has peripheral neuropathy, confirmed on physical exam, and has different shoe sizes for each foot (left size 9, right size 8.5). Musculoskeletal and Neurological Conditions: The patient reports a history of carpal tunnel surgery and now has trigger finger, for which she received a cortisone injection about a week ago from an orthopedic hand specialist. Physical therapy for the condition was ineffective. She takes gabapentin 1200 mg three times daily. She has progressive, genetic hearing loss and tinnitus, which is worsening with age, and reports hearing better from one ear than the other. Mental Health: The patient endorses a history of depression, particularly following the of her sister from cancer 3-4 years ago. She previously took lorazepam as needed for depression but no longer takes it regularly. She no longer takes duloxetine. She takes trazodone 50 mg, which was decreased from 100 mg. She has received counseling in the past to cope with grief. Surgical History: - Kidney transplant (6 years ago) - AV fistula placement for dialysis - Cataract surgery (last year) - Carpal tunnel surgery - Tubal ligation Medications: - Albuterol inhaler, as needed for asthm a. - Amlodipine 10 mg, for hypertension. - Atorvastatin 40 mg, for hyperlipidemia . - Carvedilol 6.25 mg, for hypertension. - Docusate, as needed for constipation. - Gabapentin 1200 mg three times a day. - Insulin Aspart 4 units, via sliding sc mignon, with meals for diabetes. - Insulin Degludec (Tresiba) 23-30 units at bedtime, for diabetes. - Mycophenolate sodium, twice daily for post-kidney transplant. - Semaglutide (Ozempic) 2 mg weekly, for diabetes. - Tacrolimus, for post-kidney transplant . - Trazodone 50 mg. 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 - Family Status: , is als o a patient of the practice. - Functional Status: Reports difficulty walking. Her daughter assists her at home. Family History: - Father: Had a genetic condition that c aused trigger finger, which the patient also has. Diagnostic Results: - Echocardiogram: Recent, report was janette ar. - Colonoscopy: Performed this year, find ings were clear, next one in 3 years. - Mammogram: Recently performed. - Pap smear: Performed last year, now du e every two years. Past Medical History - Chronic Obstructive Pulmonary Disease - Asthma - End-stage renal disease, status post k idney transplant 6 years ago, on dialysis for 4 years prior - Hypertension - Hyperlipidemia - Type 2 Diabetes Mellitus, diagnosed 4 years ago - History of depression - Chronic constipation - Hepatitis C, acquired from organ donor - Progressive, genetic hearing loss with tinnitus - Peripheral neuropathy - Trigger finger - History of shingles Health Maintenance - Follows with podiatry for diabetic sushil t care. - Follows with ophthalmology for diabeti c retinopathy screening. - Mammogram: Last performed recently. - Pap smear: Last performed last year; n ow due every 2 years. - Colonoscopy: Performed this year, osmar nunes; next due in 3 years. [facility] Medical History (Updated 03/13/25 @ 19:29 by Navdeep Montoya MD) History of dialysis fistulography History of renal dialysis Tinnitus Hearing loss Hepatitis C carrier Sleep disturbance Hyperlipidemia Chronic constipation Depression Peripheral neuropathy COPD with asthma Retinal hemorrhage Peripheral neuropathic pain Neuropathy Hypertension Hypercholesteremia ESRD (end stage renal disease) Diabetes mellitus Dermatitis Chronic kidney disease Cellulitis Surgical History (Updated 03/13/25 @ 19:26 by Navdeep Montoya MD) Kidney transplant recipient H/O tubal ligation History of carpal tunnel release -donor kidney transplant Family History Sister Cancer Social History Housing: House Patient Tobacco Use Status: Former Tobacco user e-Cigarette/Vaping Use: Never Used service: No Current occupational status: employed Cognitive needs: No Hearing needs: No Vision needs: No Questionnaire PHQ-9 Over the last 2 weeks, how often have you been bothered by any of the following problems? 1. Little interest or pleasure in doing things: not at all 2. Feeling down, depressed, or hopeless: more than half the days 3. Trouble falling or staying asleep, or sleeping too much: nearly every day 4. Feeling tired or having little energy: more than half the days 5. Poor appetite or overeating: not at all 6. Feeling bad about yourself - or that you are a failure or have let yourself or your family down: not at all 7. Trouble concentrating on things, such as reading the newspaper or watching television: more than half the days 8. Moving or speaking so slowly that other people could have noticed. Or the opposite - being so fidgety or restless that you have been moving around a lot more than usual: not at all 9. Thoughts that you would be better off or of hurting yourself in some way: not at all Total score: 9 Depression Screening Interpretation: Positive Depression Screening Done: Yes Source: Developed by Drs. Calvin Ba, Leyda West, Siddharth Catherine and colleagues, with an educational mata from [employer]. Thrive Questionnaire Date Thrive assessed: 03/13/25 I am a: Patient What is your living situation today?: I have a steady place to live Within the past 12 months, did the food you bought not last and you didn't have the money to get more?: Never true Within the past 12 months, did you worry whether your food would run out before you got money to buy more?: Never true Do you have trouble paying for medicines?: No Do you have trouble getting transportation to medical appointments?: No Do you have trouble paying your heating and electricity bill?: No Do you have trouble taking care of your child, family member or friend?: No Do you have trouble with day-to-day activities such as bathing, preparing meals, shopping, managing finances, etc.?: Yes Are you currently unemployed and looking for a job?: No Are you interested in more education?: I choose not to answer this question Please select the resources that you would like help with: None Currently or been in a relationship where the following occur: No concerns reported THRIVE Score: 0 AUDIT C Alcohol Use Questionnaire (AUDIT-C) 1. How often do you have a drink containing alcohol?: Never 2. How many drinks containing alcohol do you have on a typical day when you are drinking?: 1 or 2 3. How often do you have six or more drinks on one occasion?: Never Total Score: 0 HORACIO-7 AMB Questionnaire HORACIO-7 Date HORACIO - 7 assessed: 03/13/25 Feeling nervous, anxious, or on edge: 1 = Several days Not being able to stop or control worryin = Several days Worrying too much about different things: 0 = Not at all Trouble relaxin = More than half the days Being so restless that it is hard to sit still: 0 = Not at all Becoming easily annoyed or irritable: 1 = Several days Feeling afraid as if something awful might happen: 1 = Several days Total HORACIO-7 score (0-4 normal; 5-9 mild; 10-14 moderate; 15-21 severe): 6 Source: Developed by Drs. Calvin Ba, Leyda West, Siddharth Catherine and colleagues, with an educational mata from [employer]. Review of Systems Narrative Review of Systems - Respiratory: Reports suffering from wheezing and dyspnea on exertion, particularly with walking and stair climbing. - Cardiovascular: Reports blood pressure gets too high with exertion. - Gastrointestinal: Reports being very constipated if she does not take medication. - Ears, Nose, Throat: Reports allergic symptoms with seasonal changes. Reports buzzing in her ears (tinnitus) and hearing more from one ear than the other. - Musculoskeletal: Reports issues with her hands, specifically trigger finger. - Integumentary: Reports history of shingles. Reports very dry, itchy skin, especially in the winter. - Neurological: Reports peripheral neuropathy. - Psychiatric: Reports a history of depression, especially after her sister's . - General: Reports difficulty walking. 10-point ROS reviewed and negative except as noted in HPI Physical exam (Primary Care) Vital Signs: Last Vital Signs Temp 98.3 F 03/13/25 11:18 Pulse 70 03/13/25 11:18 BP 140/65 H 03/13/25 11:18 Pulse Ox 100 03/13/25 11:18 Oxygen Delivery Method Room Air 03/13/25 11:18 BMI result Body Mass Index 37.2 Tobacco/Smoking Status: Tobacco use Status Tobacco use date assessed 03/13/25 03/13/25 11:19 Patient Tobacco Use Status Former Tobacco user 03/13/25 11:19 e-Cigarette/Vaping Use Never Used 03/13/25 11:19 PHQ-9: PHQ-9 Score PHQ-9: Total score 9 03/13/25 11:21 Depression Screening Interpretation: Positive Thrive Assessment: Date of Thrive Assessment Date Thrive assessed 03/13/25 03/13/25 11:19 Currently or been in a relationship where the following occur: No concerns reported Narrative Physical Exam General: Well-appearing, in no acute distress. Vital signs: Within normal limits. HEENT: Normocephalic, atraumatic. PERRLA, EOMI. Conjunctiva clear, sclera anicteric. Oropharynx clear, mucous membranes moist. TMs intact bilaterally. Neck: Supple, no lymphadenopathy, no thyromegaly, no JVD or carotid bruits. Cardiovascular: RRR, normal S1/S2, no murmurs, rubs, or gallops. Peripheral pulses 2+ and symmetric. No edema. Respiratory: Lungs clear to auscultation bilaterally, no wheezes, rales, or rho nchi. Normal effort. Abdomen: Soft, non-tender, non-distended. Normoactive bowel sounds. No hepatosplenomegaly, no masses. MSK: Full range of motion, no joint swelling or deformity. Normal gait. Skin: Warm, dry, intact. No rashes, lesions, or pallor. Neuro: Alert and oriented x3. Cranial nerves II-XII intact. Strength 5/5 throughout. Sensation intact. Reflexes 2+ symmetric. Normal coordination and gait. Psych: Appropriate mood and affect. Normal judgment and insight. Office Procedures Flu Questionnaire Does the patient have a severe egg allergy?: No Does the patient have severe life threatening allergies?: No Does the patient have a fever or illness today?: No Has the patient ever had Guillain-Brooks Syndrome?: No Has the patient ever had any past reaction to a flu shot?: No Immunizations Fluarix [id number] (PF) 45 mcg (15 mcg x 3)/0.5 mL IM syringe Performing Provider: Navdeep Montoya MD Performing Location: [facility] Documented (not given) by: Opal Joyner CMA on 03/13/25 11:36 Reason Not Given: Received Previously Coding Level of Care Code New Pt Level 4 (39437) Diagnoses COPD with asthma J44.89 Kidney transplant recipient Z94.0 Primary hypertension I10 Hypertension type: primary hypertension Diabetes mellitus E11.9 Peripheral neuropathy G62.9 Depression F32.A Chronic constipation K59.09 Hyperlipidemia E78.5 Sleep disturbance G47.9 Hepatitis C carrier B18.2 Hearing loss H91.90 Tinnitus H93.19 History of renal dialysis Z92.89 History of dialysis fistulography Z92.89 Assessment & Plan Assessment & Plan (1) COPD with asthma: Code(s): J44.89 - Other specified chronic obstructive pulmonary disease Category: Medical (2) Kidney transplant recipient: Code(s): Z94.0 - Kidney transplant status Category: Surgical (3) Hypertension: Code(s): I10 - Essential (primary) hypertension Category: Medical Qualifiers: Hypertension type: primary hypertension Qualified Code(s): I10 - Essential (primary) hypertension (4) Diabetes mellitus: Code(s): E11.9 - Type 2 diabetes mellitus without complications Category: Medical (5) Peripheral neuropathy: Code(s): G62.9 - Polyneuropathy, unspecified Category: Medical (6) Depression: Code(s): F32.A - Depression, unspecified Category: Medical (7) Chronic constipation: Code(s): K59.09 - Other constipation Category: Medical (8) Hyperlipidemia: Code(s): E78.5 - Hyperlipidemia, unspecified Category: Medical (9) Sleep disturbance: Code(s): G47.9 - Sleep disorder, unspecified Category: Medical (10) Hepatitis C carrier: Code(s): B18.2 - Chronic viral hepatitis C Category: Medical (11) Hearing loss: Code(s): H91.90 - Unspecified hearing loss, unspecified ear Category: Medical (12) Tinnitus: Code(s): H93.19 - Tinnitus, unspecified ear Category: Medical (13) History of renal dialysis: Code(s): Z92.89 - Personal history of other medical treatment Category: Medical (14) History of dialysis fistulography: Code(s): Z92.89 - Personal history of other medical treatment Category: Medical Plan Consent Patient was informed and verbally consented to the use of an ambient scribe for clinic note documentation during this visit. Plan 1. New Patient Visit - Comprehensive lab work will be ordered to establish a baseline, including a complete blood count, comprehensive metabolic panel, hemoglobin A1c, lipid panel, vitamin B12, folate, vitamin D, iron studies, and zinc. - Will also screen for Hepatitis B, Hepatitis C, and HIV. - The patient will follow up in two weeks to review the lab results and discuss the next steps in her care. - I will work to centralize her care by obtaining all medical records from her various specialists. - Multiple medications were discontinued from her list as she is no longer taking them, including duloxetine, fluticasone nasal spray, and lorazepam. 2. Chronic Obstructive Pulmonary Disease - The patient is scheduled for a pulmonary function test. I will await results from cardiology and pulmonology to guide medication changes. 3. Dry Skin - Advised on the use of moisturizers like Aveeno for her dry, itchy skin. 4. Hearing Loss - Discussed her progressive, genetic hearing loss and tinnitus; she may consider seeing an supervisor roller shop again this year. 5. Mental Health - Acknowledged the patient's emotional state and history of depression, and offered support. Discussion Notes This was an initial encounter to establish care with this patient, who has an extensive and complex medical history. We reviewed her extensive medication list and past medical history in detail. I explained the need to centralize her care and to obtain records from all her specialists to ensure coordinated and comprehensive management. I informed her that today's visit was not a full physical but an initial encounter to gather baseline data. I outlined the plan to order a comprehensive set of baseline labs, including a CBC, CMP, HbA1c, lipid panel, vitamin levels (B12, D), iron, and zinc, as well as infectious disease screening for hepatitis B, C, and HIV. We scheduled a follow-up appointment in two weeks to review these results and formulate a more detailed care plan. I acknowledged her difficulty in trusting physicians and assured her of my patient-centered approach. Patient Instructions - Please proceed to the lab to have your blood drawn for the tests we discussed. - Please make sure to get records from your other doctors sent to my office. We need to have all of your information in one place to best take care of you. - For your dry skin, you can try using moisturizers like Aveeno. - Please make a follow-up appointment to see me in two weeks to go over your lab results and discuss next steps. Medical Decision Making The patient is a 59-year-old female with a very complex medical history, including being status-post kidney transplant, type 2 diabetes mellitus, COPD, hypertension, and hyperlipidemia, who presents to establish care. The primary goal of this visit was to perform a thorough medication reconciliation, document her extensive past medical history, and establish a baseline for future management. Given her numerous chronic conditions and multispecialty care, a comprehensive laboratory evaluation is warranted to assess her current metabolic, renal, hepatic, hematologic, and glycemic status. This includes an HbA1c to assess recent glycemic control, a lipid panel, and various vitamin and mineral levels, as she has had lapses in care and unclear nutritional status. Screening for hepatitis is crucial given her transplant from a Hep C positive donor. My primary role will be to centralize her care, coordinate with her specialists (nephrology, cardiology, endocrinology, pulmonology), and manage her general health maintenance. Discontinuation of several medications was based on the patient's report that she is no longer taking them. A close follow-up in two weeks is necessary to review the extensive labs and begin formulating a long- term, consolidated treatment plan. Total Time Statement 45 min Total time spent caring for the patient today includes pre-visit chart review, documentation, review of laboratory and diagnostic imaging results, medication reconciliation, medically necessary evaluation, counseling on diagnoses, care coordination, ordering appropriate tests and medications, review of tests perfor med by other providers, reporting test results to the patient, and communication with other healthcare providers. Orders: Orders Complete Blood Count Auto Diff Today Z13.9 - Encounter for screening, unspecified Comprehensive Met. Panel Today Z13.9 - Encounter for screening, unspecified Hepatitis C Antibody Today Z13.9 - Encounter for screening, unspecified UA CC w/rflx Micro + Cult Today Z13.9 - Encounter for screening, unspecified Vitamin B12 and Folate Today Z13.9 - Encounter for screening, unspecified Hemoglobin A1c Today Z13.9 - Encounter for screening, unspecified Microalbumin, Random (w Creat) Today Z13.9 - Encounter for screening, unspecified Vitamin D 25-OH (D2 and D3) Today Z13.9 - Encounter for screening, unspecified Ferritin Today D50.9 - Iron deficiency anemia, unspecified Transferrin Today D50.9 - Iron deficiency anemia, unspecified Zinc Today Z13.9 - Encounter for screening, unspecified Influenza [id number] Immunization Today Z23 - Encounter for immunization AMB Hemoglobin A1c Today Z13.9 - Encounter for screening, unspecified Hepatitis B Surface Antigen Today Z13.9 - Encounter for screening, unspecified Syphilis Screen Today Z13.9 - Encounter for screening, unspecified TSH reflex Free T4 Today Z13.9 - Encounter for screening, unspecified HIV Ab/Ag Today Z13.9 - Encounter for screening, unspecified Lipid Panel Today Z13.9 - Encounter for screening, unspecified Magnesium Today Z13.9 - Encounter for screening, unspecified Hepatitis B Surface Antibody Today Z13.9 - Encounter for screening, unspecified IRON PROFILE Today D50.9 - Iron deficiency anemia, unspecified Medications: Refilled carvedilol 6.25 mg PO BID 180 tabs 3RF
== END 2025-03-13 12:19 | disposition home or self-care (01) ==
LOC: HO.HMCFMS 10:54
PROVIDERS: PCP Internal Medicine; Visit Provider Student in an Organized Health Care Education/Training Program
DX: J44.89 Other specified chronic obstructive pulmonary disease (principal); Z94.0 Kidney transplant status; I10 Essential (primary) hypertension; E11.9 Type 2 diabetes mellitus without complications; G62.9 Polyneuropathy, unspecified; F32.A Depression, unspecified; K59.09 Other constipation; E78.5 Hyperlipidemia, unspecified; G47.9 Sleep disorder, unspecified; B18.2 Chronic viral hepatitis C; H91.90 Unspecified hearing loss, unspecified ear; H93.19 Tinnitus, unspecified ear; Z92.89 Personal history of other medical treatment; Z23 Encounter for immunization

== ENCOUNTER → 2025-03-13 10:52 | Outpatient (BNVA) | payer OTHER, SELFPAY | PROVIDERS: PCP Internal Medicine; Visit Provider Student in an Organized Health Care Education/Training Program | DX: J44.89 Other specified chronic obstructive pulmonary disease (principal); I10 Essential (primary) hypertension; Z94.0 Kidney transplant status; E11.9 Type 2 diabetes mellitus without complications; G62.9 Polyneuropathy, unspecified; F32.A Depression, unspecified; K59.09 Other constipation; E78.5 Hyperlipidemia, unspecified; G47.9 Sleep disorder, unspecified; B18.2 Chronic viral hepatitis C; H91.90 Unspecified hearing loss, unspecified ear; H93.19 Tinnitus, unspecified ear; Z92.89 Personal history of other medical treatment; Z13.31 Encounter for screening for depression; Z13.39 Encounter for screening examination for other mental health and behavioral disorders | CPT/HCPCS: 90471; 96127; 99202 ==

== ENCOUNTER 2025-03-19 09:49 | Outpatient (REF) | payer OTHER, SELFPAY ==
[2025-03-19 13:27] LABS: MANUAL DIFF FLAG NO
[2025-03-19 13:38] LABS: Appearance Urine Cloudy; Glucose Urine UA 100 mg/dL (Negative); PH 5.5 (5.0-9.0); Specific Gravity - Urine 1.020 (1.005-1.025); UMIC TRIGGER UACC YES
[2025-03-19 13:43] LABS: UACC Culture Trigger YES
[2025-03-19 13:46] LABS: Hematocrit 39.1 % (37.0-47.0); Hemoglobin 11.8 g/dl (12.0-16.0); Imm Gran Abs Auto 0.03 X10*3/uL (0.00-0.03); Imm Gran Pct Auto 0.5 % (0.0-0.4); Lymphocytes Absolute Auto 1.5 X10*3/uL (1.2-4.9); Mean Corpuscular HGB Conc 30.2 g/dl (31.0-35.0); Mean Corpuscular Hemoglobin 26.2 pg (27.0-33.0); Mean Corpuscular Volume 86.7 fL (80.0-98.0); NRBC Abs Auto 0.000 X10*3/uL (0.0-0.012); NRBC Pct Auto 0.0 /100WBC (0.0-0.2); Platelet Count 213 X10*3/uL (160-400); Red Blood Count 4.51 X10*6/uL (4.20-5.50); White Blood Count 6.1 X10*3/uL (4.8-10.8)
[2025-03-19 14:10] LABS: Alanine Aminotransferase 27 U/L (0-31); Albumin Level 4.4 g/dL (3.5-5.0); Alkaline Phosphatase 81 U/L (39-117); Anion Gap 9 (12-20); Aspartate Amino Transferase 21 U/L (5-31); Blood Urea Nitrogen 36 mg/dL (9-16); Calcium 9.8 mg/dL (8.4-10.2); Carbon Dioxide 25 mmol/L (22-29); Chloride 110 mmol/L (96-108); Cholesterol 140 mg/dL (<200); Estimated Glomerular Filt Rate 34; HDL Cholesterol 41 mg/dL (>40); Iron 74 mcg/dL (30-160); Magnesium 1.9 mg/dL (1.6-2.6); Percent Iron Saturation 39 % (15-50); Potassium 4.4 mmol/L (3.3-5.1); Sodium 140 mmol/L (135-145); Total Iron Binding Capacity 192 mcg/dL (228-428); Total Protein 7.2 g/dL (6.5-8.0); Triglycerides 109 mg/dL (<150); Unsaturated Iron Binding 118 ug/dL
[2025-03-19 14:13] LABS: Ferritin 1225 ng/mL (10-250)
[2025-03-19 14:19] LABS: Microalbum/Creatinine Ratio Ur 99.7 ug/mg cr (<30)
[2025-03-19 14:31] LABS: Folate 13.0 ng/mL (> or = 4.0); Vitamin B12 591 pg/mL (200-900)
[2025-03-20 04:20] LABS: Syphilis Screen Nonreactive (Nonreactive)
[2025-03-20 05:22] LABS: HBS Num1 22.19 mIU/mL (0-7.99); HBsAGNum1 0.42 S/CO (0.00-0.99); HIV Num 1 0.09 S/CO (0.00-0.99); Hepatitis B Surface Antigen Negative (Negative); ~HepC Num1 0.10 S/CO (0.00-0.79); ~Hepatitis B Surface Antibody REACTIVE (Nonreactive); ~Hepatitis C Antibody Nonreactive (Nonreactive)
[2025-03-20 06:08] LABS: Transferrin 179 mg/dL (188-341)
[2025-03-20 07:42] LABS: Tacrolimus Prograf 5.8 mcg/L
== END 2025-03-19 09:50 | disposition home or self-care (01) ==
LOC: HO.HKASLDS 09:49
PROVIDERS: Absent Provider Student in an Organized Health Care Education/Training Program; PCP Student in an Organized Health Care Education/Training Program; Visit Provider Internal Medicine Nephrology
DX: Z11.4 Encounter for screening for human immunodeficiency virus [HIV] (principal); Z01.84 Encounter for antibody response examination; T86.10 Unspecified complication of kidney transplant; D50.9 Iron deficiency anemia, unspecified; Z13.1 Encounter for screening for diabetes mellitus; Z13.29 Encounter for screening for other suspected endocrine disorder; Z13.21 Encounter for screening for nutritional disorder
CPT/HCPCS: 36415; 80053; 80061; 80197; 81001; 82043; 82306; 82570; 82607; 82728; 82746; 83036; 83540; 83735; 84443; 84466; 84630; 85025; 86706; 86780; 86803; 87086; 87340; 87389

== ENCOUNTER 2025-03-22 08:28 | Outpatient (AMB) | payer OTHER, SELFPAY ==
--- OUTSIDE RECORDS SUMMARY | 2025-03-22 08:49 | XMS_ITS | Encounter Summary ---
Author Organization [facility] Address [address] [place] [address] Care Team Providers Care Pharmacy Billing Adjudicator Name Role Phone Debra Hills MD Primary Care Provider [phone] Encounter Details Date Type Department Care Team (Late st Contact Info) Description 02/14/2025 Results Follow-Up [facility] - [address] [facility] [address] [place] [phone] Rolanda Armstrong NP [address] [place] [address] [place] [phone] Social History Tobacco Use Types Packs/Day Years [...] Care Team (Late st Contact Info) Description 04/03/2025 12:30 PM EST Appointment [facility] [address] [place] [phone] 05/29/2025 10:30 AM EST Office Visit Orthopedic Surgery - [place] [address] [facility] [address] [place] [phone] Chandni Angulo MD [address] [facility] [address] [place] [phone] 06/28/2025 9:15 AM EDT Ancillary Procedure [facility] - [address] [place] [phone] 07/11/2025 12:30 PM EDT Office Visit Internal Medicine - [place] [address] [place], [place] [phone] Debra Hills MD [address] [place], [place] documented as of this encounter Visit Diagnoses Not on filedocumented in this encounter Care Teams Pharmacy Billing Adjudicator Relationship Specialty Start Date End Date Debra Hills MD [address] [place], [place] PCP - General Internal Medicine 12/08/24 documented as of this encounter
--- OUTSIDE RECORDS SUMMARY | 2025-03-22 08:49 | XMS_ITS | Encounter Summary ---
Author Organization [facility] Prior to 02/04/2024 Address [address] [place] [address] Care Team Providers Care Criminal Researcher Name Role Phone Jamshid [place] Unavailable Unavailabl e Tobias Nuñez MD Primary Care Provider Unavaila Gaurav Gatica MD Primary Care Provider [phone] Honey Mendoza PA-C Unavailable Unavailab Lalo [place] MD Unavailable [phone] Encounter Details Date Type Department Care Team Description 03/08/2018 Hospital Medical Records [address] [place] [address] Joie Jean, JUAN JOSE Social History Tobacco Use Types Packs/Day Years Used Date Smoking Tobacco: Former Cigarettes 1.3 20 Smokeless Tobacco: Never Alcohol Use Standard Drinks/Week Comments No 0 (1 standard drink = 0.6 oz pur e alcohol) Sex Assigned at Date Recorded Not on file Job Start Date Occupation Industry Not on file Not on file Not on file documented as of this encounter Plan of Treatment Not on file documented as of this encounter Visit Diagnoses Not on filedocumented in this encounter Care Teams Criminal Researcher Relationship Specialty Start Date End Date Jamshid [place] PCP - Synchronizer 04/18/1998 Tobias Nuñez MD PCP - General Internal Medicine 02/19/18 04/30/19 Gaurav Tolbert MD [address] [place] [address] PCP - General Internal Medicine 05/01/19 Honey Mendoza PA-C [address] [place] [address] Specialist Cardiology 12/27/20 Lalo Vega MD 300 [facility] [address] [place] [address] Specialist Cardiovascular Disease 07/22/22 documented as of this encounter
--- OUTSIDE RECORDS SUMMARY | 2025-03-22 08:49 | XMS_ITS | Encounter Summary ---
Author Organization [facility] Prior to 02/04/2024 Address [address] [place] [address] Care Team Providers Care Welt Sewer Name Role Phone Jamshid [place] Unavailable UnavailTobias Lutz MD Primary Care Provider Unavaila Gaurav Gatica MD Primary Care Provider [phone] Gaurav Tolbert MD Primary Care Provider [phone] Honey Mendoza PA-C Unavailable Unavailab Lalo [place] MD Unavailable [phone] Encounter Details Date Type Department Care Team Description 09/16/2017 SCAN Medical Records [address] [place] [address] Lalo Vega MD 300 [facility] 154 [place] [address] Social History Tobacco Use Types Packs/Day Years Used Date Smoking Tobacco: Every Day Cigarettes 1.3 20 Smokeless Tobacco: Never Alcohol Use Standard Drinks/Week Comments Not Asked 0 (1 standard drink = 0.6 oz pur e alcohol) Sex Assigned at Date Recorded Not on file Job Start Date Occupation Industry Not on file Not on file Not on file documented as of this encounter Plan of Treatment Not on file documented as of this encounter Procedures Procedure Name Priority Date/Time Associated Diagnosis Comments OUTSIDE ECHO Routine 09/16/2017 documented in this encounter Results * OUTSIDE ECHO (09/16/2017) Provider Default CARDIOLOGY documented in this encounter Visit Diagnoses Not on filedocumented in this encounter Care Teams Welt Sewer Relationship Specialty Start Date End Date Jamshid [place] PCP - Senior Trial Attorney 04/18/1998 Tobias Nuñez MD PCP - General Internal Medicine 02/19/18 04/30/19 Gaurav Tolbert MD [address] [place] [address] PCP - General Internal Medicine 05/01/19 Gaurav Tolbert MD [address] [place] [address] PCP - General 07/27/17 02/18/18 Honey Mendoza PA-C [address] [place] [address] Specialist Cardiology 12/27/20 Lalo Vega MD 300 [facility] 154 [place] [address] Specialist Cardiovascular Disease 07/22/22 documented as of this encounter
--- OUTSIDE RECORDS SUMMARY | 2025-03-22 08:49 | XMS_ITS | Encounter Summary ---
Author Organization [facility] Prior to 02/04/2024 Address [address] [place] [address] Care Team Providers Care Recorder Helper Seismograph Name Role Phone Jamshid [place] Unavailable Unavailabl e Gaurav Tolbert MD Primary Care Provider [phone] Honey Mendoza PA-C Unavailable Unavailab Lalo [place] MD Unavailable [phone] Encounter Details Date Type Department Care Team Description 07/01/2023 Carboy Filler Report Medical Records [address] [place] [address] Abstract, Provider Social History Tobacco Use Types Packs/Day Years [...] on filedocumented in this encounter Care Teams Recorder Helper Seismograph Relationship Specialty Start Date End Date Jamshid [place] PCP - Installation Helper 04/18/1998 Gaurav Tolbert MD [address] [place] [address] PCP - General Internal Medicine 05/01/19 Honey Mendoza PA-C [address] [place] [address] Specialist Cardiology 12/27/20 Lalo Vega MD 300 [facility] [address] [place] [address] Specialist Cardiovascular Disease 07/22/22 documented as of this encounter
--- OUTSIDE RECORDS SUMMARY | 2025-03-22 08:49 | XMS_ITS | Encounter Summary ---
Author Organization [facility] [employer] [facility] Prior to 02/04/2024 Address [address] [place] [address] Care Team Providers Care Loan Administrator Name Role Phone Jamshid [place] Unavailable Unavailabl e Tobias Nuñez MD Primary Care Provider Unavaila Gaurav Gatica MD Primary Care Provider [phone] Honey Mendoza PA-C Unavailable Unavailab Lalo [place] MD Unavailable [phone] Encounter Details Date Type Department Care Team Description 03/08/2018 Hospital Medical Records [address] [place] [address] Yong Andrade MD [address] [place] [address] Social History Tobacco Use Types Packs/Day Years [...] on filedocumented in this encounter Care Teams Loan Administrator Relationship Specialty Start Date End Date Jamshid [place] PCP - Mitigation Supervisor 04/18/1998 Tobias Nuñez MD PCP - General Internal Medicine 02/19/18 04/30/19 Gaurav Tolbert MD [address] [place] [address] PCP - General Internal Medicine 05/01/19 Honey Mendoza PA-C [address] [place] [address] Specialist Cardiology 12/27/20 Lalo Vega MD 300 [facility] 154 [place] [address] Specialist Cardiovascular Disease 07/22/22 documented as of this encounter
--- OUTSIDE RECORDS SUMMARY | 2025-03-22 08:49 | XMS_ITS | Encounter Summary ---
Author Organization [facility] Prior to 02/04/2024 Address [address] [place] [address] Care Team Providers Care Electronic Organ Mechanic Name Role Phone Jamshid [place] Unavailable Unavailabl Tobias Weinberg MD Primary Care Provider Unavaila Gaurav Gatica MD Primary Care Provider [phone] Honey Mendoza PA-C Unavailable Unavailab Lalo [place] MD Unavailable Encounter Details Date Type Department Care Team Description 04/19/2018 Musical String Maker Report Medical Records [address] [place] [address] Lalo Vega MD 300 [facility] [address] [place] [address] Social History Tobacco Use Types Packs/Day Years [...] on filedocumented in this encounter Care Teams Electronic Organ Mechanic Relationship Specialty Start Date End Date Jamshid [place] PCP - Field Service Poultry Technician 04/18/1998 Tobias Nuñez MD PCP - General Internal Medicine 02/19/18 04/30/19 Gaurav Tolbert MD [address] [place] [address] PCP - General Internal Medicine 05/01/19 Honey Mendoza PA-C [address] [place] [address] Specialist Cardiology 12/27/20 Lalo Vega MD 300 [facility] [address] [place] [address] Specialist Cardiovascular Disease 07/22/22 documented as of this encounter
--- OUTSIDE RECORDS SUMMARY | 2025-03-22 08:49 | XMS_ITS | Encounter Summary ---
Author Organization [facility] Prior to 02/04/2024 Address [address] [place] [address] Care Team Providers Care Professional Advisor Name Role Phone LynchJamshid booker Unavailable UnavailTobias Lutz MD Primary Care Provider Unavaila Gaurav Gatica MD Primary Care Provider [phone] Honey Mendoza PA-C Unavailable Unavailab Lalo [place] MD Unavailable [phone] Reason for Visit * Reason Onset Date Comments Faxed Refill 02/23/2018 Encounter Details Date Type Department Care Team Description 02/23/2018 Refill Internal Medicine - [address], [address] [place] [address] Tobias Nuñez MD Faxed Refill Social History Tobacco Use Types Packs/Day Years Used Date Smoking Tobacco: Every Day Cigarettes 1.3 20 Smokeless Tobacco: Never Alcohol Use Standard Drinks/Week Comments Not Asked 0 (1 standard drink = 0.6 oz pur e alcohol) Sex Assigned at Date Recorded Not on file Job Start Date Occupation Industry Not on file Not on file Not on file documented as of this encounter Miscellaneous Notes * Telephone Encounter - Chely Dailey - 02/23/2018 9:17 AM EST Patient would like script to be: E-PRESCRIBED/FAXED TO PHARMACY WHEN WAS THE PATIENT'S LAST APPOINTMENT IN ADULT MEDICINE? Pt said she seen Dr Nuñez 2 weeks ago WHEN WAS THE LAST TIME THE PATIENT SAW THEIR PCP? Same as above Does patient have an upcoming appointment? Yes 05/30/18 (THE MEDICATION REQUESTED IS ON THE MED LIST ABOVE) All of the medications requested were on the CURRENT MEDS list Did you check the Pharmacy information above?: YES Patient wants: 30 -day supply Is this a mail order prescription request ? NO If the refill is from a FAXED refill request what is the RX # listed on the fax? N/A Patients current insurance carrier is: Payor: COMMERCIAL INSURANCE / Plan: COMMERCIAL INSURANCE / Product Type: OTHER documented in this encounter Plan of Treatment Not on file documented as of this encounter Visit Diagnoses Not on filedocumented in this encounter Care Teams Professional Advisor Relationship Specialty Start Date End Date Jamshid [place] PCP - Puttying And Calking Supervisor 04/18/1998 Tobias Nuñez MD PCP - General Internal Medicine 02/19/18 04/30/19 Gaurav Tolbert MD [address] [place] [address] PCP - General Internal Medicine 05/01/19 Honey Mendoza PA-C [address] [place] [address] Specialist Cardiology 12/27/20 Lalo Vega MD 300 [facility] 154 [place] [address] Specialist Cardiovascular Disease 07/22/22 documented as of this encounter
--- OUTSIDE RECORDS SUMMARY | 2025-03-22 08:49 | XMS_ITS | Encounter Summary ---
Author Organization [employer] [facility] Prior to 02/04/2024 Address [address] [place] [address] Care Team Providers Care Naval Aircrewman Tactical Helicopter Name Role Phone LynchJamshid booker Unavailable UnavailGaurav Hess MD Primary Care Provider [phone] Honey Mendoza PA-C Unavailable Unavailab Lalo [place] MD Unavailable [phone] Reason for Visit * Reason Onset Date Comments LAB WORK 06/17/[address] Chino kauffman Encounter Details Date Type Department Care Team Description 06/17/2023 Telephone Cardio PVC POC [address] [place] [address] Laisha Prado, DNP [address] [facility] [place] [address] LAB WORK (Labs to Dr. Merida) Social History Tobacco Use Types Packs/Day Years [...] encounter Miscellaneous Notes * Telephone Encounter - Rashaad [place] - 06/17/2023 2:34 PM EDT Faxed labs to Dr. Mer[facility] in [place] [phone]. Confirmed this is the correct fax as Dr. Merida has recently moved there. * Telephone Encounter - Rashaad [place] - 06/17/2023 2:33 PM EDT ----- Message from Laisha Prado DNP sent at 06/17/2023 1:42 PM EDT ----- Pt follows with Dr. Dawson from renal. Rashaad--can you pls send these labs? Her creat seems to be similar to creatinines of late. Thank you documented in this encounter Plan of Treatment Not on file documented as of this encounter Visit Diagnoses Not on filedocumented in this encounter Care Teams Naval Aircrewman Tactical Helicopter Relationship Specialty Start Date End Date Jamshid [place] PCP - Fashion Styling Intern 04/18/1998 Gaurav Tolbert MD [address] [place] [address] PCP - General Internal Medicine 05/01/19 Honey Mendoza PAKetanC [address] [place] [address] Specialist Cardiology 12/27/20 Lalo Vega MD 300 [facility] 154 [place] [address] Specialist Cardiovascular Disease 07/22/22 documented as of this encounter
--- OUTSIDE RECORDS SUMMARY | 2025-03-22 08:50 | XMS_ITS | Encounter Summary ---
Author Organization [facility] [employer] [facility] Prior to 02/04/2024 Address [address] [place] [address] Care Team Providers Care Cardboard Inserter Name Role Phone Jamshid [place] Unavailable UnavailGaurav [place] MD Primary Care Provider [phone] Honey Mendoza PA-C Unavailable Unavailab Lalo [place] MD Unavailable [phone] Encounter Details Date Type Department Care Team Description 09/02/2022 Telephone Cardio PVCA Diag Testing 101 300 [facility] [address] [place] [address] Demi Burger PA-C [address] [place] [address] [id number] Social History Tobacco Use Types Packs/Day Years Used Date Smoking Tobacco: Former Cigarettes 1.3 20 Smokeless Tobacco: Never Alcohol Use Standard Drinks/Week Comments No 0 (1 standard drink = 0.6 oz pur e alcohol) Sex Assigned at Date Recorded Not on file Job Start Date Occupation Industry Not on file Not on file Not on file COVID-19 Exposure Response Date Recorded In the last 10 days, have yo u been in contact with someone who was confirmed or suspected to have Coronavirus/COVID-19? No / Unsure 09/01/2022 8:21 AM EDT documented as of this encounter Plan of Treatment Not on file documented as of this encounter Visit Diagnoses Not on filedocumented in this encounter Care Teams Cardboard Inserter Relationship Specialty Start Date End Date Jamshid [place] PCP - Door Hanger 04/18/1998 Gaurav Tolbert MD [address] [place] [address] PCP - General Internal Medicine 05/01/19 Honey Mendoza PA-C [address] [place] [address] Specialist Cardiology 12/27/20 Lalo Vega MD 300 [facility] 154 [place] [address] Specialist Cardiovascular Disease 07/22/22 documented as of this encounter
--- OUTSIDE RECORDS SUMMARY | 2025-03-22 08:50 | XMS_ITS | Encounter Summary ---
Author Organization [employer] [facility] Prior to 02/04/2024 Address [address] [place] [address] Care Team Providers Care Bung Driver Name Role Phone Jamshid [place] Unavailable UnavailGaurav [place] MD Primary Care Provider [phone] Honey Mendoza PA-C Unavailable Unavailab Lalo [place] MD Unavailable [phone] Encounter Details Date Type Department Care Team Description 09/30/2020 Orders Only Pulmonology - [place] [address] [place] [phone] Orquidea Myles MD [address] [place] [phone] Restrictive lung disease; Multiple pulmonary nodules Social History Tobacco Use Types Packs/Day Years [...] Procedure Name Priority Date/Time Associated Diagnosis Comments CAT SCAN OF CHEST NO CONTRAST Routine 09/16/2020 Restrictive lung disease Multiple pulmonary nodules documented in this encounter Results * CHG DIAGNOSTIC COMPUTED TOMOGRAPHY THORAX W/O CNTRST (09/16/2020) Orquidea Myles MD CT SCANS documented in this encounter Visit Diagnoses Diagnosis Restrictive lung disease Other diseases of lung, not elsewhere classified Multiple pulmonary nodules Other nonspecific abnormal finding of lung field documented in this encounter Care Teams Bung Driver Relationship Specialty Start Date End Date Jamshid [place] PCP - Cupola Repairer 04/18/1998 Gaurav Tolbert MD [address] [place] [address] PCP - General Internal Medicine 05/01/19 Honey Mendoza PA-C [address] [place] [address] Specialist Cardiology 12/27/20 Lalo Vega MD 300 [facility] [address] [place] [address] Specialist Cardiovascular Disease 07/22/22 documented as of this encounter
--- OUTSIDE RECORDS SUMMARY | 2025-03-22 08:50 | XMS_ITS | Encounter Summary ---
Author Organization [facility] [employer] [facility] Prior to 02/04/2024 Address [address] [place] [address] Care Team Providers Care Vice President [employer] Name Role Phone Jamshid [place] Unavailable Unavailabl e Gaurav Tolbert MD Primary Care Provider [phone] Honey Mendoza PA-C Unavailable Unavailab Lalo [place] MD Unavailable [phone] Encounter Details Date Type Department Care Team Description 01/28/2023 Extension Work Instructor Report Medical Records [address] [place] [id number] [place] [address] Endocrine And Diabetes Social History Tobacco Use Types Packs/Day Years [...] on filedocumented in this encounter Care Teams Vice President [employer] Relationship Specialty Start Date End Date Jamshid [place] PCP - Eastern Philosophy Professor 04/18/1998 Gaurav Tolbert MD [address] [place] [address] PCP - General Internal Medicine 05/01/19 Honey Mendoza PA-C [address] [place] [address] Specialist Cardiology 12/27/20 Lalo Vega MD 300 [facility] [address] [place] [address] Specialist Cardiovascular Disease 07/22/22 documented as of this encounter
--- OUTSIDE RECORDS SUMMARY | 2025-03-22 08:50 | XMS_ITS | Encounter Summary ---
Author Organization [facility] Prior to 02/04/2024 Address [address] [place] [address] Care Team Providers Care It Systems Engineer Name Role Phone Jamshid [place] Unavailable Unavailabl Tobias Weinberg MD Primary Care Provider Unavaila Gaurav Gatica MD Primary Care Provider [phone] Honey Mendoza PA-C Unavailable Unavailab Lalo [place] MD Unavailable [phone] Encounter Details Date Type Department Care Team Description 03/25/2018 Home Health Certification Medical Records [address] [place] [address] Home, [facility] [place] [address] [place] [address] Social History Tobacco Use Types Packs/Day Years [...] on filedocumented in this encounter Care Teams It Systems Engineer Relationship Specialty Start Date End Date Jamshid [place] PCP - Clinical Informatics Director 04/18/1998 Tobias Nuñez MD PCP - General Internal Medicine 02/19/18 04/30/19 Gaurav Tolbert MD [address] [place] [address] PCP - General Internal Medicine 05/01/19 Honey Mendoza PA-C [address] [place] [address] Specialist Cardiology 12/27/20 Lalo Vega MD 300 [facility] [address] [place] [address] Specialist Cardiovascular Disease 07/22/22 documented as of this encounter
--- OUTSIDE RECORDS SUMMARY | 2025-03-22 08:50 | XMS_ITS | Encounter Summary ---
Author Organization [facility] [facility] Prior to 02/04/2024 Address [address] [place] [address] Care Team Providers Care Glass Belt Sander Name Role Phone Jamshid [place] Unavailable Unavailabl e Gaurav Tolbert MD Primary Care Provider [phone] Honey Mendoza PA-C Unavailable Unavailab Lalo [place] MD Unavailable [phone] Encounter Details Date Type Department Care Team Description 05/09/2020 Hospital Medical Records [address] [place] [address] Brayan French MD Social History Tobacco Use Types Packs/Day [...] Exposure Response Date Recorded In the last month, have you been in contact with someone who was confirmed or suspected to have Coronavirus / COVID-19? No / Unsure 04/19/2020 11:21 AM EST documented as of this encounter Plan of Treatment Not on file documented as of this encounter Visit Diagnoses Not on filedocumented in this encounter Care Teams Glass Belt Sander Relationship Specialty Start Date End Date Jamshid [place] PCP - Lieutenant General 04/18/1998 Gaurav Tolbert MD [address] [place] [address] PCP - General Internal Medicine 05/01/19 Honey Mendoza PA-C [address] [place] [address] Specialist Cardiology 12/27/20 Lalo Vega MD 300 [facility] 154 [place] [address] Specialist Cardiovascular Disease 07/22/22 documented as of this encounter
--- OUTSIDE RECORDS SUMMARY | 2025-03-22 08:50 | XMS_ITS | Encounter Summary ---
Author Organization [employer] [facility] Prior to 02/04/2024 Address [address] [place] [address] Care Team Providers Care Hog Driver Name Role Phone Jamshid [place] Unavailable Unavailabl e Tobias Nuñez MD Primary Care Provider Unavaila Gaurav Gatica MD Primary Care Provider [phone] Honey Mendoza PA-C Unavailable Unavailab Lalo [place] MD Unavailable [phone] Encounter Details Date Type Department Care Team Description 08/04/2018 SCAN Medical Records [address] [place] [address] Abstract, Provider Social History Tobacco Use Types [...] on filedocumented in this encounter Care Teams Hog Driver Relationship Specialty Start Date End Date Jamshid [place] PCP - Coffee Plantation Worker 04/18/1998 Tobias Nuñez MD PCP - General Internal Medicine 02/19/18 04/30/19 Gaurav Tolbert MD [address] [place] [address] PCP - General Internal Medicine 05/01/19 Honey Mendoza PA-C [address] [place] [address] Specialist Cardiology 12/27/20 Lalo Vega MD [address] [address] Specialist Cardiovascular Disease 07/22/22 documented as of this encounter
--- OUTSIDE RECORDS SUMMARY | 2025-03-22 08:50 | XMS_ITS | Encounter Summary ---
Author Organization [facility] [employer] [facility] Prior to 02/04/2024 Address [address] [place] [address] Care Team Providers Care World Renowned Chef And Restaurant Owner Name Role Phone Jamshid [place] Unavailable Unavailabl e Gaurav Tolbert MD Primary Care Provider [phone] Honey Mendoza PA-C Unavailable Unavailab Lalo [place] MD Unavailable [phone] Encounter Details Date Type Department Care Team Description 10/12/2022 Formula Clerk Report Medical Records [address] [place] [address] [place] [address] Endocrine And Diabetes Social History Tobacco Use [...] on filedocumented in this encounter Care Teams World Renowned Chef And Restaurant Owner Relationship Specialty Start Date End Date Jamshid [place] PCP - Format Proofreader 04/18/1998 Gaurav Tolbert MD [address] [place] [address] PCP - General Internal Medicine 05/01/19 Honey Mendoza PA-C [address] [place] [address] Specialist Cardiology 12/27/20 Lalo Vega MD 300 [facility] [address] [place] [address] Specialist Cardiovascular Disease 07/22/22 documented as of this encounter
--- OUTSIDE RECORDS SUMMARY | 2025-03-22 08:50 | XMS_ITS | Encounter Summary ---
Author Organization [facility] [employer] [facility] Prior to 02/04/2024 Address [address] [place] [address] Care Team Providers Care Field Sales Specialist Name Role Phone Jamshid Lynch Unavailable UnavailGaurav Hess MD Primary Care Provider [phone] Honey Mendoza PA-C Unavailable Unavailab Lalo Stern MD Unavailable [phone] Reason for Visit * Reason Onset Date Comments Abnormal Test Results 03/04/2023 Encounter Details Date Type Department Care Team Description 03/04/2023 Telephone Adult Medicine [address] [address] Donita Melendez, PUBLIC RELATIONS COORDINATOR [address] [place] [address] Abnormal Test Results Social History Tobacco Use Types Packs/Day Years [...] suspected to have Coronavirus/COVID-19? No / Unsure 02/10/2023 7:44 AM EST documented as of this encounter Miscellaneous Notes * Telephone Encounter - Anna Treadwell - 03/05/2023 8:55 AM EST Spoke with the patient and scheduled for 03/19/[address] Vega. * Telephone Encounter - Donita Melendez NP - 03/04/2023 6:17 PM EST Spoke with patient and reviewed imdur benefits, s/e. She is open to trial. To call me if any issuesprior to cardiology appt. Rx sent. * Telephone Encounter - Lalo Vega MD - 03/04/2023 6:01 PM EST Triage I have an 11:20 slot on 03/19 I could see her then. Donita, I have reviewed the results, not entirely sure if this is a true positive result. If symptoms are stable that is reassuring. You could empirically give her low dose isosorbide mononitrate 30mg once daily in the interim so that when I see her we can see if it makes any difference in her symptoms. * Telephone Encounter - Donita Melendez NP - 03/04/2023 5:40 PM EST Patient had positive nuclear stress test (see 03/03/23), not scheduled until July. She has dyspneaon exertion (stable since last visit) - can she be rescheduled for an earlier appointment with provider for optimization of treatment/consideration of if she needs interventional general management? * Telephone Encounter - Donita Melendez NP - 03/04/2023 5:39 PM EST Spoke with patient and reviewed nuclear stress test results received today. I reviewed that there is a small area of abnormality that could be a evidence of cardiovascular disease. We did asked that in light of her dyspnea on exertion I strongly recommend she see cardiology earlier than July. She verbalized understanding and agreement and will be expecting a call from cardiology office for appointment. She is aware to contact me if she does not hear from them regarding earlier appointment within the next week or 2. Continue atorvastatin, ASA, carvedilol. I advised if she has any sudden shortness of breath, chest pain, chest pressure, lightheadedness ordizziness, or acute worsening of dyspnea with exertion, she should go to the ED for emergent evaluation. documented in this encounter Plan of Treatment Not on file documented as of this encounter Visit Diagnoses Diagnosis Abnormal nuclear stress test- Primary Other nonspecific abnormal cardiovascular system function study Dyspnea on exertion Other dyspnea and respiratory abnormality documented in this encounter Care Teams Field Sales Specialist Relationship Specialty Start Date End Date Jamshid Lynch PCP - Anglesmith Helper 04/18/1998 Gaurav Tolbert MD [address] [place] [address] PCP - General Internal Medicine 05/01/19 Honey Mendoza PA-C [address] [place] [address] Specialist Cardiology 12/27/20 Lalo Vega MD 300 [facility] [address] [place] [address] Specialist Cardiovascular Disease 07/22/22 documented as of this encounter
--- OUTSIDE RECORDS SUMMARY | 2025-03-22 08:50 | XMS_ITS | Encounter Summary ---
Author Organization [employer] [facility] Prior to 02/04/2024 Address [address] [place] [address] Care Team Providers Care Cat Operator Name Role Phone Jamshid Lynch Unavailable Unavailabl Tobias Weinberg MD Primary Care Provider Unavaila Gaurav Gatica MD Primary Care Provider [phone] Honey Mendoza PA-C Unavailable Unavailab Lalo Stern MD Unavailable [phone] Encounter Details Date Type Department Care Team Description 04/21/2018 Transition Manager Report Medical Records [address] [place] [address] Lalo Vega MD 300 [facility] [address] [place] [address] Social History Tobacco Use Types Packs/Day Years [...] on filedocumented in this encounter Care Teams Cat Operator Relationship Specialty Start Date End Date Jamshid Lynch PCP - Stock Clipper 04/18/1998 Tobias Nuñez MD PCP - General Internal Medicine 02/19/18 04/30/19 Gaurav Tolbert MD [address] [place] [address] PCP - General Internal Medicine 05/01/19 Honey Mendoza PA-C [address] [place] [address] Specialist Cardiology 12/27/20 Lalo Vega MD 300 [facility] [address] [place] [address] Specialist Cardiovascular Disease 07/22/22 documented as of this encounter
--- OUTSIDE RECORDS SUMMARY | 2025-03-22 08:50 | XMS_ITS | Encounter Summary ---
Author Organization [facility] [employer] [facility] Prior to 02/04/2024 Address [address] [place] [address] Care Team Providers Care Software Qa Manager Name Role Phone Jamshid Lynch Unavailable Unavailabl e Gaurav Tolbert MD Primary Care Provider [phone] Honey Mendoza PA-C Unavailable Unavailab Lalo Stern MD Unavailable [phone] Encounter Details Date Type Department Care Team Description 03/16/2023 Chicken Cutter Report Medical Records [address] [place] [address] Capo Dawson MD Social History Tobacco Use [...] on filedocumented in this encounter Care Teams Software Qa Manager Relationship Specialty Start Date End Date Jamshid Lynch PCP - Dental Insurance Biller 04/18/1998 Gaurav Tolbert MD [address] [place] [address] PCP - General Internal Medicine 05/01/19 Honey Mendoza PA-C [address] [place] [address] Specialist Cardiology 12/27/20 Lalo Vega MD 300 [facility] [address] [place] [address] Specialist Cardiovascular Disease 07/22/22 documented as of this encounter
--- OUTSIDE RECORDS SUMMARY | 2025-03-22 08:50 | XMS_ITS | Clinical Summary ---
Author Organization [facility] Address [address] [place] [address] Care Team Providers Care Athlete Marketing Agent Name Role Phone Pcp, No Primary Care [...] 2024-2 6 season) 2024 06/27/2020, 05/16/2020 Insurance [facility] MEDICARE OUT OF NETWORK Care Teams Athlete Marketing Agent Relationship Specialty Start Date End Date Pcp, No [address] [place] [address] PCP - General 07/08/21
--- OUTSIDE RECORDS SUMMARY | 2025-03-22 08:50 | XMS_ITS | Encounter Summary ---
Author Organization [employer] [facility] Prior to 02/04/2024 Address [address] [place] [address] Care Team Providers Care Video Software Engineer Name Role Phone Jamshid Lynch Unavailable Unavailabl e Gaurav Tolbert MD Primary Care Provider [phone] Honey Mendoza PA-C Unavailable Unavailab Lalo Stern MD Unavailable [phone] Encounter Details Date Type Department Care Team Description 09/16/2020 SCAN Cardio PVC Med [address] [facility] [address] [place] [phone] Abstract, Provider Social History Tobacco Use Types [...] Name Priority Date/Time Associated Diagnosis Comments OUTSIDE CT Routine 09/16/2020 documented in this encounter Results * OUTSIDE CT (09/16/2020) Provider Default RADIOLOGY documented in this encounter Visit Diagnoses Not on filedocumented in this encounter Care Teams Video Software Engineer Relationship Specialty Start Date End Date Jamshid Lynch PCP - Third Helper 04/18/1998 Gaurav Tolbert MD [address] [place] [address] PCP - General Internal Medicine 05/01/19 Honey Mendoza PA-C [address] [place] [address] Specialist Cardiology 12/27/20 Lalo Vega MD 300 [facility] 154 [place] [address] Specialist Cardiovascular Disease 07/22/22 documented as of this encounter
--- OUTSIDE RECORDS SUMMARY | 2025-03-22 08:50 | XMS_ITS | Encounter Summary ---
Author Organization [employer] [facility] Prior to 02/04/2024 Address [address] [place] [address] Care Team Providers Care Red Hat Engineer Name Role Phone Jamshid Lynch Unavailable Unavailabl e Gaurav Tolbert MD Primary Care Provider [phone] Honey Mendoza PA-C Unavailable Unavailab Lalo Stern MD Unavailable [phone] Encounter Details Date Type Department Care Team Description 01/20/2023 Orders Only Medical Records [address] [place] [address] Sintia Astorga OD Social History Tobacco Use Types Packs/Day Years [...] Name Priority Date/Time Associated Diagnosis Comments OUTSIDE EYE EXAM Routine 01/19/2023 documented in this encounter Results * OUTSIDE EYE EXAM (01/19/2023) Sintia Astorga OD PROCEDURES documented in this encounter Visit Diagnoses Not on filedocumented in this encounter Care Teams Red Hat Engineer Relationship Specialty Start Date End Date Jamshid Lynch PCP - Crusher Tender 04/18/1998 Gaurav Tolbert MD [address] [place] [address] PCP - General Internal Medicine 05/01/19 Honey Mendoza PA-C [address] [place] [address] Specialist Cardiology 12/27/20 Lalo Vega MD 300 [facility] [address] [place] [address] Specialist Cardiovascular Disease 07/22/22 documented as of this encounter
--- OUTSIDE RECORDS SUMMARY | 2025-03-22 08:50 | XMS_ITS | Encounter Summary ---
Author Organization [facility] [employer] [facility] Prior to 02/04/2024 Address [address] [place] [address] Care Team Providers Care Clothes Presser Name Role Phone Jamshid Lynch Unavailable UnavailGaurav Hess MD Primary Care Provider [phone] Honey Mendoza PA-C Unavailable Unavailab Lalo Stern MD Unavailable [phone] Reason for Visit * Reason Comments E-prescribe Rx Request Encounter Details Date Type Department Care Team Description 08/04/2020 Refill Adult Medicine - [address] [address] Shilpa Ontiveros PA-C E-prescribe Rx Request Social History Tobacco Use Types Packs/Day Years [...] have Coronavirus / COVID-19? No / Unsure 08/05/2020 9:18 AM EDT documented as of this encounter Miscellaneous Notes * Telephone Encounter - Shilpa Ontiveros PA-C - 08/05/2020 3:18 PM EDT ToPCP To review/advise/sign if appropriate * Telephone Encounter - Kamilla Shelton M.A. - 08/05/2020 2:49 PM EDT Last office visit 06/28/20 Lab Results Component Value Date NA 135 12/19/2005 K 4.2 12/19/2005 CO2 30.2 12/19/2005 CL 94 12/19/2005 BUN 11 12/19/2005 CREAT 0.5 12/19/2005 GLU 409 06/16/2006 CA 9.3 12/19/2005 GFR > 60 12/19/2005 * Telephone Encounter - Clare Jain - 08/05/2020 11:50 AM EDT Patient would like script to be: E-PRESCRIBED/FAXED TO PHARMACY WHEN WAS THE PATIENT'S LAST APPOINTMENT IN ADULT MEDICINE? 06/28/20 WHEN WAS THE LAST TIME THE PATIENT SAW THEIR PCP? Same as above Does patient have an upcoming appointment? NO (THE MEDICATION REQUESTED IS ON THE MED LIST ABOVE) All of the medications requested were on the CURRENT MEDS list Did you check the Pharmacy information above?: YES Patient wants: 90 -day supply Is this a mail order prescription request ? NO If the refill is from a FAXED refill request what is the RX # listed on the fax? N/A Patients current insurance carrier is: Payor: [employer] [facility] MCR / Plan: [facility] / Product Type: HMO [id number] documented in this encounter Plan of Treatment Not on file documented as of this encounter Visit Diagnoses Diagnosis Insomnia, unspecified type documented in this encounter Care Teams Clothes Presser Relationship Specialty Start Date End Date Jamshid Lynch PCP - Faculty Criminal Justice 04/18/1998 Gaurav Tolbert MD [address] [place] [address] PCP - General Internal Medicine 05/01/19 Honey Mendoza PA-C [address] [place] [address] Specialist Cardiology 12/27/20 Lalo Vega MD 300 [facility] 154 [place] [address] Specialist Cardiovascular Disease 07/22/22 documented as of this encounter
--- OUTSIDE RECORDS SUMMARY | 2025-03-22 08:50 | XMS_ITS | Encounter Summary ---
Author Organization [employer] [facility] Prior to 02/04/2024 Address [address] [place] [address] Care Team Providers Care Locomotive Mechanic Apprentice Name Role Phone Jamshid Lynch Unavailable Unavailabl e Tobias Nuñez MD Primary Care Provider Unavaila Gaurav Gatica MD Primary Care Provider [phone] Honey Mendoza PA-C Unavailable Unavailab Lalo Stern MD Unavailable [phone] Encounter Details Date Type Department Care Team Description 06/05/2018 Experience Design Director Report Medical Records [address] [place] [address] Abstract, Provider Social History Tobacco Use Types [...] on filedocumented in this encounter Care Teams Locomotive Mechanic Apprentice Relationship Specialty Start Date End Date Jamshid Lynch PCP - Resident Services Manager 04/18/1998 Tobias Nuñez MD PCP - General Internal Medicine 02/19/18 04/30/19 Gaurav Tolbert MD [address] [place] [address] PCP - General Internal Medicine 05/01/19 Honey Mendoza PA-C [address] [place] [address] Specialist Cardiology 12/27/20 Lalo Vega MD [address] [address] Specialist Cardiovascular Disease 07/22/22 documented as of this encounter
--- OUTSIDE RECORDS SUMMARY | 2025-03-22 08:50 | XMS_ITS | Encounter Summary ---
Author Organization [employer] [facility] Prior to 02/04/2024 Address [address] [place] [address] Care Team Providers Care Linen Tech Name Role Phone Jamshid Lynch Unavailable Unavailabl e Gaurav Tolbert MD Primary Care Provider [phone] Honey Mendoza PA-C Unavailable Unavailab Lalo Stern MD Unavailable [phone] Encounter Details Date Type Department Care Team Description 08/19/2022 Drying Room Operator Report Medical Records [address] [place] [address] Abstract, Provider Social History Tobacco Use Types [...] suspected to have Coronavirus/COVID-19? No / Unsure 08/10/2022 9:28 AM EDT documented as of this encounter Plan of Treatment Not on file documented as of this encounter Visit Diagnoses Not on filedocumented in this encounter Care Teams Linen Tech Relationship Specialty Start Date End Date Jamshid Lynch PCP - Director Of Accounts Payable 04/18/1998 Gaurav Tolbert MD [address] [place] [address] PCP - General Internal Medicine 05/01/19 Honey Mendoza PA-C [address] [place] [address] Specialist Cardiology 12/27/20 Lalo Vega MD 300 [facility] [address] [place] [address] Specialist Cardiovascular Disease 07/22/22 documented as of this encounter
--- OUTSIDE RECORDS SUMMARY | 2025-03-22 08:50 | XMS_ITS | Encounter Summary ---
Author Organization [facility] [employer] [facility] Prior to 02/04/2024 Address [address] [place] [address] Care Team Providers Care Kayak Maker Name Role Phone Jamshid Lynch Unavailable Unavailabl e Gaurav Tolbert MD Primary Care Provider [phone] Honey Mendoza PA-C Unavailable Unavailab Lalo Stern MD Unavailable [phone] Encounter Details Date Type Department Care Team Description 02/09/2023 Case Aide Report Medical Records [address] [place] [address] Harper Stanley MD Social History Tobacco Use Types Packs/Day [...] on filedocumented in this encounter Care Teams Kayak Maker Relationship Specialty Start Date End Date Jamshid Lynch PCP - Engine Test Cell Technician 04/18/1998 Gaurav Tolbert MD [address] [place] [address] PCP - General Internal Medicine 05/01/19 Honey Mendoza PA-C [address] [place] [address] Specialist Cardiology 12/27/20 Lalo Vega MD [address] [address] Specialist Cardiovascular Disease 07/22/22 documented as of this encounter
--- OUTSIDE RECORDS SUMMARY | 2025-03-22 08:50 | XMS_ITS | Encounter Summary ---
Author Organization [employer] [facility] Prior to 02/04/2024 Address [address] [place] [address] Care Team Providers Care Sulfide Head Operator Name Role Phone Jamshid Lynch Unavailable UnavailGaurav Hess MD Primary Care Provider [phone] Honey Menodza PA-C Unavailable Unavailab Lalo Stern MD Unavailable [phone] Encounter Details Date Type Department Care Team Description 06/21/2020 SCAN Medical Records [address] [place] [address] Abstract, Provider Social History Tobacco Use Types [...] have Coronavirus / COVID-19? No / Unsure 06/07/2020 12:38 PM EST documented as of this encounter Plan of Treatment Not on file documented as of this encounter Procedures Procedure Name Priority Date/Time Associated Diagnosis Comments OUTSIDE LAB Routine 06/21/2020 documented in this encounter Results * OUTSIDE LAB (06/21/2020) Provider Abstract LAB documented in this encounter Visit Diagnoses Not on filedocumented in this encounter Care Teams Sulfide Head Operator Relationship Specialty Start Date End Date Jamshid Lynch PCP - Geological E Logger 04/18/1998 Gaurav Tolbert MD [address] [place] [address] PCP - General Internal Medicine 05/01/19 Honey Mendoza PA-C [address] [place] [address] Specialist Cardiology 12/27/20 Lalo Vega MD 300 [facility] 154 [place] [address] Specialist Cardiovascular Disease 07/22/22 documented as of this encounter
--- OUTSIDE RECORDS SUMMARY | 2025-03-22 08:50 | XMS_ITS | Encounter Summary ---
Author Organization [facility] [employer] [facility] Prior to 02/04/2024 Address [address] [place] [address] Care Team Providers Care Polytechnic Registrar Name Role Phone Jamshid Lynch Unavailable Unavailabl e Gaurav Tolbert MD Primary Care Provider [phone] Honey Mendoza PA-C Unavailable Unavailab Lalo Stern MD Unavailable [phone] Encounter Details Date Type Department Care Team Description 01/07/2023 Suspender Cutter Report Medical Records [address] [place] [address] Abstract, Provider Social History Tobacco Use Types [...] on filedocumented in this encounter Care Teams Polytechnic Registrar Relationship Specialty Start Date End Date Jamshid Lynch PCP - Perioperative Manager 04/18/1998 Gaurav Tolbert MD [address] [place] [address] PCP - General Internal Medicine 05/01/19 Honey Mendoza PA-C [address] [place] [address] Specialist Cardiology 12/27/20 Lalo Vega MD 300 [facility] [address] [place] [address] Specialist Cardiovascular Disease 07/22/22 documented as of this encounter
--- OUTSIDE RECORDS SUMMARY | 2025-03-22 08:50 | XMS_ITS | Encounter Summary ---
Author Organization [employer] [facility] Prior to 02/04/2024 Address [address] [place] [address] Care Team Providers Care Tool Specialist Name Role Phone Jamshid Lynch Unavailable Unavailabl e Tobias Nuñez MD Primary Care Provider Unavaila Gaurav Gatica MD Primary Care Provider [phone] Honey Mendoza PA-C Unavailable Unavailab Lalo Stern MD Unavailable [phone] Encounter Details Date Type Department Care Team Description 08/04/2018 SCAN Medical Records [address] [place] [address] Abstract, Provider Social History Tobacco Use Types [...] Date/Time Associated Diagnosis Comments OUTSIDE LAB Routine 08/04/2018 documented in this encounter Results * OUTSIDE LAB (08/04/2018) Provider Default LAB documented in this encounter Visit Diagnoses Not on filedocumented in this encounter Care Teams Tool Specialist Relationship Specialty Start Date End Date Jamshid Lynch PCP - Clinical Nurse Reviewer 04/18/1998 Tobias Nuñez MD PCP - General Internal Medicine 02/19/18 04/30/19 Gaurav Tolbert MD [address] [place] [address] PCP - General Internal Medicine 05/01/19 Honey Mendoza PA-C [address] [place] [address] Specialist Cardiology 12/27/20 Lalo Vega MD 300 [facility] [address] [place] [address] Specialist Cardiovascular Disease 07/22/22 documented as of this encounter
--- OUTSIDE RECORDS SUMMARY | 2025-03-22 08:50 | XMS_ITS | Encounter Summary ---
Author Organization [employer] [facility] Prior to 02/04/2024 Address [address] [place] [address] Care Team Providers Care Conservation Assistant Name Role Phone Jamshid Lynch Unavailable Unavailabl e Tobias Nuñez MD Primary Care Provider Unavaila Gaurva Gatica MD Primary Care Provider [phone] Honey Mendoza PA-C Unavailable Unavailab Lalo Stern MD Unavailable [phone] Encounter Details Date Type Department Care Team Description 05/04/2018 Strike Operations Officer Report Medical Records [address] [place] [address] Allie Narayanan NP Social History Tobacco Use Types Packs/Day Years [...] on filedocumented in this encounter Care Teams Conservation Assistant Relationship Specialty Start Date End Date Jamshid Lynch PCP - Industrial Services Worker 04/18/1998 Tobias Nuñez MD PCP - General Internal Medicine 02/19/18 04/30/19 Gaurav Tolbert MD [address] [place] [address] PCP - General Internal Medicine 05/01/19 Honey Mendoza PA-C [address] [place] [address] Specialist Cardiology 12/27/20 Lalo Vega MD 300 [facility] 154 [place] [address] Specialist Cardiovascular Disease 07/22/22 documented as of this encounter
--- OUTSIDE RECORDS SUMMARY | 2025-03-22 08:50 | XMS_ITS | Encounter Summary ---
Author Organization [facility] Address [address] [facility] [address] [place] [address] Phone Care Team Providers Care Air Purifier Servicer Name Role Phone Gaurav Bennett Primary Care Provider [phone] Reason for Visit * Reason Comments Med Refill Encounter Details Date Type Department Care Team (Late st Contact Info) Description 06/27/2021 Refill [facility] 100 [facility] [address] [place] [phone] Capo Dawson MD [address] [place] [address] Social History Tobacco Use Types Packs/Day Years [...] on filedocumented in this encounter Care Teams Air Purifier Servicer Relationship Specialty Start Date End Date Gaurav Bennett [address] [place] [address] PCP - General Internal Medicine 03/07/21 documented as of this encounter
--- OUTSIDE RECORDS SUMMARY | 2025-03-22 08:50 | XMS_ITS | Encounter Summary ---
Author Organization [facility] [employer] [facility] Prior to 02/04/2024 Address [address] [place] [address] Care Team Providers Care Item Processor Name Role Phone Jamshid Lynch Unavailable Unavailabl e Gaurav Tolbert MD Primary Care Provider [phone] Honey Mendoza PA-C Unavailable Unavailab Lalo Stern MD Unavailable [phone] Encounter Details Date Type Department Care Team Description 11/17/2022 Video Presentation Operator Report Medical Records [address] [place] [address] Capo Dawson MD Social History Tobacco Use [...] on filedocumented in this encounter Care Teams Item Processor Relationship Specialty Start Date End Date Jamshid Lynch PCP - Gluing Machine Operator Electronic 04/18/1998 Gaurav Tolbert MD [address] [place] [address] PCP - General Internal Medicine 05/01/19 Honey Mendoza PA-C [address] [place] [address] Specialist Cardiology 12/27/20 Lalo Vega MD 300 [facility] [address] [place] [address] Specialist Cardiovascular Disease 07/22/22 documented as of this encounter
--- OUTSIDE RECORDS SUMMARY | 2025-03-22 08:50 | XMS_ITS | Encounter Summary ---
Author Organization [facility] Prior to 02/04/2024 Address [address] [place] [address] Care Team Providers Care Director Industrial Museum Name Role Phone Jamshid Lynch Unavailable Unavailabl e Gaurav Tolbert MD Primary Care Provider [phone] Honey Mendoza PA-C Unavailable Unavailab Lalo Stern MD Unavailable [phone] Encounter Details Date Type Department Care Team Description 07/09/2022 SCAN Medical Records [address] [place] [address] Abstract, Provider Social History Tobacco Use Types [...] suspected to have Coronavirus/COVID-19? No / Unsure 07/08/2022 1:23 PM EDT documented as of this encounter Plan of Treatment Not on file documented as of this encounter Visit Diagnoses Not on filedocumented in this encounter Care Teams Director Industrial Museum Relationship Specialty Start Date End Date Jamshid Lynch PCP - Air Press Operator 04/18/1998 Gaurav Tolbert MD [address] [place] [address] PCP - General Internal Medicine 05/01/19 Honey Mendoza PA-C [address] [place] [address] Specialist Cardiology 12/27/20 Lalo Vega MD [address] [address] Specialist Cardiovascular Disease 07/22/22 documented as of this encounter
--- OUTSIDE RECORDS SUMMARY | 2025-03-22 08:50 | XMS_ITS | Encounter Summary ---
Author Organization [facility] Prior to 02/04/2024 Address [address] [place] [address] Care Team Providers Care Account Financial Manager Name Role Phone Jamshid Lynch Unavailable Unavailabl e Gaurav Tolbert MD Primary Care Provider [phone] Honey Mendoza PA-C Unavailable Unavailab Lalo Stern MD Unavailable [phone] Encounter Details Date Type Department Care Team Description 01/29/2023 SCAN Medical Records [address] [place] [address] Abstract, Provider Social History Tobacco Use Types [...] Date/Time Associated Diagnosis Comments OUTSIDE LAB Routine 01/29/2023 documented in this encounter Results * OUTSIDE LAB (01/29/2023) Provider Default LAB documented in this encounter Visit Diagnoses Not on filedocumented in this encounter Care Teams Account Financial Manager Relationship Specialty Start Date End Date Jamshid Lynch PCP - Scientific Publications Editor 04/18/1998 Gaurav Tolbert MD [address] [place] [address] PCP - General Internal Medicine 05/01/19 Honey Mendoza PA-C [address] [place] [address] Specialist Cardiology 12/27/20 Lalo Vega MD [address] [address] Specialist Cardiovascular Disease 07/22/22 documented as of this encounter
--- OUTSIDE RECORDS SUMMARY | 2025-03-22 08:51 | XMS_ITS | Encounter Summary ---
Author Organization [facility] Prior to 02/04/2024 Address [address] [place] [address] Care Team Providers Care Ocean Export Agent Name Role Phone Jamshid Lynch Unavailable Unavailabl e Gaurav Tolbert MD Primary Care Provider [phone] Honey Mendoza PA-C Unavailable Unavailab Lalo Stern MD Unavailable [phone] Encounter Details Date Type Department Care Team Description 06/23/2022 Lumber Marker Report Medical Records [address] [place] [id number] [place] [address] [facility] Tobacco Use Types Packs/Day Years Used Date [...] suspected to have Coronavirus/COVID-19? No / Unsure 06/05/2022 9:31 AM EST documented as of this encounter Plan of Treatment Not on file documented as of this encounter Visit Diagnoses Not on filedocumented in this encounter Care Teams Ocean Export Agent Relationship Specialty Start Date End Date Jamshid Lynch PCP - Principal Programmer 04/18/1998 Gaurav Tolbert MD [address] [place] [address] PCP - General Internal Medicine 05/01/19 Honey Mendoza PA-C 305 [place] [address] Specialist Cardiology 12/27/20 Lalo Vega MD [address] [address] Specialist Cardiovascular Disease 07/22/22 documented as of this encounter
--- OUTSIDE RECORDS SUMMARY | 2025-03-22 08:51 | XMS_ITS | Encounter Summary ---
Author Organization [facility] Prior to 02/04/2024 Address [address] [place] [address] Care Team Providers Care Quarter Section Ironer Name Role Phone Jamshid Lynch Unavailable UnavailGaurav Hess MD Primary Care Provider [phone] Honey Mendoza PA-C Unavailable Unavailab Lalo Stern MD Unavailable [phone] Encounter Details Date Type Department Care Team Description 01/20/2022 SCAN Medical Records [address] [place] [address] Chele Catherine MD [address] [address] Social History Tobacco Use Types Packs/Day Years [...] suspected to have Coronavirus/COVID-19? No / Unsure 12/29/2021 8:30 AM EDT documented as of this encounter Plan of Treatment Not on file documented as of this encounter Procedures Procedure Name Priority Date/Time Associated Diagnosis Comments OUTSIDE LAB Routine 01/20/2022 OUTSIDE LAB Routine 01/20/2022 documented in this encounter Results * OUTSIDE LAB (01/20/2022) Provider Abstract LAB * OUTSIDE LAB (01/20/2022) Provider Abstract LAB documented in this encounter Visit Diagnoses Not on filedocumented in this encounter Care Teams Quarter Section Ironer Relationship Specialty Start Date End Date Jamshid Lynch PCP - Tree Surgeon Helper 04/18/1998 Gaurav Tolbert MD [address] [place] [address] PCP - General Internal Medicine 05/01/19 Honey Mendoza PA-C [address] [place] [address] Specialist Cardiology 12/27/20 Lalo Vega MD 300 [facility] [address] [place] [address] Specialist Cardiovascular Disease 07/22/22 documented as of this encounter
--- OUTSIDE RECORDS SUMMARY | 2025-03-22 08:51 | XMS_ITS | Encounter Summary ---
Author Organization [facility] Prior to 02/04/2024 Address [address] [place] [address] Care Team Providers Care Group Supervisor Yard Name Role Phone LynchJamshid booker Unavailable Unavailabl e Gaurav Tolbert MD Primary Care Provider [phone] Honey Mendoza PA-C Unavailable Unavailab Lalo Stern MD Unavailable [phone] Reason for Visit * Reason Comments E-prescribe Rx Request Encounter Details Date Type Department Care Team Description 01/16/2024 Refill Adult Medicine - [address] [address] Gaurav Tolbert MD [address] [place] [address] E-prescribe Rx Request Social History Tobacco Use [...] encounter Miscellaneous Notes * Telephone Encounter - Aminah Graf MA. - 01/18/2024 8:59 AM EDT Faxed to pharmacy * Telephone Encounter - Mya Mishra M.A. - 01/17/2024 1:03 PM EDT Date of last office visit was 01/10/24. Pended appt for 05/23/24 Lab Results Component Value Date NA 140 06/10/2023 K 4.7 06/10/2023 CO2 28 06/10/2023 CL 107 06/10/2023 BUN 26 06/10/2023 CREAT 1.79 06/10/2023 GLU 229 06/10/2023 CA 9.3 06/10/2023 GFR 33 06/10/2023 * Telephone Encounter - Chiquis Saab - 01/16/2024 2:06 PM EDT Patient would like script to be: E-PRESCRIBED/FAXED TO PHARMACY WHEN WAS THE PATIENT'S LAST APPOINTMENT IN ADULT MEDICINE? 01-10-24 WHEN WAS THE LAST TIME THE PATIENT SAW THEIR PCP? Same as above Does patient have an upcoming appointment? Yes 05-23-24 (THE MEDICATION REQUESTED IS ON THE MED LIST ABOVE) All of the medications requested were on the CURRENT MEDS list Did you check the Pharmacy information above?: NO Patient wants: 30 -day supply Is this a mail order prescription request ? NO If the refill is from a FAXED refill request what is the RX # listed on the fax? N/A Patients current insurance carrier is: Payor: [facility] MCR / Plan: [facility] / Product Type: HMO [id number] documented in this encounter Plan of Treatment Not on file documented as of this encounter Visit Diagnoses Not on filedocumented in this encounter Care Teams Group Supervisor Yard Relationship Specialty Start Date End Date Jamshid Lynch PCP - Hearings Reporter 04/18/1998 Gaurav Tolbert MD [address] [place] [address] PCP - General Internal Medicine 05/01/19 Honey Mendoza, PA-C [address] [place] [address] Specialist Cardiology 12/27/20 Lalo Vega MD 300 [facility] 154 [place] [address] Specialist Cardiovascular Disease 07/22/22 documented as of this encounter
--- OUTSIDE RECORDS SUMMARY | 2025-03-22 08:51 | XMS_ITS | Encounter Summary ---
Author Organization [facility] Prior to 02/04/2024 Address [address] [place] [address] Care Team Providers Care Medical Staff Specialist Name Role Phone Jamshid Lynch Unavailable Unavailabl e Gaurav Tolbert MD Primary Care Provider [phone] Honey Mendoza PA-C Unavailable Unavailab Lalo Stern MD Unavailable [phone] Encounter Details Date Type Department Care Team Description 03/16/2020 Help Desk Support Report Medical Records [address] [place] [address] Clare [place] Social History Tobacco Use Types Packs/Day Years [...] on filedocumented in this encounter Care Teams Medical Staff Specialist Relationship Specialty Start Date End Date Jamshid Lynch PCP - Contact Clerk 04/18/1998 Gaurav Tolbert MD [address] [place] [address] PCP - General Internal Medicine 05/01/19 Honey Mendoza PA-C [address] [place] [address] Specialist Cardiology 12/27/20 Lalo Vega MD 300 [facility] [address] [place] [address] Specialist Cardiovascular Disease 07/22/22 documented as of this encounter
--- OUTSIDE RECORDS SUMMARY | 2025-03-22 08:51 | XMS_ITS | Encounter Summary ---
Author Organization [employer] [facility] Prior to 02/04/2024 Address [address] [place] [address] Care Team Providers Care Bottle Packer Name Role Phone Jamshid Lynch Unavailable UnavailGaurav Hess MD Primary Care Provider [phone] Honey Mendoza PA-C Unavailable Unavailab Lalo Stern MD Unavailable [phone] Encounter Details Date Type Department Care Team Description 05/06/2020 Hospital Medical Records [address] [place] [id number] [place] [address] Social History Tobacco Use Types Packs/Day Years [...] Date/Time Associated Diagnosis Comments OUTSIDE LAB Routine 05/08/2020 OUTSIDE LAB Routine 05/08/2020 OUTSIDE EKG Routine 05/06/[address] Routine 05/06/2020 documented in this encounter Results * OUTSIDE LAB (05/08/2020) Provider Abstract LAB * OUTSIDE LAB (05/08/2020) Provider Abstract LAB * OUTSIDE CT (05/06/2020) Provider Abstract RADIOLOGY * OUTSIDE EKG (05/06/2020) Provider Abstract CARDIOLOGY documented in this encounter Visit Diagnoses Not on filedocumented in this encounter Care Teams Bottle Packer Relationship Specialty Start Date End Date Jamshid Lynch PCP - Dental Laboratory Supervisor 04/18/1998 Gaurav Tolbert MD [address] [place] [address] PCP - General Internal Medicine 05/01/19 Honey Mendoza PA-C [address] [place] [address] Specialist Cardiology 12/27/20 Lalo Vega MD 300 [facility] [address] [place] [address] Specialist Cardiovascular Disease 07/22/22 documented as of this encounter
--- OUTSIDE RECORDS SUMMARY | 2025-03-22 08:51 | XMS_ITS | Encounter Summary ---
Author Organization [facility] Prior to 02/04/2024 Address [address] [place] [address] Care Team Providers Care Hand Screen Printer Name Role Phone Jamshid Lynch Unavailable Unavailabl e Gaurav Tolbert MD Primary Care Provider [phone] Honey Mendoza PA-C Unavailable Unavailab Lalo Stenr MD Unavailable [phone] Encounter Details Date Type Department Care Team Description 06/22/2022 SCAN Medical Records [address] [place] [address] Abstract, Provider Social History Tobacco Use Types [...] on filedocumented in this encounter Care Teams Hand Screen Printer Relationship Specialty Start Date End Date Jamshid Lynch PCP - Exercise Physiology Professor 04/18/1998 Gaurav Tolbert MD [address] [place] [address] PCP - General Internal Medicine 05/01/19 Honey Mendoza PA-C 305 [place] [address] Specialist Cardiology 12/27/20 Lalo Vega MD [address] [address] Specialist Cardiovascular Disease 07/22/22 documented as of this encounter
--- OUTSIDE RECORDS SUMMARY | 2025-03-22 08:51 | XMS_ITS | Encounter Summary ---
Author Organization [facility] [employer] [facility] Prior to 02/04/2024 Address [address] [place] [address] Care Team Providers Care Community Coordinator Name Role Phone Jamshid Lynch Unavailable Unavailabl e Gaurav Tolbert MD Primary Care Provider [phone] Honey Mendoza PA-C Unavailable Unavailab Lalo Stern MD Unavailable [phone] Encounter Details Date Type Department Care Team Description 05/04/2022 Hospital Medical Records [address] [place] [address] Social History Tobacco Use Types Packs/Day Years [...] on filedocumented in this encounter Care Teams Community Coordinator Relationship Specialty Start Date End Date Jamshid Lynch PCP - Photo Editor 04/18/1998 Gaurav Tolbert MD [address] [place] [address] [id number] PCP - General Internal Medicine 05/01/19 Honey Mendoza PA-C [address] [place] [address] Specialist Cardiology 12/27/20 Lalo Vega MD 300 [facility] 154 [place] [address] Specialist Cardiovascular Disease 07/22/22 documented as of this encounter
--- OUTSIDE RECORDS SUMMARY | 2025-03-22 08:51 | XMS_ITS | Encounter Summary ---
Author Organization [facility] [employer] [facility] Prior to 02/04/2024 Address [address] [place] [address] Care Team Providers Care Probation And Parole Officer Name Role Phone Jamshid Lynch Unavailable Unavailabl e Gaurav Tolbert MD Primary Care Provider [phone] Honey Mendoza PA-C Unavailable Unavailab Lalo Stern MD Unavailable [phone] Encounter Details Date Type Department Care Team Description 05/04/2022 Hospital Medical Records [address] [place] [address] Francisco Cm Social History Tobacco Use Types Packs/Day Years [...] on filedocumented in this encounter Care Teams Probation And Parole Officer Relationship Specialty Start Date End Date Jamshid Lynch PCP - Filter Press Tender Head 04/18/1998 Gaurav Tolbert MD [address] [place] [address] PCP - General Internal Medicine 05/01/19 Honey Mendoza PA-C [address] [place] [address] Specialist Cardiology 12/27/20 Lalo Vega MD 300 [facility] 154 [place] [address] Specialist Cardiovascular Disease 07/22/22 documented as of this encounter
--- OUTSIDE RECORDS SUMMARY | 2025-03-22 08:52 | XMS_ITS | Encounter Summary ---
Author Organization [facility] Prior to 02/04/2024 Address [address] [place] [address] Care Team Providers Care Alley Cleaner Name Role Phone Jamshid Lynch Unavailable Unavailabl e Gaurav Tolbert MD Primary Care Provider [phone] Honey Mendoza PA-C Unavailable Unavailab Lalo Stern MD Unavailable [phone] Encounter Details Date Type Department Care Team Description 12/17/2023 Telephone Pulmonology - [place] [address] [phone] Penelope Marin MD [address] [phone] Social History Tobacco Use Types Packs/Day Years [...] on filedocumented in this encounter Care Teams Alley Cleaner Relationship Specialty Start Date End Date Jamshid Lynch PCP - Drug Room Operator 04/18/1998 Gaurav Tolbert MD 305 [place] [address] PCP - General Internal Medicine 05/01/19 Honey Mendoza PA-C 305 [place] [address] Specialist Cardiology 12/27/20 Lalo Vega MD 300 [facility] 154 [place] [address] Specialist Cardiovascular Disease 07/22/22 documented as of this encounter
--- OUTSIDE RECORDS SUMMARY | 2025-03-22 08:52 | XMS_ITS | Encounter Summary ---
Author Organization [facility] Address 100 [facility] 200 [place] [address] Phone Care Team Providers Care Tube Cleaner Name Role Phone Gaurav Bennett Primary Care Provider [phone] Reason for Visit * Reason Comments Med Refill Encounter Details Date Type Department Care Team (Late st Contact Info) Description 05/20/2023 Refill [facility] 100 [facility] 200 [place] [phone] Jez Balbuena MD [address] [place] [address], [address] [address] Long-term drug therapy Social History Tobacco Use [...] therapy documented in this encounter Care Teams Tube Cleaner Relationship Specialty Start Date End Date Gaurav Bennett [address] [place] [address] PCP - General Internal Medicine 03/07/21 documented as of this encounter
--- OUTSIDE RECORDS SUMMARY | 2025-03-22 08:52 | XMS_ITS | Encounter Summary ---
Author Organization Kate [employer] [facility] Prior to 02/04/2024 Address [address] [place] [address] Care Team Providers Care Police Artist Name Role Phone Jamshid Lynch Unavailable Unavailabl e Gaurav Tolbert MD Primary Care Provider [phone] Honey Mendoza PA-C Unavailable Unavailab Lalo Stern MD Unavailable [phone] Encounter Details Date Type Department Care Team Description 05/18/2019 [facility] Medical Records [address] [place] [address] Abstract, Provider Social History Tobacco Use Types [...] on filedocumented in this encounter Care Teams Police Artist Relationship Specialty Start Date End Date Jamshid Lynch PCP - Sales Vice President 04/18/1998 Gaurav Tolbert MD [address] [place] [address] PCP - General Internal Medicine 05/01/19 Honey Mendoza PA-C [address] [place] [address] Specialist Cardiology 12/27/20 Lalo Vega MD 300 [facility] [address] [place] [address] Specialist Cardiovascular Disease 07/22/22 documented as of this encounter
--- OUTSIDE RECORDS SUMMARY | 2025-03-22 08:52 | XMS_ITS | Encounter Summary ---
Author Organization [facility] Prior to 02/04/2024 Address [address] [place] [address] Care Team Providers Care Campaign Advisor Name Role Phone Jamshid Lynch Unavailable Unavailabl e Gaurav Tolbert MD Primary Care Provider [phone] Honey Mendoza PA-C Unavailable Unavailab Lalo Stern MD Unavailable [phone] Encounter Details Date Type Department Care Team Description 11/20/2023 Hospital Medical Records [address] [place] [address] Social History Tobacco Use Types Packs/Day Years [...] on filedocumented in this encounter Care Teams Campaign Advisor Relationship Specialty Start Date End Date Jamshid Lynch PCP - Health Information Specialist 04/18/1998 Gaurav Tolbert MD [address] [place] [address] PCP - General Internal Medicine 05/01/19 Honey Mendoza PA-C [address] [place] [address] Specialist Cardiology 12/27/20 Lalo Vega MD 300 [facility] 154 [place] [address] Specialist Cardiovascular Disease 07/22/22 documented as of this encounter
--- OUTSIDE RECORDS SUMMARY | 2025-03-22 08:52 | XMS_ITS | Encounter Summary ---
Author Organization Kate [employer] [facility] Prior to 02/04/2024 Address [address] [place] [address] Care Team Providers Care Arch Support Maker Name Role Phone Jamshid Lynch Unavailable Unavailabl e Gaurav Tolbert MD Primary Care Provider [phone] Honey Mendoza PA-C Unavailable Unavailab Lalo Stern MD Unavailable [phone] Encounter Details Date Type Department Care Team Description 01/12/2020 [facility] Medical Records [address] [place] [address] Abstract, Provider Social History Tobacco Use Types [...] on filedocumented in this encounter Care Teams Arch Support Maker Relationship Specialty Start Date End Date Jamshid Lynch PCP - Exhibit Display Representative 04/18/1998 Gaurav Tolbert MD [address] [place] [address] PCP - General Internal Medicine 05/01/19 Honey Mendoza PA-C [address] [place] [address] Specialist Cardiology 12/27/20 Lalo Vega MD 300 [facility] [address] [place] [address] Specialist Cardiovascular Disease 07/22/22 documented as of this encounter
--- OUTSIDE RECORDS SUMMARY | 2025-03-22 08:52 | XMS_ITS | Encounter Summary ---
Author Organization [facility] Address [facility] 200 [place] [address] Phone Care Team Providers Care General Store Manager Name Role Phone Gaurav Bennett Primary Care Provider [phone] Reason for Visit * Reason Comments Med Refill Encounter Details Date Type Department Care Team (Late st Contact Info) Description 10/09/2020 Refill [facility] 200 [place] [phone] Capo Dawson MD [address] [place] [address] Social History Tobacco Use Types Packs/Day Years [...] on filedocumented in this encounter Care Teams General Store Manager Relationship Specialty Start Date End Date Gaurav Bennett [address] [place] [address] PCP - General Internal Medicine 03/07/21 documented as of this encounter
--- OUTSIDE RECORDS SUMMARY | 2025-03-22 08:52 | XMS_ITS | Encounter Summary ---
Author Organization Kate [facility] [facility] Prior to 02/04/2024 Address [address] [place] [address] Care Team Providers Care Title Clerk Automobile Name Role Phone Jamshid Lynch Unavailable Unavailabl e Gaurav Tolbert MD Primary Care Provider [phone] Honey Mendoza PA-C Unavailable Unavailab Lalo Stern MD Unavailable [phone] Encounter Details Date Type Department Care Team Description 10/01/2021 Ecology Professor Report Medical Records [address] [place] [address] Harper Stanley MD Social History Tobacco Use [...] suspected to have Coronavirus/COVID-19? No / Unsure 09/09/2021 8:21 AM EDT documented as of this encounter Plan of Treatment Not on file documented as of this encounter Visit Diagnoses Not on filedocumented in this encounter Care Teams Title Clerk Automobile Relationship Specialty Start Date End Date Jamshid Lynch PCP - Brush Clearing Laborer 04/18/1998 Gaurav Tolbert MD [address] [place] [address] PCP - General Internal Medicine 05/01/19 Honey Mendoza PA-C 305 [place] [address] Specialist Cardiology 12/27/20 Lalo Vega MD [address] [address] Specialist Cardiovascular Disease 07/22/22 documented as of this encounter
--- OUTSIDE RECORDS SUMMARY | 2025-03-22 08:52 | XMS_ITS | Encounter Summary ---
Author Organization [employer] [facility] Prior to 02/04/2024 Address [address] [place] [address] Care Team Providers Care Crab Fisher Name Role Phone Jamshid Lynch Unavailable Unavailabl e Gaurav Tolbert MD Primary Care Provider [phone] Honey Mendoza PA-C Unavailable Unavailab Lalo Stern MD Unavailable [phone] Encounter Details Date Type Department Care Team Description 12/25/2023 Waist Pleater Report Medical Records [address] [place] [address] [place] [address], [facility] [address] [place], [place] [phone] Social History Tobacco Use Types Packs/Day Years [...] on filedocumented in this encounter Care Teams Crab Fisher Relationship Specialty Start Date End Date Jamshid Lynch PCP - Machine Woodworking Sander 04/18/1998 Gaurav Tolbert MD 305 [place] [address] PCP - General Internal Medicine 05/01/19 Honey Mendoza PA-C 305 [place] [address] Specialist Cardiology 12/27/20 Lalo Vega MD 300 [facility] 154 [place] [address] Specialist Cardiovascular Disease 07/22/22 documented as of this encounter
--- OUTSIDE RECORDS SUMMARY | 2025-03-22 08:52 | XMS_ITS | Encounter Summary ---
Author Organization [facility] Prior to 02/04/2024 Address [address] [place] [address] Care Team Providers Care Compound Coating Machine Offbearer Name Role Phone LynchJamshid booker Unavailable UnavailGaurav Hess MD Primary Care Provider [phone] Honey Mendoza PA-C Unavailable Unavailab Lalo Stern MD Unavailable [phone] Reason for Visit * Reason Onset Date Comments other 02/18/2021 Discharge paperw ork Encounter Details Date Type Department Care Team Description 02/18/2021 Telephone Adult Medicine [address] [address] Gaurav Tolbert MD [address] [place] [address] other (Discharge paperwork) Social History Tobacco Use Types Packs/Day Years [...] have Coronavirus / COVID-19? No / Unsure 01/27/2021 7:52 AM EDT documented as of this encounter Miscellaneous Notes * Telephone Encounter - Fadumo Francois - 02/18/2021 10:22 AM EST Patient's discharge paperwork has been placed in provider box. documented in this encounter Plan of Treatment Not on file documented as of this encounter Visit Diagnoses Not on filedocumented in this encounter Care Teams Compound Coating Machine Offbearer Relationship Specialty Start Date End Date Jamshid Lynch PCP - Credit Verification Clerk 04/18/1998 Gaurav Tolbert MD [address] [place] [address] PCP - General Internal Medicine 05/01/19 Honey Mendoza PA-C [address] [place] [address] Specialist Cardiology 12/27/20 Lalo Vega MD 300 [facility] [address] [place] [address] Specialist Cardiovascular Disease 07/22/22 documented as of this encounter
--- OUTSIDE RECORDS SUMMARY | 2025-03-22 08:52 | XMS_ITS | Encounter Summary ---
Author Organization [facility] Address [facility] [address] [place] [address] Phone Care Team Providers Care Script Manager Name Role Phone Gaurav Bennett Primary Care Provider [phone] Reason for Visit * Reason Comments Med Refill Encounter Details Date Type Department Care Team (Late st Contact Info) Description 02/25/2021 Refill [facility] [address] [place] [phone] Capo Dawson MD [address] [place] [address] Social History Tobacco Use Types Packs/Day Years [...] on filedocumented in this encounter Care Teams Script Manager Relationship Specialty Start Date End Date Gaurav Bennett [address] [place] [address] PCP - General Internal Medicine 03/07/21 documented as of this encounter
--- OUTSIDE RECORDS SUMMARY | 2025-03-22 08:52 | XMS_ITS | Encounter Summary ---
Author Organization [facility] Address 100 [facility] [address] [place] [address] Phone Care Team Providers Care Beta Tester Name Role Phone Gaurav Bennett Primary Care Provider [phone] Reason for Visit * Reason Comments Med Refill Encounter Details Date Type Department Care Team (Late st Contact Info) Description 11/28/2021 Refill [facility] 100 [facility] [address] [place] [phone] Capo Dawson MD [address] [place] [address] Social History Tobacco Use Types Packs/Day Years [...] on filedocumented in this encounter Care Teams Beta Tester Relationship Specialty Start Date End Date Gaurav Bennett [address] [place] [address] PCP - General Internal Medicine 03/07/21 documented as of this encounter
--- OUTSIDE RECORDS SUMMARY | 2025-03-22 08:52 | XMS_ITS | Encounter Summary ---
Author Organization [facility] Prior to 02/04/2024 Address [address] [place] [address] Care Team Providers Care Qa Intern Name Role Phone Jamshid Lynch Unavailable Unavailabl e Gaurav Tolbert MD Primary Care Provider [phone] Honey Mendoza PA-C Unavailable Unavailab Lalo Stern MD Unavailable [phone] Encounter Details Date Type Department Care Team Description 06/08/2023 Assistant Scientist Report Medical Records [address] [place] [address] Capo Dawson MD Social History Tobacco Use [...] on filedocumented in this encounter Care Teams Qa Intern Relationship Specialty Start Date End Date Jamshid Lynch PCP - Watch Assembler 04/18/1998 Gaurav Tolbert MD [address] [place] [address] PCP - General Internal Medicine 05/01/19 Honey Mendoza PA-C [address] [place] [address] Specialist Cardiology 12/27/20 Lalo Vega MD 300 [facility] [address] [place] [address] Specialist Cardiovascular Disease 07/22/22 documented as of this encounter
--- OUTSIDE RECORDS SUMMARY | 2025-03-22 08:52 | XMS_ITS | Encounter Summary ---
Author Organization [facility] Address 100 [facility] 200 [place] [address] Phone Care Team Providers Care Fork Lift Mechanic Name Role Phone Gaurav Bennett Primary Care Provider [phone] Reason for Visit * Reason Comments Med Refill Encounter Details Date Type Department Care Team ([facility] st Contact Info) Description 06/15/2022 Refill [facility] 100 [facility] 200 [place] [phone] Blu Montero MD 35[address] [facility] [address] [place] [phone] Social History Tobacco Use Types Packs/Day Years [...] on filedocumented in this encounter Care Teams Fork Lift Mechanic Relationship Specialty Start Date End Date Gaurav Bennett [address] [place] [id number] PCP - General Internal Medicine 03/07/21 documented as of this encounter
--- OUTSIDE RECORDS SUMMARY | 2025-03-22 08:52 | XMS_ITS | Encounter Summary ---
Author Organization [facility] Prior to 02/04/2024 Address [address] [place] [address] Care Team Providers Care Mechatronics Technician Name Role Phone Jamshid Lynch Unavailable UnavailGaurav Hess MD Primary Care Provider [phone] Honey Mendoza PA-C Unavailable Unavailab Lalo Stern MD Unavailable [phone] Reason for Visit * Reason Onset Date Comments Hospital Procedure 12/29/2021 Encounter Details Date Type Department Care Team Description 12/29/2021 Telephone Vascular Surgery - [address] [place] [phone] Chele Catherine MD [address] [address] Hospital Procedure Social History Tobacco Use Types Packs/Day Years [...] encounter Miscellaneous Notes * Telephone Encounter - Saima Walton - 01/08/2022 11:20 AM EDT Prior auth has been submitted * Telephone Encounter - Yoanna Huffman - 01/02/2022 10:42 AM EDT Spoke with patient. Apt booked for 01/20. Please send booking sheet and process PA * Telephone Encounter - Alex Birmingham M.A. - 12/29/2021 8:55 AM EDT Left subclavian angiogram documented in this encounter Plan of Treatment Not on file documented as of this encounter Visit Diagnoses Not on filedocumented in this encounter Care Teams Mechatronics Technician Relationship Specialty Start Date End Date Jamshid Lynch PCP - Human Services Professional 04/18/1998 Gaurav Tolbert MD [address] [place] [address] PCP - General Internal Medicine 05/01/19 Honey Mendoza PA-C [address] [place] [address] Specialist Cardiology 12/27/20 Lalo Vega MD 300 [facility] [address] [place] [address] Specialist Cardiovascular Disease 07/22/22 documented as of this encounter
--- OUTSIDE RECORDS SUMMARY | 2025-03-22 08:52 | XMS_ITS | Clinical Summary ---
Author Organization [facility] Address 100 [facility] 20 [address] [place] [address] Phone Care Team Providers Care Bottle House Pumper Name Role Phone Yordanlucy Gaurav Primary Care Provider [phone] Allergies Active Allergy Reactions Criticality Noted Date [...] BEDTIME. 07/28/19 22 Active ergocalciferol 1.25 MG (37842 UT) capsule TAKE ONE CAPSULE BY MOUTH [...] AM EST) Hemoglobin A1C 9.3(H) (4.0-5.6) % [employer] Comment: MONITORING: In known diabetic patients, hemoglobin A1c targets should be discussed with health care provider. DIAGNOSTIC USE: The [place] Diabetes Association (ADA) and the World Health [...] Supplement 1 Testing performed or reported by [facility], a Service of [facility], [address] [place] [address] Hector Swain MD, Layout Mechanic [facility]# [id number] Blood specimen (specimen) Venous blood / Unknown 05/07/2022 10:26 AM EST 05/07/2022 10:38 AM EST Harper Stanley MD LAB BLOOD ORDERABLES Final Resu lt [facility] from Last 3 Months or Most Recently Relevant to Health Maintenance Insurance [facility] Erhard MCR ([id number]) [facility] Dual SNP ([id number]) Care Teams Bottle House Pumper Relationship Specialty Start Date End Date Gaurav Bennett [address] [place] [address] PCP - General Internal Medicine 03/07/21
--- OUTSIDE RECORDS SUMMARY | 2025-03-22 08:53 | XMS_ITS | Encounter Summary ---
Author Organization [facility] Prior to 02/04/2024 Address [address] [place] [address] Care Team Providers Care Sheet Metal Erector Name Role Phone Jamshid Lynch Unavailable Unavailabl e Gaurav Tolbert MD Primary Care Provider [phone] Honey Mendoza PA-C Unavailable Unavailab Lalo Stern MD Unavailable [phone] Encounter Details Date Type Department Care Team Description 08/13/2021 Emt B Report Medical Records [address] [place] [address] Jez Balbuena MD Social History Tobacco Use Types Packs/Day [...] on filedocumented in this encounter Care Teams Sheet Metal Erector Relationship Specialty Start Date End Date Jamshid Lynch PCP - Lumpia Wrapper Maker 04/18/1998 Gaurav Tolbert MD [address] [place] [address] PCP - General Internal Medicine 05/01/19 Honey Mendoza PA-C [address] [place] [address] Specialist Cardiology 12/27/20 Lalo Vega MD 300 [facility] [address] [place] [address] Specialist Cardiovascular Disease 07/22/22 documented as of this encounter
--- OUTSIDE RECORDS SUMMARY | 2025-03-22 08:53 | XMS_ITS | Encounter Summary ---
Author Organization [facility] Prior to 02/04/2024 Address [address] [place] [address] Care Team Providers Care Baby Formula Worker Name Role Phone Jamshid Lynch Unavailable Unavailabl Gaurav Adrian MD Primary Care Provider [phone] Honey Mendoza PA-C Unavailable Unavailab Lalo Stern MD Unavailable [phone] Reason for Visit * Reason Comments E-prescribe Rx Request Encounter Details Date Type Department Care Team Description 08/02/2021 Refill Adult Medicine [address] [address] Durga Leyva PA-C E-prescribe Rx Request Social History Tobacco [...] encounter Miscellaneous Notes * Telephone Encounter - Percy Manjarrez M.A. - 08/04/2021 2:10 PM EDT Last office visit 03.05.22 Lab Results Component Value Date NA 135 12/19/2005 K 4.2 12/19/2005 CO2 30.2 12/19/2005 CL 94 12/19/2005 BUN 11 12/19/2005 CREAT 0.5 12/19/2005 GLU 409 06/16/2006 CA 9.3 12/19/2005 GFR > 60 12/19/2005 * Telephone Encounter - [place] Alfred Goode - 08/04/2021 11:22 AM EDT Patient would like script to be: E-PRESCRIBED/FAXED TO PHARMACY WHEN WAS THE PATIENT'S LAST APPOINTMENT IN ADULT MEDICINE? 03/05/2021 WHEN WAS THE LAST TIME THE PATIENT SAW THEIR PCP? Same as above Does patient have an upcoming appointment? No, sent letter to request med review (THE MEDICATION REQUESTED IS ON THE MED [...] N/A Patients current insurance carrier is: Payor: [facility] MCR / Plan: [facility] / Product Type: HMO [id number] documented in this encounter Plan of Treatment Not on file documented as of this encounter Visit Diagnoses Not on filedocumented in this encounter Care Teams Baby Formula Worker Relationship Specialty Start Date End Date Jamshid Lynch PCP - Regional Intermodal Truck Driver 04/18/1998 Gaurav Tolbert MD [address] [place] [address] PCP - General Internal Medicine 05/01/19 Honey Mendoza PA-C [address] [place] [address] Specialist Cardiology 12/27/20 Lalo Vega MD 300 [facility] [address] [place] [address] Specialist Cardiovascular Disease 07/22/22 documented as of this encounter
--- OUTSIDE RECORDS SUMMARY | 2025-03-22 08:53 | XMS_ITS | Encounter Summary ---
Author Organization [facility] Prior to 02/04/2024 Address [address] [place] [address] Care Team Providers Care Air And Water Tester Name Role Phone Jamshid Lynch Unavailable Unavailabl e Gaurav Tolbert MD Primary Care Provider [phone] Honey Mendoza PA-C Unavailable Unavailab Lalo Stern MD Unavailable [phone] Encounter Details Date Type Department Care Team Description 05/19/2021 Applications Consultant Report Medical Records [address] [place] [id number] [place] [address] [facility] Tobacco Use Types Packs/Day Years Used Date [...] filedocumented in this encounter Care Teams Air And Water Tester Relationship Specialty Start Date End Date Jamshid Lynch PCP - Intermodal Dispatcher 04/18/1998 Gaurav Tolbert MD [address] [place] [address] PCP - General Internal Medicine 05/01/19 Honey Mendoza PA-C [address] [place] [address] Specialist Cardiology 12/27/20 Lalo Vega MD 300 [facility] [address] [place] [address] Specialist Cardiovascular Disease 07/22/22 documented as of this encounter
--- OUTSIDE RECORDS SUMMARY | 2025-03-22 08:53 | XMS_ITS | Encounter Summary ---
Author Organization [email or web address] [facility] Prior to 02/04/2024 Address [address] [place] [address] Care Team Providers Care Dumping Machine Operator Name Role Phone Jamshid Lynch Unavailable Unavailabl e Gaurav Tolbert MD Primary Care Provider [phone] Honey Mendoza PA-C Unavailable Unavailab Laol Stern MD Unavailable [phone] Encounter Details Date Type Department Care Team Description 04/01/2023 SCAN Medical Records [address] [place] [address] Abstract, Provider Social History Tobacco Use Types [...] Date/Time Associated Diagnosis Comments OUTSIDE LAB Routine 04/01/2023 documented in this encounter Results * OUTSIDE LAB (04/01/2023) Provider Default LAB documented in this encounter Visit Diagnoses Not on filedocumented in this encounter Care Teams Dumping Machine Operator Relationship Specialty Start Date End Date Jamshid Lynch PCP - Insulation Packer 04/18/1998 Gaurav Tolbert MD [address] [place] [address] PCP - General Internal Medicine 05/01/19 Honey Mendoza PA-C [address] [place] [address] Specialist Cardiology 12/27/20 Lalo Vega MD [address] [address] Specialist Cardiovascular Disease 07/22/22 documented as of this encounter
--- OUTSIDE RECORDS SUMMARY | 2025-03-22 08:53 | XMS_ITS | Encounter Summary ---
Author Organization [facility] Prior to 02/04/2024 Address [address] [place] [address] Care Team Providers Care Showroom Sales Consultant Name Role Phone Jamshid Lynch Unavailable Unavailabl e Tobias Nuñez MD Primary Care Provider Unavaila Gaurav Gatica MD Primary Care Provider [phone] Honey Mendoza PA-C Unavailable Unavailab Lalo Stern MD Unavailable [phone] Encounter Details Date Type Department Care Team Description 11/02/2018 Laborer High Density Press Report Medical Records [address] [place] [address] Zeyad Ugalde Social History Tobacco Use Types Packs/Day Years [...] on filedocumented in this encounter Care Teams Showroom Sales Consultant Relationship Specialty Start Date End Date Jamshid Lynch PCP - Brazer Crawler Torch 04/18/1998 Tobias Nuñez MD PCP - General Internal Medicine 02/19/18 04/30/19 Gaurav Tolbert MD [address] [place] [address] PCP - General Internal Medicine 05/01/19 Honey Mendoza PA-C [address] [place] [address] Specialist Cardiology 12/27/20 Lalo Vega MD [address] [address] Specialist Cardiovascular Disease 07/22/22 documented as of this encounter
--- OUTSIDE RECORDS SUMMARY | 2025-03-22 08:53 | XMS_ITS | Encounter Summary ---
Author Organization [facility] Prior to 02/04/2024 Address [address] [place] [address] Care Team Providers Care Film Sound Coordinator Name Role Phone Jamshid Lynch Unavailable UnavailGaurav Hess MD Primary Care Provider [phone] Honey Mendoza PA-C Unavailable Unavailab Lalo Stern MD Unavailable [phone] Encounter Details Date Type Department Care Team Description 04/08/2023 Hospital Medical Records [address] [place] [id number] [place] [address] Social History Tobacco Use Types Packs/Day Years [...] Name Priority Date/Time Associated Diagnosis Comments OUTSIDE CARDIAC CATH Routine 04/08/2023 OUTSIDE EKG Routine 04/08/2023 documented in this encounter Results * OUTSIDE EKG (04/08/2023) Provider Abstract CARDIOLOGY * OUTSIDE CARDIAC CATH (04/08/2023) Provider Abstract CARDIOLOGY documented in this encounter Visit Diagnoses Not on filedocumented in this encounter Care Teams Film Sound Coordinator Relationship Specialty Start Date End Date Jamshid Lynch PCP - Inbound Call Center Representative 04/18/1998 Gaurav Tolbert MD [address] [place] [address] PCP - General Internal Medicine 05/01/19 Honey Mendoza PA-C [address] [place] [address] Specialist Cardiology 12/27/20 Lalo Vega MD 300 [facility] [address] [place] [address] Specialist Cardiovascular Disease 07/22/22 documented as of this encounter
--- OUTSIDE RECORDS SUMMARY | 2025-03-22 08:53 | XMS_ITS | Encounter Summary ---
Author Organization [facility] Prior to 02/04/2024 Address [address] [place] [address] Care Team Providers Care Research Psychologist Name Role Phone Jamshid Lynch Unavailable Unavailabl e Gaurav Tolbert MD Primary Care Provider [phone] Honey Mendoza PA-C Unavailable Unavailab Lalo Stern MD Unavailable [phone] Encounter Details Date Type Department Care Team Description 12/11/2020 Ticket Maker Report Medical Records [address] [place] [address] Abstract, Provider Social History Tobacco Use Types [...] have Coronavirus / COVID-19? No / Unsure 11/29/2020 1:23 PM EDT documented as of this encounter Plan of Treatment Not on file documented as of this encounter Visit Diagnoses Not on filedocumented in this encounter Care Teams Research Psychologist Relationship Specialty Start Date End Date Jamshid Lynch PCP - Fashion Director 04/18/1998 Gaurav Tolbert MD [address] [place] [address] PCP - General Internal Medicine 05/01/19 Honey Mendoza PA-C [address] [place] [address] Specialist Cardiology 12/27/20 Lalo Vega MD [address] [address] Specialist Cardiovascular Disease 07/22/22 documented as of this encounter
--- OUTSIDE RECORDS SUMMARY | 2025-03-22 08:53 | XMS_ITS | Encounter Summary ---
Author Organization [facility] Prior to 02/04/2024 Address [address] [place] [address] Care Team Providers Care Health Insurance Assessor Name Role Phone Jamshid Lynch Unavailable Unavailabl e Gaurav Tolbert MD Primary Care Provider [phone] Honey Mendoza PA-C Unavailable Unavailab Lalo Stern MD Unavailable [phone] Encounter Details Date Type Department Care Team Description 08/23/2019 Hydraulic Jack Adjuster Report Medical Records [address] [place] [address] Lalo Vega MD [address] [address] Social History Tobacco Use Types Packs/Day Years [...] on filedocumented in this encounter Care Teams Health Insurance Assessor Relationship Specialty Start Date End Date Jamshid Lynch PCP - Neuro Intensivist Physician 04/18/1998 Gaurav Tolbert MD [address] [place] [address] PCP - General Internal Medicine 05/01/19 Honey Mendoza PA-C [address] [place] [address] Specialist Cardiology 12/27/20 Lalo Vega MD [address] [address] Specialist Cardiovascular Disease 07/22/22 documented as of this encounter
--- OUTSIDE RECORDS SUMMARY | 2025-03-22 08:53 | XMS_ITS | Encounter Summary ---
Author Organization [facility] [facility] Prior to 02/04/2024 Address [address] [place] [address] Care Team Providers Care Out Of School Hours Care Worker Name Role Phone Jamshid Lynch Unavailable Unavailabl e Gaurav Tolbert MD Primary Care Provider [phone] Honey Mendoza PA-C Unavailable Unavailab Lalo Stern MD Unavailable [phone] Encounter Details Date Type Department Care Team Description 06/10/2021 Middle School Director Report Medical Records [address] [place] [address] Blu Montero MD Social History Tobacco Use Types Packs/Day [...] on filedocumented in this encounter Care Teams Out Of School Hours Care Worker Relationship Specialty Start Date End Date Jamshid Lynch PCP - Director Instructional Material 04/18/1998 Gaurav Tolbert MD [address] [place] [address] PCP - General Internal Medicine 05/01/19 Honey Mendoza PA-C [address] [place] [address] Specialist Cardiology 12/27/20 Lalo Vega MD 300 [facility] [address] [place] [address] Specialist Cardiovascular Disease 07/22/22 documented as of this encounter
--- OUTSIDE RECORDS SUMMARY | 2025-03-22 08:53 | XMS_ITS | Encounter Summary ---
Author Organization [facility] Prior to 02/04/2024 Address [address] [place] [address] Care Team Providers Care Natural Sciences Manager Name Role Phone Jamshid Lynch Unavailable Unavailabl e Tobias Nuñez MD Primary Care Provider Unavaila Gaurav Gatica MD Primary Care Provider [phone] Honye Mendoza PA-C Unavailable Unavailab Lalo Stern MD Unavailable [phone] Encounter Details Date Type Department Care Team Description 11/03/2018 [facility] Medical Records [address] [place] [address] Abstract, Provider Social History Tobacco Use Types [...] on filedocumented in this encounter Care Teams Natural Sciences Manager Relationship Specialty Start Date End Date Jamshid Lynch PCP - Rehabilitation Technician 04/18/1998 Tobias Nuñez MD PCP - General Internal Medicine 02/19/18 04/30/19 Gaurav Tolbert MD [address] [place] [address] PCP - General Internal Medicine 05/01/19 Honey Mendoza PA-C [address] [place] [address] Specialist Cardiology 12/27/20 Lalo Vega MD [address] [address] Specialist Cardiovascular Disease 07/22/22 documented as of this encounter
--- OUTSIDE RECORDS SUMMARY | 2025-03-22 08:53 | XMS_ITS | Encounter Summary ---
Author Organization [facility] Prior to 02/04/2024 Address [address] [place] [address] Care Team Providers Care Acid Pump Operator Name Role Phone Jamshid Lynch Unavailable Unavailabl e Tobias Nuñez MD Primary Care Provider Unavaila Gaurav Gatica MD Primary Care Provider [phone] Honey Mendoza PA-C Unavailable Unavailab Lalo Stern MD Unavailable [phone] Encounter Details Date Type Department Care Team Description 10/27/2018 Inspector Weights And Measures Report Medical Records [address] [place] [address] Allie Narayanan NP Social History Tobacco Use [...] on filedocumented in this encounter Care Teams Acid Pump Operator Relationship Specialty Start Date End Date Jamshid Lynch PCP - Bridge Contractor 04/18/1998 Tobias Nuñez MD PCP - General Internal Medicine 02/19/18 04/30/19 Gaurav Tolbert MD [address] [place] [address] PCP - General Internal Medicine 05/01/19 Honey Mendoza PA-C [address] [place] [address] Specialist Cardiology 12/27/20 Lalo Vega MD 300 [facility] [address] [place] [address] Specialist Cardiovascular Disease 07/22/22 documented as of this encounter
--- OUTSIDE RECORDS SUMMARY | 2025-03-22 08:53 | XMS_ITS | Encounter Summary ---
Author Organization [facility] Prior to 02/04/2024 Address [address] [place] [address] Care Team Providers Care Stock Associate Name Role Phone Jamshid Lynch Unavailable UnavailGaurav Hess MD Primary Care Provider [phone] Honey Mendoza PA-C Unavailable Unavailab Lalo Stern MD Unavailable [phone] Encounter Details Date Type Department Care Team Description 12/11/2020 SCAN Medical Records [address] [place] [id number] Abstract, Provider Social History Tobacco Use Types [...] Date/Time Associated Diagnosis Comments OUTSIDE LAB Routine 12/11/2020 documented in this encounter Results * OUTSIDE LAB (12/11/2020) Provider Default LAB documented in this encounter Visit Diagnoses Not on filedocumented in this encounter Care Teams Stock Associate Relationship Specialty Start Date End Date Jamshid Lynch PCP - Data Clerk 04/18/1998 Gaurav Tolbert MD [address] [place] [address] PCP - General Internal Medicine 05/01/19 Honey Mendoza PA-C [address] [place] [address] Specialist Cardiology 12/27/20 Lalo Vega MD 300 [facility] [address] [place] [address] Specialist Cardiovascular Disease 07/22/22 documented as of this encounter
--- OUTSIDE RECORDS SUMMARY | 2025-03-22 08:53 | XMS_ITS | Encounter Summary ---
Author Organization [facility] [employer] [facility] Prior to 02/04/2024 Address [address] [place] [address] Care Team Providers Care Lead Sustainability Specialist Name Role Phone Jamshid Lynch Unavailable UnavailGaurav Hess MD Primary Care Provider [phone] Honey Mendoza PA-C Unavailable Unavailab Lalo Stern MD Unavailable Encounter Details Date Type Department Care Team Description 09/29/2019 Telephone Vascular Surgery - [place] [address] [facility] [address] [place] [phone] Dhara Bardales PA-C 300 [facility] [address] [place] [phone] Social History Tobacco Use Types Packs/Day [...] encounter Miscellaneous Notes * Telephone Encounter - Linda Sanabria - 09/29/2019 1:33 PM EDT PT HAS BEEN SCREENED FOR COVID-19 documented in this encounter Plan of Treatment Not on file documented as of this encounter Visit Diagnoses Not on filedocumented in this encounter Care Teams Lead Sustainability Specialist Relationship Specialty Start Date End Date Jamshid Lynch PCP - Stakeholder Manager 04/18/1998 Gaurav Tolbert MD [address] [place] [address] PCP - General Internal Medicine 05/01/19 Honey Mendoza PA-C [address] [place] [address] Specialist Cardiology 12/27/20 Lalo Vega MD 300 [facility] [address] [place] [address] Specialist Cardiovascular Disease 07/22/22 documented as of this encounter
--- OUTSIDE RECORDS SUMMARY | 2025-03-22 08:55 | XMS_ITS | Encounter Summary ---
Author Organization [facility] [employer] [facility] Prior to 02/04/2024 Address [address] [place] [address] Care Team Providers Care Wallet Assembler Name Role Phone Jamshid Lynch Unavailable Unavailabl e Tobias Nuñez MD Primary Care Provider Unavaila Gaurav Gatica MD Primary Care Provider [phone] Honey Mendoza PA-C Unavailable Unavailab Lalo Stern MD Unavailable [phone] Encounter Details Date Type Department Care Team Description 02/23/2019 Hoop Maker Helper Machine Report Medical Records [address] [place] [address] Social History Tobacco Use Types Packs/Day Years [...] on filedocumented in this encounter Care Teams Wallet Assembler Relationship Specialty Start Date End Date Jamhsid Lynch PCP - Linoleum Mechanic 04/18/1998 Tobias Nuñez MD PCP - General Internal Medicine 02/19/18 04/30/19 Gaurav Tolbert MD [address] [place] [address] PCP - General Internal Medicine 05/01/19 Honey Mendoza PA-C [address] [place] [address] Specialist Cardiology 12/27/20 Lalo Vega MD [address] [address] Specialist Cardiovascular Disease 07/22/22 documented as of this encounter
--- OUTSIDE RECORDS SUMMARY | 2025-03-22 08:55 | XMS_ITS | Encounter Summary ---
Author Organization [facility] Prior to 02/04/2024 Address [address] [place] [address] Care Team Providers Care E Commerce Strategist Name Role Phone Jamshid Lynch Unavailable Unavailabl e Tobias Nuñez MD Primary Care Provider Unavaila Gaurav Gatica MD Primary Care Provider [phone] Honey Mendoza PA-C Unavailable Unavailab Lalo Stern MD Unavailable [phone] Encounter Details Date Type Department Care Team Description 03/28/2019 Telegraph Mechanic Report Medical Records [address] [place] [address] Kaci Martínez PA-C Social History Tobacco Use Types Packs/Day Years [...] on filedocumented in this encounter Care Teams E Commerce Strategist Relationship Specialty Start Date End Date Jamshid Lynch PCP - Snow Plow Operator 04/18/1998 Tobias Nuñez MD PCP - General Internal Medicine 02/19/18 04/30/19 Gaurav Tolbert MD [address] [place] [address] PCP - General Internal Medicine 05/01/19 Honey Mendoza PA-C [address] [place] [address] Specialist Cardiology 12/27/20 Lalo Vega MD 300 [facility] [address] [place] [address] Specialist Cardiovascular Disease 07/22/22 documented as of this encounter
--- OUTSIDE RECORDS SUMMARY | 2025-03-22 08:55 | XMS_ITS | Encounter Summary ---
Author Organization [facility] [employer] [facility] Prior to 02/04/2024 Address [address] [place] [address] Care Team Providers Care Camp Nurse Name Role Phone Jamshid Lynch Unavailable UnavailGaurav Hess MD Primary Care Provider [phone] Honey Mendoza PA-C Unavailable Unavailab Lalo Stern MD Unavailable [phone] Encounter Details Date Type Department Care Team Description 12/27/2020 Telephone Cardio PVC [address] [address] [facility] [address] [place] [address] Honey Mendoza PA-C Social History Tobacco Use Types Packs/Day [...] have Coronavirus / COVID-19? No / Unsure 12/27/2020 8:51 AM EDT documented as of this encounter Miscellaneous Notes * Telephone Encounter - Maya Gómez - 12/30/2020 4:05 PM EDT Spoke with pt, aware that dobutamine stress echo is not needed. * Telephone Encounter - Honey Mendoza PA-C - 12/30/2020 4:02 PM EDT Can you let the pt know that we dont need to do the dobutamine stress echo and I will let diagnostic testing know to not schedule/cancel * Telephone Encounter - Maya Gómez - 12/30/2020 3:46 PM EDT Spoke with Dayanara Gamez from [facility] ([phone]), states that pt does not need dobutamine stress echo unless the cardiology provider thought it was necessary. Pt just needed clearance. * Telephone Encounter - Ashvin Reed C.M.A. - 12/27/2020 4:[address] Dawson's- voice over announcer * Telephone Encounter - Honey Mendoza PA-C - 12/27/2020 12:28 PM EDT Can you call [facility] and ask if Bridget needs another dobutamine stress echo to stay onthe transplant list? documented in this encounter Plan of Treatment Not on file documented as of this encounter Visit Diagnoses Not on filedocumented in this encounter Care Teams Camp Nurse Relationship Specialty Start Date End Date Jamshid Lynch PCP - Digital Strategist Senior Manager 04/18/1998 Gaurav Tolbert MD [address] [place] [address] PCP - General Internal Medicine 05/01/19 Honey Mendoza PA-C [address] [place] [address] Specialist Cardiology 9/24/21 Lalo Vega MD 300 [facility] [address] [place] [address] Specialist Cardiovascular Disease 07/22/22 documented as of this encounter
--- OUTSIDE RECORDS SUMMARY | 2025-03-22 08:55 | XMS_ITS | Encounter Summary ---
Author Organization [facility] Prior to 02/04/2024 Address [address] [place] [address] Care Team Providers Care Container Filler Name Role Phone Jamshid Lynch Unavailable Unavailabl e Tobias Nuñez MD Primary Care Provider Unavaila Gaurav Gatica MD Primary Care Provider [phone] Honey Mendoza PA-C Unavailable Unavailab Lalo Stern MD Unavailable Encounter Details Date Type Department Care Team Description 11/25/2018 Equipment Installation Professional Report Medical Records [address] [place] [address] Kaci Martínez PA-C Social History Tobacco Use [...] on filedocumented in this encounter Care Teams Container Filler Relationship Specialty Start Date End Date Jamshid Lynch PCP - Engineering Designer 04/18/1998 Tobias Nuñez MD PCP - General Internal Medicine 02/19/18 04/30/19 Gaurav Tolbert MD [address] [place] [address] PCP - General Internal Medicine 05/01/19 Honey Mendoza PA-C [address] [place] [address] Specialist Cardiology 12/27/20 Lalo Vega MD 300 [facility] [address] [place] [address] Specialist Cardiovascular Disease 07/22/22 documented as of this encounter
--- OUTSIDE RECORDS SUMMARY | 2025-03-22 08:55 | XMS_ITS | Encounter Summary ---
Author Organization [facility] Prior to 02/04/2024 Address [address] [place] [address] Care Team Providers Care Security Shift Manager Name Role Phone Jamshid Lynch Unavailable Unavailabl e Gaurav Tolbert MD Primary Care Provider [phone] Honey Mendoza PA-C Unavailable Unavailab Lalo Stern MD Unavailable [phone] Encounter Details Date Type Department Care Team Description 02/17/2021 Hospital Medical Records [address] [place] [address] Social History Tobacco Use Types Packs/Day Years [...] on filedocumented in this encounter Care Teams Security Shift Manager Relationship Specialty Start Date End Date Jamshid Lynch PCP - Sewing Trimmer 04/18/1998 Gaurav Tolbert MD [address] [place] [address] PCP - General Internal Medicine 05/01/19 Honey Mendoaz PA-C [address] [place] [address] Specialist Cardiology 12/27/20 Lalo Vega MD 300 [facility] [address] [place] [address] Specialist Cardiovascular Disease 07/22/22 documented as of this encounter
--- OUTSIDE RECORDS SUMMARY | 2025-03-22 08:55 | XMS_ITS | Clinical Summary ---
Author Organization Patient Business Ser [facility] Address [address] [place] [address] Care Team Providers Care Incident Response Analyst Name Role Phone Debra Hills MD Primary Care Provider [phone] Allergies Active Allergy Reactions Criticality Noted Date [...] 5 02/23/20 25 Discontin ued(Dose adjustmen t) Hospital, Clinic, or Other Facility Administered Medication Ordered Dose Route Frequency Start Date End Date Status triamcinolone acetonide (KENALOG-40) 40 mg/mL injection 40 mgIndications:Arthriti s of carpometacarpal (CMC) joint of left thumb 40 mg Once PRN Procedure 02/27/2025 02/27/2025 Ended Active Problems Problem Noted Date Diagnosed Date Arthritis of carpometacarpal (CMC) joint of left thumb 03/01/2025 Dupuytren's contracture 12/18/2024 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 Patient does complain of shortness of breath. Recent echocardiogram stable. Cardiac catheterization as outlined above without obstructive disease. She was encouraged to follow-up with her global marketing specialist for further evaluation. Orders: Pulmonary function testing: [...] renal manifestatio ns 03/17/2005 Assessment & Plan (11/15/2024 1:00 PM [...] Encounters Date Type Department Care Team Description 03/13/2025 Telephone Internal Medicine - [facility] [address] [place] [address] Debra Hills MD 03/13/2025 Telephone Internal Medicine - [facility] [address] [place] [address] Debra Hills MD 03/09/2025 Telephone Internal Medicine - [facility] [address] [place] [address] Debra Hills MD 02/27/2025 10:45 AM EST Office Visit Orthopedic Surgery - [place] 175 [facility] [address] [place] [phone] Chandni Angulo MD Arthritis of carpometacarpal (CMC) joint of left thumb (Primary Dx) 02/22/2025 10:40 AM EST Office Visit [facility] 154 300 [facility] 154 [place] [phone] Rolanda Armstrong NP Hypertension, unspecified type (Primary Dx); Restrictive lung disease; Chronic obstructive pulmonary disease, unspecified COPD type (CMS/HCC V24, CMS/HCC V28); Asthma, unspecified asthma severity, unspecified whether complicated, unspecified whether persistent; Coronary artery disease involving upper [place] coronary artery of upper [place] heart without angina pectoris; Hyperlipidemia, unspecified hyperlipidemia type 02/20/2025 Telephone Internal Medicine - [address] [phone] Debra Hills MD 02/14/2025 Results Follow-Up [facility] - [facility] [address] 300 [facility] 154 [place] [phone] Rolanda Armstrong NP 02/06/2025 9:00 AM EST Ancillary Procedure [facility] [address] 300 [facility] 101 [place] [phone] Hypertension, unspecified type; Coronary artery disease involving upper [place] coronary artery of upper [place] heart without angina pectoris 01/09/2025 12:30 PM EDT Evaluation [facility] 175 [facility] 350 [place] [phone] Favian Sepulveda OT Dupuytren's contracture (Primary Dx) 01/05/2025 9:00 AM EDT Office Visit Internal Medicine - [address] [phone] Jeronimo [place]ley NP Hypertension, essential (Primary Dx); Primary insomnia 01/02/2025 12:00 PM EDT Treatment [facility] Occupational Therapy 175 [facility] 350 [place] [phone] Rina Simon, BETANCOURT Dupuytren's contracture (Primary Dx) 12/26/2024 Telephone Internal Medicine - [address] [phone] Debra Hills MD 12/21/2024 Telephone Internal Medicine - [address] [phone] Debra Hills MD from Last 3 Months Immunizations Immunization Administration [...] GRAFT VENOUS OTHER SURGICAL HISTORY 01/20/2022 PROCEDURE: HI SLCTV CATHJ 3RD+ ORD SLCTV THRC/BRCH/CPHLC BRNCH OTHER SURGICAL HISTORY 01/20/2022 PROCEDURE: HI SLCTV CATHJ EA 2ND+ ORD ABDL PEL/LXTR [...] 06/24/2015 DX:Anxiety Asthma 12/28/2017 DX:Asthma AV fistula ([facility] V24) 06/01/2017 removed 2022 Carpal tunnel syndrome 10/28/2017 DX:Carpal tunnel syndrome Chronic obstructive pulmonar y disease ([facility] V24, [facility] V28) 08/23/2017 DX:Chronic obstructive pulm onary disease (HCC) CKD (chronic kidney disease) stage V requiring chronic dialysis ([facility] V24, [facility] V28) 06/01/2017 DX:CKD (chronic kidney disea se) stage V requiring chronic dialysis (HCC) Depression 08/05/2017 DX:Depression Gastroparesis 05/11/2012 DX:Gastroparesis Hypertension 09/27/2017 DX:Hypertension Insomnia 04/23/2017 DX:Insomnia Obesity hypoventilation synd alexa ([facility] V24, [facility] V28) 02/04/2016 DX:Obesity hypoventilation syndrome ([facility]) Restrictive lung disease 08/23/2017 DX:Rest rictive lung disease Type 2 diabetes mellitus wit h neurological manifestations ([facility] V24, [facility] V28) 03/31/2018 DX:Type 2 diabetes mellitus with neurological manifestations ([facility]) Type 2 diabetes mellitus wit h renal manifestations ([facility] V24, [facility] V28) 03/17/2005 DX:Type 2 diabetes mellitus with renal manifestations ([facility]) Vitamin D deficiency 05/19/2012 DX:Vitamin D deficiency Severe obesity with body mas s index (BMI) of 35.0 to 39.9 with comorbidity ([facility] V24, [facility] V28) 08/23/2017 DX:Severe obesity with body mass index (BMI) of 35.0 to 39.9 with comorbidity ([facility]) Proliferative diabetic retin opathy ([facility] V24, [facility] V28) 12/25/2021 DX:Proliferative diabetic r etinopathy ([facility]); COMMENT: dr minerva Romero Type 2 diabetes mellitus wit h eye manifestations ([facility] V24, [facility] V28) 12/25/2021 DX:Type 2 diabetes mellitus with eye manifestations ([facility]) Retinal hemorrhage Hepatitis C Family History Medical History Relation Name Comments Heart failure Father Other: Diabetes, [place] Father Heart failure Mother Stroke Mother Relation [...] not to disclose 2024 11:46 AM EDT Last Filed Vital Signs Vital Sign Reading Time Taken Comments Blood Pressure 150/68 02/22/2025 10:36 AM EST Pulse 70 02/22/2025 10:36 AM EST Temperature 36.2 C (97.2 F) 09/11/2024 10:34 AM EDT Respiratory Rate 18 09/11/2024 10:54 AM EDT Oxygen Saturation 99% 02/22/2025 10:36 AM EST Inhaled Oxygen Concentration - - Weight 99.8 kg (220 lb) 02/27/2025 10:52 AM EST Height 160 cm (5' 3 ) 02/27/2025 10:52 AM EST Body Mass Index 38.97 02/27/2025 10:52 AM EST Plan of Treatment Upcoming Encounters Date Type Department Care Team (Late st Contact Info) Description 04/03/2025 12:30 PM EST Appointment [facility] Pulmonary [address] [place] [phone] 05/29/2025 10:30 AM EST Office Visit Orthopedic Surgery - [place] [address] [phone] Chandni Angulo MD 175 [facility] 140 [place] [phone] 06/28/2025 9:15 AM EDT Ancillary Procedure [facility] 101 300 [facility] 101 [place] [phone] 07/11/2025 12:30 PM EDT Office Visit Internal Medicine - [facility] [address] [place] [phone] Debra Hills MD [address] [facility] JOAQUINA BOYKIN Health Maintenance Due Date Last Done Comments Breast Cancer Screening 1965 Drug Screen 1965 Non-Opioid Controlled Substance Agreement 1965 Hepatitis B Vaccines (1 of 3 [...] Procedure Name Priority Date/Time Associated Diagnosis Comments HI ARTHROCENTESIS/ASPIRA TION/INJECTION SMALL JOINT/BURSA WO U/S GUIDANCE Routine 02/27/2025 10:45 AM EST Arthritis of carpometacarpal (CMC) joint of left thumb EXTERNAL CLINICAL LAB 02/26/2025 EXTERNAL CLINICAL LAB 02/23/2025 ECG 12-LEAD Routine 02/22/2025 11:56 AM EST Hypertension, unspecified type TRANSTHORACIC ECHOCARDIOGRAM (TTE) COMPLETE Routine 02/06/2025 9:21 AM EST Hypertension, unspecified type Coronary artery disease involving upper [place] coronary artery of upper [place] heart without angina pectoris EXTERNAL CLINICAL LAB 01/04/2025 EXTERNAL CLINICAL LAB 01/03/2025 COLONOSCOPY Routine 09/11/2024 10:33 AM EDT Personal history of other colon polyps Family history of colonic polyps LIPID PANEL WITH REFLEX TO DIRECT LDL Routine 08/09/2024 8:02 AM EDT Coronary artery disease involving upper [place] coronary artery of upper [place] heart without angina pectoris Bilateral carotid artery stenosis Hyperlipidemia, unspecified hyperlipidemia type EXTERNAL DIABETIC RETINA EYE EXAM 04/13/2024 ANNUAL BMP BLOOD TEST Routine 06/10/2023 DIABETES FOOT EXAM Routine 02/04/2023 HEPATITIS C SCREENING Routine 07/28/2022 HEMOGLOBIN A1C Routine 07/28/2022 URINE ALBUMIN CREATININE RATIO Routine 12/19/2005 PAP SMEAR Routine 04/22/2004 from Last 3 Months or Most Recently Relevant to Health Maintenance Results * HI ARTHROCENTESIS/ASPIRATION/INJECTION SMALL JOINT/BURSA WO U/S GUIDANCE (02/27/2025 10:45 AM EST) Chandni Ligth MD - 02/27/2025 10:45 AM EST Chandni Angulo MD 03/01/2025 12:48 PM Small Inj/Asp: L thumb CMC Indications: pain Details: 27 G needle, dorsal approach Medications: 40 mg triamcinolone acetonide 40 mg/mL After reviewing the risks and benefits of injection with the patient the decision was made to proceed. The site was confirmed and then prepped with Betadine and then alcohol. The skin overlying the left basal joint of the thumb was then injected with approximately 1 cc of 1% lidocaine with epinephrine. Once this had a chance to take effect I then prepped the area again. I then injected 40 mg of Kenalog into the basal joint. The patient tolerated this well. A bandage was then applied. Post injection care was reviewed with the patient and the patient verbalized understanding.z Informed Consent: Site: Left thumb cmc joint Laterality: Left Relevant images/test results available and reviewed: yes Health status cleared: Yes Procedure/treatment, purpose, treatment alternatives, risks/potential complications and benefits explained: yes Risk/complications/benefits details: Risks and benefits of corticosteroid injection were discussed, including risk of pain, bleeding, infection, tissue attenuation, tendon rupture, changes in skin color, and injury to surrounding structures such as arteries, veins and nerves. We also discussed the patient may develop worsening pain for a few days before having improvement in their symptoms. Patient questions answered: yes Patient agrees, verbalizes understanding, and wants to proceed: yes Consent given by: Patient Informed consent discussion completed by Physician/CAROLINE with patient: Verbal Pre-procedure timeout performed: yes us Chandni Angulo MD IN CLINIC/BEDSIDE ORDERABLES Final Result * External clinical lab (02/26/2025) Only the most recent of4 resultswithin the time period is included. us Provider [facility] LAB BLOOD ORDERABLES Fin al Result * ECG 12 lead (02/22/2025 11:56 AM EST) Ventricular Rate ECG 70 BPM GEMUSE Atrial Rate 70 BPM GEMUSE P-R Interval 166 ms GEMUSE QRS Duration 88 ms GEMUSE Q-T Interval 378 ms GEMUSE QTc 408 ms GEMUSE P Wave Bluff 40 degrees GEMUSE R Bluff 45 degrees GEMUSE T Bluff 98 degrees GEMUSE ECG Interpretation Normal sinus rhythm Confirmed by MD Gary, Lalo ([id number]) on 02/22/2025 5:00:19 PM GEMUSE 02/22/2025 10:4 0 AM EST 02/22/2025 5:00 PM EST Rolanda Armstrong LEASE OUT WORKER ECG ORDERABLES Edited Result - Final GEMUSE * (ABNORMAL) TRANSTHORACIC ECHOCARDIOGRAM (TTE) COMPLETE (02/06/2025 9:21 AM EST) Left [facility] [place] 5.7 cm CV PACS Left [facility] [place] 6.1 cm CV PACS LA Area Sys [...] S' 10 cm/s CV PACS RA [place] 6.1 cm CV PACS RA [place] Index 3.1 2.2 - 2.8 cm/m2 CV [...] Details Overall the study quality was adequate. us Rolanda Armstrong NP CV ECHO PROCEDURES Ryan al Result * COLONOSCOPY Anesthesia - MAC; [facility] ENDOSCOPY (09/11/2024 10:33 AM EDT) [...] for surveillance. Narrative 09/11/2024 10:34 AM EDT [facility] GI Patient Name: Bridget Patel Procedure [...] retroflexion views. Procedure Code(s): --- Professional --- 82708, Colonoscopy, flexible; with removal of tumor(s), polyp(s), or other lesion(s) by snare technique Diagnosis Code(s): --- Professional --- Z86.010, Personal history of colonic polyps D12.3, Benign neoplasm of transverse colon (hepatic flexure or splenic flexure) CPT copyright 2020 [employer]. All rights reserved. The codes documented in this report are preliminary and upon audio technician review may be revised to meet current compliance requirements. Everton Husain MD 09/11/2024 10:34:57 AM This report has been signed electronically.Eevrton Husain MD Number of Addenda: 0 Note Initiated On: 09/11/2024 10:03 AM Scope In: Scope Out: Endoscopy Department at [facility] - [address] [place] [phone] Procedure Note Everton Husain MD - 09/11/2024 [facility] GI Patient Name: Bridget Patel Procedure [...] retroflexion views. Procedure Code(s): --- Professional --- 03942, Colonoscopy, flexible; with removal of tumor(s), polyp(s), or other lesion(s) by snare technique Diagnosis Code(s): --- Professional --- Z86.010, Personal history of colonic polyps D12.3, Benign neoplasm of transverse colon (hepatic flexure or splenic flexure) CPT copyright 2020 [employer]. All rights reserved. The codes documented in this report are preliminary and upon audio technician reviewmay be revised to meet current compliance requirements. Everton Husain MD 09/11/2024 10:34:57 AM This report has been signed electronically.Everton Husain MD Number of Addenda: 0 Note Initiated On: 09/11/2024 10:03 AM Scope In: Scope Out: Endoscopy Department at [facility] - [address] [place] [phone] IMPRESSION: - Two 7 to 11 mm polyps at the splenic flexure, removed with a cold snare. Resected andretrieved. - The examination was otherwise normal on directand retroflexion views. Recommendation: - Await pathology results. - Repeat colonoscopy in 3 years for surveillance. Everton Husain MD GI~PROCEDURE ORDERABLES Fin al Result * Lipid panel with reflex to direct LDL (08/09/2024 8:02 AM EDT) Cholesterol 125 0 - 200 mg/dL LAB CHEMISTRY [facility] Triglycerides 150 0 - 150 mg/dL LAB CHEMISTRY METHOD 08/09/2024 8:55 AM [facility] HDL 43 >=40 mg/dL LAB CHEMISTRY METHOD [facility]24 [facility] LDL Calculated 52 0 - 100 mg/dL LAB CHEMISTRY METHOD 08/09[facility]2024 8:[facility] VLDL Cholesterol Jacek 30 mg/dL LAB CHEMISTRY METHOD 08/09/2024 8:55 AM [facility] Non HDL Chol. (LDL+VLDL) 82 <145 mg/dL LAB CHEMISTRY METHOD 08/09/2024 8:55 AM [facility] Chol/HDL Ratio 2.9 0.0 - 4.4 LAB CHEMISTRY METHOD 08/09/2024 8:55 AM [facility] Blood Venous blood specimen / Unknown Venipuncture / Unknown 08/09/2024 8:02 AM EDT 08/09/2024 8:15 AM EDT Result [facility] Rolanda Armstrong NP LAB BLOOD ORDERABLES F inal Result [facility] [address] [place] [address], [place] [phone] * External Diabetic Retina Eye Exam Report (04/13/2024) Anatomical Region Laterality Modality Ultrasound Provider [facility] IMG US PROCEDURES Final Result * Annual BMP Blood Test (06/10/2023) Pathologist [facility] Annual BMP Blood Test abstracted Result [facility] Provider HEALTH MAINTENANCE Final Result * Diabetes Foot Exam (02/04/2023) Pathologist [facility] Diabetes: Annual Foot Exam abstracted Result [facility] Provider HEALTH MAINTENANCE Final Result * Hepatitis C Screening (07/28/2022) [facility] Hepatitis C Screening abstracted Result [facility] Provider HEALTH MAINTENANCE Final Result * (ABNORMAL) Hemoglobin A1c (07/28/2022) [facility] Hemoglobin A1C 9.7(A) <=6.5 % Blood Venous blood specimen / Unknown Result [facility] Provider LAB BLOOD ORDERABLES Lurdes l Result * Urine Albumin Creatinine Ratio (12/19/2005) Pathologist [facility] Urine Albumin Creatinine Ratio abstracted Result [facility] Provider HEALTH MAINTENANCE Final Result * Pap Smear (04/22/2004) Pathologist [facility] Pap smear abstracted, no interpretation Result [facility] Provider HEALTH MAINTENANCE Final Result from Last 3 Months or Most Recently Relevant to Health Maintenance Insurance [employer] MEDICARE Member Subscriber Plan / Payer (Ef fective 2019-Present) Name:BRDIGET PATEL Relation to Subscriber:Self Name:Bridget Patel I Payer ID:[id number] Group ID:[id number] Type:Not on file Address: [place] [address] [address] [phone] Care Teams Incident Response Analyst Relationship Specialty Start Date End Date Debra Hills MD [address] [place] [address] PCP - General Internal Medicine 12/08/24
--- OUTSIDE RECORDS SUMMARY | 2025-03-22 08:55 | XMS_ITS | Encounter Summary ---
Author Organization [employer] [facility] Prior to 02/04/2024 Address [address] [place] [address] Care Team Providers Care Weather Reporter Name Role Phone Jamshid Lynch Unavailable Unavailabl e Gaurav Tolbert MD Primary Care Provider [phone] Honey Mendoza PA-C Unavailable Unavailab Lalo Stern MD Unavailable [phone] Encounter Details Date Type Department Care Team Description 04/12/2023 [employer] Systems Administrator Report Medical Records [address] [place] [id number] Abstract, Provider Social History Tobacco Use Types [...] on filedocumented in this encounter Care Teams Weather Reporter Relationship Specialty Start Date End Date Jamshid Lynch PCP - Scrap Materials Buyer 04/18/1998 Gaurav Tolbert MD [address] [place] [address] PCP - General Internal Medicine 05/01/19 Honey Mendoza PA-C [address] [place] [address] Specialist Cardiology 12/27/20 Lalo Vega MD 300 [facility] [address] [place] [address] Specialist Cardiovascular Disease 07/22/22 documented as of this encounter
--- OUTSIDE RECORDS SUMMARY | 2025-03-22 08:55 | XMS_ITS | Encounter Summary ---
Author Organization [facility] [facility] Prior to 02/04/2024 Address [address] [place] [address] Care Team Providers Care Wireless Operator Name Role Phone Jamshid Lynch Unavailable Unavailabl e Gaurav Tolbert MD Primary Care Provider [phone] Honey Mendoza PA-C Unavailable Unavailab Lalo Stern MD Unavailable [phone] Encounter Details Date Type Department Care Team Description 01/06/2021 Controlled Substance Plan Medical Records [address] [place] [id number] Abstract, Provider Social History Tobacco Use Types [...] have Coronavirus / COVID-19? No / Unsure 01/02/2021 12:32 PM EDT documented as of this encounter Plan of Treatment Not on file documented as of this encounter Visit Diagnoses Not on filedocumented in this encounter Care Teams Wireless Operator Relationship Specialty Start Date End Date Jamshid Lynch PCP - Therapist Speech 04/18/1998 Gaurav Tolbert MD [address] [place] [address] PCP - General Internal Medicine 05/01/19 Honey Mendoza PA-C [address] [place] [address] Specialist Cardiology 12/27/20 Lalo Vega MD [address] [address] Specialist Cardiovascular Disease 07/22/22 documented as of this encounter
--- OUTSIDE RECORDS SUMMARY | 2025-03-22 08:55 | XMS_ITS | Encounter Summary ---
Author Organization [employer] [facility] Prior to 02/04/2024 Address [address] [place] [address] Care Team Providers Care Discharge Rn Name Role Phone Jamshid Lynch Unavailable Unavailabl e Gaurav Tolebrt MD Primary Care Provider [phone] Honey Mendoza PA-C Unavailable Unavailab Lalo Stern MD Unavailable [phone] Encounter Details Date Type Department Care Team Description 02/13/2021 Hospital Medical Records [address] [place] [address] Social History Tobacco Use Types Packs/Day Years [...] on filedocumented in this encounter Care Teams Discharge Rn Relationship Specialty Start Date End Date Jamshid Lynch PCP - Dry Wall Installations Mechanic 04/18/1998 Gaurav Tolbert MD [address] [place] [address] PCP - General Internal Medicine 05/01/19 Honey Mendoza PA-C [address] [place] [address] Specialist Cardiology 12/27/20 Lalo Vega MD 300 [facility] [address] [place] [address] Specialist Cardiovascular Disease 07/22/22 documented as of this encounter
--- OUTSIDE RECORDS SUMMARY | 2025-03-22 08:55 | XMS_ITS | Encounter Summary ---
Author Organization [facility] [facility] Prior to 02/04/2024 Address [address] [place] [address] Care Team Providers Care Piano Case And Bench Assembler Name Role Phone Jamshid Lynch Unavailable Unavailabl e Tobias Nuñez MD Primary Care Provider Unavaila Gaurav Gatica MD Primary Care Provider [phone] Honey Mendoza PA-C Unavailable Unavailab Lalo Stern MD Unavailable [phone] Encounter Details Date Type Department Care Team Description 12/07/2018 [facility] Medical Records [address] [place] [id number] Abstract, Provider Social History Tobacco Use Types [...] on filedocumented in this encounter Care Teams Piano Case And Bench Assembler Relationship Specialty Start Date End Date Jamshid Lynch PCP - Edge Beader 04/18/1998 Tobias Nuñez MD PCP - General Internal Medicine 02/19/18 04/30/19 Gaurav Tolbert MD [address] [place] [address] PCP - General Internal Medicine 05/01/19 Honey Mendoza PA-C [address] [place] [address] Specialist Cardiology 12/27/20 Lalo Vega MD [address] [address] Specialist Cardiovascular Disease 07/22/22 documented as of this encounter
--- OUTSIDE RECORDS SUMMARY | 2025-03-22 08:55 | XMS_ITS | Encounter Summary ---
Author Organization [employer] [facility] Prior to 02/04/2024 Address [address] [place] [address] Care Team Providers Care Timber Framer Helper Name Role Phone Jamshid Lynch Unavailable Unavailabl Tobias Weinberg MD Primary Care Provider Unavaila Gaurav Gatica MD Primary Care Provider [phone] Honey Mendoza PA-C Unavailable Unavailab Lalo Stern MD Unavailable [phone] Encounter Details Date Type Department Care Team Description 02/14/2019 Dump Truck Operator Report Medical Records [address] [place] [id number] Lalo Vega MD [address] [facility] [address] [place] [address] Social History Tobacco Use Types Packs/Day Years [...] on filedocumented in this encounter Care Teams Timber Framer Helper Relationship Specialty Start Date End Date Jamshid Lynch PCP - Trolley Operator 04/18/1998 Tobias Nuñez MD PCP - General Internal Medicine 02/19/18 04/30/19 Gaurav Tolbert MD [address] [place] [address] PCP - General Internal Medicine 05/01/19 Honey Mendoza PA-C [address] [place] [address] Specialist Cardiology 12/27/20 Lalo Vega MD 300 [facility] [address] [place] [address] Specialist Cardiovascular Disease 07/22/22 documented as of this encounter
--- OUTSIDE RECORDS SUMMARY | 2025-03-22 08:55 | XMS_ITS | Encounter Summary ---
Author Organization [employer] [facility] Prior to 02/04/2024 Address [facility] [place] [address] Care Team Providers Care Fabrication Manager Name Role Phone Jamshid Lynch Unavailable Unavailabl e Tobias Nuñez MD Primary Care Provider Unavaila Gaurav Gatica MD Primary Care Provider [phone] Honey Mendoza PA-C Unavailable Unavailab Lalo Stern MD Unavailable Encounter Details Date Type Department Care Team Description 03/02/2019 Road Supervisor Of Engines Report Medical Records [address] [place] [id number] Bob Nolan MD Social History Tobacco Use Types Packs/Day [...] on filedocumented in this encounter Care Teams Fabrication Manager Relationship Specialty Start Date End Date Jamshid Lynch PCP - Change House Attendant 04/18/1998 Tobias Nuñez MD PCP - General Internal Medicine 02/19/18 04/30/19 Gaurav Tolbert MD [address] [place] [id number] PCP - General Internal Medicine 05/01/19 Honey Mendoza PA-C [address] [place] [address] Specialist Cardiology 12/27/20 Lalo Vega MD [address] [address] Specialist Cardiovascular Disease 07/22/22 documented as of this encounter
--- OUTSIDE RECORDS SUMMARY | 2025-03-22 08:55 | XMS_ITS | Encounter Summary ---
Author Organization [email or web address] [facility] Prior to 02/04/2024 Address [address] [place] [address] Care Team Providers Care Customer Success Intern Name Role Phone Jamshid Lynch Unavailable Unavailabl e Tobias Nuñez MD Primary Care Provider Unavaila Gaurav Gatica MD Primary Care Provider [phone] Honey Mendoza PA-C Unavailable Unavailab Lalo Stern MD Unavailable [phone] Encounter Details Date Type Department Care Team Description 01/09/2019 [facility] Medical Records [address] [place] [id number] Abstract, Provider Social History Tobacco Use Types [...] on filedocumented in this encounter Care Teams Customer Success Intern Relationship Specialty Start Date End Date Jamshid Lynch PCP - Momd Teacher 04/18/1998 Tobias Nuñez MD PCP - General Internal Medicine 02/19/18 04/30/19 Gaurav Tolbert MD [address] [place] [id number] PCP - General Internal Medicine 05/01/19 Honey Mendoza PA-C [address] [place] [address] Specialist Cardiology 12/27/20 Lalo Vega MD [address] [address] Specialist Cardiovascular Disease 07/22/22 documented as of this encounter
--- NOTE | 2025-03-22 10:01 | HO.NEPHOV ---
Vital Signs 03/22/25 10:03 Height 5 ft 3 in Weight 211 lb 4 oz BMI 37.4 BP 150/70 H Blood Pressure Location Rt brachial Position Sitting Pulse 68 Pulse Source Pulse Oximeter Pulse Oximetry (%) 98 Oxygen Delivery Method Room Air Intake Visit Reasons: 2mnth-Conf Inventory Transcriber Required: No Accompanied by: Spouse Allergies lamotrigine (From Lamictal) Allergy (Intermediate, Verified 03/22/25 10:03) Hives HPI Comments Details: Bridget was seen in the office for follow-up of her renal transplant. She has longstanding diabetes. She had end-stage renal disease and was on renal replacement therapy. She does not have any UTIs, pain over her renal transplant, hematuria, dysuria, fever, suprapubic pain, nausea, vomiting, chills, rigors. Her blood sugars are fair and is better. Her blood pressure has been at goal. She has been compliant with her medications. She denies any active lower extremity vascular disease. She has no skin rashes. She maintains good hydration and avoids nonsteroidal anti-inflammatory medications. She has no side effects from her immunosuppressive medication. 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 Her renal function has been stable [facility] Medical History (Updated 03/13/25 @ 19:29 by Navdeep Montoya MD) History of dialysis fistulography History of renal dialysis Tinnitus Hearing loss Hepatitis C carrier Sleep disturbance Hyperlipidemia Chronic constipation Depression Peripheral neuropathy COPD with asthma Retinal hemorrhage Peripheral neuropathic pain Neuropathy Hypertension Hypercholesteremia ESRD (end stage renal disease) Diabetes mellitus Dermatitis Chronic kidney disease Cellulitis Surgical History Kidney transplant recipient H/O tubal ligation History of carpal tunnel release -donor kidney transplant Family History Sister Cancer Social History Housing: House Patient Tobacco Use Status: Former Tobacco user e-Cigarette/Vaping Use: Never Used service: No Current occupational status: employed Cognitive needs: No Hearing needs: No Vision needs: No Review of Systems Const All systems reviewed & are unremarkable except as noted in HPI and below Physical Exam Const General: comfortable and no acute distress Orientation/consciousness: patient oriented x3 HEENT Head: Yes normocephalic Mouth: Normal oral and palatal mucosa present Eyes EOM: EOMs intact bilaterally Neck Neck: Yes supple Resp Auscultation: clear to auscultation bilaterally Cardio Jugular venous distension: no JVD Rate: regular rate GI Palpation (GI): Soft to palpation Auscultation: normal bowel sounds General: Yes no CVA tenderness Back/Spine/Pelvis Back: no CVA tenderness Skin General skin exam: no rashes or lesions noted Neuro General: patient oriented x3 and moves all extremities Extrem General: Yes no pedal edema Results Reviewed Nephrology Results: Hgb, (12.0-16.0) 11.8 g/dl L 03/19/25 WBC, (4.8-10.8) 6.1 X10*3/uL 03/19/25 Plt Count, (160-400) 213 X10*3/uL 03/19/25 Sodium, (135-145) 140 mmol/L 03/19/25 Potassium, (3.3-5.1) 4.4 mmol/L 03/19/25 Chloride, (96-108) 110 mmol/L H 03/19/25 Carbon Dioxide, (22-29) 25 mmol/L 03/19/25 BUN, (9-16) 36 mg/dL H 03/19/25 Creatinine, (0.5-1.4) 1.58 mg/dL H 03/19/25 Calcium, (8.4-10.2) 9.8 mg/dL 03/19/25 Phosphorus, (2.7-4.5) 3.2 mg/dL 01/02/25 Urine Protein, (Neg-Trace) 30 (1+) mg/dL H 03/19/25 Urine Creatinine 122.36 mg/dL 03/19/25 Protein/Creatinin Ratio, (<0.2) 0.27 H 02/22/25 Assessment & Plan Assessment & Plan (1) Kidney transplant recipient: Code(s): Z94.0 - Kidney transplant status Category: Surgical (2) Proteinuria: Code(s): R80.9 - Proteinuria, unspecified Category: Medical Qualifiers: Proteinuria type: other Qualified Code(s): R80.8 - Other proteinuria (3) Renal transplant disorder: Code(s): T86.10 - Unspecified complication of kidney transplant Category: Medical (4) BK viruria: Code(s): R82.79 - Other abnormal findings on microbiological examination of urine Category: Medical Plan Bridget had ESRD from diabetic nephropathy. She underwent a donor renal transplant( Feb 142020). Her transplant function had been stable . Her blood pressure has been at goal. Her blood sugar is better controlled. she needs to lose more weight. She is not on any Joshua inhibitor. She is not known to have any significant proteinuria. She maintains good hydration. She avoids nonsteroidal anti-inflammatories. She needs to see a pediatrics hospitalist once a year. She has no other active vascular symptoms. She is on statins. C/W Amlodipine at 10 mg daily. C/W cellcept 180 mg bid and tacrolimus to 9 mg given she has BK viriuria. I ordered follow-up blood work including tacrolimus levels. Follow-up given Orders: Orders Blood Urea Nitrogen 2 Months R82.79 - Other abnormal findings on microbiological examination of urine, Z94.0 - Kidney transplant status Creatinine 2 Months R82.79 - Other abnormal findings on microbiological examination of urine, Z94.0 - Kidney transplant status Other Ref Test - Misc 2 Months R82.79 - Other abnormal findings on microbiological examination of urine, T86.10 - Unspecified complication of kidney transplant Complete Blood Count Auto Diff 2 Months R82.79 - Other abnormal findings on microbiological examination of urine, Z94.0 - Kidney transplant status Electrolytes 2 Months R82.79 - Other abnormal findings on microbiological examination of urine, Z94.0 - Kidney transplant status Tacrolimus Prograf 2 Months R82.79 - Other abnormal findings on microbiological examination of urine, Z94.0 - Kidney transplant status Coding Level of Care Code Est Pt Level 4 (94463) Diagnoses Kidney transplant recipient Z94.0 Other proteinuria R80.8 Proteinuria type: other Renal transplant disorder T86.10 BK viruria R82.79
[2025-03-22 10:03] VITALS: BP 150/70; PULSE 68; O2SAT 98; BMI 37.4
== END 2025-03-22 10:29 | disposition home or self-care (01) ==
LOC: HO.HKAS 08:29
PROVIDERS: PCP Internal Medicine; Visit Provider Internal Medicine Nephrology
DX: Z94.0 Kidney transplant status (principal); R80.8 Other proteinuria; T86.10 Unspecified complication of kidney transplant; R82.79 Other abnormal findings on microbiological examination of urine
CPT/HCPCS: 99214

== ENCOUNTER → 2025-03-22 08:28 | Outpatient (BNVA) | payer OTHER, SELFPAY | PROVIDERS: PCP Internal Medicine; Visit Provider Internal Medicine Nephrology | DX: R80.8 Other proteinuria (principal); T86.10 Unspecified complication of kidney transplant; R82.79 Other abnormal findings on microbiological examination of urine; Z94.0 Kidney transplant status | CPT/HCPCS: 99212 ==

== ENCOUNTER 2025-04-03 09:57 | Outpatient (AMB) | payer OTHER, SELFPAY ==
--- NOTE | 2025-04-03 09:58 | MHC.PC.OV ---
Vital Signs 04/03/25 10:02 Height 5 ft 3 in Weight 212 lb 4 oz BMI 37.6 BP 132/58 L Blood Pressure Location Rt brachial Position Sitting Respiration 16 Pulse 57 Pulse Source Pulse Oximeter Temp 97.7 F Temp Source Oral Pulse Oximetry (%) 99 Oxygen Delivery Method Room Air Intake Visit Reasons: 2 wk - lab review Intake Note: Patient present for lab review. Flight Attendant Ramp Required: No Accompanied by: Self / Same As Patient Allergies lamotrigine (From Lamictal) Allergy (Intermediate, Verified 04/03/25 10:01) Hives Medication List - Last Reconciled 04/03/25 by Navedep Montoya MD albuterol sulfate 90 mcg/actuation inhalation amlodipine 10 mg PO DAILY aspirin 81 mg PO DAILY atorvastatin 40 mg PO DAILY carvedilol 6.25 mg PO BID cholecalciferol (vitamin D3) 50 mcg PO DAILY docusate sodium 100 mg PO QAM PRN gabapentin 200 mg PO TID insulin aspart U-100 (Novolog FlexPen U-100 Insulin aspart) subcut insulin degludec (Tresiba FlexTouch U-100 insulin) 23 units subcut mycophenolate sodium 180 mg PO BID pen needle, diabetic (Adamaris 2nd Gen Pen Needle) As directed semaglutide (Ozempic) 2 mg subcut QWEEK sennosides (senna) 8.6 mg PO DAILY tacrolimus XR (Envarsus XR) 8 mg (2 x 4 mg) PO DAILY tacrolimus XR (Envarsus XR) 1 mg PO DAILY trazodone 50 mg PO BEDTIME Tobacco use date assessed: 03/13/25 Dental Screening Dental Screen Date: 03/13/25 HPI HPI Comments History of Present Illness Details History of Present Illness The patient is a 60 year old female presenting for management of her chronic conditions and review of recent laboratory results. Type 2 Diabetes Mellitus: The patient reports experiencing dehydration and significant abdominal pain as side effects from her Ozempic (semaglutide) medication. Her final operations technician has recommended switching to a different medication, with Mounjaro (tirzepatide) being suggested. Her HbA1c was recently 7.1%. Her medication regimen also includes Novolog and Tresiba insulin. She has an upcoming appointment with her cattle trader on the to discuss these issues. Chronic Kidney Disease: The patient is a kidney recipient and is actively followed by a final operations technician, whom she saw on the . Recent labs showed an increase in her creatinine, which is attributed to dehydration from Ozempic. Her final operations technician recommended increasing her water intake. She takes mycophenolate (Cellcept) and tacrolimus for immunosuppression, which were continued by her final operations technician. She has proteinuria, which is believed to be secondary to her diabetes. Her next follow-up with nephrology is scheduled for 8 weeks. Hyperlipidemia: The patient is taking atorvastatin 40 mg for hyperlipidemia. Her recent lab work showed an LDL cholesterol level of 78. Anemia of Chronic Disease: The patient's hemoglobin is 11.8, indicating mild anemia. The anemia is attributed to her chronic kidney disease. Lab results show that her stored iron is adequate, but other iron indicators are low. Surgical History: - Kidney transplant - History of abdominal surgery, with a prior incision Medications: - Albuterol - Amlodipine - Aspirin - Atorvastatin 40 mg - Carvedilol - Cholecalciferol - Gabapentin - Novolog insulin - Mycophenolate (Cellcept) - Semaglutide (Ozempic) - Tacrolimus - Tresiba insulin Social History: - Reports inadequate water intake and was advised by her final operations technician to increase consumption from three 16-ounce bottles to five per day. Diagnostic Results: - Hemoglobin: 11.8 (low) - HbA1c: 7.1% - Creatinine: Elevated - LDL cholesterol: 78 mg/dL - Other iron indicators: Low - Stored iron: Good - Urine protein: Positive - Hepatitis B: Immune - Hepatitis C: Negative - HIV: Negative Past Medical History - Kidney transplant recipient - Anemia of chronic disease - Type 2 diabetes mellitus - Hyperlipidemia Health Maintenance - Infectious disease screening: Confirmed immunity to Hepatitis B; Hepatitis C and HIV screenings are negative. - Dietary counseling: Advised to increase iron in her diet to manage anemia and will be provided a handout with food recommendations. - Hydration counseling: Advised by nephrology to increase daily water intake to five 16-ounce bottles to address dehydration and protect her kidneys. - Specialist follow-up: Scheduled to see endocrinology on the and will follow up with nephrology in 8 weeks. - Lab monitoring: Plan to repeat labs in 3-6 months to monitor cholesterol levels. [facility] Medical History (Updated 04/03/25 @ 22:52 by Navdeep Montoya MD) History of dialysis fistulography History of renal dialysis Tinnitus Hearing loss Hepatitis C carrier Sleep disturbance Hyperlipidemia Chronic constipation Depression Peripheral neuropathy COPD with asthma Retinal hemorrhage Peripheral neuropathic pain Neuropathy Hypertension Hypercholesteremia ESRD (end stage renal disease) Diabetes mellitus Dermatitis Chronic kidney disease Cellulitis Surgical History Kidney transplant recipient H/O tubal ligation History of carpal tunnel release -donor kidney transplant Family History Sister Cancer Social History (Updated 04/03/25 @ 10:02 by Junior Quintanilla CMA) Housing: House Alcohol intake: never Patient Tobacco Use Status: Former Tobacco user e-Cigarette/Vaping Use: Never Used service: No Current occupational status: employed Cognitive needs: No Hearing needs: No Vision needs: No Questionnaire PHQ-9 Over the last 2 weeks, how often have you been bothered by any of the following problems? 1. Little interest or pleasure in doing things: not at all 2. Feeling down, depressed, or hopeless: more than half the days 3. Trouble falling or staying asleep, or sleeping too much: nearly every day 4. Feeling tired or having little energy: more than half the days 5. Poor appetite or overeating: not at all 6. Feeling bad about yourself - or that you are a failure or have let yourself or your family down: not at all 7. Trouble concentrating on things, such as reading the newspaper or watching television: more than half the days 8. Moving or speaking so slowly that other people could have noticed. Or the opposite - being so fidgety or restless that you have been moving around a lot more than usual: not at all 9. Thoughts that you would be better off or of hurting yourself in some way: not at all Total score: 9 Depression Screening Interpretation: Negative Depression Screening Done: Yes Source: Developed by Drs. Calvin Ba, Leyda West, Siddharth Catherine and colleagues, with an educational mata from [employer]. Thrive Questionnaire Date Thrive assessed: 03/06/25 I am a: Patient What is your living situation today?: I have a steady place to live Within the past 12 months, did the food you bought not last and you didn't have the money to get more?: Never true Within the past 12 months, did you worry whether your food would run out before you got money to buy more?: Never true Do you have trouble paying for medicines?: No Do you have trouble getting transportation to medical appointments?: No Do you have trouble paying your heating and electricity bill?: No Do you have trouble taking care of your child, family member or friend?: No Do you have trouble with day-to-day activities such as bathing, preparing meals, shopping, managing finances, etc.?: Yes Are you currently unemployed and looking for a job?: No Are you interested in more education?: I choose not to answer this question Currently or been in a relationship where the following occur: No concerns reported THRIVE Score: 0 AUDIT C Alcohol Use Questionnaire (AUDIT-C) 1. How often do you have a drink containing alcohol?: Never 2. How many drinks containing alcohol do you have on a typical day when you are drinking?: 1 or 2 3. How often do you have six or more drinks on one occasion?: Never Total Score: 0 HORACIO-7 AMB Questionnaire HORACIO-7 Date HORACIO - 7 assessed: 03/13/25 Feeling nervous, anxious, or on edge: 1 = Several days Not being able to stop or control worryin = Several days Worrying too much about different things: 0 = Not at all Trouble relaxin = More than half the days Being so restless that it is hard to sit still: 0 = Not at all Becoming easily annoyed or irritable: 1 = Several days Feeling afraid as if something awful might happen: 1 = Several days Total HORACIO-7 score (0-4 normal; 5-9 mild; 10-14 moderate; 15-21 severe): 6 Source: Developed by Drs. Calvin Ba, Leyda West, Siddharth Catherine and colleagues, with an educational mata from [employer]. HORACIO-7 Assessment Billing HORACIO-7 Assessment Tool: HORACIO-7 Assessment 49992 Review of Systems Narrative Review of Systems - General: Reports feeling weak on her side prior to her nephrology visit. - Gastrointestinal: Reports incredible abdominal pain associated with Ozempic use. - Genitourinary: Reports feeling dehydrated. 10-point ROS reviewed and negative except as noted in HPI Physical exam (Primary Care) Vital Signs: Last Vital Signs Temp 97.7 F 04/03/25 10:02 Pulse 57 04/03/25 10:02 Resp 16 04/03/25 10:02 BP 132/58 L 04/03/25 10:02 Pulse Ox 99 04/03/25 10:02 Oxygen Delivery Method Room Air 04/03/25 10:02 BMI result Body Mass Index 37.6 Tobacco/Smoking Status: Tobacco use Status Tobacco use date assessed 03/13/25 04/03/25 10:04 Patient Tobacco Use Status Former Tobacco user 04/03/25 10:04 e-Cigarette/Vaping Use Never Used 04/03/25 10:04 PHQ-9: PHQ-9 Score PHQ-9: Total score 9 04/03/25 10:04 Depression Screening Interpretation: Negative Thrive Assessment: Date of Thrive Assessment Date Thrive assessed 03/06/25 04/03/25 10:04 Currently or been in a relationship where the following occur: No concerns reported Narrative Physical Exam General: Well-appearing, in no acute distress. Vital signs: Within normal limits. HEENT: Normocephalic, atraumatic. PERRLA, EOMI. Conjunctiva clear, sclera anicteric. Oropharynx clear, mucous membranes moist. TMs intact bilaterally. Neck: Supple, no lymphadenopathy, no thyromegaly, no JVD or carotid bruits. Cardiovascular: RRR, normal S1/S2, no murmurs, rubs, or gallops. Peripheral pulses 2+ and symmetric. No edema. Respiratory: Lungs clear to auscultation bilaterally, no wheezes, rales, or rhonchi. Normal effort. Abdomen: Soft, non-tender, non-distended. Normoactive bowel sounds. No hepatosplenomegaly, no masses. Reports abdominal pain associated with medication use. MSK: Full range of motion, no joint swelling or deformity. Normal gait. Skin: Warm, dry, intact. No rashes, lesions, or pallor. Reports dehydration. Neuro: Alert and oriented x3. Cranial nerves II-XII intact. Strength 5/5 throughout. Sensation intact. Reflexes 2+ symmetric. Normal coordination and gait. Psych: Appropriate mood and affect. Normal judgment and insight. Coding Level of Care Code Est Pt Level 3 (81320) Add On Problem Visit Only Diagnoses Diabetes type 2 E11.9 Chronic kidney disease N18.9 Kidney transplant recipient Z94.0 Hyperlipidemia E78.5 Primary hypertension I10 Hypertension type: primary hypertension Anemia of chronic disease D63.8 Depression F32.A Hepatitis C carrier B18.2 Chronic constipation K59.09 Additional Codes HORACIO-7 Assessment Billing - HORACIO-7 Assessment Tool: HORACIO-7 Assessment 30817 ([id number]) Assessment & Plan Assessment & Plan (1) Diabetes type 2: Code(s): E11.9 - Type 2 diabetes mellitus without complications Category: Medical (2) Chronic kidney disease: Code(s): N18.9 - Chronic kidney disease, unspecified Category: Medical (3) Kidney transplant recipient: Code(s): Z94.0 - Kidney transplant status Category: Surgical (4) Hyperlipidemia: Code(s): E78.5 - Hyperlipidemia, unspecified Category: Medical (5) Hypertension: Code(s): I10 - Essential (primary) hypertension Category: Medical Qualifiers: Hypertension type: primary hypertension Qualified Code(s): I10 - Essential (primary) hypertension (6) Anemia of chronic disease: Code(s): D63.8 - Anemia in other chronic diseases classified elsewhere Category: Medical (7) Depression: Code(s): F32.A - Depression, unspecified Category: Medical (8) Hepatitis C carrier: Code(s): B18.2 - Chronic viral hepatitis C Category: Medical (9) Chronic constipation: Code(s): K59.09 - Other constipation Category: Medical Plan Consent Patient was informed and verbally consented to the use of an ambient scribe for clinic note documentation during this visit. Plan 1. Type 2 Diabetes Mellitus - The patient is experiencing significant abdominal pain and dehydration as adverse effects of Ozempic. - A switch to Mounjaro (tirzepatide) is recommended, and this change will be managed by her cattle trader at her upcoming appointment on the . - Her current HbA1c is 7.1%, which is stable but has room for improvement. - Management of her diabetes medications will be deferred to the subspecialist. 2. Chronic Kidney Disease & Anemia - The patient's recent rise in creatinine is likely secondary to dehydration caused by her GLP-1 agonist medication. - Will reinforce the final operations technician's recommendation to increase water intake to at least five 16-ounce bottles per day. - Her immunosuppressive regimen of mycophenolate will be continued as per her final operations technician's plan. - For her anemia (Hgb 11.8), the patient will be advised to increase her dietary iron intake, with a handout provided. Oral iron supplements will be avoided to prevent constipation. - She will continue with her scheduled follow-up with nephrology in 8 weeks. 3. Hyperlipidemia - The patient's LDL cholesterol is 78 mg/dL, which is slightly above the target of less than 70 mg/dL. - She will continue her current dose of atorvastatin 40 mg. - Labs will be repeated in 3 to 6 months to reassess her LDL level, with a possible increase in her atorvastatin dose if the goal is not met. Discussion Notes I reviewed the patient's recent lab results with her, explaining that her hemoglobin of 11.8 indicates anemia related to her chronic kidney disease. We discussed managing this by increasing iron in her diet, and I will provide a handout to assist with this, noting we would avoid pills to prevent constipation. I explained that the recent increase in her creatinine is likely due to dehydration caused by Ozempic, and I reinforced her final operations technician's advice to significantly increase her water intake. We addressed her debilitating abdominal pain from Ozempic, and I concurred with the plan to switch to Mounjaro, a change that will be managed by her cattle trader at her upcoming appointment. Regarding her cholesterol, I noted that her LDL of 78 is slightly above our goal of below 70, and while no changes will be made to her atorvastatin today, we may increase the dose after rechecking labs in 3-6 months. I reassured her that her viral screenings were negative and the overall goal is maintenance and optimization of her health. Patient Instructions - It is very important to drink more water to avoid dehydration and protect your kidneys. Please aim to drink five 16-ounce bottles of water each day. - Continue taking your current medications as prescribed, including atorvastatin for cholesterol and your medications for your kidney transplant. - Your Ozempic is causing stomach pain and dehydration. Your cattle trader will discuss switching you to a new medicine called Mounjaro at your appointment on the . - To help with your mild anemia (low red blood cell count), try to eat more foods that are rich in iron, such as spinach, beans, and lentils. You will receive a handout with more food suggestions. - We will check your lab work again in 3 to 6 months to monitor your cholesterol. - Make sure to follow up with your kidney doctor in 8 weeks as they recommended. Medical Decision Making The patient is a 60-year-old female with a complex history including a kidney transplant, type 2 diabetes, hyperlipidemia, and anemia of chronic disease. The visit focused on reviewing recent specialist notes and lab data. The bentley issues identified are an acute kidney injury (elevated creatinine) likely due to dehydration from her current GLP-1 agonist, semaglutide, and intolerable abdominal pain from the same medication. Given that she has an endocrinology appointment scheduled for the , I will defer the direct management of her diabetes medications to the specialist. However, I concur with the final operations technician's recommendation to switch from semaglutide to tirzepatide, which may be better tolerated and offer improved glycemic control given her stable but suboptimal HbA1c of 7.1%. Her LDL of 78 on atorvastatin 40mg is slightly above the goal of <70. To avoid excessive medication changes at this time, I will continue the current dose and re-evaluate with repeat labs in 3-6 months, at which point a dose increase will be considered if necessary. Her mild anemia (Hgb 11.8) is chronic and related to her kidney disease; management will be conservatively focused on dietary iron counseling to avoid the side effect of constipation from oral supplements. The overall plan is one of coordination of care, supportive measures like hydration, and cautious, staged optimization of her chronic conditions. Total Time Statement 20 min Total time spent caring for the patient today includes pre-visit chart review, documentation, review of laboratory and diagnostic imaging results, medication reconciliation, medically necessary evaluation, counseling on diagnoses, care coordination, ordering appropriate tests and medications, review of tests performed by other providers, reporting test results to the patient, and communication with other healthcare providers.
[2025-04-03 10:02] VITALS: BP 132/58; PULSE 57; RESP 16; TEMP 36.5; O2SAT 99; BMI 37.6
--- OUTSIDE RECORDS SUMMARY | 2025-04-03 11:56 | XMS_ITS | Encounter Summary ---
Author Organization [facility] Address [address] [place] [address] Care Team Providers Care Industrial Staff Nurse Name Role Phone Debra Hills MD Primary Care Provider [phone] Reason for Referral * Therapy (Routine) - Authorized Specialty Diagnoses / Procedures Referred By Bonny meyer Referred To Contact Pulmonology Diagnoses Chronic obstructive pulmonary disease, unspecified COPD type (CMS/HCC V24, CMS/HCC V28) Asthma, unspecified asthma severity, unspecified whether complicated, unspecified whether persistent Procedures Pulmonary function testing: Carbon Monoxide Diffusing Capacity, Nitrogen Wash Out, Spirometry with Bronchodilator Rolanda Armstrong NP [address] [place] [address] [place] [address] Phone: tel: fax: [address] [phone] Phone: tel: Referral ID Status Reason Start Date Expiration Date V isits Requested Visits Authorized [id number] Authorized 02/22/2025 02/22/2026 1 1 Reason for Visit * Therapy (Routine) - Authorized Specialty Diagnoses / Procedures Referred By Bonny meyer Referred To Contact Pulmonology Diagnoses Chronic obstructive pulmonary disease, unspecified COPD type (CMS/HCC V24, CMS/HCC V28) Asthma, unspecified asthma severity, unspecified whether complicated, unspecified whether persistent Procedures Pulmonary function testing: Carbon Monoxide Diffusing Capacity, Nitrogen Wash Out, Spirometry with Bronchodilator Rolanda Armstrong NP [address] [place] [address] [place] [address] Phone: tel: fax: [place] [id number] [place] [address] Phone: tel: Referral ID Status Reason Start Date Expiration Date V isits Requested Visits Authorized [id number] Authorized 02/22/2025 02/22/2026 1 1 Encounter Details Date Type Department Care Team (Latest Contact Info) Description 04/03/2025 11:56 AM EST Hospital Encounter [facility] Pulmonary [address] [place] [address] Chronic obstructive pulmonary disease, unspecified COPD type (CMS/HCC V24, CMS/HCC V28); Asthma, unspecified asthma severity, unspecified whether complicated, unspecified whether persistent Social History Tobacco Use Types Packs/Day Years [...] Care Team (Late st Contact Info) Description 05/29/2025 10:30 AM EST Office Visit Orthopedic Surgery - [place] [address] [address] Chandni Angulo MD [address] [phone] 06/28/2025 9:15 AM EDT Ancillary Procedure [facility] [address] [place] [address] 07/11/2025 12:30 PM EDT Office Visit Internal Medicine - [facility] [address] [facility] [place] [phone] Debra Hills MD [address] [place] Scheduled Orders Name Type Priority Associated Diagnoses Orde r Schedule Pulmonary function testing: Carbon Monoxide Diffusing Capacity, Nitrogen Wash Out, Spirometry with Bronchodilator PFT Routine Chronic obstructive pulmonary disease, unspecified COPD type ([facility] V24, [facility] V28) Asthma, unspecified asthma severity, unspecified whether complicated, unspecified whether persistent Once for 1 Occurrences starting 04/03/2025 until 04/03/2025 documented as of this encounter Visit Diagnoses Diagnosis Chronic obstructive pulmonary disease, unspecified COPD type ([facility] V24, [facility] V28) Asthma, unspecified asthma severity, unspecified whether complicated, unspecified whether persistent documented in this encounter Administered Medications Inactive Administered Medications - up to 3 most recent administrations Medication Order MAR Action Action Date Dose Rate Site albuterol 2.5 mg /3 mL (0.083 %) nebulizer solution 2.5 mg 2.5 mg, nebulization, Once, On Wed04/03/25 at 1300, For 1 dose Given 04/03/2025 12:56 PM EST 2.5 mg documented in this encounter Orders Medications Ordered That Orestes ht Not Have Been Administered Count Last Ordered Date First Ordered Date albuterol 2.5 mg /3 mL (0.08 3 %) nebulizer solution 2.5 mg 1 04/03/2025 documented in this encounter Care Teams Industrial Staff Nurse Relationship Specialty Start Date End Date Debra Hills MD [address] [place] [place] [address] [place] PCP - General Internal Medicine 12/08/24 documented as of this encounter
--- OUTSIDE RECORDS SUMMARY | 2025-04-03 12:58 | XMS_ITS | Encounter Summary ---
Author Organization [facility] Address [address] [place] [address] Care Team Providers Care Director External Communications Name Role Phone Debra Hills MD Primary Care Provider [phone] Encounter Details Date Type Department Care Team (Late st Contact Info) Description 02/14/2025 Results Follow-Up [facility] - [address] [facility] [address] [place] [address] Rolanda Armstrong NP [address] [place] [address] [place] [phone] Social History Tobacco Use Types Packs/Day Years [...] AM EST Office Visit Orthopedic Surgery - [place] [address] [facility] [address] [place] [phone] Chandni Angulo MD 175 [facility] [address] [place] [phone] 06/28/2025 9:15 AM EDT Ancillary Procedure [facility] - [facility] [address] [place] [address] 07/11/2025 12:30 PM EDT Office Visit Internal Medicine - [facility] [address] [place], [place] [phone] Debra Hills MD [address] [place], [place] documented as of this encounter Visit Diagnoses Not on filedocumented in this encounter Care Teams Director External Communications Relationship Specialty Start Date End Date eDbra Hills MD [address] [place], [place] PCP - General Internal Medicine 12/08/24 documented as of this encounter
--- OUTSIDE RECORDS SUMMARY | 2025-04-03 12:58 | XMS_ITS | Encounter Summary ---
Author Organization [facility] Address 100 [facility] 200 [place] [address] Phone Care Team Providers Care Associate Technician Name Role Phone Gaurav Bennett Primary Care Provider [phone] Reason for Visit * Reason Comments Med Refill Encounter Details Date Type Department Care Team (Late st Contact Info) Description 05/20/2023 Refill [facility] 100 [facility] 200 [place] [phone] Jez Balbuena MD [address] [place] [address], [address] [address] Long-term drug therapy Social History Tobacco Use [...] therapy documented in this encounter Care Teams Associate Technician Relationship Specialty Start Date End Date Gaurav Bennett [address] [place] [address] PCP - General Internal Medicine 03/07/21 documented as of this encounter
--- OUTSIDE RECORDS SUMMARY | 2025-04-03 12:58 | XMS_ITS | Encounter Summary ---
Author Organization [facility] Address [facility] 200 [place] [address] Phone Care Team Providers Care Compensation Supervisor Name Role Phone Gaurav Bennett Primary Care Provider [phone] Reason for Visit * Reason Comments Med Refill Encounter Details Date Type Department Care Team (Late st Contact Info) Description 02/25/2021 Refill [facility] 200 [place] [phone] Capo Dawson MD [address] [place] [address] Social History Tobacco Use Types Packs/Day Years [...] on filedocumented in this encounter Care Teams Compensation Supervisor Relationship Specialty Start Date End Date Gaurav Bennett [address] [place] [address] PCP - General Internal Medicine 03/07/21 documented as of this encounter
--- OUTSIDE RECORDS SUMMARY | 2025-04-03 12:58 | XMS_ITS | Encounter Summary ---
Author Organization [facility] Address 100 [facility] 200 [place] [address] Phone Care Team Providers Care Liquid Hydrogen Plant Operator Name Role Phone Gaurav Bennett Primary Care Provider [phone] Reason for Visit * Reason Comments Med Refill Encounter Details Date Type Department Care Team ([facility] st Contact Info) Description 06/15/2022 Refill [facility] 100 [facility] 200 [place] [phone] Blu Montero MD 35[address] [facility] 204 [place] [phone] Social History Tobacco Use Types Packs/Day Years [...] on filedocumented in this encounter Care Teams Liquid Hydrogen Plant Operator Relationship Specialty Start Date End Date Gaurav Bennett [address] [place] [phone] PCP - General Internal Medicine 03/07/21 documented as of this encounter
--- OUTSIDE RECORDS SUMMARY | 2025-04-03 12:58 | XMS_ITS | Encounter Summary ---
Author Organization [facility] Address [facility] 200 [place] [address] Phone Care Team Providers Care Sustainability Analyst Name Role Phone Gaurav Bennett Primary Care Provider [phone] Reason for Visit * Reason Comments Med Refill Encounter Details Date Type Department Care Team (Late st Contact Info) Description 10/09/2020 Refill [facility] 200 [place] [phone] Capo Dawson MD [address] [place] [address] Social History Tobacco Use Types Packs/Day Years [...] on filedocumented in this encounter Care Teams Sustainability Analyst Relationship Specialty Start Date End Date Gaurav Bennett [address] [place] [address] PCP - General Internal Medicine 03/07/21 documented as of this encounter
--- OUTSIDE RECORDS SUMMARY | 2025-04-03 12:58 | XMS_ITS | Clinical Summary ---
Author Organization [facility] Address 100 [facility] 20 0 [place] [address] Phone Care Team Providers Care Stone Sandblaster Name Role Phone YordanlucyOxanak Primary Care Provider [phone] Allergies Active Allergy Reactions Criticality Noted Date [...] BEDTIME. 07/28/19 22 Active ergocalciferol 1.25 MG (84355 UT) capsule TAKE ONE CAPSULE BY MOUTH [...] AM EST) Hemoglobin A1C 9.3(H) (4.0-5.6) % [facility] Comment: MONITORING: In known diabetic patients, hemoglobin A1c targets should be discussed with health care provider. DIAGNOSTIC USE: The [place] Diabetes Association (ADA) and the World Health [...] Supplement 1 Testing performed or reported by [facility], a Service of [facility], [address] [place] [address] Hector Swain MD, Research And Development Director [facility]# [id number] Blood specimen (specimen) Venous blood / Unknown 05/07/2022 10:26 AM EST 05/07/2022 10:38 AM EST Harper Stanley MD LAB BLOOD ORDERABLES Final Resu lt [facility] from Last 3 Months or Most Recently Relevant to Health Maintenance Insurance [facility] MCR ([id number]) Formerly [facility] Dual SNP ([id number]) Care Teams Stone Sandblaster Relationship Specialty Start Date End Date Gaurav Bennett [address] [place] [address] PCP - General Internal Medicine 03/07/21
--- OUTSIDE RECORDS SUMMARY | 2025-04-03 12:59 | XMS_ITS | Clinical Summary ---
Author Organization Patient Business Ser [facility] Address [address] [place] [address] Care Team Providers Care Tombstone Polisher Name Role Phone Debra Hills MD Primary Care Provider [phone] Allergies Active Allergy Reactions Criticality Noted Date [...] 1 5 Active traZODone (DESYREL) 50 mg tabletIndication s:Primary insomnia Take 1 tablet (50 mg total) by mouth at bedtime as needed for sleep. 30 tablet 5 Active amLODIPine (NORVASC) 10 mg tabletIndication s:Hypertension, essential Take 1 tablet (10 mg total) by mouth 1 (one) time each day. 30 each 5 5 07/05/19 26 Active atorvastatin (LIPITOR) 40 mg tablet Take 1 tablet (40 mg total) by mouth 1 (one) time each day. 90 tablet 1 5 Active carvediloL (COREG) 6.25 mg tabletIndication s:Hypertension, unspecified type Take 1 tablet (6.25 mg total) by mouth 2 (two) times a day with meals. 60 each 11 5 02/23/20 26 Active Active Problems Problem Noted Date Diagnosed [...] She was encouraged to follow-up with her gang ripsaw operator for further evaluation. Orders: Pulmonary function testing: [...] Encounters Date Type Department Care Team Description 04/03/2025 11:56 AM EST Hospital Encounter [facility] Pulmonary [address] [place] [phone] Chronic obstructive pulmonary disease, unspecified COPD type ([facility]/HCC V24, CMS/HCC V28); Asthma, unspecified asthma severity, unspecified whether complicated, unspecified whether persistent 03/13/2025 Telephone Internal [facility] [address] [place], [place] [address] [place], [place] [phone] Debra Hills MD 03/13/2025 Telephone Internal Medicine [facility] [address] [place], [place] [address] [place], [place] [phone] Debra Hills MD 03/09/2025 Telephone Internal Medicine [facility] [address] [place] [address] Debra Hills MD 02/27/2025 10:45 AM EST Office Visit Orthopedic Surgery - [place] [address] [place] [phone] Chandni Angulo MD Arthritis of carpometacarpal (CMC) joint of left thumb (Primary Dx) 02/22/2025 10:40 AM EST Office Visit [facility] Cardiology [facility] [address] [place] [phone] Rolanda Armstrong NP Hypertension, unspecified type (Primary Dx); Restrictive lung disease; Chronic obstructive pulmonary disease, unspecified COPD type ([facility] V24, [facility] V28); Asthma, unspecified asthma severity, unspecified whether complicated, unspecified whether persistent; Coronary artery disease involving igiugig coronary artery of igiugig heart without angina pectoris; Hyperlipidemia, unspecified hyperlipidemia type 02/20/2025 Telephone Internal [facility] [place] [facility] [place], [place] [phone] Debra Hills MD 02/14/2025 Results Follow-Up [facility] [place] [address] [place] [phone] Rolanda Armstrong NP 02/06/2025 9:00 AM EST Ancillary Procedure [facility] [place] [address] [facility] [address] [place] [phone] Hypertension, unspecified type; Coronary artery disease involving igiugig coronary artery of igiugig heart without angina pectoris 01/09/2025 12:30 PM EDT Evaluation [facility] Occup[facility] [address] [phone] aFvian Sepulveda, OT Dupuytren's contracture (Primary Dx) 01/05/2025 9:00 AM EDT Office Visit Internal Medicine - [facility] [address] [place] [phone] Jeronimo Mckinley, SATURNINO Hypertension, essential (Primary Dx); Primary insomnia 01/02/2025 12:00 PM EDT Treatment [facility] [address] [phone] Rina Simon, BETANCOURT Dupuytren's contracture (Primary Dx) from Last 3 [...] GRAFT VENOUS OTHER SURGICAL HISTORY 01/20/2022 PROCEDURE: FL SLCTV CATHJ 3RD+ ORD SLCTV THRC/BRCH/CPHLC BRNCH OTHER SURGICAL HISTORY 01/20/2022 PROCEDURE: [place] SLCTV CATHJ EA 2ND+ ORD ABDL PEL/LXTR [...] 06/24/2015 DX:Anxiety Asthma 12/28/2017 DX:Asthma AV fistula ([facility] V24) 06/01/20172022 Carpal tunnel syndrome 10/28/2017 DX:Carpal tunnel syndrome Chronic obstructive pulmonar y disease ([facility] V24, [facility] V28) 08/23/2017 DX:Chronic obstructive pulm onary disease (HCC) CKD (chronic kidney disease) stage V requiring chronic dialysis ([facility] V24, [facility] V28) 06/01/2017 DX:CKD (chronic kidney disea se) stage V requiring chronic dialysis (HCC) Depression 08/05/2017 DX:Depression Gastroparesis 05/11/2012 DX:Gastroparesis Hypertension 09/27/2017 DX:Hypertension Insomnia 04/23/2017 DX:Insomnia Obesity hypoventilation synd alexa ([facility] V24, [facility] V28) 02/04/2016 DX:Obesity hypoventilation syndrome (HCC) Restrictive lung disease 08/23/2017 DX:Rest rictive lung disease Type 2 diabetes mellitus wit h neurological manifestations ([facility] V24, [facility] V28) 03/31/2018 DX:Type 2 diabetes mellitus with neurological manifestations (HCC) Type 2 diabetes mellitus wit h renal manifestations ([facility] V24, [facility] V28) 03/17/2005 DX:Type 2 diabetes mellitus with renal manifestations (HCC) Vitamin D deficiency 05/19/2012 DX:Vitamin D deficiency Severe obesity with body mas s index (BMI) of 35.0 to 39.9 with comorbidity ([facility] V24, [facility] V28) 08/23/2017 DX:Severe obesity with body mass index (BMI) of 35.0 to 39.9 with comorbidity (HCC) Proliferative diabetic retin opathy ([facility] V24, [facility] V28) 12/25/2021 DX:Proliferative diabetic r etinopathy (HCC); COMMENT: dr minerva Romero Type 2 diabetes mellitus wit h eye manifestations ([facility] V24, [facility] V28) 12/25/2021 DX:Type 2 diabetes mellitus with eye manifestations (HCC) Retinal hemorrhage Hepatitis C Family History Medical History Relation Name Comments Heart failure Father Other: Diabetes, [place] Father Heart failure Mother Stroke Mother Relation [...] AM EST Office Visit Orthopedic Surgery - [place] [facility] 140 [place] [phone] Chandni Angulo MD 175 [facility] 140 [place] [phone] 06/28/2025 9:15 AM EDT Ancillary Procedure [facility] - [facility] [address] [facility] [address] [place] [phone] 07/11/2025 12:30 PM EDT Office Visit [facility] - [facility] 305 [place] [address] Debra Hills MD [address] [place] [address] Health Maintenance Due Date Last Done Comments [...] Procedure Name Priority Date/Time Associated Diagnosis Comments FL ARTHROCENTESIS/ASPIRA TION/INJECTION SMALL JOINT/BURSA WO U/S GUIDANCE Routine 02/27/2025 10:45 AM EST Arthritis of carpometacarpal (CMC) joint of left thumb EXTERNAL CLINICAL LAB 02/26/2025 EXTERNAL CLINICAL LAB 02/23/2025 ECG 12-LEAD Routine 02/22/2025 11:56 AM EST Hypertension, unspecified type TRANSTHORACIC ECHOCARDIOGRAM (TTE) COMPLETE Routine 02/06/2025 9:21 AM EST Hypertension, unspecified type Coronary artery disease involving igiugig coronary artery of igiugig heart without angina pectoris EXTERNAL CLINICAL LAB 01/04/2025 EXTERNAL CLINICAL LAB 01/03/2025 COLONOSCOPY Routine 09/11/2024 10:33 AM EDT Personal history of other colon polyps Family history of colonic polyps LIPID PANEL WITH REFLEX TO DIRECT LDL Routine 08/09/2024 8:02 AM EDT Coronary artery disease involving igiugig coronary artery of igiugig heart without angina pectoris Bilateral carotid artery stenosis Hyperlipidemia, unspecified hyperlipidemia type EXTERNAL DIABETIC RETINA EYE EXAM 04/13/2024 ANNUAL BMP BLOOD TEST Routine 06/10/2023 DIABETES FOOT EXAM Routine 02/04/2023 HEPATITIS C SCREENING Routine 07/28/2022 HEMOGLOBIN A1C Routine 07/28/2022 URINE ALBUMIN CREATININE RATIO Routine 12/19/2005 PAP SMEAR Routine 04/22/2004 from Last 3 Months or Most Recently Relevant to Health Maintenance Results * FL ARTHROCENTESIS/ASPIRATION/INJECTION SMALL JOINT/BURSA WO U/S GUIDANCE (02/27/2025 10:45 AM EST) Chandni Light MD - 02/27/2025 10:45 AM EST Chandni [...] with patient: Verbal Pre-procedure timeout performed: yes Chandni Angulo MD IN CLINIC/BEDSIDE ORDERABLES Final Result * External clinical lab (02/26/2025) Only the most recent of4 resultswithin the time period is included. Provider [facility] LAB BLOOD ORDERABLES Fin al Result * ECG 12 lead (02/22/2025 11:56 AM EST) Ventricular Rate ECG 70 BPM GEMUSE Atrial Rate 70 BPM GEMUSE P-R Interval 166 ms GEMUSE QRS Duration 88 ms GEMUSE Q-T Interval 378 ms GEMUSE QTc 408 ms GEMUSE P Wave [place] 40 degrees GEMUSE R [place] 45 degrees GEMUSE T [place] 98 degrees GEMUSE ECG Interpretation Normal sinus rhythm Confirmed by MD Gary, Lalo ([id number]) on 02/22/2025 5:00:19 PM GEMUSE 02/22/2025 10:4 0 AM EST 02/22/2025 5:00 PM EST us Rolanda Armstrong NUT FEEDER ECG ORDERABLES Edited Result - Final GEMUSE * (ABNORMAL) TRANSTHORACIC ECHOCARDIOGRAM (TTE) COMPLETE (02/06/2025 9:21 AM EST) Left Atrium Minor [place] 5.7 cm CV PACS Left Atrium Major [place] 6.1 cm CV PACS LA Area Sys [...] Diameter 1.9 cm CV PACS LVOT Mean Perdo 0.6 m/s CV PACS LVOT Mean Grad [...] S' 10 cm/s CV PACS RA Major [place] 6.1 cm CV PACS RA Major [place] Index 3.1 2.2 - 2.8 cm/m2 CV [...] us Rolanda Armstrong NP CV ECHO PROCEDURES [facility] al Result * COLONOSCOPY Anesthesia - MAC; [facility] ENDOSCOPY (09/11/2024 10:33 AM EDT) Anatomical [...] surveillance. Narrative 09/11/2024 10:34 AM EDT [facility] GI Patient Name: Bridget Patel [...] retroflexion views. Procedure Code(s): --- Professional --- 51730, Colonoscopy, flexible; with removal of tumor(s), polyp(s), or other lesion(s) by snare technique Diagnosis Code(s): --- Professional --- Z86.010, Personal history of colonic polyps D12.3, Benign neoplasm of transverse colon (hepatic flexure or splenic flexure) CPT copyright 2020 [employer]. All rights reserved. The codes documented in this report are preliminary and upon surgical coder review may be revised to meet current compliance requirements. Everton Husain MD 09/11/2024 10:34:57 AM This report has been signed electronically.Everton Husain MD Number of Addenda: 0 Note Initiated On: 09/11/2024 10:03 AM Scope In: Scope Out: Endoscopy Department at [facility] - [address] [place] [phone] Procedure Note Everton Husain MD - 09/11/2024 [facility] GI Patient Name: Bridget Patel [...] retroflexion views. Procedure Code(s): --- Professional --- 27841, Colonoscopy, flexible; with removal of tumor(s), polyp(s), or other lesion(s) by snare technique Diagnosis Code(s): --- Professional --- Z86.010, Personal history of colonic polyps D12.3, Benign neoplasm of transverse colon (hepatic flexure or splenic flexure) CPT copyright 2020 [employer]. All rights reserved. The codes documented in this report are preliminary and upon surgical coder reviewmay be revised to meet current compliance requirements. Everton Husain MD 09/11/2024 10:34:57 AM This report has been signed electronically.Everton Husain MD Number of Addenda: 0 Note Initiated On: 09/11/2024 10:03 AM Scope In: Scope Out: Endoscopy Department at [facility] - [address] [place] [phone] IMPRESSION: - Two 7 to 11 mm [...] LAB CHEMISTRY METHOD 08/09/2024 8:55 AM EDT [facility] Triglycerides 150 0 - 150 mg/dL LAB CHEMISTRY METHOD 08/09/2024 8:55 AM [facility] HDL 43 >=40 mg/dL LAB CHEMISTRY METHOD 08/09/2024 8:55 AM EDT [facility] LDL Calculated 52 0 - 100 mg/dL LAB CHEMISTRY METHOD 08/09/2024 8:55 AM EDT [facility] VLDL Cholesterol Jacek 30 mg/dL LAB CHEMISTRY METHOD 08/09/2024 8:55 AM T [facility] Non HDL Chol. (LDL+VLDL) 82 <145 mg/dL LAB CHEMISTRY METHOD 08/09/2024 8:55 AM [facility] Chol/HDL Ratio 2.9 0.0 - 4.4 LAB CHEMISTRY METHOD 08/09/2024 8:55 AM EDT [facility] Blood Venous blood specimen / Unknown Venipuncture / Unknown 08/09/2024 8:02 AM EDT 08/09/2024 8:15 AM EDT us Rolanda Armstrong NUT FEEDER LAB BLOOD ORDERABLES F inal Result [facility] [address] [place] [address], [place] [phone] * External Diabetic Retina Eye Exam Report (04/13/2024) Anatomical Region Laterality Modality Ultrasound us Provider [facility] IMG US PROCEDURES Final Result * Annual BMP Blood Test (06/10/2023) [facility] Annual BMP Blood Test abstracted Historical Provider HEALTH MAINTENANCE Final Result * Diabetes Foot Exam (02/04/2023) [facility] Diabetes: Annual Foot Exam abstracted Result [facility] Provider HEALTH MAINTENANCE Final Result * Hepatitis C Screening (07/28/2022) Pathologist [facility] Hepatitis C Screening abstracted Result [facility] Provider HEALTH MAINTENANCE Final Result * (ABNORMAL) Hemoglobin A1c (07/28/2022) Pathologist [facility] Hemoglobin A1C 9.7(A) <=6.5 % Blood Venous blood specimen / Unknown Result [facility] Provider LAB BLOOD ORDERABLES Lurdes l Result * Urine Albumin Creatinine Ratio (12/19/2005) Pathologist [facility] Urine Albumin Creatinine Ratio abstracted Result [facility] Provider HEALTH MAINTENANCE Final Result * Pap Smear (04/22/2004) Pathologist [facility] Pap smear abstracted, no interpretation Result [facility] Provider HEALTH MAINTENANCE Final Result from Last 3 Months or Most Recently Relevant to Health Maintenance Insurance [employer] MEDICARE Member Subscriber Plan / Payer (Ef fective 2019-Present) Name:BRIDGET PATEL Relation to Subscriber:Self Name:Bridget Patel I Payer ID:[id number] Group ID:[id number] Type:Not on file Address: [place] [address] [address] [phone] Care Teams Tombstone Polisher Relationship Specialty Start Date End Date Debra Hills MD [address] [place] [phone] PCP - General Internal Medicine 12/08/24
--- OUTSIDE RECORDS SUMMARY | 2025-04-03 12:59 | XMS_ITS | Clinical Summary ---
Author Organization [facility] Address [address] [place] [address] Care Team Providers Care Project Consultant Name Role Phone Pcp, No Primary Care [...] 2024-2 6 season) 2024 06/27/2020, 05/16/2020 Insurance [facility] MEDICARE OUT OF NETWORK Care Teams Project Consultant Relationship Specialty Start Date End Date Pcp, No [address] [place] [address] PCP - General 07/08/21
--- OUTSIDE RECORDS SUMMARY | 2025-04-03 12:59 | XMS_ITS | Encounter Summary ---
Author Organization [facility] Address [facility] 200 [place] [address] Phone Care Team Providers Care Mortgage Sales Manager Name Role Phone Gaurav Bennett Primary Care Provider Reason for Visit * Reason Comments Med Refill Encounter Details Date Type Department Care Team (Late st Contact Info) Description 06/27/2021 Refill [facility] 100 [facility] 200 [place] [phone] Capo Dawson MD [address] [place] [phone] Social History Tobacco Use Types Packs/Day Years [...] on filedocumented in this encounter Care Teams Mortgage Sales Manager Relationship Specialty Start Date End Date Gaurav Bennett [address] [place] [address] PCP - General Internal Medicine 03/07/21 documented as of this encounter
--- OUTSIDE RECORDS SUMMARY | 2025-04-03 12:59 | XMS_ITS | Encounter Summary ---
Author Organization [facility] Address [facility] 200 [place] [address] Phone Care Team Providers Care Fruit Or Nut Crops Farm Manager Name Role Phone Gaurav Bennett Primary Care Provider [phone] Reason for Visit * Reason Comments Med Refill Encounter Details Date Type Department Care Team (Late st Contact Info) Description 11/28/2021 Refill [facility] 200 [place] [phone] Capo Dawson MD [address] [place] [address] Social History Tobacco Use Types Packs/Day Years [...] on filedocumented in this encounter Care Teams Fruit Or Nut Crops Farm Manager Relationship Specialty Start Date End Date Gaurav Bennett [address] [place] [address] PCP - General Internal Medicine 03/07/21 documented as of this encounter
--- OUTSIDE RECORDS SUMMARY | 2025-04-03 12:59 | XMS_ITS | Patient Health Record ---
[facility] Address [address] [place] [address] Care Team Providers Care [facility] Healer Name Role Phone Navdeep Montoya Primary Care Provider Hi Gleason Unavailable [phone] Allergies Allergen (clinical drug ingredient) Drug/Non Drug Allergy documented on EMR Reaction Allergy Type Onset Date Status lamotrigine LaMICtal Shingles like Drug Allergy A ctive Results Component Value Reference Range Notes HEMOGLOBIN A1C (GLYCOHEMOGLO BIN) Reviewed date:12/14/2024 09:04:39 AM Interpretation: Performing Lab: Notes/Report: HEMOGLOBIN A1C % (HH) 7.0 HEMOGLOBIN A1C (GLYCOHEMOGLO BIN) Reviewed date:03/15/2025 09:01:47 AM Interpretation: Performing Lab: Notes/Report: HEMOGLOBIN A1C % (HH) 7.2 Reason For Referral No Information Medications Medication SIG (Take, Route, Frequency, Duration) Notes Start Date End Date Status Insulin Degludec FlexTouch 100 UNIT/ML Subcutaneous; Duration: 57 Days Active amLODIPine Besylate 5 MG Oral; Duration: 60 Days Active Ozempic (1 MG/DOSE) 4 MG/3ML Subcutaneous; Duration: 28 Days Active Insulin Aspart FlexPen 100 UNIT/ML Subcutaneous; Duration: 27 Days Active Mycophenolate Sodium 180 MG Oral; Duration: 30 Days Acti ve Envarsus XR 1 MG Oral; Duration: 30 Days Active Carvedilol 6.25 MG Oral; Duration: 90 Days Active Envarsus XR 4 MG as directed Orally Active Extra Depth Orthopedic Shoes (1 Pair) with Customized Heat Molded Multidensity Innersoles (3 Pair) Dx: NIDDM/Polyneuropathy (E11.42), Hammertoe Foot Deformity (M20.41,M20.42), Preulcerative Skin Lesion(s) (L85.1); Duration: 365 days 12/14/2024 Active Gabapentin 100 MG Oral; Duration: 90 Days Active Immunizations Vaccine Route Administration Date Status Comme nts Influenza Unknown 12/06/2023 Administered Influenza Unknown 01/18/2025 Administered Social History Tobacco Use: Social History [...] Problem Acquired hammer toe of right foot (8927899861347066 ) Other hammer toe(s) (acquired), right foot (M20.41) Active confirmed Problem Acquired hammer toe of left foot (6533117772384511 ) Other hammer toe(s) (acquired), left foot (M20.42) Active confirmed Problem Polyneuropathy due to type 2 diabetes mellitus (817585333) Type 2 diabetes mellitus with diabetic polyneuropathy (E11.42) Active confirmed Vital Signs Blood pressure diastolic 55 mm Hg 03/15/2025 Height 5ft 3in in 03/15/2025 Blood pressure systolic 136 mm Hg 03/15/2025 Weight 210 lbs 03/15/2025 BMI 37.2 kg/m2 03/15/2025 Procedures Procedure Date Ordered Date Performed Result Body Sit e 56621-IVRIYFO NAIL, 1-5 12/14/2024 N/A 97826-SEUT SKIN LESIONS, 2 TO 4 12/14/2024 N/A W2492-[id number] DYSTROPHIC NAILS ANY # 12/14/2024 N/A 25077-MBERMVG NAIL, 1-5 03/15/2025 N/A 97582-AZHR SKIN LESIONS, 2 TO 4 03/15/2025 N/A V7152-PUZPYLET DYSTROPHIC NAILS ANY # 03/15/2025 N/A Encounters Encounter Location Date Provider Diagnosis [facility] [address] [place] [id number] 12/14/2024 Hijourdan SilvermanJaclyn Type 2 diabetes mellitus with diabetic polyneuropathy E11.42 ; Tinea unguium B35.1 ; Other hammer toe(s) (acquired), right foot M20.41 and Other hammer toe(s) (acquired), left foot M20.[address] [address] 03/15/2025 Hijourdan Anaya Type 2 diabetes mellitus with diabetic polyneuropathy E11.42 ; Tinea unguium B35.1 ; Other hammer toe(s) (acquired), right foot M20.41 and Other hammer toe(s) (acquired), left foot M20.[address] [address] 12/14/2024 Hi Anaya Assessments Encounter Date Diagnosis (ICD Code) Assessment Notes Treatment Notes Treatment Clinical Notes Section Notes 12/14/2024 Tinea unguium (ICD-10 - B35.1) 12/14/2024 Type 2 diabetes mellitus with diabetic polyneuropathy (ICD-10 - E11.42) 03/15/2025 Tinea unguium (ICD-10 - B35.1) 03/15/2025 Type 2 diabetes mellitus with diabetic polyneuropathy (ICD-10 - E11.42) 12/14/2024 Other hammer toe(s) (acquired), right foot (ICD-10 - M20.41) Patient Educated with: DIABETIC FOOT CARE INSTRUCTIONS. pdf (DIABETIC FOOT CARE INSTRUCTIONS. pdf) 03/15/2025 Other hammer toe(s) (acquired), right foot (ICD-10 - M20.41) 03/15/2025 Other hammer toe(s) (acquired), left foot (ICD-10 - M20.42) 12/14/2024 Other hammer toe(s) (acquired), left foot (ICD-10 - M20.42) Plan Of Treatment Pending Test Test Name Order Date [id number] NAIL, 1-12/14/2024 13051-CHVYVTX NAIL, 1-03/15/2025 98947-YORI SKIN LESIONS, 2 TO 4 03/15/20 25 19858-SDVE SKIN LESIONS, 2 TO 4 12/15/19 25 X0354-DZXIHXKL DYSTROPHIC NAILS ANY # [id number] DYSTROPHIC NAILS ANY # Next Appt Details Provider Name:Hi Anaya , 06/13/2025 09:00:00 AM, [address] [facility], [address], [place], [address], Insurance Providers Payer Name Payer Address Payer Phone Subscriber Number Group Number Insured Name Patient Relationship to Insured Coverage Start Date Coverage End Date [facility] Adv [address] [place] [id number] Bridget Patel Self - patient is the insured Medical (General) History Medical History History ICD Code Anemia Anxiety asthma Depression type II diabetes Glaucoma High Blood Pressure Kidney disease nerve disorder Numbness ulcer Measles Mumps Chicken pox Surgical History Surgery Date(Month/Year) cataract surgery, both eyes 01/2024
== END 2025-04-03 10:16 | disposition home or self-care (01) ==
LOC: HO.HMCFMS 09:58
PROVIDERS: PCP Internal Medicine; Visit Provider Student in an Organized Health Care Education/Training Program
DX: E11.9 Type 2 diabetes mellitus without complications (principal); I12.9 Hypertensive chronic kidney disease with stage 1 through stage 4 chronic kidney disease, or unspecified chronic kidney disease; N18.9 Chronic kidney disease, unspecified; Z94.0 Kidney transplant status; E78.5 Hyperlipidemia, unspecified; D63.8 Anemia in other chronic diseases classified elsewhere; F32.A Depression, unspecified; B18.2 Chronic viral hepatitis C; K59.09 Other constipation

== ENCOUNTER → 2025-04-03 09:57 | Outpatient (BNVA) | payer OTHER, SELFPAY | PROVIDERS: PCP Internal Medicine; Visit Provider Student in an Organized Health Care Education/Training Program | DX: E11.22 Type 2 diabetes mellitus with diabetic chronic kidney disease (principal); N18.9 Chronic kidney disease, unspecified; E78.5 Hyperlipidemia, unspecified; D63.1 Anemia in chronic kidney disease; F32.A Depression, unspecified; B18.2 Chronic viral hepatitis C; Z94.0 Kidney transplant status; Z79.899 Other long term (current) drug therapy | CPT/HCPCS: 96127; 99212 ==